=== PATIENT | male | born 1940 | race Caucasian/White ===

== ENCOUNTER 2017-02-16 12:34 | Inpatient (IN) | payer MEDICARE ==
[2017-02-16] MEDS ORDERED: PROVENTIL IH ONE (12:46)
[2017-02-16] MEDS ORDERED: LASIX IV ONE ×2 (12:48→18:33)
--- NOTE | 2017-02-16 12:56 | Emergency Department Report ---
ED Shortness of Breath HPI - General Chief Complaint: Dyspnea/Respdistress Stated Complaint: rachana - History of Present Illness Initial Comments: 76-year-old male here with recent visit from urgent care sent emergently ever after chest x-ray in the urgent care. Patient appears tachypneic and in respiratory distress. MD Complaint: shortness of breath -: Sudden Consistency: constant Improves With: nothing, oxygen, rest Worsens With: exertion - Related Data Home Medications Medication Instructions Recorded Confirmed Last Taken Unobtainable 02/17/17 02/17/17 Unknown Allergies Allergy/AdvReac Type Severity Reaction Status Date / Time Unable to Assess Allergy Unverified 02/17/17 02:33 ED Review of Systems ROS: Stated complaint: rachana Other details as noted in HPI Comment: Unobtainable due to pts medical conditions ED Past Medical Hx - Medications Home Medications: Home Medications Medication Instructions Recorded Confirmed Last Taken Type Unobtainable 02/17/17 02/17/17 Unknown History ED Physical Exam - General Limitations: Physical Limitation General appearance: alert, other (respiratory distress) - Head Head exam: Present: atraumatic, normocephalic - Eye Eye exam: Present: normal appearance - ENT ENT exam: Present: normal exam - Neck Neck exam: Present: normal inspection, tenderness - Respiratory Respiratory exam: Present: respiratory distress, rales, accessory muscle use, decreased breath sounds - Cardiovascular Cardiovascular Exam: Present: regular rate, normal heart sounds - GI/Abdominal GI/Abdominal exam: Present: soft. Absent: distended, tenderness - Extremities Exam Extremities exam: Present: pedal edema (3+) - Neurological Exam Neurological exam: Present: alert, oriented X3 ED Course Vital Signs 02/16/17 02/16/17 02/16/17 12:49 12:50 13:01 Temperature Pulse Rate 100 H 88 Pulse Rate [ Bilateral Upper Lobe] Respiratory 41 H 32 H 20 Rate Respiratory Rate [Bilateral Upper Lobe] Blood Pressure 121/73 Blood Pressure [Left] O2 Sat by Pulse 90 Oximetry 02/16/17 02/16/17 02/16/17 13:15 13:17 13:23 Temperature Pulse Rate 90 Pulse Rate [ 88 90 Bilateral Upper Lobe] Respiratory 27 H Rate Respiratory 30 H 29 H Rate [Bilateral Upper Lobe] Blood Pressure 121/73 Blood Pressure [Left] O2 Sat by Pulse Oximetry 02/16/17 02/16/17 02/16/17 13:26 13:31 13:45 Temperature 98.4 F Pulse Rate 89 100 H 97 H Pulse Rate [ Bilateral Upper Lobe] Respiratory 28 H 35 H 39 H Rate Respiratory Rate [Bilateral Upper Lobe] Blood Pressure 121/73 121/73 121/73 Blood Pressure [Left] O2 Sat by Pulse 78 L 96 Oximetry 02/16/17 02/16/17 02/16/17 14:00 14:15 14:31 Temperature Pulse Rate 89 96 H 99 H Pulse Rate [ Bilateral Upper Lobe] Respiratory 28 H 32 H 31 H Rate Respiratory Rate [Bilateral Upper Lobe] Blood Pressure 125/81 125/81 125/81 Blood Pressure [Left] O2 Sat by Pulse 100 100 82 L Oximetry 02/16/17 02/16/17 02/16/17 14:45 15:00 15:15 Temperature Pulse Rate 91 H 77 81 Pulse Rate [ Bilateral Upper Lobe] Respiratory 26 H 11 L 21 Rate Respiratory Rate [Bilateral Upper Lobe] Blood Pressure 120/83 125/77 125/77 Blood Pressure [Left] O2 Sat by Pulse 90 81 L Oximetry 02/16/17 02/16/17 02/16/17 15:30 15:45 16:00 Temperature Pulse Rate 72 90 84 Pulse Rate [ Bilateral Upper Lobe] Respiratory 20 35 H 22 Rate Respiratory Rate [Bilateral Upper Lobe] Blood Pressure 114/71 114/71 116/78 Blood Pressure [Left] O2 Sat by Pulse 53 L 81 L 54 L Oximetry 02/16/17 02/16/17 02/16/17 16:15 16:30 16:45 Temperature Pulse Rate 82 85 83 Pulse Rate [ Bilateral Upper Lobe] Respiratory 27 H 30 H 12 Rate Respiratory Rate [Bilateral Upper Lobe] Blood Pressure 116/78 119/82 119/82 Blood Pressure [Left] O2 Sat by Pulse 95 100 Oximetry 02/16/17 02/16/17 02/16/17 17:01 17:15 17:30 Temperature Pulse Rate 94 H 86 88 Pulse Rate [ Bilateral Upper Lobe] Respiratory 48 H 39 H 47 H Rate Respiratory Rate [Bilateral Upper Lobe] Blood Pressure 118/67 118/67 105/76 Blood Pressure [Left] O2 Sat by Pulse 89 100 100 Oximetry 02/16/17 02/16/17 02/16/17 17:45 18:00 18:15 Temperature Pulse Rate 82 85 86 Pulse Rate [ Bilateral Upper Lobe] Respiratory 22 36 H 38 H Rate Respiratory Rate [Bilateral Upper Lobe] Blood Pressure 105/76 108/70 105/76 Blood Pressure [Left] O2 Sat by Pulse 100 98 100 Oximetry 02/16/17 02/16/17 02/16/17 18:30 18:45 19:00 Temperature Pulse Rate 84 74 84 Pulse Rate [ Bilateral Upper Lobe] Respiratory 39 H 24 37 H Rate Respiratory Rate [Bilateral Upper Lobe] Blood Pressure 115/76 115/76 122/78 Blood Pressure [Left] O2 Sat by Pulse 97 100 Oximetry 02/16/17 02/16/17 02/16/17 19:15 19:30 19:45 Temperature Pulse Rate 80 78 81 Pulse Rate [ Bilateral Upper Lobe] Respiratory 25 H 31 H 27 H Rate Respiratory Rate [Bilateral Upper Lobe] Blood Pressure 122/78 115/73 115/73 Blood Pressure [Left] O2 Sat by Pulse Oximetry 02/16/17 02/16/17 02/16/17 20:00 20:15 20:30 Temperature Pulse Rate 85 88 91 H Pulse Rate [ Bilateral Upper Lobe] Respiratory 26 H 33 H 39 H Rate Respiratory Rate [Bilateral Upper Lobe] Blood Pressure 121/83 121/83 127/91 Blood Pressure [Left] O2 Sat by Pulse 100 Oximetry 02/16/17 02/16/17 02/16/17 20:45 20:50 21:00 Temperature 98.4 F Pulse Rate 89 88 83 Pulse Rate [ Bilateral Upper Lobe] Respiratory 38 H 26 H 27 H Rate Respiratory Rate [Bilateral Upper Lobe] Blood Pressure 127/91 123/80 Blood Pressure 115/73 [Left] O2 Sat by Pulse 100 100 100 Oximetry 02/16/17 02/16/17 02/16/17 21:15 21:30 21:45 Temperature Pulse Rate 87 78 80 Pulse Rate [ Bilateral Upper Lobe] Respiratory 41 H 19 22 Rate Respiratory Rate [Bilateral Upper Lobe] Blood Pressure 123/80 118/79 118/79 Blood Pressure [Left] O2 Sat by Pulse 100 100 100 Oximetry 02/16/17 02/16/17 02/16/17 22:03 22:15 22:30 Temperature Pulse Rate 81 80 86 Pulse Rate [ Bilateral Upper Lobe] Respiratory 27 H 26 H 28 H Rate Respiratory Rate [Bilateral Upper Lobe] Blood Pressure 118/79 118/79 125/83 Blood Pressure [Left] O2 Sat by Pulse 100 100 100 Oximetry 02/16/17 02/16/1702/16/17 22:45 23:00 23:15 Temperature Pulse Rate 86 84 78 Pulse Rate [ Bilateral Upper Lobe] Respiratory 38 H 26 H 20 Rate Respiratory Rate [Bilateral Upper Lobe] Blood Pressure 125/83 123/83 123/83 Blood Pressure [Left] O2 Sat by Pulse 100 100 100 Oximetry 02/16/17 02/16/17 02/16/17 23:31 23:33 23:41 Temperature Pulse Rate 81 85 83 Pulse Rate [ Bilateral Upper Lobe] Respiratory 32 H 28 H 28 H Rate Respiratory Rate [Bilateral Upper Lobe] Blood Pressure 123/83 120/84 120/84 Blood Pressure [Left] O2 Sat by Pulse 100 100 100 Oximetry 02/16/17 02/17/17 02/17/17 23:51 00:00 00:11 Temperature Pulse Rate 82 72 75 Pulse Rate [ Bilateral Upper Lobe] Respiratory 28 H 19 25 H Rate Respiratory Rate [Bilateral Upper Lobe] Blood Pressure 120/84 115/52 115/52 Blood Pressure [Left] O2 Sat by Pulse 100 100 100 Oximetry 02/17/17 02/17/17 02/17/17 00:21 00:30 00:41 Temperature Pulse Rate 75 73 77 Pulse Rate [ Bilateral Upper Lobe] Respiratory 22 21 26 H Rate Respiratory Rate [Bilateral Upper Lobe] Blood Pressure 115/52 107/66 107/66 Blood Pressure [Left] O2 Sat by Pulse 100 100 100 Oximetry 02/17/17 02/17/17 00:51 01:00 Temperature Pulse Rate 82 84 Pulse Rate [ Bilateral Upper Lobe] Respiratory 25 H 29 H Rate Respiratory Rate [Bilateral Upper Lobe] Blood Pressure 107/66 110/74 Blood Pressure [Left] O2 Sat by Pulse 100 Oximetry ED Medical Decision Making - Lab Data Result diagrams: 02/21/17 07:55 02/21/17 07:55 Lab Results 02/16/17 02/16/17 02/16/17 Range/Units 13:28 13:44 13:44 WBC 10.2 (4.5-11.0) K/mm3 RBC 3.92 (3.65-5.03) M/mm3 Hgb 10.9 L (11.8-15.2) gm/dl Hct 34.1 L (35.5-45.6) % MCV 87 (84-94) fl MCH 28 (28-32) pg MCHC 32 (32-34) % RDW 17.6 H (13.2-15.2) % Plt Count 241 (140-440) K/mm3 Lymph % (Auto) 7.1 L (13.4-35.0) % [place] % (Auto) 8.1 H (0.0-7.3) % Eos % (Auto) 0.0 (0.0-4.3) % Baso % (Auto) 0.2 (0.0-1.8) % Lymph # 0.7 L (1.2-5.4) K/mm3 [place] # 0.8 (0.0-0.8) K/mm3 Eos # 0.0 (0.0-0.4) K/mm3 Baso # 0.0 (0.0-0.1) K/mm3 Add Manual Diff Total Counted Seg Neutrophils % 84.6 H (40.0-70.0) % Seg Neuts % (Manual) (40.0-70.0) % Band Neutrophils % % Lymphocytes % (Manual) (13.4-35.0) % Reactive Lymphs % (Man) % Monocytes % (Manual) (0.0-7.3) % Eosinophils % (Manual) (0.0-4.3) % Basophils % (Manual) (0.0-1.8) % Metamyelocytes % % Myelocytes % % Promyelocytes % % Blast Cells % % Nucleated RBC % Seg Neutrophils # 8.6 H (1.8-7.7) K/mm3 Seg Neutrophils # Man (1.8-7.7) K/mm3 Band Neutrophils # K/mm3 Lymphocytes # (Manual) (1.2-5.4) K/mm3 Abs React Lymphs (Man) K/mm3 Monocytes # (Manual) (0.0-0.8) K/mm3 Eosinophils # (Manual) (0.0-0.4) K/mm3 Basophils # (Manual) (0.0-0.1) K/mm3 Metamyelocytes # K/mm3 Myelocytes # K/mm3 Promyelocytes # K/mm3 Blast Cells # K/mm3 WBC Morphology Hypersegmented Neuts Hyposegmented Neuts Hypogranular Neuts Smudge Cells Toxic Granulation Toxic Vacuolation Dohle Bodies Pelger-Huet Anomaly Mary Rods Platelet Estimate Clumped Platelets Plt Clumps, EDTA Large Platelets Giant Platelets Platelet Satelliting Plt Morphology Comment RBC Morphology Dimorphic RBCs Polychromasia Hypochromasia Poikilocytosis Anisocytosis Microcytosis Macrocytosis Spherocytes Pappenheimer Bodies Sickle Cells Target Cells Tear Drop Cells Ovalocytes Helmet Cells [place] Bodies [place] Rings [place] Cells Bite Cells Crenated Cell Elliptocytes Acanthocytes (Spur) Rouleaux Hemoglobin C Crystals Schistocytes Malaria parasites Cecil Bodies Hem Pathologist Commnt PT 16.4 H (12.2-14.9) Sec. INR 1.33 H (0.87-1.13) APTT (24.2-36.6) Sec. Heparin Anti-Xa Level (0.3-0.7) U.I./ml POC ABG pH 7.407 (7.35-7.45) POC ABG pCO2 29.8 L (35-45) POC ABG pO2 544 H (80-105) POC ABG HCO3 18.8 POC ABG Total CO2 20 POC ABG O2 Sat 100 POC ABG Base Excess -6 FiO2 100 % Sodium (137-145) mmol/L Potassium (3.6-5.0) mmol/L Chloride (98-107) mmol/L Carbon Dioxide (22-30) mmol/L Anion Gap mmol/L BUN (9-20) mg/dL Creatinine (0.8-1.5) mg/dL Estimated GFR ml/min BUN/Creatinine Ratio % Glucose (75-100) mg/dL Lactic Acid (0.7-2.0) mmol/L Calcium (8.4-10.2) mg/dL Total Bilirubin (0.1-1.2) mg/dL AST (5-40) units/L ALT (7-56) units/L Alkaline Phosphatase (35-129) units/L Total Creatine Kinase (55-170) units/L CK-MB (CK-2) (0.0-4.0) ng/mL CK-MB (CK-2) Rel Index (0-4) Troponin T (0.00-0.029) ng/mL NT-Pro-B Natriuret Pep (0-900) pg/mL Total Protein (6.3-8.2) g/dL Albumin (3.9-5) g/dL Albumin/Globulin Ratio % Triglycerides (2-149) mg/dL Cholesterol (50-199) mg/dL LDL Cholesterol Direct (50-130) mg/dL HDL Cholesterol (40-59) mg/dL Cholesterol/HDL Ratio % Urine Color (Yellow) Urine Turbidity (Clear) Urine pH (5.0-7.0) Ur Specific [place] (1.003-1.030) Urine Protein (Negative) mg/dL Urine Glucose (UA) (Negative) mg/dL Urine Ketones (Negative) mg/dL Urine Blood (Negative) Urine Nitrite (Negative) Urine Bilirubin (Negative) Urine Urobilinogen (<2.0) mg/dL Ur Leukocyte Esterase (Negative) Urine WBC (Auto) (0.0-6.0) /HPF Urine RBC (Auto) (0.0-6.0) /HPF Hyaline Casts /LPF Urine Mucus /HPF 02/16/17 02/16/17 02/16/17 Range/Units 13:44 13:44 13:44 WBC (4.5-11.0) K/mm3 RBC (3.65-5.03) M/mm3 Hgb (11.8-15.2) gm/dl Hct (35.5-45.6) % MCV (84-94) fl MCH (28-32) pg MCHC (32-34) % RDW (13.2-15.2) % Plt Count (140-440) K/mm3 Lymph % (Auto) (13.4-35.0) % [place] % (Auto) (0.0-7.3) % Eos % (Auto) (0.0-4.3) % Baso % (Auto) (0.0-1.8) % Lymph # (1.2-5.4) K/mm3 [place] # (0.0-0.8) K/mm3 Eos # (0.0-0.4) K/mm3 Baso # (0.0-0.1) K/mm3 Add Manual Diff Total Counted Seg Neutrophils % (40.0-70.0) % Seg Neuts % (Manual) (40.0-70.0) % Band Neutrophils % % Lymphocytes % (Manual) (13.4-35.0) % Reactive Lymphs % (Man) % Monocytes % (Manual) (0.0-7.3) % Eosinophils % (Manual) (0.0-4.3) % Basophils % (Manual) (0.0-1.8) % Metamyelocytes % % Myelocytes % % Promyelocytes % % Blast Cells % % Nucleated RBC % Seg Neutrophils # (1.8-7.7) K/mm3 Seg Neutrophils # Man (1.8-7.7) K/mm3 Band Neutrophils # K/mm3 Lymphocytes # (Manual) (1.2-5.4) K/mm3 Abs React Lymphs (Man) K/mm3 Monocytes # (Manual) (0.0-0.8) K/mm3 Eosinophils # (Manual) (0.0-0.4) K/mm3 Basophils # (Manual) (0.0-0.1) K/mm3 Metamyelocytes # K/mm3 Myelocytes # K/mm3 Promyelocytes # K/mm3 Blast Cells # K/mm3 WBC Morphology Hypersegmented Neuts Hyposegmented Neuts Hypogranular Neuts Smudge Cells Toxic Granulation Toxic Vacuolation Dohle Bodies Pelger-Huet Anomaly Mary Rods Platelet Estimate Clumped Platelets Plt Clumps, EDTA Large Platelets Giant Platelets Platelet Satelliting Plt Morphology Comment RBC Morphology Dimorphic RBCs Polychromasia Hypochromasia Poikilocytosis Anisocytosis Microcytosis Macrocytosis Spherocytes Pappenheimer Bodies Sickle Cells Target Cells Tear Drop Cells Ovalocytes Helmet Cells [place] Bodies [place] Rings [place] Cells Bite Cells Crenated Cell Elliptocytes Acanthocytes (Spur) Rouleaux Hemoglobin C Crystals Schistocytes Malaria parasites Cecil Bodies Hem Pathologist Commnt PT (12.2-14.9) Sec. INR (0.87-1.13) APTT (24.2-36.6) Sec. Heparin Anti-Xa Level (0.3-0.7) U.I./ml POC ABG pH (7.35-7.45) POC ABG pCO2 (35-45) POC ABG pO2 (80-105) POC ABG HCO3 POC ABG Total CO2 POC ABG O2 Sat POC ABG Base Excess FiO2 % Sodium 138 (137-145) mmol/L Potassium 4.9 (3.6-5.0) mmol/L Chloride 102.1 (98-107) mmol/L Carbon Dioxide 15 L (22-30) mmol/L Anion Gap 26 mmol/L BUN 61 H (9-20) mg/dL Creatinine 1.8 H (0.8-1.5) mg/dL Estimated GFR 37 ml/min BUN/Creatinine Ratio 33.88 % Glucose 121 H (75-100) mg/dL Lactic Acid 4.10 H* (0.7-2.0) mmol/L Calcium 8.5 (8.4-10.2) mg/dL Total Bilirubin 1.30 H (0.1-1.2) mg/dL AST 40 (5-40) units/L ALT 45 (7-56) units/L Alkaline Phosphatase 117 (35-129) units/L Total Creatine Kinase (55-170) units/L CK-MB (CK-2) (0.0-4.0) ng/mL CK-MB (CK-2) Rel Index (0-4) Troponin T 0.860 H* (0.00-0.029) ng/mL NT-Pro-B Natriuret Pep 32686 H (0-900) pg/mL Total Protein 7.5 (6.3-8.2) g/dL Albumin 3.5 L (3.9-5) g/dL Albumin/Globulin Ratio 0.9 % Triglycerides 86 (2-149) mg/dL Cholesterol 192 (50-199) mg/dL LDL Cholesterol Direct 131 H (50-130) mg/dL HDL Cholesterol 44 (40-59) mg/dL Cholesterol/HDL Ratio 4.36 % Urine Color (Yellow) Urine Turbidity (Clear) Urine pH (5.0-7.0) Ur Specific [place] (1.003-1.030) Urine Protein (Negative) mg/dL Urine Glucose (UA) (Negative) mg/dL Urine Ketones (Negative) mg/dL Urine Blood (Negative) Urine Nitrite (Negative) Urine Bilirubin (Negative) Urine Urobilinogen (<2.0) mg/dL Ur Leukocyte Esterase (Negative) Urine WBC (Auto) (0.0-6.0) /HPF Urine RBC (Auto) (0.0-6.0) /HPF Hyaline Casts /LPF Urine Mucus /HPF 02/16/17 02/17/17 02/17/17 Range/Units Unknown 10:24 10:24 WBC 9.4 (4.5-11.0) K/mm3 RBC 4.01 (3.65-5.03) M/mm3 Hgb 10.7 L (11.8-15.2) gm/dl Hct 33.2 L (35.5-45.6) % MCV 83 L (84-94) fl MCH 27 L (28-32) pg MCHC 32 (32-34) % RDW 17.4 H (13.2-15.2) % Plt Count 242 (140-440) K/mm3 Lymph % (Auto) (13.4-35.0) % [place] % (Auto) (0.0-7.3) % Eos % (Auto) (0.0-4.3) % Baso % (Auto) (0.0-1.8) % Lymph # (1.2-5.4) K/mm3 [place] # (0.0-0.8) K/mm3 Eos # (0.0-0.4) K/mm3 Baso # (0.0-0.1) K/mm3 Add Manual Diff Complete Total Counted 100 Seg Neutrophils % (40.0-70.0) % Seg Neuts % (Manual) 91.0 H (40.0-70.0) % Band Neutrophils % 0 % Lymphocytes % (Manual) 5.0 L (13.4-35.0) % Reactive Lymphs % (Man) 0 % Monocytes % (Manual) 4.0 (0.0-7.3) % Eosinophils % (Manual) 0 (0.0-4.3) % Basophils % (Manual) 0 (0.0-1.8) % Metamyelocytes % 0 % Myelocytes % 0 % Promyelocytes % 0 % Blast Cells % 0 % Nucleated RBC % Not Reportable Seg Neutrophils # (1.8-7.7) K/mm3 Seg Neutrophils # Man 8.6 H (1.8-7.7) K/mm3 Band Neutrophils # 0.0 K/mm3 Lymphocytes # (Manual) 0.5 L (1.2-5.4) K/mm3 Abs React Lymphs (Man) 0.0 K/mm3 Monocytes # (Manual) 0.4 (0.0-0.8) K/mm3 Eosinophils # (Manual) 0.0 (0.0-0.4) K/mm3 Basophils # (Manual) 0.0 (0.0-0.1) K/mm3 Metamyelocytes # 0.0 K/mm3 Myelocytes # 0.0 K/mm3 Promyelocytes # 0.0 K/mm3 Blast Cells # 0.0 K/mm3 WBC Morphology Not Reportable Hypersegmented Neuts Not Reportable Hyposegmented Neuts Not Reportable Hypogranular Neuts Not Reportable Smudge Cells Not Reportable Toxic Granulation Not Reportable Toxic Vacuolation Not Reportable Dohle Bodies Not Reportable Pelger-Huet Anomaly Not Reportable Mary Rods Not Reportable Platelet Estimate Not Reportable Clumped Platelets Not Reportable Plt Clumps, EDTA Not Reportable Large Platelets Not Reportable Giant Platelets Not Reportable Platelet Satelliting Not Reportable Plt Morphology Comment Not Reportable RBC Morphology Not Reportable Dimorphic RBCs Not Reportable Polychromasia Not Reportable Hypochromasia Not Reportable Poikilocytosis 2+ Anisocytosis Not Reportable Microcytosis Not Reportable Macrocytosis Not Reportable Spherocytes 1+ Pappenheimer Bodies Not Reportable Sickle Cells Not Reportable Target Cells Not Reportable Tear Drop Cells Not Reportable Ovalocytes 1+ Helmet Cells Not Reportable [place] Bodies Not Reportable [place] Rings Not Reportable [place] Cells Not Reportable Bite Cells Not Reportable Crenated Cell Not Reportable Elliptocytes 1+ Acanthocytes (Spur) Not Reportable Rouleaux Not Reportable Hemoglobin C Crystals Not Reportable Schistocytes 1+ Malaria parasites Not Reportable Cecil Bodies Not Reportable Hem Pathologist Commnt No PT (12.2-14.9) Sec. INR (0.87-1.13) APTT (24.2-36.6) Sec. Heparin Anti-Xa Level (0.3-0.7) U.I./ml POC ABG pH (7.35-7.45) POC ABG pCO2 (35-45) POC ABG pO2 (80-105) POC ABG HCO3 POC ABG Total CO2 POC ABG O2 Sat POC ABG Base Excess FiO2 % Sodium 145 D (137-145) mmol/L Potassium 3.7 D (3.6-5.0) mmol/L Chloride 105.7 (98-107) mmol/L Carbon Dioxide 22 D (22-30) mmol/L Anion Gap 21 mmol/L BUN 58 H (9-20) mg/dL Creatinine 1.3 (0.8-1.5) mg/dL Estimated GFR 54 ml/min BUN/Creatinine Ratio 44.61 % Glucose 97 (75-100) mg/dL Lactic Acid (0.7-2.0) mmol/L Calcium 8.3 L (8.4-10.2) mg/dL Total Bilirubin 1.00 (0.1-1.2) mg/dL AST 30 (5-40) units/L ALT 32 (7-56) units/L Alkaline Phosphatase 94 (35-129) units/L Total Creatine Kinase (55-170) units/L CK-MB (CK-2) (0.0-4.0) ng/mL CK-MB (CK-2) Rel Index (0-4) Troponin T (0.00-0.029) ng/mL NT-Pro-B Natriuret Pep (0-900) pg/mL Total Protein 6.5 (6.3-8.2) g/dL Albumin 3.0 L (3.9-5) g/dL Albumin/Globulin Ratio 0.9 % Triglycerides (2-149) mg/dL Cholesterol (50-199) mg/dL LDL Cholesterol Direct (50-130) mg/dL HDL Cholesterol (40-59) mg/dL Cholesterol/HDL Ratio % Urine Color Yellow (Yellow) Urine Turbidity Clear (Clear) Urine pH 5.0 (5.0-7.0) Ur Specific [place] 1.013 (1.003-1.030) Urine Protein 30 mg/dl (Negative) mg/dL Urine Glucose (UA) Neg (Negative) mg/dL Urine Ketones Neg (Negative) mg/dL Urine Blood Sm (Negative) Urine Nitrite Neg (Negative) Urine Bilirubin Neg (Negative) Urine Urobilinogen < 2.0 (<2.0) mg/dL Ur Leukocyte Esterase Neg (Negative) Urine WBC (Auto) 1.0 (0.0-6.0) /HPF Urine RBC (Auto) 2.0 (0.0-6.0) /HPF Hyaline Casts 1 /LPF Urine Mucus Few /HPF 02/17/17 02/17/17 02/17/17 Range/Units 10:24 10:24 10:24 WBC (4.5-11.0) K/mm3 RBC (3.65-5.03) M/mm3 Hgb (11.8-15.2) gm/dl Hct (35.5-45.6) % MCV (84-94) fl MCH (28-32) pg MCHC (32-34) % RDW (13.2-15.2) % Plt Count (140-440) K/mm3 Lymph % (Auto) (13.4-35.0) % [place] % (Auto) (0.0-7.3) % Eos % (Auto) (0.0-4.3) % Baso % (Auto) (0.0-1.8) % Lymph # (1.2-5.4) K/mm3 [place] # (0.0-0.8) K/mm3 Eos # (0.0-0.4) K/mm3 Baso # (0.0-0.1) K/mm3 Add Manual Diff Total Counted Seg Neutrophils % (40.0-70.0) % Seg Neuts % (Manual) (40.0-70.0) % Band Neutrophils % % Lymphocytes % (Manual) (13.4-35.0) % Reactive Lymphs % (Man) % Monocytes % (Manual) (0.0-7.3) % Eosinophils % (Manual) (0.0-4.3) % Basophils % (Manual) (0.0-1.8) % Metamyelocytes % % Myelocytes % % Promyelocytes % % Blast Cells % % Nucleated RBC % Seg Neutrophils # (1.8-7.7) K/mm3 Seg Neutrophils # Man (1.8-7.7) K/mm3 Band Neutrophils # K/mm3 Lymphocytes # (Manual) (1.2-5.4) K/mm3 Abs React Lymphs (Man) K/mm3 Monocytes # (Manual) (0.0-0.8) K/mm3 Eosinophils # (Manual) (0.0-0.4) K/mm3 Basophils # (Manual) (0.0-0.1) K/mm3 Metamyelocytes # K/mm3 Myelocytes # K/mm3 Promyelocytes # K/mm3 Blast Cells # K/mm3 WBC Morphology Hypersegmented Neuts Hyposegmented Neuts Hypogranular Neuts Smudge Cells Toxic Granulation Toxic Vacuolation Dohle Bodies Pelger-Huet Anomaly Mary Rods Platelet Estimate Clumped Platelets Plt Clumps, EDTA Large Platelets Giant Platelets Platelet Satelliting Plt Morphology Comment RBC Morphology Dimorphic RBCs Polychromasia Hypochromasia Poikilocytosis Anisocytosis Microcytosis Macrocytosis Spherocytes Pappenheimer Bodies Sickle Cells Target Cells Tear Drop Cells Ovalocytes Helmet Cells [place] Bodies [place] Rings [place] Cells Bite Cells Crenated Cell Elliptocytes Acanthocytes (Spur) Rouleaux Hemoglobin C Crystals Schistocytes Malaria parasites Cecil Bodies Hem Pathologist Commnt PT (12.2-14.9) Sec. INR (0.87-1.13) APTT (24.2-36.6) Sec. Heparin Anti-Xa Level (0.3-0.7) U.I./ml POC ABG pH (7.35-7.45) POC ABG pCO2 (35-45) POC ABG pO2 (80-105) POC ABG HCO3 POC ABG Total CO2 POC ABG O2 Sat POC ABG Base Excess FiO2 % Sodium (137-145) mmol/L Potassium (3.6-5.0) mmol/L Chloride (98-107) mmol/L Carbon Dioxide (22-30) mmol/L Anion Gap mmol/L BUN (9-20) mg/dL Creatinine (0.8-1.5) mg/dL Estimated GFR ml/min BUN/Creatinine Ratio % Glucose (75-100) mg/dL Lactic Acid 1.60 (0.7-2.0) mmol/L Calcium (8.4-10.2) mg/dL Total Bilirubin (0.1-1.2) mg/dL AST (5-40) units/L ALT (7-56) units/L Alkaline Phosphatase (35-129) units/L Total Creatine Kinase 205 H (55-170) units/L CK-MB (CK-2) 7.5 H (0.0-4.0) ng/mL CK-MB (CK-2) Rel Index 3.6 (0-4) Troponin T 0.877 H* (0.00-0.029) ng/mL NT-Pro-B Natriuret Pep (0-900) pg/mL Total Protein (6.3-8.2) g/dL Albumin (3.9-5) g/dL Albumin/Globulin Ratio % Triglycerides (2-149) mg/dL Cholesterol (50-199) mg/dL LDL Cholesterol Direct (50-130) mg/dL HDL Cholesterol (40-59) mg/dL Cholesterol/HDL Ratio % Urine Color (Yellow) Urine Turbidity (Clear) Urine pH (5.0-7.0) Ur Specific [place] (1.003-1.030) Urine Protein (Negative) mg/dL Urine Glucose (UA) (Negative) mg/dL Urine Ketones (Negative) mg/dL Urine Blood (Negative) Urine Nitrite (Negative) Urine Bilirubin (Negative) Urine Urobilinogen (<2.0) mg/dL Ur Leukocyte Esterase (Negative) Urine WBC (Auto) (0.0-6.0) /HPF Urine RBC (Auto) (0.0-6.0) /HPF Hyaline Casts /LPF Urine Mucus /HPF 02/17/17 02/17/17 02/17/17 Range/Units 17:04 17:11 17:12 WBC (4.5-11.0) K/mm3 RBC (3.65-5.03) M/mm3 Hgb 10.8 L (11.8-15.2) gm/dl Hct 33.5 L (35.5-45.6) % MCV (84-94) fl MCH (28-32) pg MCHC (32-34) % RDW (13.2-15.2) % Plt Count 251 (140-440) K/mm3 Lymph % (Auto) (13.4-35.0) % [place] % (Auto) (0.0-7.3) % Eos % (Auto) (0.0-4.3) % Baso % (Auto) (0.0-1.8) % Lymph # (1.2-5.4) K/mm3 [place] # (0.0-0.8) K/mm3 Eos # (0.0-0.4) K/mm3 Baso # (0.0-0.1) K/mm3 Add Manual Diff Total Counted Seg Neutrophils % (40.0-70.0) % Seg Neuts % (Manual) (40.0-70.0) % Band Neutrophils % % Lymphocytes % (Manual) (13.4-35.0) % Reactive Lymphs % (Man) % Monocytes % (Manual) (0.0-7.3) % Eosinophils % (Manual) (0.0-4.3) % Basophils % (Manual) (0.0-1.8) % Metamyelocytes % % Myelocytes % % Promyelocytes % % Blast Cells % % Nucleated RBC % Seg Neutrophils # (1.8-7.7) K/mm3 Seg Neutrophils # Man (1.8-7.7) K/mm3 Band Neutrophils # K/mm3 Lymphocytes # (Manual) (1.2-5.4) K/mm3 Abs React Lymphs (Man) K/mm3 Monocytes # (Manual) (0.0-0.8) K/mm3 Eosinophils # (Manual) (0.0-0.4) K/mm3 Basophils # (Manual) (0.0-0.1) K/mm3 Metamyelocytes # K/mm3 Myelocytes # K/mm3 Promyelocytes # K/mm3 Blast Cells # K/mm3 WBC Morphology Hypersegmented Neuts Hyposegmented Neuts Hypogranular Neuts Smudge Cells Toxic Granulation Toxic Vacuolation Dohle Bodies Pelger-Huet Anomaly Mary Rods Platelet Estimate Clumped Platelets Plt Clumps, EDTA Large Platelets Giant Platelets Platelet Satelliting Plt Morphology Comment RBC Morphology Dimorphic RBCs Polychromasia Hypochromasia Poikilocytosis Anisocytosis Microcytosis Macrocytosis Spherocytes Pappenheimer Bodies Sickle Cells Target Cells Tear Drop Cells Ovalocytes Helmet Cells [place] Bodies [place] Rings [place] Cells Bite Cells Crenated Cell Elliptocytes Acanthocytes (Spur) Rouleaux Hemoglobin C Crystals Schistocytes Malaria parasites Cecil Bodies Hem Pathologist Commnt PT 16.7 H (12.2-14.9) Sec. INR 1.36 H (0.87-1.13) APTT 36.0 (24.2-36.6) Sec. Heparin Anti-Xa Level (0.3-0.7) U.I./ml POC ABG pH (7.35-7.45) POC ABG pCO2 (35-45) POC ABG pO2 (80-105) POC ABG HCO3 POC ABG Total CO2 POC ABG O2 Sat POC ABG Base Excess FiO2 % Sodium (137-145) mmol/L Potassium (3.6-5.0) mmol/L Chloride (98-107) mmol/L Carbon Dioxide (22-30) mmol/L Anion Gap mmol/L BUN (9-20) mg/dL Creatinine (0.8-1.5) mg/dL Estimated GFR ml/min BUN/Creatinine Ratio % Glucose (75-100) mg/dL Lactic Acid (0.7-2.0) mmol/L Calcium (8.4-10.2) mg/dL Total Bilirubin (0.1-1.2) mg/dL AST (5-40) units/L ALT (7-56) units/L Alkaline Phosphatase (35-129) units/L Total Creatine Kinase 258 H (55-170) units/L CK-MB (CK-2) 6.9 H (0.0-4.0) ng/mL CK-MB (CK-2) Rel Index 2.6 (0-4) Troponin T 0.775 H* (0.00-0.029) ng/mL NT-Pro-B Natriuret Pep (0-900) pg/mL Total Protein (6.3-8.2) g/dL Albumin (3.9-5) g/dL Albumin/Globulin Ratio % Triglycerides (2-149) mg/dL Cholesterol (50-199) mg/dL LDL Cholesterol Direct (50-130) mg/dL HDL Cholesterol (40-59) mg/dL Cholesterol/HDL Ratio % Urine Color (Yellow) Urine Turbidity (Clear) Urine pH (5.0-7.0) Ur Specific [place] (1.003-1.030) Urine Protein (Negative) mg/dL Urine Glucose (UA) (Negative) mg/dL Urine Ketones (Negative) mg/dL Urine Blood (Negative) Urine Nitrite (Negative) Urine Bilirubin (Negative) Urine Urobilinogen (<2.0) mg/dL Ur Leukocyte Esterase (Negative) Urine WBC (Auto) (0.0-6.0) /HPF Urine RBC (Auto) (0.0-6.0) /HPF Hyaline Casts /LPF Urine Mucus /HPF 02/17/17 02/18/17 02/18/17 Range/Units 22:45 02:20 21:50 WBC (4.5-11.0) K/mm3 RBC (3.65-5.03) M/mm3 Hgb (11.8-15.2) gm/dl Hct (35.5-45.6) % MCV (84-94) fl MCH (28-32) pg MCHC (32-34) % RDW (13.2-15.2) % Plt Count (140-440) K/mm3 Lymph % (Auto) (13.4-35.0) % [place] % (Auto) (0.0-7.3) % Eos % (Auto) (0.0-4.3) % Baso % (Auto) (0.0-1.8) % Lymph # (1.2-5.4) K/mm3 [place] # (0.0-0.8) K/mm3 Eos # (0.0-0.4) K/mm3 Baso # (0.0-0.1) K/mm3 Add Manual Diff Total Counted Seg Neutrophils % (40.0-70.0) % Seg Neuts % (Manual) (40.0-70.0) % Band Neutrophils % % Lymphocytes % (Manual) (13.4-35.0) % Reactive Lymphs % (Man) % Monocytes % (Manual) (0.0-7.3) % Eosinophils % (Manual) (0.0-4.3) % Basophils % (Manual) (0.0-1.8) % Metamyelocytes % % Myelocytes % % Promyelocytes % % Blast Cells % % Nucleated RBC % Seg Neutrophils # (1.8-7.7) K/mm3 Seg Neutrophils # Man (1.8-7.7) K/mm3 Band Neutrophils # K/mm3 Lymphocytes # (Manual) (1.2-5.4) K/mm3 Abs React Lymphs (Man) K/mm3 Monocytes # (Manual) (0.0-0.8) K/mm3 Eosinophils # (Manual) (0.0-0.4) K/mm3 Basophils # (Manual) (0.0-0.1) K/mm3 Metamyelocytes # K/mm3 Myelocytes # K/mm3 Promyelocytes # K/mm3 Blast Cells # K/mm3 WBC Morphology Hypersegmented Neuts Hyposegmented Neuts Hypogranular Neuts Smudge Cells Toxic Granulation Toxic Vacuolation Dohle Bodies Pelger-Huet Anomaly Mary Rods Platelet Estimate Clumped Platelets Plt Clumps, EDTA Large Platelets Giant Platelets Platelet Satelliting Plt Morphology Comment RBC Morphology Dimorphic RBCs Polychromasia Hypochromasia Poikilocytosis Anisocytosis Microcytosis Macrocytosis Spherocytes Pappenheimer Bodies Sickle Cells Target Cells Tear Drop Cells Ovalocytes Helmet Cells [place] Bodies [place] Rings [place] Cells Bite Cells Crenated Cell Elliptocytes Acanthocytes (Spur) Rouleaux Hemoglobin C Crystals Schistocytes Malaria parasites Cecil Bodies Hem Pathologist Commnt PT (12.2-14.9) Sec. INR (0.87-1.13) APTT (24.2-36.6) Sec. Heparin Anti-Xa Level 0.70 0.62 (0.3-0.7) U.I./ml POC ABG pH (7.35-7.45) POC ABG pCO2 (35-45) POC ABG pO2 (80-105) POC ABG HCO3 POC ABG Total CO2 POC ABG O2 Sat POC ABG Base Excess FiO2 % Sodium 148 H (137-145) mmol/L Potassium 3.3 L (3.6-5.0) mmol/L Chloride 107.1 H (98-107) mmol/L Carbon Dioxide 24 (22-30) mmol/L Anion Gap 20 mmol/L BUN 47 H (9-20) mg/dL Creatinine 1.1 (0.8-1.5) mg/dL Estimated GFR > 60 ml/min BUN/Creatinine Ratio 42.72 % Glucose 96 (75-100) mg/dL Lactic Acid (0.7-2.0) mmol/L Calcium 8.4 (8.4-10.2) mg/dL Total Bilirubin (0.1-1.2) mg/dL AST (5-40) units/L ALT (7-56) units/L Alkaline Phosphatase (35-129) units/L Total Creatine Kinase 241 H (55-170) units/L CK-MB (CK-2) 4.9 H (0.0-4.0) ng/mL CK-MB (CK-2) Rel Index (0-4) Troponin T 0.949 H* D (0.00-0.029) ng/mL NT-Pro-B Natriuret Pep (0-900) pg/mL Total Protein (6.3-8.2) g/dL Albumin (3.9-5) g/dL Albumin/Globulin Ratio % Triglycerides (2-149) mg/dL Cholesterol (50-199) mg/dL LDL Cholesterol Direct (50-130) mg/dL HDL Cholesterol (40-59) mg/dL Cholesterol/HDL Ratio % Urine Color (Yellow) Urine Turbidity (Clear) Urine pH (5.0-7.0) Ur Specific [place] (1.003-1.030) Urine Protein (Negative) mg/dL Urine Glucose (UA) (Negative) mg/dL Urine Ketones (Negative) mg/dL Urine Blood (Negative) Urine Nitrite (Negative) Urine Bilirubin (Negative) Urine Urobilinogen (<2.0) mg/dL Ur Leukocyte Esterase (Negative) Urine WBC (Auto) (0.0-6.0) /HPF Urine RBC (Auto) (0.0-6.0) /HPF Hyaline Casts /LPF Urine Mucus /HPF 02/19/17 02/19/17 02/19/17 Range/Units 03:52 03:52 20:49 WBC (4.5-11.0) K/mm3 RBC (3.65-5.03) M/mm3 Hgb 11.7 L (11.8-15.2) gm/dl Hct 36.4 (35.5-45.6) % MCV (84-94) fl MCH (28-32) pg MCHC (32-34) % RDW (13.2-15.2) % Plt Count 264 (140-440) K/mm3 Lymph % (Auto) (13.4-35.0) % [place] % (Auto) (0.0-7.3) % Eos % (Auto) (0.0-4.3) % Baso % (Auto) (0.0-1.8) % Lymph # (1.2-5.4) K/mm3 [place] # (0.0-0.8) K/mm3 Eos # (0.0-0.4) K/mm3 Baso # (0.0-0.1) K/mm3 Add Manual Diff Total Counted Seg Neutrophils % (40.0-70.0) % Seg Neuts % (Manual) (40.0-70.0) % Band Neutrophils % % Lymphocytes % (Manual) (13.4-35.0) % Reactive Lymphs % (Man) % Monocytes % (Manual) (0.0-7.3) % Eosinophils % (Manual) (0.0-4.3) % Basophils % (Manual) (0.0-1.8) % Metamyelocytes % % Myelocytes % % Promyelocytes % % Blast Cells % % Nucleated RBC % Seg Neutrophils # (1.8-7.7) K/mm3 Seg Neutrophils # Man (1.8-7.7) K/mm3 Band Neutrophils # K/mm3 Lymphocytes # (Manual) (1.2-5.4) K/mm3 Abs React Lymphs (Man) K/mm3 Monocytes # (Manual) (0.0-0.8) K/mm3 Eosinophils # (Manual) (0.0-0.4) K/mm3 Basophils # (Manual) (0.0-0.1) K/mm3 Metamyelocytes # K/mm3 Myelocytes # K/mm3 Promyelocytes # K/mm3 Blast Cells # K/mm3 WBC Morphology Hypersegmented Neuts Hyposegmented Neuts Hypogranular Neuts Smudge Cells Toxic Granulation Toxic Vacuolation Dohle Bodies Pelger-Huet Anomaly Mary Rods Platelet Estimate Clumped Platelets Plt Clumps, EDTA Large Platelets Giant Platelets Platelet Satelliting Plt Morphology Comment RBC Morphology Dimorphic RBCs Polychromasia Hypochromasia Poikilocytosis Anisocytosis Microcytosis Macrocytosis Spherocytes Pappenheimer Bodies Sickle Cells Target Cells Tear Drop Cells Ovalocytes Helmet Cells [place] Bodies [place] Rings [place] Cells Bite Cells Crenated Cell Elliptocytes Acanthocytes (Spur) Rouleaux Hemoglobin C Crystals Schistocytes Malaria parasites Cecil Bodies Hem Pathologist Commnt PT (12.2-14.9) Sec. INR (0.87-1.13) APTT (24.2-36.6) Sec. Heparin Anti-Xa Level 0.78 H (0.3-0.7) U.I./ml POC ABG pH (7.35-7.45) POC ABG pCO2 (35-45) POC ABG pO2 (80-105) POC ABG HCO3 POC ABG Total CO2 POC ABG O2 Sat POC ABG Base Excess FiO2 % Sodium 150 H (137-145) mmol/L Potassium 3.8 (3.6-5.0) mmol/L Chloride 109.4 H (98-107) mmol/L Carbon Dioxide 27 (22-30) mmol/L Anion Gap 17 mmol/L BUN 34 H (9-20) mg/dL Creatinine 1.1 (0.8-1.5) mg/dL Estimated GFR > 60 ml/min BUN/Creatinine Ratio 30.90 % Glucose 113 H (75-100) mg/dL Lactic Acid (0.7-2.0) mmol/L Calcium 8.5 (8.4-10.2) mg/dL Total Bilirubin (0.1-1.2) mg/dL AST (5-40) units/L ALT (7-56) units/L Alkaline Phosphatase (35-129) units/L Total Creatine Kinase (55-170) units/L CK-MB (CK-2) (0.0-4.0) ng/mL CK-MB (CK-2) Rel Index (0-4) Troponin T (0.00-0.029) ng/mL NT-Pro-B Natriuret Pep (0-900) pg/mL Total Protein (6.3-8.2) g/dL Albumin (3.9-5) g/dL Albumin/Globulin Ratio % Triglycerides (2-149) mg/dL Cholesterol (50-199) mg/dL LDL Cholesterol Direct (50-130) mg/dL HDL Cholesterol (40-59) mg/dL Cholesterol/HDL Ratio % Urine Color (Yellow) Urine Turbidity (Clear) Urine pH (5.0-7.0) Ur Specific [place] (1.003-1.030) Urine Protein (Negative) mg/dL Urine Glucose (UA) (Negative) mg/dL Urine Ketones (Negative) mg/dL Urine Blood (Negative) Urine Nitrite (Negative) Urine Bilirubin (Negative) Urine Urobilinogen (<2.0) mg/dL Ur Leukocyte Esterase (Negative) Urine WBC (Auto) (0.0-6.0) /HPF Urine RBC (Auto) (0.0-6.0) /HPF Hyaline Casts /LPF Urine Mucus /HPF 02/20/17 02/20/17 02/20/17 Range/Units 06:27 14:10 20:28 WBC (4.5-11.0) K/mm3 RBC (3.65-5.03) M/mm3 Hgb (11.8-15.2) gm/dl Hct (35.5-45.6) % MCV (84-94) fl MCH (28-32) pg MCHC (32-34) % RDW (13.2-15.2) % Plt Count (140-440) K/mm3 Lymph % (Auto) (13.4-35.0) % [place] % (Auto) (0.0-7.3) % Eos % (Auto) (0.0-4.3) % Baso % (Auto) (0.0-1.8) % Lymph # (1.2-5.4) K/mm3 [place] # (0.0-0.8) K/mm3 Eos # (0.0-0.4) K/mm3 Baso # (0.0-0.1) K/mm3 Add Manual Diff Total Counted Seg Neutrophils % (40.0-70.0) % Seg Neuts % (Manual) (40.0-70.0) % Band Neutrophils % % Lymphocytes % (Manual) (13.4-35.0) % Reactive Lymphs % (Man) % Monocytes % (Manual) (0.0-7.3) % Eosinophils % (Manual) (0.0-4.3) % Basophils % (Manual) (0.0-1.8) % Metamyelocytes % % Myelocytes % % Promyelocytes % % Blast Cells % % Nucleated RBC % Seg Neutrophils # (1.8-7.7) K/mm3 Seg Neutrophils # Man (1.8-7.7) K/mm3 Band Neutrophils # K/mm3 Lymphocytes # (Manual) (1.2-5.4) K/mm3 Abs React Lymphs (Man) K/mm3 Monocytes # (Manual) (0.0-0.8) K/mm3 Eosinophils # (Manual) (0.0-0.4) K/mm3 Basophils # (Manual) (0.0-0.1) K/mm3 Metamyelocytes # K/mm3 Myelocytes # K/mm3 Promyelocytes # K/mm3 Blast Cells # K/mm3 WBC Morphology Hypersegmented Neuts Hyposegmented Neuts Hypogranular Neuts Smudge Cells Toxic Granulation Toxic Vacuolation Dohle Bodies Pelger-Huet Anomaly Mary Rods Platelet Estimate Clumped Platelets Plt Clumps, EDTA Large Platelets Giant Platelets Platelet Satelliting Plt Morphology Comment RBC Morphology Dimorphic RBCs Polychromasia Hypochromasia Poikilocytosis Anisocytosis Microcytosis Macrocytosis Spherocytes Pappenheimer Bodies Sickle Cells Target Cells Tear Drop Cells Ovalocytes Helmet Cells [place] Bodies [place] Rings [place] Cells Bite Cells Crenated Cell Elliptocytes Acanthocytes (Spur) Rouleaux Hemoglobin C Crystals Schistocytes Malaria parasites Cecil Bodies Hem Pathologist Commnt PT 16.3 H (12.2-14.9) Sec. INR 1.24 H (0.87-1.13) APTT (24.2-36.6) Sec. Heparin Anti-Xa Level 0.41 0.25 L (0.3-0.7) U.I./ml POC ABG pH (7.35-7.45) POC ABG pCO2 (35-45) POC ABG pO2 (80-105) POC ABG HCO3 POC ABG Total CO2 POC ABG O2 Sat POC ABG Base Excess FiO2 % Sodium 141 D (137-145) mmol/L Potassium 4.0 (3.6-5.0) mmol/L Chloride 100.0 (98-107) mmol/L Carbon Dioxide 30 (22-30) mmol/L Anion Gap 15 mmol/L BUN 28 H (9-20) mg/dL Creatinine 1.1 (0.8-1.5) mg/dL Estimated GFR > 60 ml/min BUN/Creatinine Ratio 25.45 % Glucose 96 (75-100) mg/dL Lactic Acid (0.7-2.0) mmol/L Calcium 8.7 (8.4-10.2) mg/dL Total Bilirubin (0.1-1.2) mg/dL AST (5-40) units/L ALT (7-56) units/L Alkaline Phosphatase (35-129) units/L Total Creatine Kinase (55-170) units/L CK-MB (CK-2) (0.0-4.0) ng/mL CK-MB (CK-2) Rel Index (0-4) Troponin T (0.00-0.029) ng/mL NT-Pro-B Natriuret Pep (0-900) pg/mL Total Protein (6.3-8.2) g/dL Albumin (3.9-5) g/dL Albumin/Globulin Ratio % Triglycerides (2-149) mg/dL Cholesterol (50-199) mg/dL LDL Cholesterol Direct (50-130) mg/dL HDL Cholesterol (40-59) mg/dL Cholesterol/HDL Ratio % Urine Color (Yellow) Urine Turbidity (Clear) Urine pH (5.0-7.0) Ur Specific [place] (1.003-1.030) Urine Protein (Negative) mg/dL Urine Glucose (UA) (Negative) mg/dL Urine Ketones (Negative) mg/dL Urine Blood (Negative) Urine Nitrite (Negative) Urine Bilirubin (Negative) Urine Urobilinogen (<2.0) mg/dL Ur Leukocyte Esterase (Negative) Urine WBC (Auto) (0.0-6.0) /HPF Urine RBC (Auto) (0.0-6.0) /HPF Hyaline Casts /LPF Urine Mucus /HPF 02/21/17 02/21/17 02/21/17 Range/Units 07:55 07:55 07:55 WBC (4.5-11.0) K/mm3 RBC (3.65-5.03) M/mm3 Hgb 11.5 L (11.8-15.2) gm/dl Hct 36.5 (35.5-45.6) % MCV (84-94) fl MCH (28-32) pg MCHC (32-34) % RDW (13.2-15.2) % Plt Count 265 (140-440) K/mm3 Lymph % (Auto) (13.4-35.0) % [place] % (Auto) (0.0-7.3) % Eos % (Auto) (0.0-4.3) % Baso % (Auto) (0.0-1.8) % Lymph # (1.2-5.4) K/mm3 [place] # (0.0-0.8) K/mm3 Eos # (0.0-0.4) K/mm3 Baso # (0.0-0.1) K/mm3 Add Manual Diff Total Counted Seg Neutrophils % (40.0-70.0) % Seg Neuts % (Manual) (40.0-70.0) % Band Neutrophils % % Lymphocytes % (Manual) (13.4-35.0) % Reactive Lymphs % (Man) % Monocytes % (Manual) (0.0-7.3) % Eosinophils % (Manual) (0.0-4.3) % Basophils % (Manual) (0.0-1.8) % Metamyelocytes % % Myelocytes % % Promyelocytes % % Blast Cells % % Nucleated RBC % Seg Neutrophils # (1.8-7.7) K/mm3 Seg Neutrophils # Man (1.8-7.7) K/mm3 Band Neutrophils # K/mm3 Lymphocytes # (Manual) (1.2-5.4) K/mm3 Abs React Lymphs (Man) K/mm3 Monocytes # (Manual) (0.0-0.8) K/mm3 Eosinophils # (Manual) (0.0-0.4) K/mm3 Basophils # (Manual) (0.0-0.1) K/mm3 Metamyelocytes # K/mm3 Myelocytes # K/mm3 Promyelocytes # K/mm3 Blast Cells # K/mm3 WBC Morphology Hypersegmented Neuts Hyposegmented Neuts Hypogranular Neuts Smudge Cells Toxic Granulation Toxic Vacuolation Dohle Bodies Pelger-Huet Anomaly Mary Rods Platelet Estimate Clumped Platelets Plt Clumps, EDTA Large Platelets Giant Platelets Platelet Satelliting Plt Morphology Comment RBC Morphology Dimorphic RBCs Polychromasia Hypochromasia Poikilocytosis Anisocytosis Microcytosis Macrocytosis Spherocytes Pappenheimer Bodies Sickle Cells Target Cells Tear Drop Cells Ovalocytes Helmet Cells [place] Bodies [place] Rings [place] Cells Bite Cells Crenated Cell Elliptocytes Acanthocytes (Spur) Rouleaux Hemoglobin C Crystals Schistocytes Malaria parasites Cecil Bodies Hem Pathologist Commnt PT 18.7 H (12.2-14.9) Sec. INR 1.48 H (0.87-1.13) APTT (24.2-36.6) Sec. Heparin Anti-Xa Level 0.67 (0.3-0.7) U.I./ml POC ABG pH (7.35-7.45) POC ABG pCO2 (35-45) POC ABG pO2 (80-105) POC ABG HCO3 POC ABG Total CO2 POC ABG O2 Sat POC ABG Base Excess FiO2 % Sodium 140 (137-145) mmol/L Potassium 4.2 (3.6-5.0) mmol/L Chloride 102.7 (98-107) mmol/L Carbon Dioxide 24 (22-30) mmol/L Anion Gap 18 mmol/L BUN 25 H (9-20) mg/dL Creatinine 0.9 (0.8-1.5) mg/dL Estimated GFR > 60 ml/min BUN/Creatinine Ratio 27.77 % Glucose 96 (75-100) mg/dL Lactic Acid (0.7-2.0) mmol/L Calcium 8.3 L (8.4-10.2) mg/dL Total Bilirubin (0.1-1.2) mg/dL AST (5-40) units/L ALT (7-56) units/L Alkaline Phosphatase (35-129) units/L Total Creatine Kinase (55-170) units/L CK-MB (CK-2) (0.0-4.0) ng/mL CK-MB (CK-2) Rel Index (0-4) Troponin T (0.00-0.029) ng/mL NT-Pro-B Natriuret Pep (0-900) pg/mL Total Protein (6.3-8.2) g/dL Albumin (3.9-5) g/dL Albumin/Globulin Ratio % Triglycerides (2-149) mg/dL Cholesterol (50-199) mg/dL LDL Cholesterol Direct (50-130) mg/dL HDL Cholesterol (40-59) mg/dL Cholesterol/HDL Ratio % Urine Color (Yellow) Urine Turbidity (Clear) Urine pH (5.0-7.0) Ur Specific [place] (1.003-1.030) Urine Protein (Negative) mg/dL Urine Glucose (UA) (Negative) mg/dL Urine Ketones (Negative) mg/dL Urine Blood (Negative) Urine Nitrite (Negative) Urine Bilirubin (Negative) Urine Urobilinogen (<2.0) mg/dL Ur Leukocyte Esterase (Negative) Urine WBC (Auto) (0.0-6.0) /HPF Urine RBC (Auto) (0.0-6.0) /HPF Hyaline Casts /LPF Urine Mucus /HPF 02/21/17 02/22/17 02/22/17 Range/Units 22:49 08:02 08:02 WBC (4.5-11.0) K/mm3 RBC (3.65-5.03) M/mm3 Hgb (11.8-15.2) gm/dl Hct (35.5-45.6) % MCV (84-94) fl MCH (28-32) pg MCHC (32-34) % RDW (13.2-15.2) % Plt Count (140-440) K/mm3 Lymph % (Auto) (13.4-35.0) % [place] % (Auto) (0.0-7.3) % Eos % (Auto) (0.0-4.3) % Baso % (Auto) (0.0-1.8) % Lymph # (1.2-5.4) K/mm3 [place] # (0.0-0.8) K/mm3 Eos # (0.0-0.4) K/mm3 Baso # (0.0-0.1) K/mm3 Add Manual Diff Total Counted Seg Neutrophils % (40.0-70.0) % Seg Neuts % (Manual) (40.0-70.0) % Band Neutrophils % % Lymphocytes % (Manual) (13.4-35.0) % Reactive Lymphs % (Man) % Monocytes % (Manual) (0.0-7.3) % Eosinophils % (Manual) (0.0-4.3) % Basophils % (Manual) (0.0-1.8) % Metamyelocytes % % Myelocytes % % Promyelocytes % % Blast Cells % % Nucleated RBC % Seg Neutrophils # (1.8-7.7) K/mm3 Seg Neutrophils # Man (1.8-7.7) K/mm3 Band Neutrophils # K/mm3 Lymphocytes # (Manual) (1.2-5.4) K/mm3 Abs React Lymphs (Man) K/mm3 Monocytes # (Manual) (0.0-0.8) K/mm3 Eosinophils # (Manual) (0.0-0.4) K/mm3 Basophils # (Manual) (0.0-0.1) K/mm3 Metamyelocytes # K/mm3 Myelocytes # K/mm3 Promyelocytes # K/mm3 Blast Cells # K/mm3 WBC Morphology Hypersegmented Neuts Hyposegmented Neuts Hypogranular Neuts Smudge Cells Toxic Granulation Toxic Vacuolation Dohle Bodies Pelger-Huet Anomaly Mary Rods Platelet Estimate Clumped Platelets Plt Clumps, EDTA Large Platelets Giant Platelets Platelet Satelliting Plt Morphology Comment RBC Morphology Dimorphic RBCs Polychromasia Hypochromasia Poikilocytosis Anisocytosis Microcytosis Macrocytosis Spherocytes Pappenheimer Bodies Sickle Cells Target Cells Tear Drop Cells Ovalocytes Helmet Cells [place] Bodies [place] Rings [place] Cells Bite Cells Crenated Cell Elliptocytes Acanthocytes (Spur) Rouleaux Hemoglobin C Crystals Schistocytes Malaria parasites Cecil Bodies Hem Pathologist Commnt PT 24.2 H (12.2-14.9) Sec. INR 2.05 H (0.87-1.13) APTT (24.2-36.6) Sec. Heparin Anti-Xa Level 0.82 H 0.78 H (0.3-0.7) U.I./ml POC ABG pH (7.35-7.45) POC ABG pCO2 (35-45) POC ABG pO2 (80-105) POC ABG HCO3 POC ABG Total CO2 POC ABG O2 Sat POC ABG Base Excess FiO2 % Sodium (137-145) mmol/L Potassium (3.6-5.0) mmol/L Chloride (98-107) mmol/L Carbon Dioxide (22-30) mmol/L Anion Gap mmol/L BUN (9-20) mg/dL Creatinine (0.8-1.5) mg/dL Estimated GFR ml/min BUN/Creatinine Ratio % Glucose (75-100) mg/dL Lactic Acid (0.7-2.0) mmol/L Calcium (8.4-10.2) mg/dL Total Bilirubin (0.1-1.2) mg/dL AST (5-40) units/L ALT (7-56) units/L Alkaline Phosphatase (35-129) units/L Total Creatine Kinase (55-170) units/L CK-MB (CK-2) (0.0-4.0) ng/mL CK-MB (CK-2) Rel Index (0-4) Troponin T (0.00-0.029) ng/mL NT-Pro-B Natriuret Pep (0-900) pg/mL Total Protein (6.3-8.2) g/dL Albumin (3.9-5) g/dL Albumin/Globulin Ratio % Triglycerides (2-149) mg/dL Cholesterol (50-199) mg/dL LDL Cholesterol Direct (50-130) mg/dL HDL Cholesterol (40-59) mg/dL Cholesterol/HDL Ratio % Urine Color (Yellow) Urine Turbidity (Clear) Urine pH (5.0-7.0) Ur Specific [place] (1.003-1.030) Urine Protein (Negative) mg/dL Urine Glucose (UA) (Negative) mg/dL Urine Ketones (Negative) mg/dL Urine Blood (Negative) Urine Nitrite (Negative) Urine Bilirubin (Negative) Urine Urobilinogen (<2.0) mg/dL Ur Leukocyte Esterase (Negative) Urine WBC (Auto) (0.0-6.0) /HPF Urine RBC (Auto) (0.0-6.0) /HPF Hyaline Casts /LPF Urine Mucus /HPF - Medical Decision Making 76-year-old male here with respiratory distress. Patient likely volume overloaded he has crackles at both bases bilaterally he has some significant peripheral edema. Plan to treat him with BiPAP and IV Lasix and plan to reassess. Portions of this chart were dictated with dictation software. There may be dictation errors contained within this note. Critical Care Time: Yes Critical care attestation.: If time is entered above; I have spent that time in minutes in the direct care of this critically ill patient, excluding procedure time. Critical Care Time: 45 ED Disposition Clinical Impression: Non-ST elevation HI (NSTEMI), Cardiomyopathy Disposition: [id number] OP ADMIT IP TO THIS HOSP Is pt being admited?: Yes Condition: Critical
[2017-02-16 13:31] LABS: ISTAT Base Excess -6; ISTAT HCO3 18.8; ISTAT PCO2 29.8 (35-45); ISTAT PH 7.407 (7.35-7.45); ISTAT PO2 544 (80-105); ISTAT SO2 100; ISTAT TCO2 20
--- NOTE | 2017-02-16 13:33 | XRay Report ---
PORTABLE CHEST INDICATION: Dyspnea. COMPARISON: None similar at this institution. FINDINGS: Portable, frontal chest radiograph suggests borderline/mild cardiomegaly. Slight aortic knob calcifications. Bilateral midlung zone pulmonary infiltrates, larger on the left measuring approximately 10 cm while approximately 6 cm on the right and marginated by the minor fissure. Lucency beneath the right hemidiaphragm presumed related to subjacent hepatic flexure positioning. EKG leads. Demineralized bones with few degenerative changes. CONCLUSION: Bilateral pulmonary infiltrates, possibly infectious or congestive with mild cardiomegaly and few other findings, as above. Please also correlate clinically and with prior chest imaging, if available. Thank you for the opportunity to participate in this patient's care.
[2017-02-16] MEDS ORDERED: ZITHROMAX 500 MG in NACL 0.9% 250ML 250 ML IV ONE (14:12)
[2017-02-16] MEDS ORDERED: ROCEPHIN/NS 2 GM/100 ML 2 GM/100 ML BAG IV ONE (14:12)
[2017-02-16 14:15] LABS: Basophils % (Auto) 0.2 % (0.0-1.8); Hematocrit 34.1 % (35.5-45.6); Hemoglobin 10.9 gm/dl (11.8-15.2); Mean Corpuscular HGB Conc 32 % (32-34); Mean Corpuscular Hemoglobin 28 pg (28-32); Mean Corpuscular Volume 87 fl (84-94); Red Blood Count 3.92 M/mm3 (3.65-5.03); Red Cell Distribution Width 17.6 % (13.2-15.2); White Blood Count 10.2 K/mm3 (4.5-11.0)
[2017-02-16 14:18] LABS: Platelet Count 241 K/mm3 (140-440)
[2017-02-16 14:22] LABS: Albumin 3.5 g/dL (3.9-5); Albumin/Globulin Ratio 0.9 %; BUN/Creatinine Ratio 33.88; Bilirubin,Total 1.3 mg/dL (0.1-1.2); Calcium 8.5 mg/dL (8.4-10.2); Chloride 102.1 mmol/L (98-107); Potassium 4.9 mmol/L (3.6-5.0); Total Protein 7.5 g/dL (6.3-8.2)
[2017-02-16 14:23] LABS: INR 1.33 (0.87-1.13)
[2017-02-16 15:37] LABS: Bilirubin,Urine NEG (Negative); Blood,Urine SM (Negative); Ketones,Urine NEG (Negative); Leukocyte Esterase,Urine NEG (Negative); Mucus,Urine FEW /HPF; Nitrite,Urine NEG (Negative); Urobilinogen,Urine < 2.0 mg/dL (<2.0)
--- NOTE | 2017-02-16 20:30 | History and Physical Report ---
History of Present Illness Date of examination: 02/16/17 Date of admission: 02/16/2017 Chief complaint: Shortness of breath History of present illness: 76-year-old male here with recent visit from urgent care sent emergently ever after chest x-ray in the urgent care. Patient appears tachypneic and in respiratory distress. He was started on BiPAP in the ER. Patient is a very poor historian and difficult to understand most of the history is obtained from review of his records. No reports of any fevers chills headache nausea vomiting tingling numbness or weakness no reports of chest pain all palpitations no other GI or symptoms. Past History Past Medical History: COPD Past Surgical History: Other (unknown) Social history: lives with family, full code. denies: smoking, alcohol abuse, IV drug use Family history: other (reviewed but not pertinent to current condition) Medications and Allergies Active Meds: Active Medications Azithromycin 500 mg/ Sodium (Chloride) 250 mls @ 250 mls/hr IV ONCE ONE Stop: 02/16/17 15:11 Ceftriaxone Sodium (Rocephin/Ns 2 Gm/100 Ml) 2 gm in 100 mls @ 200 mls/hr IV ONCE ONE Stop: 02/16/17 14:41 Review of Systems ROS unobtainable: due to endotracheal tube (patient is on BiPAP) Exam - Constitutional Vitals: Temp Pulse Resp BP Pulse Ox 98.4 F 97 H 39 H 121/73 96 02/16/17 13:26 02/16/17 13:45 02/16/17 13:45 02/16/17 13:45 02/16/17 13:45 General appearance: Present: severe distress, well-nourished - EENT Eyes: Present: PERRL, EOM intact ENT: other (patient is on BiPAP ordered mucosa could not be assessed) - Neck Neck: Present: supple, other (trachea is midline). Absent: enlarged thyroid, masses or JVD, cervical LAD, carotid bruits - Respiratory Respiratory effort: normal, labored (severely), accessory muscle use Respiratory: bilateral: diminished, rales (diffuse), rhonchi (diffuse), wheezing (end expiratory , scattered) - Cardiovascular Rhythm: regular Heart Sounds: Present: S1 & S2. Absent: gallop, systolic murmur - Extremities Extremities: pulses symmetrical, normal temperature, abnormal Extremity abnormal: edema (2-3+ bilateral lower extremities up to mid calf), cyanosis, clubbing, pulses diminished - Abdominal General gastrointestinal: Present: soft, non-tender, non-distended, normal bowel sounds. Absent: hepatomegaly, splenomegaly, mass - Integumentary Integumentary: Present: warm, dry. Absent: erythema, rash - Musculoskeletal Musculoskeletal: strength equal bilaterally - Psychiatric Psychiatric: appropriate mood/affect, cooperative - Neurologic Neurologic: CNII-XII intact, no focal deficits, moves all extremities Results - Labs CBC & Chem 7: 02/16/17 13:44 02/16/17 13:44 Labs: Laboratory Last Values WBC 10.2 K/mm3 (4.5-11.0) 02/16/17 13:44 RBC 3.92 M/mm3 (3.65-5.03) 02/16/17 13:44 Hgb 10.9 gm/dl (11.8-15.2) L 02/16/17 13:44 Hct 34.1 % (35.5-45.6) L 02/16/17 13:44 MCV 87 fl (84-94) 02/16/17 13:44 MCH 28 pg (28-32) 02/16/17 13:44 MCHC 32 % (32-34) 02/16/17 13:44 RDW 17.6 % (13.2-15.2) H 02/16/17 13:44 Plt Count 241 K/mm3 (140-440) 02/16/17 13:44 Lymph % (Auto) 7.1 % (13.4-35.0) L 02/16/17 13:44 [place] % (Auto) 8.1 % (0.0-7.3) H 02/16/17 13:44 Eos % (Auto) 0.0 % (0.0-4.3) 02/16/17 13:44 Baso % (Auto) 0.2 % (0.0-1.8) 02/16/17 13:44 Lymph # 0.7 K/mm3 (1.2-5.4) L 02/16/17 13:44 [place] # 0.8 K/mm3 (0.0-0.8) 02/16/17 13:44 Eos # 0.0 K/mm3 (0.0-0.4) 02/16/17 13:44 Baso # 0.0 K/mm3 (0.0-0.1) 02/16/17 13:44 Seg Neutrophils % 84.6 % (40.0-70.0) H 02/16/17 13:44 Seg Neutrophils # 8.6 K/mm3 (1.8-7.7) H 02/16/17 13:44 PT 16.4 Sec. (12.2-14.9) H 02/16/17 13:44 INR 1.33 (0.87-1.13) H 02/16/17 13:44 POC ABG pH 7.407 (7.35-7.45) 02/16/17 13:28 POC ABG pCO2 29.8 (35-45) L 02/16/17 13:28 POC ABG pO2 544 (80-105) H 02/16/17 13:28 POC ABG HCO3 18.8 02/16/17 13:28 POC ABG Total CO2 20 02/16/17 13:28 POC ABG O2 Sat 100 02/16/17 13:28 POC ABG Base Excess -6 02/16/17 13:28 FiO2 100 % 02/16/17 13:28 Sodium 138 mmol/L (137-145) 02/16/17 13:44 Potassium 4.9 mmol/L (3.6-5.0) 02/16/17 13:44 Chloride 102.1 mmol/L (98-107) 02/16/17 13:44 Carbon Dioxide 15 mmol/L (22-30) L 02/16/17 13:44 Anion Gap 26 mmol/L 02/16/17 13:44 BUN 61 mg/dL (9-20) H 02/16/17 13:44 Creatinine 1.8 mg/dL (0.8-1.5) H 02/16/17 13:44 Estimated GFR 37 ml/min 02/16/17 13:44 BUN/Creatinine Ratio 33.88 % 02/16/17 13:44 Glucose 121 mg/dL (75-100) H 02/16/17 13:44 Lactic Acid 4.10 mmol/L (0.7-2.0) H* 02/16/17 13:44 Calcium 8.5 mg/dL (8.4-10.2) 02/16/17 13:44 Total Bilirubin 1.30 mg/dL (0.1-1.2) H 02/16/17 13:44 AST 40 units/L (5-40) 02/16/17 13:44 ALT 45 units/L (7-56) 02/16/17 13:44 Alkaline Phosphatase 117 units/L (35-129) 02/16/17 13:44 Troponin T 0.860 ng/mL (0.00-0.029) H* 02/16/17 13:44 NT-Pro-B Natriuret Pep 39718 pg/mL (0-900) H 02/16/17 13:44 Total Protein 7.5 g/dL (6.3-8.2) 02/16/17 13:44 Albumin 3.5 g/dL (3.9-5) L 02/16/17 13:44 Albumin/Globulin Ratio 0.9 % 02/16/17 13:44 Triglycerides 86 mg/dL (2-149) 02/16/17 13:44 Cholesterol 192 mg/dL (50-199) 02/16/17 13:44 LDL Cholesterol Direct 131 mg/dL (50-130) H 02/16/17 13:44 HDL Cholesterol 44 mg/dL (40-59) 02/16/17 13:44 Cholesterol/HDL Ratio 4.36 % 02/16/17 13:44 Urine Color Yellow (Yellow) 02/16/17 Unknown Urine Turbidity Clear (Clear) 02/16/17 Unknown Urine pH 5.0 (5.0-7.0) 02/16/17 Unknown Ur Specific [place] 1.013 (1.003-1.030) 02/16/17 Unknown Urine Protein 30 mg/dl mg/dL (Negative) 02/16/17 Unknown Urine Glucose (UA) Neg mg/dL (Negative) 02/16/17 Unknown Urine Ketones Neg mg/dL (Negative) 02/16/17 Unknown Urine Blood Sm (Negative) 02/16/17 Unknown Urine Nitrite Neg (Negative) 02/16/17 Unknown Urine Bilirubin Neg (Negative) 02/16/17 Unknown Urine Urobilinogen < 2.0 mg/dL (<2.0) 02/16/17 Unknown Ur Leukocyte Esterase Neg (Negative) 02/16/17 Unknown Urine WBC (Auto) 1.0 /HPF (0.0-6.0) 02/16/17 Unknown Urine RBC (Auto) 2.0 /HPF (0.0-6.0) 02/16/17 Unknown Hyaline Casts 1 /LPF 02/16/17 Unknown Urine Mucus Few /HPF 02/16/17 Unknown - Imaging and Cardiology Imaging and Cardiology: Chest x-ray is reviewed by me showed interstitial infiltrates versus fluid overload Assessment and Plan Assessment and plan: 76-year-old male here with respiratory distress. Patient likely volume overloaded he has crackles at both bases bilaterally he has some significant peripheral edema. Plan to treat him with BiPAP and IV Lasix and plan to reassess.
--- NOTE | 2017-02-17 00:25 | Cat Scan Report ---
FINAL REPORT PROCEDURE: CT ABDOMEN PELVIS WO CON TECHNIQUE: Computerized axial tomography of the abdomen and pelvis was performed without intravenous contrast. This study is performed without intravascular contrast material and its sensitivity for abdominal and pelvic pathology, including neoplasms, inflammation, abscess, free fluid, thrombosis, arterial dissection and infarction, is reduced compared with a contrast enhanced study. HISTORY: Abdominal pain. COMPARISON: No prior studies are available for comparison. FINDINGS: Visualized lower thorax: Small to moderate right and small left pleural effusions. Coronary artery disease. Cardiomegaly. Trace pericardial effusion. Ascending aorta 3.7 centimeters. Extensive areas of airspace disease throughout the visualized lungs with underlying cystic/emphysematous and bullous change. Liver: Normal size and attenuation. Spleen: Normal size and attenuation. Gallbladder and biliary system: Normal. Pancreas: Normal. Adrenals: Normal. Kidneys: Mild left hydronephrosis and hydroureter with prominence of the left collecting system. GI tract: Portion of descending/sigmoid colon in a left inguinal hernia. Significantly distended air-filled sigmoid colon distal to this, with focal area of narrowing. Rectosigmoid filled with stool. Normal appendix is not confidently identified. What may be portion of a normal caliber air-filled appendix seen in the right lower quadrant, but not definite (images [id number]). This could represent nondistended loop of ileum. Loop of small bowel/ileum enters right inguinal hernia. Small bowel proximal to this may be mildly more distended than bowel distal to this, but artifact and limitations of examination limit evaluation. Lymph nodes and mesentery: Small amount of mesenteric stranding. Vasculature: Normal. Bladder: Douglas catheter. Balloon difficult to see due to artifact from hip replacement. Air in the bladder. Reproductive organs: Prostatic enlargement. Peritoneum: Small amount of ascites. Musculoskeletal structures: Right hip replacement. Osteopenia. Multilevel osteophytes. Age indeterminate thoracic spine compression with Schmorl's nodes. Grade 1 L4-L5 anterolisthesis. Minimal L3-4 anterolisthesis. L3-4, L4-5, and L5-S1 vacuum disc change and facet arthropathy. Moderate dextroscoliosis. Other: None. IMPRESSION: Limited evaluation. Patient motion and suboptimal patient positioning. Arms overlie the patient, further limiting evaluation. Recommend repeat examination with intravenous and oral contrast if there is continued clinical concern. Small to moderate right and smaller left pleural effusions. Coronary artery disease. Cardiomegaly. Trace pericardial effusion. Mild aneurysmal dilation of the ascending aorta. Extensive airspace disease throughout the visualized lungs with underlying cystic/emphysematous and bullous change. Consider pneumonia. Consider radiographic followup. Gallbladder full of gallstones, consider right upper quadrant ultrasound. Mild left hydronephrosis and hydroureter with prominence of the left collecting system, this can be re-evaluated on followup examination with contrast if there is concern for subtle underlying mass lesion. Bilateral inguinal hernias. Colon in the left inguinal hernia. Significantly distended loop of sigmoid colon with area of narrowing, may be normal peristalsis. Small bowel in the right inguinal hernia. Small bowel proximal appears mildly distended. Difficult to completely exclude obstruction on this limited examination. This can be re-evaluated on repeat examination if there is continued clinical concern. Normal appendix not confidently identified. There is ascites including small amount of ascites in the right lower quadrant. This could be related to a diffuse process however, recommend further evaluation including clinical correlation and attention on followup examination with intravenous and oral contrast if appendiceal pathology is of continued clinical concern. Underlying mild mesenteric stranding. Douglas catheter, balloon difficult to see due to artifact. Air in the bladder likely related to Douglas catheter. Prostatic enlargement.
[2017-02-17] MEDS ORDERED: DUONEB *Not for PRN Use IH (04:29)
[2017-02-17] MEDS ORDERED: PROVENTIL IH PRN (05:07)
[2017-02-17] MEDS ORDERED: ROCEPHIN/NS 2 GM/100 ML 2 GM/100 ML BAG IV ONE (06:00)
[2017-02-17] MEDS: LASIX IV SCH ×2 (06:12→17:08)
[2017-02-17] MEDS: DUONEB *Not for PRN Use IH SCH ×2 (09:55→16:06)
--- NOTE | 2017-02-17 09:59 | Consultation ---
History of Present Illness Consult date: 02/17/17 Requesting physician: AMALIA FULLER Reason for consult: dyspnea, hypoxemia History of present illness: 76 y/o male, aphasic secondary to CVA admitted with acute respiratory failure. No family at bedside so unable to obtain any further history from patient. Currently on Venti-mask with good sats. Was treated with lasix and IV abx. Appears to have responded to lasix therapy overnight. BP stable. Past History Past Medical History: COPD Past Surgical History: Other (unknown) Social history: lives with family, full code. denies: smoking, alcohol abuse, IV drug use Family history: other (reviewed but not pertinent to current condition) Medications and Allergies Allergies Allergy/AdvReac Type Severity Reaction Status Date / Time Unable to Assess Allergy Unverified 02/17/17 02:33 Home Medications Medication Instructions Recorded Confirmed Last Taken Type Unobtainable 02/17/17 02/17/17 Unknown History Active Meds: Active Medications Albuterol (Proventil) 2.5 mg IH Q4HRT PRN PRN Reason: Shortness Of Breath Albuterol/Ipratropium (Duoneb *Not For Prn Use*) 1 ampul IH Q6HRT [facility] Famotidine (Pepcid) 20 mg PO QAM [facility] Furosemide (Lasix) 40 mg IV 0600,1800 [facility] Last Admin: 02/17/17 06:12 Dose: 40 mg Azithromycin 1,000 mg/ Sodium (Chloride) 250 mls @ 250 mls/hr IV Q24HR [facility] Ceftriaxone Sodium (Rocephin/Ns 1 Gm/50 Ml) 1 gm in 50 mls @ 100 mls/hr IV Q24HR [facility] PRN Reason: Protocol Review of Systems All systems: negative (unable to express secondary to aphasia) Physical Examination Vital signs: Vital Signs Resp 41 H 02/16/17 12:49 General appearance: no acute distress, alert Eyes: non-icteric ENT: oropharynx moist Neck: supple Effort: mildly labored Ascultation: Bilateral: rales Percussion: Bilateral: not dull Cardiovascular: regular rate and rhythm Gastrointestinal: normoactive bowel sounds, soft, non-tender Extremities: no cyanosis, no edema Results - Laboratory Findings CBC and BMP: 02/16/17 13:44 02/16/17 13:44 ABG POC ABG pH 7.407 (7.35-7.45) 02/16/17 13:28 POC ABG pCO2 29.8 (35-45) L 02/16/17 13:28 POC ABG pO2 544 (80-105) H 02/16/17 13:28 POC ABG HCO3 18.8 02/16/17 13:28 POC ABG Total CO2 20 02/16/17 13:28 POC ABG O2 Sat 100 02/16/17 13:28 PT/INR, D-dimer PT 16.4 Sec. (12.2-14.9) H 02/16/17 13:44 INR 1.33 (0.87-1.13) H 02/16/17 13:44 - Diagnostic Findings Chest x-ray: image reviewed (Patchy bilateral filling process, possible fluid in the fissures, cardiomegaly and possibly some chronic scarring at the right base vs plate-like atelectasis) Assessment and Plan 76 y/o male with acute respiratory failure, secondary to possible community acquired pneumonia vs volume overload with NSTEMI and renal failure 1. Agree with CT of chest for better evaluation of lung parenchyma. 2. Ordered to 2 D echo given elevated trop and elevated BNP 3. Continue to trend out trops x3 4. Send urine lytes and pending repeat labs will need renal ultrasound. Patient has not been at this institution before 5. Wean FiO2 for sats >88% 6. Ok with IV abx therapy for now until further history can be obtained 7. DVT prophylaxis, needs bedside swallow eval and if passes consider nutrition to be started 8. Repeat lactic acid. Thank you for this consult, will continue to follow along with you. Pending lab results, can likely transfer to floor
[2017-02-17] MEDS ORDERED: ZITHROMAX 1,000 MG in NACL 0.9% 250ML 250 ML IV SCH (10:00)
[2017-02-17] MEDS ORDERED: PEPCID PO SCH (10:00)
[2017-02-17] MEDS ORDERED: HEPARIN SUB-Q SCH (10:45)
[2017-02-17 10:50] LABS: Hematocrit 33.2 % (35.5-45.6); Hemoglobin 10.7 gm/dl (11.8-15.2); Mean Corpuscular HGB Conc 32 % (32-34); Mean Corpuscular Hemoglobin 27 pg (28-32); Mean Corpuscular Volume 83 fl (84-94); Red Blood Count 4.01 M/mm3 (3.65-5.03); Red Cell Distribution Width 17.4 % (13.2-15.2); White Blood Count 9.4 K/mm3 (4.5-11.0)
[2017-02-17 11:01] LABS: Platelet Count 242 K/mm3 (140-440)
[2017-02-17 11:10] LABS: Creatine Kinase MB 7.5 ng/mL (0.0-4.0)
[2017-02-17 11:12] LABS: Albumin/Globulin Ratio 0.9 %; BUN/Creatinine Ratio 44.61; Calcium 8.3 mg/dL (8.4-10.2); Chloride 105.7 mmol/L (98-107); Potassium 3.7 mmol/L (3.6-5.0); Total Protein 6.5 g/dL (6.3-8.2)
[2017-02-17 12:03] LABS: Basophils % (Manual) 0 % (0.0-1.8); Blastocytes % (Manual) 0 %; Eosinophils % (Manual) 0 % (0.0-4.3)
[2017-02-17 12:04] LABS: Spherocytes 1+
[2017-02-17 12:05] LABS: Elliptocytes 1+; Ovalocytes 1+
[2017-02-17 12:06] LABS: Diff Status Complete; Poikilocytosis 2+; Schistocytes 1+
--- NOTE | 2017-02-17 14:01 | Consultation ---
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 Per pt report, he presented with c/o abdominal pain. Pt is a poor historian. Per the chart, pt presented in respiratory distress and required BiPAP. On evaluation, pt denies any current complaints. There is no family at bedside. Echo was obtained this AM, which revealed cardiomyopathy (EF 15%) and large apical LV thrombus and thus cardiology has been consulted. Past History Past Medical History: stroke Social history: lives with family, full code. denies: smoking, alcohol abuse, IV drug use Medications and Allergies Allergies Allergy/AdvReac Type Severity Reaction Status Date / Time Unable to Assess Allergy Unverified 02/17/17 02:33 Home Medications Medication Instructions Recorded Confirmed Last Taken Type Unobtainable 02/17/17 02/17/17 Unknown History Active Meds: Active Medications Albuterol (Proventil) 2.5 mg IH Q4HRT PRN PRN Reason: Shortness Of Breath Albuterol/Ipratropium (Duoneb *Not For Prn Use*) 1 ampul IH Q6HRT [facility] Last Admin: 02/17/17 09:55 Dose: 1 ampul Famotidine (Pepcid) 20 mg IV QAM [facility] Furosemide (Lasix) 40 mg IV 0600,1800 [facility] Last Admin: 02/17/17 06:12 Dose: 40 mg Heparin Sodium (Porcine) (Heparin) 5,000 unit SUB-Q BID [facility] Last Admin: 02/17/17 11:50 Dose: 5,000 unit Azithromycin 1,000 mg/ Sodium (Chloride) 250 mls @ 250 mls/hr IV Q24HR [facility] Last Admin: 02/17/17 11:50 Dose: 250 mls/hr Ceftriaxone Sodium (Rocephin/Ns 1 Gm/50 Ml) 1 gm in 50 mls @ 100 mls/hr IV Q24HR [facility] PRN Reason: Protocol Review of Systems All systems: negative Cardiovascular: no chest pain, no shortness of breath, no dyspnea on exertion Gastrointestinal: abdominal pain, no nausea, no vomiting, no diarrhea, no constipation, no change in bowel habits Physical Examination Last Vital Signs Temp 97.3 F L 02/17/17 12:00 Pulse 84 02/17/17 13:00 Resp 32 H 02/17/17 13:00 BP 100/72 02/17/17 13:00 Pulse Ox 92 02/17/17 13:00 General appearance: no acute distress, other (expressive aphasia) HEENT: Positive: PERRL, Normocephaly, Mucus Membranes Moist Neck: Positive: neck supple Cardiac: Positive: Reg Rate and Rhythm, S1/S2 Lungs: Positive: clear to auscultation Neuro: Positive: Grossly Intact, Weakness (right-sided) Abdomen: Positive: Unremarkable, Soft, Active Bowel Sounds. Negative: Tender Musculoskeletal: No Fluid Collection, No Pain, Normal Range of Motion Extremities: Absent: edema Results 02/17/17 10:24 02/17/17 10:24 Cardiac Enzymes 02/17/17 02/17/17 Range/Units 10:24 10:24 AST 30 (5-40) units/L CK-MB (CK-2) 7.5 H (0.0-4.0) ng/mL CBC 02/17/17 Range/Units 10:24 WBC 9.4 (4.5-11.0) K/mm3 RBC 4.01 (3.65-5.03) M/mm3 Hgb 10.7 L (11.8-15.2) gm/dl Hct 33.2 L (35.5-45.6) % Plt Count 242 (140-440) K/mm3 Comprehensive Metabolic Panel 02/17/17 Range/Units 10:24 Sodium 145 D (137-145) mmol/L Potassium 3.7 D (3.6-5.0) mmol/L Chloride 105.7 (98-107) mmol/L Carbon Dioxide 22 D (22-30) mmol/L BUN 58 H (9-20) mg/dL Creatinine 1.3 (0.8-1.5) mg/dL Glucose 97 (75-100) mg/dL Calcium 8.3 L (8.4-10.2) mg/dL AST 30 (5-40) units/L ALT 32 (7-56) units/L Alkaline Phosphatase 94 (35-129) units/L Total Protein 6.5 (6.3-8.2) g/dL Albumin 3.0 L (3.9-5) g/dL - Imaging and Cardiology Echo: report reviewed EKG: image reviewed EKG interpretations - Telemetry EKG Rhythm: Sinus Rhythm - EKG Sinus rhythms and dysrhythmias: sinus rhythm Chamber hypertrophy or enlargement: left ventricular hypertro Myocardial infarction: septal [place] (old age or ind, anterior [place] (old age or i Assessment and Plan Initiate heparin gtt with initial bolus. Will plan for conversion to Coumadin prior to discharge. Continue to trend cardiac enzymes. Initiate ASA 81 and lipitor. No ACEI/ARB at this time in setting of ADONIS. No BB at this time in setting of borderline hypotension. The patient has been seen in conjunction with Dr. Zimmer who agrees with the assessment and plan of care. - Patient Problems (1) Acute respiratory failure Current Visit: Yes Status: Acute Qualifiers: Respiratory failure complication: R (2) Pneumonia Current Visit: Yes Status: Suspected Qualifiers: Pneumonia type: P Aspiration pneumonia type: A Laterality: L Lung location: L (3) Left ventricular apical thrombus Current Visit: Yes Status: Acute (4) Non-ST elevation [place] (NSTEMI) Current Visit: Yes Status: Acute (5) ADONIS (acute kidney injury) Current Visit: Yes Status: Acute (6) Cardiomyopathy Current Visit: Yes Status: Chronic Qualifiers: Cardiomyopathy type: C (7) Abdominal pain Current Visit: Yes Status: Resolved Qualifiers: Abdominal location: A (8) Lactic acidosis Current Visit: Yes Status: Acute (9) History of CVA (cerebrovascular accident) Current Visit: Yes Status: Resolved
--- NOTE | 2017-02-17 14:57 | Cat Scan Report ---
CT CHEST WITHOUT CONTRAST: HISTORY: Pneumonia. TECHNIQUE: Helical CT with sagittal and coronal reformatted images. FINDINGS: Compared to the chest x-ray performed yesterday. There are moderate bilateral perihilar infiltrates throughout both lungs consistent with pneumonia or pulmonary edema. Small to medium bilateral layering pleural effusions are identified. Heart size is borderline. No pericardial effusion. The mediastinal vessels are grossly normal. Normal thyroid gland. Numerous tiny gallstones are noted within a nondistended gallbladder. IVC filter is partially imaged below the renal veins. IMPRESSION: Bilateral infiltrates and pleural effusions. Bilateral pneumonia versus pulmonary edema. Borderline heart size. Cholelithiasis.
[2017-02-17] MEDS: PEPCID IV SCH (14:58)
--- NOTE | 2017-02-17 15:40 | Admit Criteria Form ---
Admission Criteria Documentation: RESPIRATORY FAILURE GRG Clinical Indications for Admission to Inpatient Care (Place 'X' for any and all applicable criteria): Hospital admission is needed for appropriate care of the patient because of acute respiratory failure or insufficiency as indicated by 1 or more of the following (1)(2)(3)(4)(5)(6)(7)(8 ): [X ]I. Mechanical ventilation needed (acute invasive or noninvasive) [ ]II. Severe ventilation deficit as indicated by 1 or more of the following ( 9) [ ]a) Uncompensated Respiratory acidosis (pH < 7.35 and PaCO2 > 40 mmHg (5.3 kPa)) [ ]b) Airflow measurements < 25% of predicted (eg, PEFR < 100 L/min) [ ]c) FVC < 15 mL/kg of ideal body weight, or 50% decrease in vital capacity from baseline [ ]III. Noncardiac pulmonary edema not resolving with rapid emergency treatment (8) [X ]IV. Severe respiratory distress as indicated by 1 or more of the following: [X ]a) Severe tachypnea (respiratory rate greater than 30, greater than 45 for 6-month-old, greater than 60 for ) [ ]b) Severe hypoxemia (partial pressure of oxygen less than 50 mm Hg ( 6.7 kPa) on greater than 50% oxygen or partial pressure of oxygen to FIO2 ratio less than 200) [ ]c) Mental status deterioration from respiratory disease [ ]V. Airway obstruction or inadequate protection [A](10)(11) The original [employer] content created by [employer] has been revised. The portions of the content which have been revised are identified through the use of italic text or in bold, and [employer] has neither reviewed nor approved the modified material. All other unmodified content is copyright [employer]. Please see references footnoted in the original [employer] edition 2017 Admission Criteria Met: Yes
[2017-02-17] MEDS ORDERED: HEPARIN 10,000 UNITS/10 ML IV ONE (16:00)
[2017-02-17] MEDS: HEPARIN/ 0.45% NACL-25,000 UNIT/500 ML 25,000 UNIT/500 ML BAG IV SCH (16:56)
[2017-02-17 17:41] LABS: Hematocrit 33.5 % (35.5-45.6); Hemoglobin 10.8 gm/dl (11.8-15.2)
[2017-02-17 17:50] LABS: INR 1.36 (0.87-1.13)
[2017-02-17 17:53] LABS: Creatine Kinase MB 6.9 ng/mL (0.0-4.0)
--- NOTE | 2017-02-17 19:23 | Progress Note ---
Assessment and Plan Assessment and plan: 76 years old male admitted with acute respiratory failure and found to have severe cardiomyopathy and LV thrombus 1. Acute hypoxic respiratory failure Likely secondary to combination of possible pneumonia and heart failure Started on antibiotics, diuresis with IV Lasix Required BiPAP on admission, now on Venti-mask; supplemental oxygen, NIPPV as needed 2. Pneumonia CXR and CT chest with bilateral infiltrates WBC within normal limits, but lactic acid elevated on admission Stated on IV antibiotics 3. Acute systolic heart failure/Cardiomyopathy Symptoms consistent weight heart failure, BNP elevated, CXRs/CT chest with pulmonary edema and pleural effusions ECHO revealed severe cardiomyopathy with EF 15% Started on aspirin and statin; not on ACEI due to renal failure; not on BB due to relative hypotension Cardiology consulted and following 4. NSTEMI See above discussion Continue to trend cardiac enzymes 5. LV apical thrombus As above mentioned ECHO showed severe cardiomyopathy and large left ventricular apical thrombus Cardiology consulted and initiated heparin drip; plans to bridge to Coumadin 6. Acute renal failure Previous renal function unknown, currently creatinine 1.8, bicarbonate 15 Obtain urine lytes and consider renal ultrasound, possible nephrology consult Monitor especially while on Lasix 7. Metabolic acidosis Likely secondary to renal failure Monitor for now 8. Anemia Hemoglobin in upper 10s range Possible anemia of chronic disease Monitor H&H 9. 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 Hyperlipidemia LDL 131 Start statin DVT prophylaxis Currently on heparin drip History Interval history: feeling better, no specific complaints Hospitalist Physical - Constitutional Vitals: Temp Pulse Resp BP Pulse Ox 98.1 F 90 20 100/72 96 02/17/17 16:00 02/17/17 16:20 02/17/17 16:20 02/17/17 13:00 02/17/17 16:45 General appearance: Present: no acute distress - EENT Eyes: Present: PERRL, EOM intact - Neck Neck: Present: supple. Absent: enlarged thyroid, masses or JVD - Respiratory Respiratory effort: normal Respiratory: bilateral: diminished, rales, negative: rhonchi, wheezing - Cardiovascular Rhythm: regular Heart Sounds: Present: S1 & S2. Absent: systolic murmur - Extremities Extremities: no ischemia - Abdominal General gastrointestinal: soft, non-tender, non-distended, normal bowel sounds - Neurologic Neurologic: other (right-sided weakness, expressive aphasia) Results - Labs CBC & Chem 7: 02/17/17 17:04 02/17/17 10:24 Labs: Laboratory Last Values WBC 9.4 K/mm3 (4.5-11.0) 02/17/17 10:24 RBC 4.01 M/mm3 (3.65-5.03) 02/17/17 10:24 Hgb 10.8 gm/dl (11.8-15.2) L 02/17/17 17:04 Hct 33.5 % (35.5-45.6) L 02/17/17 17:04 MCV 83 fl (84-94) L 02/17/17 10:24 MCH 27 pg (28-32) L 02/17/17 10:24 MCHC 32 % (32-34) 02/17/17 10:24 RDW 17.4 % (13.2-15.2) H 02/17/17 10:24 Plt Count 251 K/mm3 (140-440) 02/17/17 17:04 Lymph % (Auto) 7.1 % (13.4-35.0) L 02/16/17 13:44 [place] % (Auto) 8.1 % (0.0-7.3) H 02/16/17 13:44 Eos % (Auto) 0.0 % (0.0-4.3) 02/16/17 13:44 Baso % (Auto) 0.2 % (0.0-1.8) 02/16/17 13:44 Lymph # 0.7 K/mm3 (1.2-5.4) L 02/16/17 13:44 [place] # 0.8 K/mm3 (0.0-0.8) 02/16/17 13:44 Eos # 0.0 K/mm3 (0.0-0.4) 02/16/17 13:44 Baso # 0.0 K/mm3 (0.0-0.1) 02/16/17 13:44 Add Manual Diff Complete 02/17/17 10:24 Total Counted 100 02/17/17 10:24 Seg Neutrophils % 84.6 % (40.0-70.0) H 02/16/17 13:44 Seg Neuts % (Manual) 91.0 % (40.0-70.0) H 02/17/17 10:24 Band Neutrophils % 0 % 02/17/17 10:24 Lymphocytes % (Manual) 5.0 % (13.4-35.0) L 02/17/17 10:24 Reactive Lymphs % (Man) 0 % 02/17/17 10:24 Monocytes % (Manual) 4.0 % (0.0-7.3) 02/17/17 10:24 Eosinophils % (Manual) 0 % (0.0-4.3) 02/17/17 10:24 Basophils % (Manual) 0 % (0.0-1.8) 02/17/17 10:24 Metamyelocytes % 0 % 02/17/17 10:24 Myelocytes % 0 % 02/17/17 10:24 Promyelocytes % 0 % 02/17/17 10:24 Blast Cells % 0 % 02/17/17 10:24 Nucleated RBC % Not Reportable 02/17/17 10:24 Seg Neutrophils # 8.6 K/mm3 (1.8-7.7) H 02/16/17 13:44 Seg Neutrophils # Man 8.6 K/mm3 (1.8-7.7) H 02/17/17 10:24 Band Neutrophils # 0.0 K/mm3 02/17/17 10:24 Lymphocytes # (Manual) 0.5 K/mm3 (1.2-5.4) L 02/17/17 10:24 Abs React Lymphs (Man) 0.0 K/mm3 02/17/17 10:24 Monocytes # (Manual) 0.4 K/mm3 (0.0-0.8) 02/17/17 10:24 Eosinophils # (Manual) 0.0 K/mm3 (0.0-0.4) 02/17/17 10:24 Basophils # (Manual) 0.0 K/mm3 (0.0-0.1) 02/17/17 10:24 Metamyelocytes # 0.0 K/mm3 02/17/17 10:24 Myelocytes # 0.0 K/mm3 02/17/17 10:24 Promyelocytes # 0.0 K/mm3 02/17/17 10:24 Blast Cells # 0.0 K/mm3 02/17/17 10:24 WBC Morphology Not Reportable 02/17/17 10:24 Hypersegmented Neuts Not Reportable 02/17/17 10:24 Hyposegmented Neuts Not Reportable 02/17/17 10:24 Hypogranular Neuts Not Reportable 02/17/17 10:24 Smudge Cells Not Reportable 02/17/17 10:24 Toxic Granulation Not Reportable 02/17/17 10:24 Toxic Vacuolation Not Reportable 02/17/17 10:24 Dohle Bodies Not Reportable 02/17/17 10:24 Pelger-Huet Anomaly Not Reportable 02/17/17 10:24 Mary Rods Not Reportable 02/17/17 10:24 Platelet Estimate Not Reportable 02/17/17 10:24 Clumped Platelets Not Reportable 02/17/17 10:24 Plt Clumps, EDTA Not Reportable 02/17/17 10:24 Large Platelets Not Reportable 02/17/17 10:24 Giant Platelets Not Reportable 02/17/17 10:24 Platelet Satelliting Not Reportable 02/17/17 10:24 Plt Morphology Comment Not Reportable 02/17/17 10:24 RBC Morphology Not Reportable 02/17/17 10:24 Dimorphic RBCs Not Reportable 02/17/17 10:24 Polychromasia Not Reportable 02/17/17 10:24 Hypochromasia Not Reportable 02/17/17 10:24 Poikilocytosis 2+ 02/17/17 10:24 Anisocytosis Not Reportable 02/17/17 10:24 Microcytosis Not Reportable 02/17/17 10:24 Macrocytosis Not Reportable 02/17/17 10:24 Spherocytes 1+ 02/17/17 10:24 Pappenheimer Bodies Not Reportable 02/17/17 10:24 Sickle Cells Not Reportable 02/17/17 10:24 Target Cells Not Reportable 02/17/17 10:24 Tear Drop Cells Not Reportable 02/17/17 10:24 Ovalocytes 1+ 02/17/17 10:24 Helmet Cells Not Reportable 02/17/17 10:24 Berumen-Biola Bodies Not Reportable 02/17/17 10:24 [place] Rings Not Reportable 02/17/17 10:24 [place] Cells Not Reportable 02/17/17 10:24 Bite Cells Not Reportable 02/17/17 10:24 Crenated Cell Not Reportable 02/17/17 10:24 Elliptocytes 1+ 02/17/17 10:24 Acanthocytes (Spur) Not Reportable 02/17/17 10:24 Rouleaux Not Reportable 02/17/17 10:24 Hemoglobin C Crystals Not Reportable 02/17/17 10:24 Schistocytes 1+ 02/17/17 10:24 Malaria parasites Not Reportable 02/17/17 10:24 [place] Bodies Not Reportable 02/17/17 10:24 Hem Pathologist Commnt No 02/17/17 10:24 PT 16.7 Sec. (12.2-14.9) H 02/17/17 17:11 INR 1.36 (0.87-1.13) H 02/17/17 17:11 APTT 36.0 Sec. (24.2-36.6) 02/17/17 17:11 POC ABG pH 7.407 (7.35-7.45) 02/16/17 13:28 POC ABG pCO2 29.8 (35-45) L 02/16/17 13:28 POC ABG pO2 544 (80-105) H 02/16/17 13:28 POC ABG HCO3 18.8 02/16/17 13:28 POC ABG Total CO2 20 02/16/17 13:28 POC ABG O2 Sat 100 02/16/17 13:28 POC ABG Base Excess -6 02/16/17 13:28 FiO2 100 % 02/16/17 13:28 Sodium 145 mmol/L (137-145) D 02/17/17 10:24 Potassium 3.7 mmol/L (3.6-5.0) D 02/17/17 10:24 Chloride 105.7 mmol/L (98-107) 02/17/17 10:24 Carbon Dioxide 22 mmol/L (22-30) D 02/17/17 10:24 Anion Gap 21 mmol/L 02/17/17 10:24 BUN 58 mg/dL (9-20) H 02/17/17 10:24 Creatinine 1.3 mg/dL (0.8-1.5) 02/17/17 10:24 Estimated GFR 54 ml/min 02/17/17 10:24 BUN/Creatinine Ratio 44.61 % 02/17/17 10:24 Glucose 97 mg/dL (75-100) 02/17/17 10:24 Lactic Acid 1.60 mmol/L (0.7-2.0) 02/17/17 10:24 Calcium 8.3 mg/dL (8.4-10.2) L 02/17/17 10:24 Total Bilirubin 1.00 mg/dL (0.1-1.2) 02/17/17 10:24 AST 30 units/L (5-40) 02/17/17 10:24 ALT 32 units/L (7-56) 02/17/17 10:24 Alkaline Phosphatase 94 units/L (35-129) 02/17/17 10:24 Total Creatine Kinase 258 units/L (55-170) H 02/17/17 17:12 CK-MB (CK-2) 6.9 ng/mL (0.0-4.0) H 02/17/17 17:12 CK-MB (CK-2) Rel Index 2.6 (0-4) 02/17/17 17:12 Troponin T 0.775 ng/mL (0.00-0.029) H* 02/17/17 17:12 NT-Pro-B Natriuret Pep 28135 pg/mL (0-900) H 02/16/17 13:44 Total Protein 6.5 g/dL (6.3-8.2) 02/17/17 10:24 Albumin 3.0 g/dL (3.9-5) L 02/17/17 10:24 Albumin/Globulin Ratio 0.9 % 02/17/17 10:24 Triglycerides 86 mg/dL (2-149) 02/16/17 13:44 Cholesterol 192 mg/dL (50-199) 02/16/17 13:44 LDL Cholesterol Direct 131 mg/dL (50-130) H 02/16/17 13:44 HDL Cholesterol 44 mg/dL (40-59) 02/16/17 13:44 Cholesterol/HDL Ratio 4.36 % 02/16/17 13:44 Urine Color Yellow (Yellow) 02/16/17 Unknown Urine Turbidity Clear (Clear) 02/16/17 Unknown Urine pH 5.0 (5.0-7.0) 02/16/17 Unknown Ur Specific [place] 1.013 (1.003-1.030) 02/16/17 Unknown Urine Protein 30 mg/dl mg/dL (Negative) 02/16/17 Unknown Urine Glucose (UA) Neg mg/dL (Negative) 02/16/17 Unknown Urine Ketones Neg mg/dL (Negative) 02/16/17 Unknown Urine Blood Sm (Negative) 02/16/17 Unknown Urine Nitrite Neg (Negative) 02/16/17 Unknown Urine Bilirubin Neg (Negative) 02/16/17 Unknown Urine Urobilinogen < 2.0 mg/dL (<2.0) 02/16/17 Unknown Ur Leukocyte Esterase Neg (Negative) 02/16/17 Unknown Urine WBC (Auto) 1.0 /HPF (0.0-6.0) 02/16/17 Unknown Urine RBC (Auto) 2.0 /HPF (0.0-6.0) 02/16/17 Unknown Hyaline Casts 1 /LPF 02/16/17 Unknown Urine Mucus Few /HPF 02/16/17 Unknown - Imaging and Cardiology EKG: image reviewed Chest x-ray: image reviewed CT scan - abdomen: report reviewed CT scan - chest: report reviewed
[2017-02-17] MEDS ORDERED: TYLENOL #3 PO PRN (19:43)
[2017-02-18 03:04] LABS: Creatine Kinase MB 4.9 ng/mL (0.0-4.0)
[2017-02-18 03:07] LABS: Anion Gap 20 mmol/L; BUN/Creatinine Ratio 42.72; Blood Urea Nitrogen 47 mg/dL (9-20); Calcium 8.4 mg/dL (8.4-10.2); Carbon Dioxide 24 mmol/L (22-30); Chloride 107.1 mmol/L (98-107); Creatine Kinase 241 units/L (55-170); Glucose 96 mg/dL (75-100); Potassium 3.3 mmol/L (3.6-5.0); Sodium 148 mmol/L (137-145)
[2017-02-18] MEDS: DUONEB *Not for PRN Use IH SCH ×5 (04:35→20:33)
[2017-02-18] MEDS: LASIX IV SCH ×2 (05:25→18:15)
[2017-02-18] MEDS ORDERED: K-DUR PO ONE (08:00)
--- NOTE | 2017-02-18 08:20 | Progress Note ---
Assessment and Plan 76 y/o male with acute respiratory failure, secondary to possible community acquired pneumonia vs volume overload with NSTEMI and renal failure, now resolved renal failure and found to have a depressed EF with LV thrombus 1. Continue Heparin Drip 2. Continue net negative state 3. Supplemental O2 4. Follow up Cards recs 5. Will ask if heart cath is in the future. Overall prognosis is guarded. Subjective Date of service: 02/18/17 Interval history: Found to have LV thrombus and EF of 15% on yesterday. consulted cards who started on heparin. Renal function is improved this am and responding well to lasix. Remains on oxygen, was on venti mask last night but back to nasal cannula. Objective Vital Signs - 12hr 02/17/17 02/17/17 02/17/17 20:21 20:30 20:41 Temperature Pulse Rate 84 76 81 Pulse Rate [ Bilateral Throughout] Pulse Rate [ From Monitor] Respiratory 26 H 27 H 21 Rate Respiratory Rate [Bilateral Throughout] Blood Pressure 126/77 122/67 122/67 O2 Sat by Pulse 97 94 95 Oximetry 02/17/17 02/17/17 02/17/17 20:51 21:00 21:11 Temperature Pulse Rate 82 74 82 Pulse Rate [ Bilateral Throughout] Pulse Rate [ From Monitor] Respiratory 27 H 25 H 22 Rate Respiratory Rate [Bilateral Throughout] Blood Pressure 122/67 116/68 116/68 O2 Sat by Pulse 97 96 98 Oximetry 02/17/17 02/17/17 02/17/17 21:21 21:30 21:41 Temperature Pulse Rate 87 81 79 Pulse Rate [ Bilateral Throughout] Pulse Rate [ From Monitor] Respiratory 28 H 26 H 24 Rate Respiratory Rate [Bilateral Throughout] Blood Pressure 116/68 118/77 118/77 O2 Sat by Pulse 99 99 98 Oximetry 02/17/17 02/17/17 02/17/17 21:51 22:00 22:11 Temperature Pulse Rate 77 70 75 Pulse Rate [ Bilateral Throughout] Pulse Rate [ From Monitor] Respiratory 26 H 22 23 Rate Respiratory Rate [Bilateral Throughout] Blood Pressure 118/77 117/60 117/60 O2 Sat by Pulse 95 97 97 Oximetry 02/17/17 02/17/17 02/17/17 22:21 22:30 22:41 Temperature Pulse Rate 80 67 75 Pulse Rate [ Bilateral Throughout] Pulse Rate [ From Monitor] Respiratory 25 H 21 21 Rate Respiratory Rate [Bilateral Throughout] Blood Pressure 117/60 113/59 113/59 O2 Sat by Pulse 100 97 100 Oximetry 02/17/17 02/17/17 02/17/17 22:51 23:00 23:11 Temperature Pulse Rate 85 71 68 Pulse Rate [ Bilateral Throughout] Pulse Rate [ From Monitor] Respiratory 30 H 17 24 Rate Respiratory Rate [Bilateral Throughout] Blood Pressure 113/59 112/64 112/64 O2 Sat by Pulse 100 99 97 Oximetry 02/17/17 02/17/17 02/17/17 23:21 23:25 23:28 Temperature 98.4 F Pulse Rate 72 71 Pulse Rate [ Bilateral Throughout] Pulse Rate [ From Monitor] Respiratory 21 22 Rate Respiratory Rate [Bilateral Throughout] Blood Pressure 112/64 112/64 O2 Sat by Pulse 99 98 Oximetry 02/17/17 02/17/17 02/17/17 23:30 23:41 23:51 Temperature Pulse Rate 68 71 73 Pulse Rate [ Bilateral Throughout] Pulse Rate [ From Monitor] Respiratory 22 21 24 Rate Respiratory Rate [Bilateral Throughout] Blood Pressure 116/60 116/60 116/60 O2 Sat by Pulse 96 96 97 Oximetry 02/18/17 02/18/17 02/18/17 00:00 00:11 00:21 Temperature Pulse Rate 82 72 81 Pulse Rate [ Bilateral Throughout] Pulse Rate [ 73 From Monitor] Respiratory 30 H 25 H 24 Rate Respiratory Rate [Bilateral Throughout] Blood Pressure 123/80 116/60 116/60 O2 Sat by Pulse 99 100 95 Oximetry 02/18/17 02/18/17 02/18/17 00:30 00:41 00:51 Temperature Pulse Rate 78 69 70 Pulse Rate [ Bilateral Throughout] Pulse Rate [ From Monitor] Respiratory 27 H 25 H 19 Rate Respiratory Rate [Bilateral Throughout] Blood Pressure 126/75 126/75 126/75 O2 Sat by Pulse 97 97 98 Oximetry 02/18/17 02/18/17 02/18/17 01:00 01:11 01:21 Temperature Pulse Rate 69 78 77 Pulse Rate [ Bilateral Throughout] Pulse Rate [ From Monitor] Respiratory 16 28 H 26 H Rate Respiratory Rate [Bilateral Throughout] Blood Pressure 110/64 126/75 126/75 O2 Sat by Pulse 97 97 97 Oximetry 02/18/17 02/18/17 02/18/17 01:30 01:41 01:51 Temperature Pulse Rate 68 75 77 Pulse Rate [ Bilateral Throughout] Pulse Rate [ From Monitor] Respiratory 23 26 H 23 Rate Respiratory Rate [Bilateral Throughout] Blood Pressure 119/68 110/64 110/64 O2 Sat by Pulse 97 97 97 Oximetry 02/18/17 02/18/17 02/18/17 02:00 02:11 02:21 Temperature Pulse Rate 79 78 78 Pulse Rate [ Bilateral Throughout] Pulse Rate [ From Monitor] Respiratory 23 26 H 28 H Rate Respiratory Rate [Bilateral Throughout] Blood Pressure 119/68 119/68 119/68 O2 Sat by Pulse 96 96 99 Oximetry 02/18/17 02/18/17 02/18/17 02:30 02:41 02:51 Temperature Pulse Rate 82 83 74 Pulse Rate [ Bilateral Throughout] Pulse Rate [ From Monitor] Respiratory 14 19 24 Rate Respiratory Rate [Bilateral Throughout] Blood Pressure 117/82 117/82 117/82 O2 Sat by Pulse 96 93 98 Oximetry 02/18/17 02/18/17 02/18/17 03:00 03:11 03:21 Temperature Pulse Rate 78 80 78 Pulse Rate [ Bilateral Throughout] Pulse Rate [ From Monitor] Respiratory 26 H 25 H 24 Rate Respiratory Rate [Bilateral Throughout] Blood Pressure 120/70 120/70 120/70 O2 Sat by Pulse 95 99 96 Oximetry 02/18/17 02/18/17 02/18/17 03:30 03:41 03:44 Temperature 98.3 F Pulse Rate 77 74 Pulse Rate [ Bilateral Throughout] Pulse Rate [ From Monitor] Respiratory 27 H 28 H Rate Respiratory Rate [Bilateral Throughout] Blood Pressure 125/75 125/75 O2 Sat by Pulse 94 99 Oximetry 02/18/17 02/18/17 02/18/17 03:51 04:00 04:11 Temperature Pulse Rate 70 67 71 Pulse Rate [ 76 Bilateral Throughout] Pulse Rate [ From Monitor] Respiratory 21 24 22 Rate Respiratory 18 Rate [Bilateral Throughout] Blood Pressure 125/75 124/70 124/70 O2 Sat by Pulse 99 96 98 Oximetry 02/18/17 02/18/17 02/18/17 04:21 04:30 04:41 Temperature Pulse Rate 81 74 79 Pulse Rate [ Bilateral Throughout] Pulse Rate [ From Monitor] Respiratory 21 26 H 21 Rate Respiratory Rate [Bilateral Throughout] Blood Pressure 124/70 126/67 126/67 O2 Sat by Pulse 95 92 99 Oximetry 02/18/17 02/18/17 02/18/17 04:50 05:00 05:11 Temperature Pulse Rate 75 75 83 Pulse Rate [ Bilateral Throughout] Pulse Rate [ From Monitor] Respiratory 15 15 29 H Rate Respiratory Rate [Bilateral Throughout] Blood Pressure 126/67 117/68 126/67 O2 Sat by Pulse 98 95 90 Oximetry 02/18/17 02/18/17 02/18/17 05:21 05:30 05:40 Temperature Pulse Rate 80 77 71 Pulse Rate [ Bilateral Throughout] Pulse Rate [ From Monitor] Respiratory 26 H 22 22 Rate Respiratory Rate [Bilateral Throughout] Blood Pressure 126/67 122/71 122/71 O2 Sat by Pulse 89 94 100 Oximetry 02/18/17 02/18/17 02/18/17 05:51 06:00 06:11 Temperature Pulse Rate 69 87 66 Pulse Rate [ Bilateral Throughout] Pulse Rate [ From Monitor] Respiratory 26 H 33 H 28 H Rate Respiratory Rate [Bilateral Throughout] Blood Pressure 122/71 122/63 122/71 O2 Sat by Pulse 99 97 100 Oximetry 02/18/17 02/18/17 02/18/17 06:21 06:30 06:41 Temperature Pulse Rate 71 75 74 Pulse Rate [ Bilateral Throughout] Pulse Rate [ From Monitor] Respiratory 26 H 23 27 H Rate Respiratory Rate [Bilateral Throughout] Blood Pressure 122/71 119/59 119/59 O2 Sat by Pulse 100 95 99 Oximetry 02/18/17 02/18/17 02/18/17 06:51 07:00 08:00 Temperature Pulse Rate 77 67 83 Pulse Rate [ Bilateral Throughout] Pulse Rate [ From Monitor] Respiratory 28 H 23 26 H Rate Respiratory Rate [Bilateral Throughout] Blood Pressure 119/59 115/60 114/70 O2 Sat by Pulse 97 96 97 Oximetry Constitutional: no acute distress, alert Eyes: non-icteric ENT: oropharynx moist Neck: supple Effort: mildly labored Ascultation: Bilateral: rales Percussion: Bilateral: not dull Cardiovascular: regular rate and rhythm Gastrointestinal: normoactive bowel sounds, soft, non-tender Extremities: no cyanosis, no edema CBC and BMP: 02/17/17 17:04 02/18/17 02:20 ABG, PT/INR, D-dimer: ABG POC ABG pH 7.407 (7.35-7.45) 02/16/17 13:28 POC ABG pCO2 29.8 (35-45) L 02/16/17 13:28 POC ABG pO2 544 (80-105) H 02/16/17 13:28 POC ABG HCO3 18.8 02/16/17 13:28 POC ABG Total CO2 20 02/16/17 13:28 POC ABG O2 Sat 100 02/16/17 13:28 PT/INR, D-dimer PT 16.7 Sec. (12.2-14.9) H 02/17/17 17:11 INR 1.36 (0.87-1.13) H 02/17/17 17:11 Abnormal lab findings: Abnormal Labs 02/17/17 02/17/17 02/17/17 10:24 10:24 10:24 Hgb 10.7 L Hct 33.2 L MCV 83 L MCH 27 L RDW 17.4 H Seg Neuts % (Manual) 91.0 H Lymphocytes % (Manual) 5.0 L Seg Neutrophils # Man 8.6 H Lymphocytes # (Manual) 0.5 L PT INR Sodium Potassium Chloride BUN 58 H Calcium 8.3 L Total Creatine Kinase 205 H CK-MB (CK-2) 7.5 H Troponin T Albumin 3.0 L 02/17/17 02/17/17 02/17/17 10:24 17:04 17:11 Hgb 10.8 L Hct 33.5 L MCV MCH RDW Seg Neuts % (Manual) Lymphocytes % (Manual) Seg Neutrophils # Man Lymphocytes # (Manual) PT 16.7 H INR 1.36 H Sodium Potassium Chloride BUN Calcium Total Creatine Kinase CK-MB (CK-2) Troponin T 0.877 H* Albumin 02/17/17 02/18/17 17:12 02:20 Hgb Hct MCV MCH RDW Seg Neuts % (Manual) Lymphocytes % (Manual) Seg Neutrophils # Man Lymphocytes # (Manual) PT INR Sodium 148 H Potassium 3.3 L Chloride 107.1 H BUN 47 H Calcium Total Creatine Kinase 258 H 241 H CK-MB (CK-2) 6.9 H 4.9 H Troponin T 0.775 H* 0.949 H* D Albumin
[2017-02-18] MEDS: PEPCID IV SCH (09:00)
[2017-02-18] MEDS: BABY ASPIRIN PO SCH (09:00)
[2017-02-18] MEDS ORDERED: ROCEPHIN/NS 1 GM/50 ML 1 GM/50 ML BAG IV SCH (10:00)
--- NOTE | 2017-02-18 10:30 | Progress Note ---
Assessment and Plan Plan for lexiscan MPI stress test in AM. NPO after MN. Heparin gtt infusing. 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 Will plan to convert heparin gtt to coumadin following completion of ischemic evaluation. Cont ASA 81 and lipitor. No ACEI/ARB at this time in setting of ADONIS. No BB at this time in setting of borderline hypotension. The patient has been seen in conjunction with Dr. Alexander who agrees with the assessment and plan of care. - Patient Problems (1) Acute respiratory failure Current Visit: Yes Status: Acute Qualifiers: Respiratory failure complication: R (2) Pneumonia Current Visit: Yes Status: Suspected Qualifiers: Pneumonia type: P Aspiration pneumonia type: A Laterality: L Lung location: L (3) Left ventricular apical thrombus Current Visit: Yes Status: Acute (4) Non-ST elevation AR (NSTEMI) Current Visit: Yes Status: Acute (5) ADONIS (acute kidney injury) Current Visit: Yes Status: Acute (6) Cardiomyopathy Current Visit: Yes Status: Chronic Qualifiers: Cardiomyopathy type: C (7) Abdominal pain Current Visit: Yes Status: Resolved Qualifiers: Abdominal location: A (8) Lactic acidosis Current Visit: Yes Status: Acute (9) History of CVA (cerebrovascular accident) Current Visit: Yes Status: Resolved Subjective Date of service: 02/18/17 Principal diagnosis: CMP; NSTEMI; LV thrombus Interval history: Pt resting comfortably in bed, appears more alert today. Denies any complaints. VSS. heparin gtt infusing. Objective Last Vital Signs Temp 98 F 02/18/17 08:00 Pulse 85 02/18/17 09:00 Resp 21 02/18/17 09:00 BP 110/68 02/18/17 09:00 Pulse Ox 97 02/18/17 08:00 - Physical Examination HEENT: Positive: PERRL, Normocephaly, Mucus Membranes Moist Neck: Positive: neck supple Cardiac: Positive: Reg Rate and Rhythm, S1/S2 Lungs: Positive: clear to auscultation Neuro: Positive: Grossly Intact, Weakness (right-sided) Abdomen: Positive: Unremarkable, Soft, Active Bowel Sounds. Negative: Tender Musculoskeletal: No Fluid Collection, No Pain, Normal Range of Motion Extremities: Absent: edema - Labs and Meds Cardiac Enzymes 0902/17/17 02/17/17 Range/Units 10:24 10:24 17:12 AST 30 (5-40) units/L CK-MB (CK-2) 7.5 H 6.9 H (0.0-4.0) ng/mL 02/18/17 Range/Units 02:20 AST (5-40) units/L CK-MB (CK-2) 4.9 H (0.0-4.0) ng/mL Coagulation 02/17/17 Range/Units 17:11 PT 16.7 H (12.2-14.9) Sec. INR 1.36 H (0.87-1.13) APTT 36.0 (24.2-36.6) Sec. CBC 02/17/17 02/17/17 Range/Units 10:24 17:04 WBC 9.4 (4.5-11.0) K/mm3 RBC 4.01 (3.65-5.03) M/mm3 Hgb 10.7 L 10.8 L (11.8-15.2) gm/dl Hct 33.2 L 33.5 L (35.5-45.6) % Plt Count 242 251 (140-440) K/mm3 Comprehensive Metabolic Panel 02/17/17 02/18/17 Range/Units 10:24 02:20 Sodium 145 D 148 H (137-145) mmol/L Potassium 3.7 D 3.3 L (3.6-5.0) mmol/L Chloride 105.7 107.1 H (98-107) mmol/L Carbon Dioxide 22 D 24 (22-30) mmol/L BUN 58 H 47 H (9-20) mg/dL Creatinine 1.3 1.1 (0.8-1.5) mg/dL Glucose 97 96 (75-100) mg/dL Calcium 8.3 L 8.4 (8.4-10.2) mg/dL AST 30 (5-40) units/L ALT 32 (7-56) units/L Alkaline Phosphatase 94 (35-129) units/L Total Protein 6.5 (6.3-8.2) g/dL Albumin 3.0 L (3.9-5) g/dL - Imaging and Cardiology EKG: image reviewed Echo: report reviewed - EKG Sinus rhythms and dysrhythmias: sinus rhythm Chamber hypertrophy or enlargement: left ventricular hypertro Myocardial infarction: septal AR (old age or ind, anterior AR (old age or i
--- NOTE | 2017-02-18 19:02 | Progress Note ---
Assessment and Plan Assessment and plan: 76 years old male admitted with acute respiratory failure and found to have severe cardiomyopathy and LV thrombus 1. Acute hypoxic respiratory failure Likely secondary to combination of possible pneumonia and heart failure Continue antibiotics, diuresis with IV Lasix Required BiPAP on admission, then on Venti-mask; this morning on NC 2. Pneumonia CXR and CT chest with bilateral infiltrates WBC within normal limits, but lactic acid elevated on admission Continue IV antibiotics 3. Acute systolic heart failure/Cardiomyopathy Symptoms consistent with heart failure, BNP elevated, CXRs/CT chest with pulmonary edema and pleural effusions ECHO revealed severe cardiomyopathy with EF 15% Started on aspirin and statin; low dose BB added today; not on ACEI due to renal failure on admission ( reassess as renal function improving) Cardiology consulted and following; plans ischemic evaluation - scheduled for stress test in am 4. NSTEMI See above discussion Most likely secondary to heart and renal failure Stress test in am 5. LV apical thrombus As above mentioned ECHO showed severe cardiomyopathy and large left ventricular apical thrombus Cardiology consulted and initiated heparin drip; plans to bridge to Coumadin 6. Acute renal failure Previous renal function unknown, on admission creatinine 1.8, bicarbonate 15 Improved Continue to monitor especially while on Lasix 7. Metabolic acidosis Likely secondary to renal failure Monitor for now 8. Hypernatremia Secondary to diuresis Monitor 9. Anemia Hemoglobin in upper 10s range Possible anemia of chronic disease Monitor H&H (stable) 10. 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 Hyperlipidemia LDL 131 Started on statin DVT prophylaxis Currently on heparin drip History Interval history: no events overnight, no complaints today; on )2 per NC; still on heparin drip; scheduled for stress test in am Hospitalist Physical - Constitutional Vitals: Temp Pulse Resp BP Pulse Ox 97.5 F L 78 20 108/60 98 02/18/17 16:00 02/18/17 15:00 02/18/17 15:00 02/18/17 15:00 02/18/17 15:00 General appearance: Present: no acute distress - EENT Eyes: Present: PERRL, EOM intact - Neck Neck: Present: supple. Absent: enlarged thyroid, masses or JVD - Respiratory Respiratory effort: normal Respiratory: bilateral: CTA, negative: rhonchi, wheezing - Cardiovascular Rhythm: regular Heart Sounds: Present: S1 & S2. Absent: systolic murmur - Extremities Extremities: no ischemia - Abdominal General gastrointestinal: soft, non-tender, non-distended, normal bowel sounds - Neurologic Neurologic: other (R-sided weakness) Results - Labs CBC & Chem 7: 02/17/17 17:04 02/18/17 02:20 Labs: Laboratory Last Values WBC 9.4 K/mm3 (4.5-11.0) 02/17/17 10:24 RBC 4.01 M/mm3 (3.65-5.03) 02/17/17 10:24 Hgb 10.8 gm/dl (11.8-15.2) L 02/17/17 17:04 Hct 33.5 % (35.5-45.6) L 02/17/17 17:04 MCV 83 fl (84-94) L 02/17/17 10:24 MCH 27 pg (28-32) L 02/17/17 10:24 MCHC 32 % (32-34) 02/17/17 10:24 RDW 17.4 % (13.2-15.2) H 02/17/17 10:24 Plt Count 251 K/mm3 (140-440) 02/17/17 17:04 Lymph % (Auto) 7.1 % (13.4-35.0) L 02/16/17 13:44 Hayes % (Auto) 8.1 % (0.0-7.3) H 02/16/17 13:44 Eos % (Auto) 0.0 % (0.0-4.3) 02/16/17 13:44 Baso % (Auto) 0.2 % (0.0-1.8) 02/16/17 13:44 Lymph # 0.7 K/mm3 (1.2-5.4) L 02/16/17 13:44 Hayes # 0.8 K/mm3 (0.0-0.8) 02/16/17 13:44 Eos # 0.0 K/mm3 (0.0-0.4) 02/16/17 13:44 Baso # 0.0 K/mm3 (0.0-0.1) 02/16/17 13:44 Add Manual Diff Complete 02/17/17 10:24 Total Counted 100 02/17/17 10:24 Seg Neutrophils % 84.6 % (40.0-70.0) H 02/16/17 13:44 Seg Neuts % (Manual) 91.0 % (40.0-70.0) H 02/17/17 10:24 Band Neutrophils % 0 % 02/17/17 10:24 Lymphocytes % (Manual) 5.0 % (13.4-35.0) L 02/17/17 10:24 Reactive Lymphs % (Man) 0 % 02/17/17 10:24 Monocytes % (Manual) 4.0 % (0.0-7.3) 02/17/17 10:24 Eosinophils % (Manual) 0 % (0.0-4.3) 02/17/17 10:24 Basophils % (Manual) 0 % (0.0-1.8) 02/17/17 10:24 Metamyelocytes % 0 % 02/17/17 10:24 Myelocytes % 0 % 02/17/17 10:24 Promyelocytes % 0 % 02/17/17 10:24 Blast Cells % 0 % 02/17/17 10:24 Nucleated RBC % Not Reportable 02/17/17 10:24 Seg Neutrophils # 8.6 K/mm3 (1.8-7.7) H 02/16/17 13:44 Seg Neutrophils # Man 8.6 K/mm3 (1.8-7.7) H 02/17/17 10:24 Band Neutrophils # 0.0 K/mm3 02/17/17 10:24 Lymphocytes # (Manual) 0.5 K/mm3 (1.2-5.4) L 02/17/17 10:24 Abs React Lymphs (Man) 0.0 K/mm3 02/17/17 10:24 Monocytes # (Manual) 0.4 K/mm3 (0.0-0.8) 02/17/17 10:24 Eosinophils # (Manual) 0.0 K/mm3 (0.0-0.4) 02/17/17 10:24 Basophils # (Manual) 0.0 K/mm3 (0.0-0.1) 02/17/17 10:24 Metamyelocytes # 0.0 K/mm3 02/17/17 10:24 Myelocytes # 0.0 K/mm3 02/17/17 10:24 Promyelocytes # 0.0 K/mm3 02/17/17 10:24 Blast Cells # 0.0 K/mm3 02/17/17 10:24 WBC Morphology Not Reportable 02/17/17 10:24 Hypersegmented Neuts Not Reportable 02/17/17 10:24 Hyposegmented Neuts Not Reportable 02/17/17 10:24 Hypogranular Neuts Not Reportable 02/17/17 10:24 Smudge Cells Not Reportable 02/17/17 10:24 Toxic Granulation Not Reportable 02/17/17 10:24 Toxic Vacuolation Not Reportable 02/17/17 10:24 Dohle Bodies Not Reportable 02/17/17 10:24 Pelger-Huet Anomaly Not Reportable 02/17/17 10:24 Mary Rods Not Reportable 02/17/17 10:24 Platelet Estimate Not Reportable 02/17/17 10:24 Clumped Platelets Not Reportable 02/17/17 10:24 Plt Clumps, EDTA Not Reportable 02/17/17 10:24 Large Platelets Not Reportable 02/17/17 10:24 Giant Platelets Not Reportable 02/17/17 10:24 Platelet Satelliting Not Reportable 02/17/17 10:24 Plt Morphology Comment Not Reportable 02/17/17 10:24 RBC Morphology Not Reportable 02/17/17 10:24 Dimorphic RBCs Not Reportable 02/17/17 10:24 Polychromasia Not Reportable 02/17/17 10:24 Hypochromasia Not Reportable 02/17/17 10:24 Poikilocytosis 2+ 02/17/17 10:24 Anisocytosis Not Reportable 02/17/17 10:24 Microcytosis Not Reportable 02/17/17 10:24 Macrocytosis Not Reportable 02/17/17 10:24 Spherocytes 1+ 02/17/17 10:24 Pappenheimer Bodies Not Reportable 02/17/17 10:24 Sickle Cells Not Reportable 02/17/17 10:24 Target Cells Not Reportable 02/17/17 10:24 Tear Drop Cells Not Reportable 02/17/17 10:24 Ovalocytes 1+ 02/17/17 10:24 Helmet Cells Not Reportable 02/17/17 10:24 Berumen-[place] Bodies Not Reportable 02/17/17 10:24 [place] Rings Not Reportable 02/17/17 10:24 [place] Cells Not Reportable 02/17/17 10:24 Bite Cells Not Reportable 02/17/17 10:24 Crenated Cell Not Reportable 02/17/17 10:24 Elliptocytes 1+ 02/17/17 10:24 Acanthocytes (Spur) Not Reportable 02/17/17 10:24 Rouleaux Not Reportable 02/17/17 10:24 Hemoglobin C Crystals Not Reportable 02/17/17 10:24 Schistocytes 1+ 02/17/17 10:24 Malaria parasites Not Reportable 02/17/17 10:24 Cecil Bodies Not Reportable 02/17/17 10:24 Hem Pathologist Commnt No 02/17/17 10:24 PT 16.7 Sec. (12.2-14.9) H 02/17/17 17:11 INR 1.36 (0.87-1.13) H 02/17/17 17:11 APTT 36.0 Sec. (24.2-36.6) 02/17/17 17:11 Heparin Anti-Xa Level 0.70 U.I./ml (0.3-0.7) 02/17/17 22:45 POC ABG pH 7.407 (7.35-7.45) 02/16/17 13:28 POC ABG pCO2 29.8 (35-45) L 02/16/17 13:28 POC ABG pO2 544 (80-105) H 02/16/17 13:28 POC ABG HCO3 18.8 02/16/17 13:28 POC ABG Total CO2 20 02/16/17 13:28 POC ABG O2 Sat 100 02/16/17 13:28 POC ABG Base Excess -6 02/16/17 13:28 FiO2 100 % 02/16/17 13:28 Sodium 148 mmol/L (137-145) H 02/18/17 02:20 Potassium 3.3 mmol/L (3.6-5.0) L 02/18/17 02:20 Chloride 107.1 mmol/L (98-107) H 02/18/17 02:20 Carbon Dioxide 24 mmol/L (22-30) 02/18/17 02:20 Anion Gap 20 mmol/L 02/18/17 02:20 BUN 47 mg/dL (9-20) H 02/18/17 02:20 Creatinine 1.1 mg/dL (0.8-1.5) 02/18/17 02:20 Estimated GFR > 60 ml/min 02/18/17 02:20 BUN/Creatinine Ratio 42.72 % 02/18/17 02:20 Glucose 96 mg/dL (75-100) 02/18/17 02:20 Lactic Acid 1.60 mmol/L (0.7-2.0) 02/17/17 10:24 Calcium 8.4 mg/dL (8.4-10.2) 02/18/17 02:20 Total Bilirubin 1.00 mg/dL (0.1-1.2) 02/17/17 10:24 AST 30 units/L (5-40) 02/17/17 10:24 ALT 32 units/L (7-56) 02/17/17 10:24 Alkaline Phosphatase 94 units/L (35-129) 02/17/17 10:24 Total Creatine Kinase 241 units/L (55-170) H 02/18/17 02:20 CK-MB (CK-2) 4.9 ng/mL (0.0-4.0) H 02/18/17 02:20 CK-MB (CK-2) Rel Index 2.6 (0-4) 02/17/17 17:12 Troponin T 0.949 ng/mL (0.00-0.029) H* D 02/18/17 02:20 NT-Pro-B Natriuret Pep 12749 pg/mL (0-900) H 02/16/17 13:44 Total Protein 6.5 g/dL (6.3-8.2) 02/17/17 10:24 Albumin 3.0 g/dL (3.9-5) L 02/17/17 10:24 Albumin/Globulin Ratio 0.9 % 02/17/17 10:24 Triglycerides 86 mg/dL (2-149) 02/16/17 13:44 Cholesterol 192 mg/dL (50-199) 02/16/17 13:44 LDL Cholesterol Direct 131 mg/dL (50-130) H 02/16/17 13:44 HDL Cholesterol 44 mg/dL (40-59) 02/16/17 13:44 Cholesterol/HDL Ratio 4.36 % 02/16/17 13:44 Urine Color Yellow (Yellow) 02/16/17 Unknown Urine Turbidity Clear (Clear) 02/16/17 Unknown Urine pH 5.0 (5.0-7.0) 02/16/17 Unknown Ur Specific [place] 1.013 (1.003-1.030) 02/16/17 Unknown Urine Protein 30 mg/dl mg/dL (Negative) 02/16/17 Unknown Urine Glucose (UA) Neg mg/dL (Negative) 02/16/17 Unknown Urine Ketones Neg mg/dL (Negative) 02/16/17 Unknown Urine Blood Sm (Negative) 02/16/17 Unknown Urine Nitrite Neg (Negative) 02/16/17 Unknown Urine Bilirubin Neg (Negative) 02/16/17 Unknown Urine Urobilinogen < 2.0 mg/dL (<2.0) 02/16/17 Unknown Ur Leukocyte Esterase Neg (Negative) 02/16/17 Unknown Urine WBC (Auto) 1.0 /HPF (0.0-6.0) 02/16/17 Unknown Urine RBC (Auto) 2.0 /HPF (0.0-6.0) 02/16/17 Unknown Hyaline Casts 1 /LPF 02/16/17 Unknown Urine Mucus Few /HPF 02/16/17 Unknown
[2017-02-18] MEDS: LOPRESSOR PO SCH (21:37)
[2017-02-19] MEDS: DUONEB *Not for PRN Use IH SCH ×4 (02:06→19:56)
[2017-02-19 05:04] LABS: Hematocrit 36.4 % (35.5-45.6); Hemoglobin 11.7 gm/dl (11.8-15.2)
[2017-02-19 05:17] LABS: Anion Gap 17 mmol/L; Blood Urea Nitrogen 34 mg/dL (9-20); Calcium 8.5 mg/dL (8.4-10.2); Carbon Dioxide 27 mmol/L (22-30); Chloride 109.4 mmol/L (98-107); Glucose 113 mg/dL (75-100); Potassium 3.8 mmol/L (3.6-5.0); Sodium 150 mmol/L (137-145)
[2017-02-19] MEDS: LASIX IV SCH (06:50)
[2017-02-19] MEDS ORDERED: LEXISCAN IV ONE (09:45)
[2017-02-19] MEDS: LOPRESSOR PO SCH ×3 (11:29→22:25)
[2017-02-19] MEDS: PEPCID IV SCH (11:29)
[2017-02-19] MEDS: BABY ASPIRIN PO SCH (11:29)
--- NOTE | 2017-02-19 13:49 | Progress Note ---
Assessment and Plan 76 y/o male with acute respiratory failure, secondary to possible community acquired pneumonia vs volume overload with NSTEMI and renal failure, now resolved renal failure and found to have a depressed EF with LV thrombus 1. Continue Heparin Drip 2. Continue net negative state 3. Supplemental O2 4. Follow up Cards recs 5. Follow up stress test results. 6. Stable for transfer out of unit. Overall prognosis is guarded. Subjective Date of service: 02/19/17 Principal diagnosis: CMP; NSTEMI; LV thrombus Interval history: Had Stress test this am. Results not posted yet. Pulm status appears stable Objective Vital Signs - 12hr 02/19/17 02/19/17 02/19/17 02:00 03:00 04:00 Temperature 98.5 F Pulse Rate 67 67 68 Pulse Rate [ Bilateral Throughout] Pulse Rate [ From Monitor] Respiratory 22 18 14 Rate Respiratory Rate [Bilateral Throughout] Blood Pressure 97/62 107/59 103/64 O2 Sat by Pulse 100 100 100 Oximetry 02/19/17 02/19/17 02/19/17 05:00 06:00 07:00 Temperature Pulse Rate 94 H 95 H 82 Pulse Rate [ Bilateral Throughout] Pulse Rate [ From Monitor] Respiratory 19 33 H 29 H Rate Respiratory Rate [Bilateral Throughout] Blood Pressure 107/71 133/91 248/209 O2 Sat by Pulse 96 100 100 Oximetry 02/19/17 02/19/17 02/19/17 08:00 08:05 08:10 Temperature 97.6 F Pulse Rate 66 Pulse Rate [ 66 70 Bilateral Throughout] Pulse Rate [ 75 From Monitor] Respiratory 20 28 H Rate Respiratory 27 H 22 Rate [Bilateral Throughout] Blood Pressure 248/209 O2 Sat by Pulse 97 98 Oximetry 02/19/17 02/19/17 02/19/17 10:04 10:20 10:21 Temperature Pulse Rate 70 80 83 Pulse Rate [ Bilateral Throughout] Pulse Rate [ From Monitor] Respiratory Rate Respiratory Rate [Bilateral Throughout] Blood Pressure 138/85 132/78 129/84 O2 Sat by Pulse Oximetry 02/19/17 02/19/17 02/19/17 10:22 10:23 10:24 Temperature Pulse Rate 80 76 75 Pulse Rate [ Bilateral Throughout] Pulse Rate [ From Monitor] Respiratory Rate Respiratory Rate [Bilateral Throughout] Blood Pressure 138/79 92/60 109/72 O2 Sat by Pulse Oximetry 0902/19/17 02/19/17 11:14 11:20 11:37 Temperature Pulse Rate 74 77 Pulse Rate [ Bilateral Throughout] Pulse Rate [ 78 From Monitor] Respiratory 26 H Rate Respiratory Rate [Bilateral Throughout] Blood Pressure 112/61 127/77 O2 Sat by Pulse 100 Oximetry 02/19/17 02/19/17 02/19/17 12:00 12:03 13:00 Temperature 97.3 F L Pulse Rate 89 73 Pulse Rate [ Bilateral Throughout] Pulse Rate [ From Monitor] Respiratory 25 H Rate Respiratory Rate [Bilateral Throughout] Blood Pressure 128/61 117/77 O2 Sat by Pulse 99 Oximetry Constitutional: no acute distress, alert Eyes: non-icteric ENT: oropharynx moist Neck: supple Effort: mildly labored Ascultation: Bilateral: rales Percussion: Bilateral: not dull Cardiovascular: regular rate and rhythm Gastrointestinal: normoactive bowel sounds, soft, non-tender Extremities: no cyanosis, no edema CBC and BMP: 02/19/17 03:52 02/19/17 03:52 ABG, PT/INR, D-dimer: ABG POC ABG pH 7.407 (7.35-7.45) 02/16/17 13:28 POC ABG pCO2 29.8 (35-45) L 02/16/17 13:28 POC ABG pO2 544 (80-105) H 02/16/17 13:28 POC ABG HCO3 18.8 02/16/17 13:28 POC ABG Total CO2 20 02/16/17 13:28 POC ABG O2 Sat 100 02/16/17 13:28 PT/INR, D-dimer PT 16.7 Sec. (12.2-14.9) H 02/17/17 17:11 INR 1.36 (0.87-1.13) H 02/17/17 17:11 Abnormal lab findings: Abnormal Labs 02/17/17 02/17/17 02/17/17 10:24 10:24 10:24 Hgb 10.7 L Hct 33.2 L MCV 83 L MCH 27 L RDW 17.4 H Seg Neuts % (Manual) 91.0 H Lymphocytes % (Manual) 5.0 L Seg Neutrophils # Man 8.6 H Lymphocytes # (Manual) 0.5 L PT INR Sodium Potassium Chloride BUN 58 H Glucose Calcium 8.3 L Total Creatine Kinase 205 H CK-MB (CK-2) 7.5 H Troponin T Albumin 3.0 L 02/17/17 02/17/17 02/17/17 10:24 17:04 17:11 Hgb 10.8 L Hct 33.5 L MCV MCH RDW Seg Neuts % (Manual) Lymphocytes % (Manual) Seg Neutrophils # Man Lymphocytes # (Manual) PT 16.7 H INR 1.36 H Sodium Potassium Chloride BUN Glucose Calcium Total Creatine Kinase CK-MB (CK-2) Troponin T 0.877 H* Albumin 02/17/17 02/18/17 02/19/17 17:12 02:20 03:52 Hgb 11.7 L Hct MCV MCH RDW Seg Neuts % (Manual) Lymphocytes % (Manual) Seg Neutrophils # Man Lymphocytes # (Manual) PT INR Sodium 148 H Potassium 3.3 L Chloride 107.1 H BUN 47 H Glucose Calcium Total Creatine Kinase 258 H 241 H CK-MB (CK-2) 6.9 H 4.9 H Troponin T 0.775 H* 0.949 H* D Albumin 02/19/17 03:52 Hgb Hct MCV MCH RDW Seg Neuts % (Manual) Lymphocytes % (Manual) Seg Neutrophils # Man Lymphocytes # (Manual) PT INR Sodium 150 H Potassium Chloride 109.4 H BUN 34 H Glucose 113 H Calcium Total Creatine Kinase CK-MB (CK-2) Troponin T Albumin
--- NOTE | 2017-02-19 14:10 | Progress Note ---
Assessment and Plan Assessment and plan: 76 years old male admitted with acute respiratory failure and found to have severe cardiomyopathy and LV thrombus 1. Acute hypoxic respiratory failure Likely secondary to combination of possible pneumonia and heart failure Continue antibiotics, diuresis with IV Lasix Required BiPAP on admission, then Venti-mask; now stable on NC 2. Pneumonia CXR and CT chest with bilateral infiltrates WBC within normal limits, but lactic acid elevated on admission Continue IV antibiotics 3. Acute systolic heart failure/Cardiomyopathy Symptoms consistent with heart failure, BNP elevated, CXRs/CT chest with pulmonary edema and pleural effusions ECHO revealed severe cardiomyopathy with EF 15% Started on lasix, aspirin and statin; low dose BB added; not on ACEI due to renal failure on admission (reassess as renal function improving) Cardiology consulted and following; stress test today as part of ischemic evaluation revealed a fixed defect, but no reversible ischemia; considered NICM ; no cath planned 4. NSTEMI See above discussion Most likely secondary to heart and renal failure 5. LV apical thrombus As above mentioned ECHO showed severe cardiomyopathy and large left ventricular apical thrombus Cardiology consulted and initiated heparin drip; plans to bridge to Coumadin 6. Acute renal failure Previous renal function unknown, on admission creatinine 1.8, bicarbonate 15 Resolved Continue to monitor especially while on Lasix 7. Metabolic acidosis Likely secondary to renal failure Monitor for now 8. Hypernatremia Secondary to diuresis Change lasix to po and decrease dose Monitor 9. Anemia Hemoglobin in upper 10s range Possible anemia of chronic disease Monitor H&H (stable) 10. 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 Hyperlipidemia LDL 131 Started on statin DVT prophylaxis Currently on heparin drip History Interval history: doing well, no complaints; s/p stress test this morning Hospitalist Physical - Constitutional Vitals: Temp Pulse Resp BP Pulse Ox 97.3 F L 66 20 117/77 99 02/19/17 12:00 02/19/17 13:57 02/19/17 13:57 02/19/17 13:00 02/19/17 13:00 General appearance: Present: no acute distress - EENT Eyes: Present: PERRL, EOM intact - Neck Neck: Present: supple. Absent: enlarged thyroid, masses or JVD - Respiratory Respiratory effort: normal Respiratory: bilateral: CTA, negative: rhonchi, wheezing - Cardiovascular Rhythm: regular Heart Sounds: Present: S1 & S2. Absent: systolic murmur - Extremities Extremities: no ischemia - Abdominal General gastrointestinal: soft, non-tender, non-distended, normal bowel sounds - Neurologic Neurologic: other (right-sided weakness) Results - Labs CBC & Chem 7: 02/19/17 03:52 02/19/17 03:52 Labs: Laboratory Last Values WBC 9.4 K/mm3 (4.5-11.0) 02/17/17 10:24 RBC 4.01 M/mm3 (3.65-5.03) 02/17/17 10:24 Hgb 11.7 gm/dl (11.8-15.2) L 02/19/17 03:52 Hct 36.4 % (35.5-45.6) 02/19/17 03:52 MCV 83 fl (84-94) L 02/17/17 10:24 MCH 27 pg (28-32) L 02/17/17 10:24 MCHC 32 % (32-34) 02/17/17 10:24 RDW 17.4 % (13.2-15.2) H 02/17/17 10:24 Plt Count 264 K/mm3 (140-440) 02/19/17 03:52 Lymph % (Auto) 7.1 % (13.4-35.0) L 02/16/17 13:44 Lewis % (Auto) 8.1 % (0.0-7.3) H 02/16/17 13:44 Eos % (Auto) 0.0 % (0.0-4.3) 02/16/17 13:44 Baso % (Auto) 0.2 % (0.0-1.8) 02/16/17 13:44 Lymph # 0.7 K/mm3 (1.2-5.4) L 02/16/17 13:44 Lewis # 0.8 K/mm3 (0.0-0.8) 02/16/17 13:44 Eos # 0.0 K/mm3 (0.0-0.4) 02/16/17 13:44 Baso # 0.0 K/mm3 (0.0-0.1) 02/16/17 13:44 Add Manual Diff Complete 02/17/17 10:24 Total Counted 100 02/17/17 10:24 Seg Neutrophils % 84.6 % (40.0-70.0) H 02/16/17 13:44 Seg Neuts % (Manual) 91.0 % (40.0-70.0) H 02/17/17 10:24 Band Neutrophils % 0 % 02/17/17 10:24 Lymphocytes % (Manual) 5.0 % (13.4-35.0) L 02/17/17 10:24 Reactive Lymphs % (Man) 0 % 02/17/17 10:24 Monocytes % (Manual) 4.0 % (0.0-7.3) 02/17/17 10:24 Eosinophils % (Manual) 0 % (0.0-4.3) 02/17/17 10:24 Basophils % (Manual) 0 % (0.0-1.8) 02/17/17 10:24 Metamyelocytes % 0 % 02/17/17 10:24 Myelocytes % 0 % 02/17/17 10:24 Promyelocytes % 0 % 02/17/17 10:24 Blast Cells % 0 % 02/17/17 10:24 Nucleated RBC % Not Reportable 02/17/17 10:24 Seg Neutrophils # 8.6 K/mm3 (1.8-7.7) H 02/16/17 13:44 Seg Neutrophils # Man 8.6 K/mm3 (1.8-7.7) H 02/17/17 10:24 Band Neutrophils # 0.0 K/mm3 02/17/17 10:24 Lymphocytes # (Manual) 0.5 K/mm3 (1.2-5.4) L 02/17/17 10:24 Abs React Lymphs (Man) 0.0 K/mm3 02/17/17 10:24 Monocytes # (Manual) 0.4 K/mm3 (0.0-0.8) 02/17/17 10:24 Eosinophils # (Manual) 0.0 K/mm3 (0.0-0.4) 02/17/17 10:24 Basophils # (Manual) 0.0 K/mm3 (0.0-0.1) 02/17/17 10:24 Metamyelocytes # 0.0 K/mm3 02/17/17 10:24 Myelocytes # 0.0 K/mm3 02/17/17 10:24 Promyelocytes # 0.0 K/mm3 02/17/17 10:24 Blast Cells # 0.0 K/mm3 02/17/17 10:24 WBC Morphology Not Reportable 02/17/17 10:24 Hypersegmented Neuts Not Reportable 02/17/17 10:24 Hyposegmented Neuts Not Reportable 02/17/17 10:24 Hypogranular Neuts Not Reportable 02/17/17 10:24 Smudge Cells Not Reportable 02/17/17 10:24 Toxic Granulation Not Reportable 02/17/17 10:24 Toxic Vacuolation Not Reportable 02/17/17 10:24 Dohle Bodies Not Reportable 02/17/17 10:24 Pelger-Huet Anomaly Not Reportable 02/17/17 10:24 Mary Rods Not Reportable 02/17/17 10:24 Platelet Estimate Not Reportable 02/17/17 10:24 Clumped Platelets Not Reportable 02/17/17 10:24 Plt Clumps, EDTA Not Reportable 02/17/17 10:24 Large Platelets Not Reportable 02/17/17 10:24 Giant Platelets Not Reportable 02/17/17 10:24 Platelet Satelliting Not Reportable 02/17/17 10:24 Plt Morphology Comment Not Reportable 02/17/17 10:24 RBC Morphology Not Reportable 02/17/17 10:24 Dimorphic RBCs Not Reportable 02/17/17 10:24 Polychromasia Not Reportable 02/17/17 10:24 Hypochromasia Not Reportable 02/17/17 10:24 Poikilocytosis 2+ 02/17/17 10:24 Anisocytosis Not Reportable 02/17/17 10:24 Microcytosis Not Reportable 02/17/17 10:24 Macrocytosis Not Reportable 02/17/17 10:24 Spherocytes 1+ 02/17/17 10:24 Pappenheimer Bodies Not Reportable 02/17/17 10:24 Sickle Cells Not Reportable 02/17/17 10:24 Target Cells Not Reportable 02/17/17 10:24 Tear Drop Cells Not Reportable 02/17/17 10:24 Ovalocytes 1+ 02/17/17 10:24 Helmet Cells Not Reportable 02/17/17 10:24 [place] Bodies Not Reportable 02/17/17 10:24 [place] Rings Not Reportable 02/17/17 10:24 [place] Cells Not Reportable 02/17/17 10:24 Bite Cells Not Reportable 02/17/17 10:24 Crenated Cell Not Reportable 02/17/17 10:24 Elliptocytes 1+ 02/17/17 10:24 Acanthocytes (Spur) Not Reportable 02/17/17 10:24 Rouleaux Not Reportable 02/17/17 10:24 Hemoglobin C Crystals Not Reportable 02/17/17 10:24 Schistocytes 1+ 02/17/17 10:24 Malaria parasites Not Reportable 02/17/17 10:24 Cecil Bodies Not Reportable 02/17/17 10:24 Hem Pathologist Commnt No 02/17/17 10:24 PT 16.7 Sec. (12.2-14.9) H 02/17/17 17:11 INR 1.36 (0.87-1.13) H 02/17/17 17:11 APTT 36.0 Sec. (24.2-36.6) 02/17/17 17:11 Heparin Anti-Xa Level 0.62 U.I./ml (0.3-0.7) 02/18/17 21:50 POC ABG pH 7.407 (7.35-7.45) 02/16/17 13:28 POC ABG pCO2 29.8 (35-45) L 02/16/17 13:28 POC ABG pO2 544 (80-105) H 02/16/17 13:28 POC ABG HCO3 18.8 02/16/17 13:28 POC ABG Total CO2 20 02/16/17 13:28 POC ABG O2 Sat 100 02/16/17 13:28 POC ABG Base Excess -6 02/16/17 13:28 FiO2 100 % 02/16/17 13:28 Sodium 150 mmol/L (137-145) H 02/19/17 03:52 Potassium 3.8 mmol/L (3.6-5.0) 02/19/17 03:52 Chloride 109.4 mmol/L (98-107) H 02/19/17 03:52 Carbon Dioxide 27 mmol/L (22-30) 02/19/17 03:52 Anion Gap 17 mmol/L 02/19/17 03:52 BUN 34 mg/dL (9-20) H 02/19/17 03:52 Creatinine 1.1 mg/dL (0.8-1.5) 02/19/17 03:52 Estimated GFR > 60 ml/min 02/19/17 03:52 BUN/Creatinine Ratio 30.90 % 02/19/17 03:52 Glucose 113 mg/dL (75-100) H 02/19/17 03:52 Lactic Acid 1.60 mmol/L (0.7-2.0) 02/17/17 10:24 Calcium 8.5 mg/dL (8.4-10.2) 02/19/17 03:52 Total Bilirubin 1.00 mg/dL (0.1-1.2) 02/17/17 10:24 AST 30 units/L (5-40) 02/17/17 10:24 ALT 32 units/L (7-56) 02/17/17 10:24 Alkaline Phosphatase 94 units/L (35-129) 02/17/17 10:24 Total Creatine Kinase 241 units/L (55-170) H 02/18/17 02:20 CK-MB (CK-2) 4.9 ng/mL (0.0-4.0) H 02/18/17 02:20 CK-MB (CK-2) Rel Index 2.6 (0-4) 02/17/17 17:12 Troponin T 0.949 ng/mL (0.00-0.029) H* D 02/18/17 02:20 NT-Pro-B Natriuret Pep 60878 pg/mL (0-900) H 02/16/17 13:44 Total Protein 6.5 g/dL (6.3-8.2) 02/17/17 10:24 Albumin 3.0 g/dL (3.9-5) L 02/17/17 10:24 Albumin/Globulin Ratio 0.9 % 02/17/17 10:24 Triglycerides 86 mg/dL (2-149) 02/16/17 13:44 Cholesterol 192 mg/dL (50-199) 02/16/17 13:44 LDL Cholesterol Direct 131 mg/dL (50-130) H 02/16/17 13:44 HDL Cholesterol 44 mg/dL (40-59) 02/16/17 13:44 Cholesterol/HDL Ratio 4.36 % 02/16/17 13:44 Urine Color Yellow (Yellow) 02/16/17 Unknown Urine Turbidity Clear (Clear) 02/16/17 Unknown Urine pH 5.0 (5.0-7.0) 02/16/17 Unknown Ur Specific [place] 1.013 (1.003-1.030) 02/16/17 Unknown Urine Protein 30 mg/dl mg/dL (Negative) 02/16/17 Unknown Urine Glucose (UA) Neg mg/dL (Negative) 02/16/17 Unknown Urine Ketones Neg mg/dL (Negative) 02/16/17 Unknown Urine Blood Sm (Negative) 02/16/17 Unknown Urine Nitrite Neg (Negative) 02/16/17 Unknown Urine Bilirubin Neg (Negative) 02/16/17 Unknown Urine Urobilinogen < 2.0 mg/dL (<2.0) 02/16/17 Unknown Ur Leukocyte Esterase Neg (Negative) 02/16/17 Unknown Urine WBC (Auto) 1.0 /HPF (0.0-6.0) 02/16/17 Unknown Urine RBC (Auto) 2.0 /HPF (0.0-6.0) 02/16/17 Unknown Hyaline Casts 1 /LPF 02/16/17 Unknown Urine Mucus Few /HPF 02/16/17 Unknown
--- NOTE | 2017-02-19 14:17 | Progress Note ---
Assessment and Plan Lexiscan MPI stress test this AM showed mostly fixed defects. CMP is presumably nonischemic. No indication for coronary angiography at this time. Heparin gtt infusing. Initiate coumadin with tx INR and continue heparin gtt. D/ c heparin gtt once INR is therapeutic. Cont ASA 81, lipitor, BB. No ACEI/ARB at this time in setting of ADONIS. Currently stable cardiac status. Pt may tx out of ICU to tele. The patient has been seen in conjunction with Dr. Alexander who agrees with the assessment and plan of care. - Patient Problems (1) Acute respiratory failure Current Visit: Yes Status: Acute Qualifiers: Respiratory failure complication: R (2) Pneumonia Current Visit: Yes Status: Suspected Qualifiers: Pneumonia type: P Aspiration pneumonia type: A Laterality: L Lung location: L (3) Left ventricular apical thrombus Current Visit: Yes Status: Acute (4) Non-ST elevation [place] (NSTEMI) Current Visit: Yes Status: Acute (5) ADONIS (acute kidney injury) Current Visit: Yes Status: Acute (6) Cardiomyopathy Current Visit: Yes Status: Chronic (7) Abdominal pain Current Visit: Yes Status: Resolved Qualifiers: Abdominal location: A (8) Lactic acidosis Current Visit: Yes Status: Acute (9) History of CVA (cerebrovascular accident) Current Visit: Yes Status: Resolved Subjective Date of service: 02/19/17 Principal diagnosis: CMP; NSTEMI; LV thrombus Interval history: Pt resting comfortably in bed, NAD. s/p stress test this AM. Denies any complaints. VSS. heparin gtt infusing. Objective Last Vital Signs Temp 97.3 F L 02/19/17 12:00 Pulse 66 02/19/17 13:57 Resp 20 02/19/17 13:57 BP 117/77 02/19/17 13:00 Pulse Ox 99 02/19/17 13:00 - Physical Examination General: Appears Well HEENT: Positive: PERRL, Normocephaly, Mucus Membranes Moist Neck: Positive: neck supple Cardiac: Positive: Reg Rate and Rhythm, S1/S2 Lungs: Positive: clear to auscultation Neuro: Positive: Grossly Intact, Weakness (right-sided) Abdomen: Positive: Unremarkable, Soft, Active Bowel Sounds. Negative: Tender Musculoskeletal: No Fluid Collection, No Pain, Normal Range of Motion Extremities: Absent: edema - Labs and Meds CBC 02/19/17 Range/Units 03:52 Hgb 11.7 L (11.8-15.2) gm/dl Hct 36.4 (35.5-45.6) % Plt Count 264 (140-440) K/mm3 Comprehensive Metabolic Panel 02/19/17 Range/Units 03:52 Sodium 150 H (137-145) mmol/L Potassium 3.8 (3.6-5.0) mmol/L Chloride 109.4 H (98-107) mmol/L Carbon Dioxide 27 (22-30) mmol/L BUN 34 H (9-20) mg/dL Creatinine 1.1 (0.8-1.5) mg/dL Glucose 113 H (75-100) mg/dL Calcium 8.5 (8.4-10.2) mg/dL - Imaging and Cardiology EKG: image reviewed Echo: report reviewed - EKG Sinus rhythms and dysrhythmias: sinus rhythm Chamber hypertrophy or enlargement: left ventricular hypertro Myocardial infarction: septal FL (old age or ind, anterior FL (old age or i
[2017-02-19] MEDS: COUMADIN PO SCH (17:50)
[2017-02-19] MEDS: HEPARIN/ 0.45% NACL-25,000 UNIT/500 ML 25,000 UNIT/500 ML BAG IV SCH (18:34)
[2017-02-20] MEDS: DUONEB *Not for PRN Use IH SCH ×4 (01:38→20:05)
--- NOTE | 2017-02-20 02:11 | Treadmill Report ---
PROCEDURE: Single-isotope dual study myocardial perfusion. AGE: 76. SEX: Male. REFERRING PHYSICIAN: Dr. Radha Woodward. DESCRIPTION OF PROCEDURE: The patient received 10 mCi of technetium 99m Myoview intravenously under resting condition. Resting myocardial scan was done. Subsequently, the patient received 0.4 mg of Lexiscan intravenously. He received 28 mCi of technetium 99m Myoview intravenously. After 30-60 minutes, post stress images were done. Computerized reconstruction images were performed for analysis. The post-stress images revealed markedly dilated left ventricle. A large severe septal perfusion defect was seen. A large area of absent perfusion was seen in the apex. A large area of absent perfusion was also seen in the inferior wall in the left ventricle. Moderate size anterior wall perfusion defect of moderate severity was also seen. Gated study revealed markedly dilated left ventricle. Severe global left ventricular systolic dysfunction is seen with LVEF around 10%. The resting images revealed partial reversibility in the septal region. Minimal reversibility was seen in the anterior wall. No reperfusion was seen in the inferior wall. No perfusion was seen in the apex. CONCLUSIONS: 1. Markedly dilated left ventricle. 2. Large severe septal perfusion defect which reveals partial reperfusion of the resting images. 3. Moderate-sized severe anterior wall perfusion defect which reveals minimal reversibility in the resting images. 4. Large area of absent perfusion in the inferior wall of the left ventricle, which does not reveal any reperfusion in the resting images. 5. Large area of absent perfusion in the apical segment of the left ventricle, which does not reveal reperfusion in the resting images. 6. The above picture is suggestive of severe dilated nonischemic cardiomyopathy. [facility]# [id number] [facility]
[2017-02-20 06:48] LABS: INR 1.24 (0.87-1.13)
--- NOTE | 2017-02-20 11:05 | Progress Note ---
Assessment and Plan Free water supplementation on account of hypernatremia. Continue heparin and Coumadin until INR is 2-3. We will see when necessary. - Patient Problems (1) Left ventricular apical thrombus Current Visit: Yes Status: Acute (2) Acute respiratory failure Current Visit: Yes Status: Resolved Qualifiers: Respiratory failure complication: hypoxia Qualified Code(s): J96.01 - Acute respiratory failure with hypoxia (3) Cardiomyopathy Current Visit: Yes Status: Chronic Qualifiers: Cardiomyopathy type: C (4) ADONIS (acute kidney injury) Current Visit: Yes Status: Resolved (5) Non-ST elevation [place] (NSTEMI) Current Visit: Yes Status: Acute (6) Pneumonia Current Visit: Yes Status: Suspected Qualifiers: Pneumonia type: P Aspiration pneumonia type: A Laterality: L Lung location: L (7) Abdominal pain Current Visit: Yes Status: Resolved Qualifiers: Abdominal location: A Subjective Date of service: 02/20/17 Principal diagnosis: CMP; NSTEMI; LV thrombus Interval history: No new complaint. Objective Vital Signs Last Vital Signs Temp 98.4 F 02/20/17 10:00 Pulse 68 02/20/17 10:00 Resp 20 02/20/17 10:00 BP 113/72 02/20/17 10:00 Pulse Ox 100 02/20/17 10:00 - Physical Examination General: No Apparent Distress HEENT: Positive: EOMI, Normocephaly, Mucus Membranes Moist Neck: Positive: neck supple, trachea midline Cardiac: Positive: Reg Rate and Rhythm, S1/S2 Lungs: Positive: clear to auscultation Neuro: Positive: Weakness (right-sided) Abdomen: Positive: Unremarkable, Soft, Active Bowel Sounds. Negative: Tender Skin: Positive: Clear Musculoskeletal: Normal Range of Motion Extremities: Absent: edema - Labs and Meds Coagulation 02/20/17 Range/Units 06:27 PT 16.3 H (12.2-14.9) Sec. INR 1.24 H (0.87-1.13) - Imaging and Cardiology EKG: image reviewed - EKG Sinus rhythms and dysrhythmias: sinus rhythm Chamber hypertrophy or enlargement: left ventricular hypertro Myocardial infarction: septal NV (old age or ind, anterior NV (old age or i
[2017-02-20] MEDS: LASIX PO SCH (11:30)
[2017-02-20] MEDS: LOPRESSOR PO SCH ×2 (11:30→21:51)
[2017-02-20] MEDS: BABY ASPIRIN PO SCH (11:30)
--- NOTE | 2017-02-20 12:41 | Progress Note ---
Assessment and Plan 76 y/o male with acute respiratory failure, secondary to possible community acquired pneumonia vs volume overload with NSTEMI and renal failure, now resolved renal failure and found to have a depressed EF with LV thrombus 1. Pulm status has improved significantly with diuresis and cardiology help. 2. Will sign off for now, call if questions or concerns. Subjective Date of service: 02/20/17 Principal diagnosis: CMP; NSTEMI; LV thrombus Interval history: Weaned down to room air. Good sats. No distress. Objective Vital Signs - 12hr 02/20/17 02/20/17 02/20/17 05:41 09:18 09:28 Temperature 97.8 F Pulse Rate 71 Pulse Rate [ 80 67 Bilateral Throughout] Respiratory 20 Rate Respiratory 18 18 Rate [Bilateral Throughout] Blood Pressure 116/69 [Left] O2 Sat by Pulse 98 Oximetry 02/20/17 10:00 Temperature 98.4 F Pulse Rate 68 Pulse Rate [ Bilateral Throughout] Respiratory 20 Rate Respiratory Rate [Bilateral Throughout] Blood Pressure 113/72 [Left] O2 Sat by Pulse 100 Oximetry Constitutional: no acute distress, alert Eyes: non-icteric ENT: oropharynx moist Neck: supple Effort: mildly labored Ascultation: Bilateral: rales Percussion: Bilateral: not dull Cardiovascular: regular rate and rhythm Gastrointestinal: normoactive bowel sounds, soft, non-tender Extremities: no cyanosis, no edema CBC and BMP: 02/19/17 03:52 02/19/17 03:52 ABG, PT/INR, D-dimer: ABG POC ABG pH 7.407 (7.35-7.45) 02/16/17 13:28 POC ABG pCO2 29.8 (35-45) L 02/16/17 13:28 POC ABG pO2 544 (80-105) H 02/16/17 13:28 POC ABG HCO3 18.8 02/16/17 13:28 POC ABG Total CO2 20 02/16/17 13:28 POC ABG O2 Sat 100 02/16/17 13:28 PT/INR, D-dimer PT 16.3 Sec. (12.2-14.9) H 02/20/17 06:27 INR 1.24 (0.87-1.13) H 02/20/17 06:27 Abnormal lab findings: Abnormal Labs 0902/17/17 02/17/17 10:24 10:24 10:24 Hgb 10.7 L Hct 33.2 L MCV 83 L MCH 27 L RDW 17.4 H Seg Neuts % (Manual) 91.0 H Lymphocytes % (Manual) 5.0 L Seg Neutrophils # Man 8.6 H Lymphocytes # (Manual) 0.5 L PT INR Heparin Anti-Xa Level Sodium Potassium Chloride BUN 58 H Glucose Calcium 8.3 L Total Creatine Kinase 205 H CK-MB (CK-2) 7.5 H Troponin T Albumin 3.0 L 02/17/17 02/17/17 02/17/17 10:24 17:04 17:11 Hgb 10.8 L Hct 33.5 L MCV MCH RDW Seg Neuts % (Manual) Lymphocytes % (Manual) Seg Neutrophils # Man Lymphocytes # (Manual) PT 16.7 H INR 1.36 H Heparin Anti-Xa Level Sodium Potassium Chloride BUN Glucose Calcium Total Creatine Kinase CK-MB (CK-2) Troponin T 0.877 H* Albumin 02/17/17 02/18/17 02/19/17 17:12 02:20 03:52 Hgb 11.7 L Hct MCV MCH RDW Seg Neuts % (Manual) Lymphocytes % (Manual) Seg Neutrophils # Man Lymphocytes # (Manual) PT INR Heparin Anti-Xa Level Sodium 148 H Potassium 3.3 L Chloride 107.1 H BUN 47 H Glucose Calcium Total Creatine Kinase 258 H 241 H CK-MB (CK-2) 6.9 H 4.9 H Troponin T 0.775 H* 0.949 H* D Albumin 02/19/17 02/19/17 02/20/17 03:52 20:49 06:27 Hgb Hct MCV MCH RDW Seg Neuts % (Manual) Lymphocytes % (Manual) Seg Neutrophils # Man Lymphocytes # (Manual) PT 16.3 H INR 1.24 H Heparin Anti-Xa Level 0.78 H Sodium 150 H Potassium Chloride 109.4 H BUN 34 H Glucose 113 H Calcium Total Creatine Kinase CK-MB (CK-2) Troponin T Albumin
[2017-02-20] MEDS: PEPCID PO SCH (12:45)
[2017-02-20 15:03] LABS: Anion Gap 15 mmol/L; BUN/Creatinine Ratio 25.45; Blood Urea Nitrogen 28 mg/dL (9-20); Calcium 8.7 mg/dL (8.4-10.2); Carbon Dioxide 30 mmol/L (22-30); Glucose 96 mg/dL (75-100); Sodium 141 mmol/L (137-145)
--- NOTE | 2017-02-20 16:47 | Progress Note ---
Assessment and Plan Assessment and plan: 76 years old male admitted with acute respiratory failure and found to have severe cardiomyopathy and LV thrombus 1. Acute hypoxic respiratory failure Likely secondary to combination of possible pneumonia and heart failure Continue antibiotics, diuresis with Lasix switched to po Required BiPAP on admission, then Venti-mask; now stable on NC 2. Pneumonia CXR and CT chest with bilateral infiltrates WBC within normal limits, but lactic acid elevated on admission Continue IV antibiotics 3. Acute systolic heart failure/Cardiomyopathy Symptoms consistent with heart failure, BNP elevated, CXRs/CT chest with pulmonary edema and pleural effusions ECHO revealed severe cardiomyopathy with EF 15% Started on lasix, aspirin and statin; low dose BB added; not on ACEI due to renal failure on admission (reassess as renal function improving) Cardiology consulted and following; stress test as part of ischemic evaluation revealed a fixed defect, but no reversible ischemia; considered NICM; no cath planned 4. NSTEMI See above discussion Most likely secondary to heart and renal failure 5. LV apical thrombus As above mentioned ECHO showed severe cardiomyopathy and large left ventricular apical thrombus Cardiology consulted and initiated heparin drip; bridging to Coumadin now 6. Acute renal failure Previous renal function unknown, on admission creatinine 1.8, bicarbonate 15 Resolved Continue to monitor especially while on Lasix 7. Metabolic acidosis Likely secondary to renal failure Monitor for now 8. Hypernatremia Secondary to diuresis Change lasix to po and decrease dose Monitor 9. Anemia Hemoglobin in upper 10s range Possible anemia of chronic disease Monitor H&H (stable) 10. 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 Hyperlipidemia LDL 131 Started on statin DVT prophylaxis Currently on heparin drip History Interval history: doing well, no complaints Hospitalist Physical - Constitutional Vitals: Temp Pulse Resp BP Pulse Ox 98.4 F 62 18 118/78 97 02/20/17 12:00 02/20/17 13:51 02/20/17 13:45 02/20/17 12:00 02/20/17 12:00 General appearance: Present: no acute distress - EENT Eyes: Present: PERRL, EOM intact ENT: clear oral mucosa, poor dentition - Neck Neck: Present: supple. Absent: enlarged thyroid, masses or JVD - Respiratory Respiratory effort: normal Respiratory: bilateral: CTA, negative: rhonchi, wheezing - Cardiovascular Rhythm: regular Heart Sounds: Present: S1 & S2. Absent: systolic murmur - Extremities Extremities: no ischemia - Abdominal General gastrointestinal: soft, non-tender, non-distended, normal bowel sounds - Neurologic Neurologic: other (right sided weakness) Results - Labs CBC & Chem 7: 02/21/17 07:55 02/21/17 07:55 Labs: Laboratory Last Values WBC 9.4 K/mm3 (4.5-11.0) 02/17/17 10:24 RBC 4.01 M/mm3 (3.65-5.03) 02/17/17 10:24 Hgb 11.7 gm/dl (11.8-15.2) L 02/19/17 03:52 Hct 36.4 % (35.5-45.6) 02/19/17 03:52 MCV 83 fl (84-94) L 02/17/17 10:24 MCH 27 pg (28-32) L 02/17/17 10:24 MCHC 32 % (32-34) 02/17/17 10:24 RDW 17.4 % (13.2-15.2) H 02/17/17 10:24 Plt Count 264 K/mm3 (140-440) 02/19/17 03:52 Lymph % (Auto) 7.1 % (13.4-35.0) L 02/16/17 13:44 [place] % (Auto) 8.1 % (0.0-7.3) H 02/16/17 13:44 Eos % (Auto) 0.0 % (0.0-4.3) 02/16/17 13:44 Baso % (Auto) 0.2 % (0.0-1.8) 02/16/17 13:44 Lymph # 0.7 K/mm3 (1.2-5.4) L 02/16/17 13:44 [place] # 0.8 K/mm3 (0.0-0.8) 02/16/17 13:44 Eos # 0.0 K/mm3 (0.0-0.4) 02/16/17 13:44 Baso # 0.0 K/mm3 (0.0-0.1) 02/16/17 13:44 Add Manual Diff Complete 02/17/17 10:24 Total Counted 100 02/17/17 10:24 Seg Neutrophils % 84.6 % (40.0-70.0) H 02/16/17 13:44 Seg Neuts % (Manual) 91.0 % (40.0-70.0) H 02/17/17 10:24 Band Neutrophils % 0 % 02/17/17 10:24 Lymphocytes % (Manual) 5.0 % (13.4-35.0) L 02/17/17 10:24 Reactive Lymphs % (Man) 0 % 02/17/17 10:24 Monocytes % (Manual) 4.0 % (0.0-7.3) 02/17/17 10:24 Eosinophils % (Manual) 0 % (0.0-4.3) 02/17/17 10:24 Basophils % (Manual) 0 % (0.0-1.8) 02/17/17 10:24 Metamyelocytes % 0 % 02/17/17 10:24 Myelocytes % 0 % 02/17/17 10:24 Promyelocytes % 0 % 02/17/17 10:24 Blast Cells % 0 % 02/17/17 10:24 Nucleated RBC % Not Reportable 02/17/17 10:24 Seg Neutrophils # 8.6 K/mm3 (1.8-7.7) H 02/16/17 13:44 Seg Neutrophils # Man 8.6 K/mm3 (1.8-7.7) H 02/17/17 10:24 Band Neutrophils # 0.0 K/mm3 02/17/17 10:24 Lymphocytes # (Manual) 0.5 K/mm3 (1.2-5.4) L 02/17/17 10:24 Abs React Lymphs (Man) 0.0 K/mm3 02/17/17 10:24 Monocytes # (Manual) 0.4 K/mm3 (0.0-0.8) 02/17/17 10:24 Eosinophils # (Manual) 0.0 K/mm3 (0.0-0.4) 02/17/17 10:24 Basophils # (Manual) 0.0 K/mm3 (0.0-0.1) 02/17/17 10:24 Metamyelocytes # 0.0 K/mm3 02/17/17 10:24 Myelocytes # 0.0 K/mm3 02/17/17 10:24 Promyelocytes # 0.0 K/mm3 02/17/17 10:24 Blast Cells # 0.0 K/mm3 02/17/17 10:24 WBC Morphology Not Reportable 02/17/17 10:24 Hypersegmented Neuts Not Reportable 02/17/17 10:24 Hyposegmented Neuts Not Reportable 02/17/17 10:24 Hypogranular Neuts Not Reportable 02/17/17 10:24 Smudge Cells Not Reportable 02/17/17 10:24 Toxic Granulation Not Reportable 02/17/17 10:24 Toxic Vacuolation Not Reportable 02/17/17 10:24 Dohle Bodies Not Reportable 02/17/17 10:24 Pelger-Huet Anomaly Not Reportable 02/17/17 10:24 Mary Rods Not Reportable 02/17/17 10:24 Platelet Estimate Not Reportable 02/17/17 10:24 Clumped Platelets Not Reportable 02/17/17 10:24 Plt Clumps, EDTA Not Reportable 02/17/17 10:24 Large Platelets Not Reportable 02/17/17 10:24 Giant Platelets Not Reportable 02/17/17 10:24 Platelet Satelliting Not Reportable 02/17/17 10:24 Plt Morphology Comment Not Reportable 02/17/17 10:24 RBC Morphology Not Reportable 02/17/17 10:24 Dimorphic RBCs Not Reportable 02/17/17 10:24 Polychromasia Not Reportable 02/17/17 10:24 Hypochromasia Not Reportable 02/17/17 10:24 Poikilocytosis 2+ 02/17/17 10:24 Anisocytosis Not Reportable 02/17/17 10:24 Microcytosis Not Reportable 02/17/17 10:24 Macrocytosis Not Reportable 02/17/17 10:24 Spherocytes 1+ 02/17/17 10:24 Pappenheimer Bodies Not Reportable 02/17/17 10:24 Sickle Cells Not Reportable 02/17/17 10:24 Target Cells Not Reportable 02/17/17 10:24 Tear Drop Cells Not Reportable 02/17/17 10:24 Ovalocytes 1+ 02/17/17 10:24 Helmet Cells Not Reportable 02/17/17 10:24 [place] Bodies Not Reportable 02/17/17 10:24 [place] Rings Not Reportable 02/17/17 10:24 [place] Cells Not Reportable 02/17/17 10:24 Bite Cells Not Reportable 02/17/17 10:24 Crenated Cell Not Reportable 02/17/17 10:24 Elliptocytes 1+ 02/17/17 10:24 Acanthocytes (Spur) Not Reportable 02/17/17 10:24 Rouleaux Not Reportable 02/17/17 10:24 Hemoglobin C Crystals Not Reportable 02/17/17 10:24 Schistocytes 1+ 02/17/17 10:24 Malaria parasites Not Reportable 02/17/17 10:24 [place] Bodies Not Reportable 02/17/17 10:24 Hem Pathologist Commnt No 02/17/17 10:24 PT 16.3 Sec. (12.2-14.9) H 02/20/17 06:27 INR 1.24 (0.87-1.13) H 02/20/17 06:27 APTT 36.0 Sec. (24.2-36.6) 02/17/17 17:11 Heparin Anti-Xa Level 0.41 U.I./ml (0.3-0.7) 02/20/17 06:27 POC ABG pH 7.407 (7.35-7.45) 02/16/17 13:28 POC ABG pCO2 29.8 (35-45) L 02/16/17 13:28 POC ABG pO2 544 (80-105) H 02/16/17 13:28 POC ABG HCO3 18.8 02/16/17 13:28 POC ABG Total CO2 20 02/16/17 13:28 POC ABG O2 Sat 100 02/16/17 13:28 POC ABG Base Excess -6 02/16/17 13:28 FiO2 100 % 02/16/17 13:28 Sodium 141 mmol/L (137-145) D 02/20/17 14:10 Potassium 4.0 mmol/L (3.6-5.0) 02/20/17 14:10 Chloride 100.0 mmol/L (98-107) 02/20/17 14:10 Carbon Dioxide 30 mmol/L (22-30) 02/20/17 14:10 Anion Gap 15 mmol/L 02/20/17 14:10 BUN 28 mg/dL (9-20) H 02/20/17 14:10 Creatinine 1.1 mg/dL (0.8-1.5) 02/20/17 14:10 Estimated GFR > 60 ml/min 02/20/17 14:10 BUN/Creatinine Ratio 25.45 % 02/20/17 14:10 Glucose 96 mg/dL (75-100) 02/20/17 14:10 Lactic Acid 1.60 mmol/L (0.7-2.0) 02/17/17 10:24 Calcium 8.7 mg/dL (8.4-10.2) 02/20/17 14:10 Total Bilirubin 1.00 mg/dL (0.1-1.2) 02/17/17 10:24 AST 30 units/L (5-40) 02/17/17 10:24 ALT 32 units/L (7-56) 02/17/17 10:24 Alkaline Phosphatase 94 units/L (35-129) 02/17/17 10:24 Total Creatine Kinase 241 units/L (55-170) H 02/18/17 02:20 CK-MB (CK-2) 4.9 ng/mL (0.0-4.0) H 02/18/17 02:20 CK-MB (CK-2) Rel Index 2.6 (0-4) 02/17/17 17:12 Troponin T 0.949 ng/mL (0.00-0.029) H* D 02/18/17 02:20 NT-Pro-B Natriuret Pep 14044 pg/mL (0-900) H 02/16/17 13:44 Total Protein 6.5 g/dL (6.3-8.2) 02/17/17 10:24 Albumin 3.0 g/dL (3.9-5) L 02/17/17 10:24 Albumin/Globulin Ratio 0.9 % 02/17/17 10:24 Triglycerides 86 mg/dL (2-149) 02/16/17 13:44 Cholesterol 192 mg/dL (50-199) 02/16/17 13:44 LDL Cholesterol Direct 131 mg/dL (50-130) H 02/16/17 13:44 HDL Cholesterol 44 mg/dL (40-59) 02/16/17 13:44 Cholesterol/HDL Ratio 4.36 % 02/16/17 13:44 Urine Color Yellow (Yellow) 02/16/17 Unknown Urine Turbidity Clear (Clear) 02/16/17 Unknown Urine pH 5.0 (5.0-7.0) 02/16/17 Unknown Ur Specific [place] 1.013 (1.003-1.030) 02/16/17 Unknown Urine Protein 30 mg/dl mg/dL (Negative) 02/16/17 Unknown Urine Glucose (UA) Neg mg/dL (Negative) 02/16/17 Unknown Urine Ketones Neg mg/dL (Negative) 02/16/17 Unknown Urine Blood Sm (Negative) 02/16/17 Unknown Urine Nitrite Neg (Negative) 02/16/17 Unknown Urine Bilirubin Neg (Negative) 02/16/17 Unknown Urine Urobilinogen < 2.0 mg/dL (<2.0) 02/16/17 Unknown Ur Leukocyte Esterase Neg (Negative) 02/16/17 Unknown Urine WBC (Auto) 1.0 /HPF (0.0-6.0) 02/16/17 Unknown Urine RBC (Auto) 2.0 /HPF (0.0-6.0) 02/16/17 Unknown Hyaline Casts 1 /LPF 02/16/17 Unknown Urine Mucus Few /HPF 02/16/17 Unknown
[2017-02-20] MEDS: COUMADIN PO SCH (18:51)
[2017-02-20] MEDS: HEPARIN/ 0.45% NACL-25,000 UNIT/500 ML 25,000 UNIT/500 ML BAG IV SCH ×2 (19:54→21:51)
[2017-02-20] MEDS: D5W 1,000 ML IV SCH (20:54)
[2017-02-21] MEDS: DUONEB *Not for PRN Use IH SCH ×4 (01:31→20:37)
[2017-02-21 08:44] LABS: Hematocrit 36.5 % (35.5-45.6); Hemoglobin 11.5 gm/dl (11.8-15.2)
[2017-02-21 08:56] LABS: INR 1.48 (0.87-1.13)
[2017-02-21 09:11] LABS: Anion Gap 18 mmol/L; BUN/Creatinine Ratio 27.77; Blood Urea Nitrogen 25 mg/dL (9-20); Calcium 8.3 mg/dL (8.4-10.2); Carbon Dioxide 24 mmol/L (22-30); Chloride 102.7 mmol/L (98-107); Glucose 96 mg/dL (75-100); Potassium 4.2 mmol/L (3.6-5.0); Sodium 140 mmol/L (137-145)
[2017-02-21] MEDS: LOPRESSOR PO SCH ×2 (10:25→22:35)
[2017-02-21] MEDS: BABY ASPIRIN PO SCH (10:25)
[2017-02-21] MEDS: LASIX PO SCH (10:26)
[2017-02-21] MEDS: PEPCID PO SCH (10:26)
[2017-02-21] MEDS: D5W 1,000 ML IV SCH (13:28)
--- NOTE | 2017-02-21 16:07 | Progress Note ---
Assessment and Plan Assessment and plan: 76 years old male admitted with acute respiratory failure and found to have severe cardiomyopathy and LV thrombus 1. Acute hypoxic respiratory failure Likely secondary to combination of possible pneumonia and heart failure Continue antibiotics, diuresis Required BiPAP on admission, then Venti-mask; now stable on NC 2. Pneumonia CXR and CT chest with bilateral infiltrates WBC within normal limits, but lactic acid elevated on admission Continue antibiotics 3. Acute systolic heart failure/Cardiomyopathy Symptoms consistent with heart failure, BNP elevated, CXRs/CT chest with pulmonary edema and pleural effusions ECHO revealed severe cardiomyopathy with EF 15% Started on lasix, aspirin and statin; low dose BB added; not on ACEI due to renal failure on admission (reassess as renal function improving) Cardiology consulted and following; stress test as part of ischemic evaluation revealed a fixed defect, but no reversible ischemia; considered NICM; no cath planned 4. NSTEMI See above discussion Most likely secondary to heart and renal failure 5. LV apical thrombus As above mentioned ECHO showed severe cardiomyopathy and large left ventricular apical thrombus Cardiology consulted and initiated heparin drip; bridging to Coumadin now, INR 1.48 today 6. Acute renal failure Previous renal function unknown, on admission creatinine 1.8, bicarbonate 15 Resolved Continue to monitor especially while on Lasix 7. Metabolic acidosis Likely secondary to renal failure Resolved 8. Hypernatremia Secondary to diuresis Lasix chanhged to po and dose decreased Resolved 9. Anemia Hemoglobin in upper 10s range Possible anemia of chronic disease Monitor H&H (stable) 10. 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 Hyperlipidemia LDL 131 Started on statin DVT prophylaxis Currently on heparin drip, monitoring INR History Interval history: no acute events, doing well, no complaints Hospitalist Physical - Constitutional Vitals: Temp Pulse Resp BP Pulse Ox 98.1 F 80 18 116/65 98 02/21/17 03:39 02/21/17 13:48 02/21/17 13:48 02/21/17 10:25 02/21/17 10:00 General appearance: Present: no acute distress - EENT Eyes: Present: PERRL, EOM intact ENT: clear oral mucosa, poor dentition - Neck Neck: Present: supple. Absent: enlarged thyroid, masses or JVD - Respiratory Respiratory effort: normal Respiratory: bilateral: CTA, negative: rhonchi, wheezing - Cardiovascular Rhythm: regular Heart Sounds: Present: S1 & S2. Absent: systolic murmur - Extremities Extremities: no ischemia - Abdominal General gastrointestinal: soft, non-tender, non-distended, normal bowel sounds - Neurologic Neurologic: other (right-sided weakness) Results - Labs CBC & Chem 7: 02/21/17 07:55 02/21/17 07:55 Labs: Laboratory Last Values WBC 9.4 K/mm3 (4.5-11.0) 02/17/17 10:24 RBC 4.01 M/mm3 (3.65-5.03) 02/17/17 10:24 Hgb 11.5 gm/dl (11.8-15.2) L 02/21/17 07:55 Hct 36.5 % (35.5-45.6) 02/21/17 07:55 MCV 83 fl (84-94) L 02/17/17 10:24 MCH 27 pg (28-32) L 02/17/17 10:24 MCHC 32 % (32-34) 02/17/17 10:24 RDW 17.4 % (13.2-15.2) H 02/17/17 10:24 Plt Count 265 K/mm3 (140-440) 02/21/17 07:55 Lymph % (Auto) 7.1 % (13.4-35.0) L 02/16/17 13:44 [place] % (Auto) 8.1 % (0.0-7.3) H 02/16/17 13:44 Eos % (Auto) 0.0 % (0.0-4.3) 02/16/17 13:44 Baso % (Auto) 0.2 % (0.0-1.8) 02/16/17 13:44 Lymph # 0.7 K/mm3 (1.2-5.4) L 02/16/17 13:44 [place] # 0.8 K/mm3 (0.0-0.8) 02/16/17 13:44 Eos # 0.0 K/mm3 (0.0-0.4) 02/16/17 13:44 Baso # 0.0 K/mm3 (0.0-0.1) 02/16/17 13:44 Add Manual Diff Complete 02/17/17 10:24 Total Counted 100 02/17/17 10:24 Seg Neutrophils % 84.6 % (40.0-70.0) H 02/16/17 13:44 Seg Neuts % (Manual) 91.0 % (40.0-70.0) H 02/17/17 10:24 Band Neutrophils % 0 % 02/17/17 10:24 Lymphocytes % (Manual) 5.0 % (13.4-35.0) L 02/17/17 10:24 Reactive Lymphs % (Man) 0 % 02/17/17 10:24 Monocytes % (Manual) 4.0 % (0.0-7.3) 02/17/17 10:24 Eosinophils % (Manual) 0 % (0.0-4.3) 02/17/17 10:24 Basophils % (Manual) 0 % (0.0-1.8) 02/17/17 10:24 Metamyelocytes % 0 % 02/17/17 10:24 Myelocytes % 0 % 02/17/17 10:24 Promyelocytes % 0 % 02/17/17 10:24 Blast Cells % 0 % 02/17/17 10:24 Nucleated RBC % Not Reportable 02/17/17 10:24 Seg Neutrophils # 8.6 K/mm3 (1.8-7.7) H 02/16/17 13:44 Seg Neutrophils # Man 8.6 K/mm3 (1.8-7.7) H 02/17/17 10:24 Band Neutrophils # 0.0 K/mm3 02/17/17 10:24 Lymphocytes # (Manual) 0.5 K/mm3 (1.2-5.4) L 02/17/17 10:24 Abs React Lymphs (Man) 0.0 K/mm3 02/17/17 10:24 Monocytes # (Manual) 0.4 K/mm3 (0.0-0.8) 02/17/17 10:24 Eosinophils # (Manual) 0.0 K/mm3 (0.0-0.4) 02/17/17 10:24 Basophils # (Manual) 0.0 K/mm3 (0.0-0.1) 02/17/17 10:24 Metamyelocytes # 0.0 K/mm3 02/17/17 10:24 Myelocytes # 0.0 K/mm3 02/17/17 10:24 Promyelocytes # 0.0 K/mm3 02/17/17 10:24 Blast Cells # 0.0 K/mm3 02/17/17 10:24 WBC Morphology Not Reportable 02/17/17 10:24 Hypersegmented Neuts Not Reportable 02/17/17 10:24 Hyposegmented Neuts Not Reportable 02/17/17 10:24 Hypogranular Neuts Not Reportable 02/17/17 10:24 Smudge Cells Not Reportable 02/17/17 10:24 Toxic Granulation Not Reportable 02/17/17 10:24 Toxic Vacuolation Not Reportable 02/17/17 10:24 Dohle Bodies Not Reportable 02/17/17 10:24 Pelger-Huet Anomaly Not Reportable 02/17/17 10:24 Mary Rods Not Reportable 02/17/17 10:24 Platelet Estimate Not Reportable 02/17/17 10:24 Clumped Platelets Not Reportable 02/17/17 10:24 Plt Clumps, EDTA Not Reportable 02/17/17 10:24 Large Platelets Not Reportable 02/17/17 10:24 Giant Platelets Not Reportable 02/17/17 10:24 Platelet Satelliting Not Reportable 02/17/17 10:24 Plt Morphology Comment Not Reportable 02/17/17 10:24 RBC Morphology Not Reportable 02/17/17 10:24 Dimorphic RBCs Not Reportable 02/17/17 10:24 Polychromasia Not Reportable 02/17/17 10:24 Hypochromasia Not Reportable 02/17/17 10:24 Poikilocytosis 2+ 02/17/17 10:24 Anisocytosis Not Reportable 02/17/17 10:24 Microcytosis Not Reportable 02/17/17 10:24 Macrocytosis Not Reportable 02/17/17 10:24 Spherocytes 1+ 02/17/17 10:24 Pappenheimer Bodies Not Reportable 02/17/17 10:24 Sickle Cells Not Reportable 02/17/17 10:24 Target Cells Not Reportable 02/17/17 10:24 Tear Drop Cells Not Reportable 02/17/17 10:24 Ovalocytes 1+ 02/17/17 10:24 Helmet Cells Not Reportable 02/17/17 10:24 Berumen-[place] Bodies Not Reportable 02/17/17 10:24 [place] Rings Not Reportable 02/17/17 10:24 [place] Cells Not Reportable 02/17/17 10:24 Bite Cells Not Reportable 02/17/17 10:24 Crenated Cell Not Reportable 02/17/17 10:24 Elliptocytes 1+ 02/17/17 10:24 Acanthocytes (Spur) Not Reportable 02/17/17 10:24 Rouleaux Not Reportable 02/17/17 10:24 Hemoglobin C Crystals Not Reportable 02/17/17 10:24 Schistocytes 1+ 02/17/17 10:24 Malaria parasites Not Reportable 02/17/17 10:24 Cecil Bodies Not Reportable 02/17/17 10:24 Hem Pathologist Commnt No 02/17/17 10:24 PT 18.7 Sec. (12.2-14.9) H 02/21/17 07:55 INR 1.48 (0.87-1.13) H 02/21/17 07:55 APTT 36.0 Sec. (24.2-36.6) 02/17/17 17:11 Heparin Anti-Xa Level 0.67 U.I./ml (0.3-0.7) 02/21/17 07:55 POC ABG pH 7.407 (7.35-7.45) 02/16/17 13:28 POC ABG pCO2 29.8 (35-45) L 02/16/17 13:28 POC ABG pO2 544 (80-105) H 02/16/17 13:28 POC ABG HCO3 18.8 02/16/17 13:28 POC ABG Total CO2 20 02/16/17 13:28 POC ABG O2 Sat 100 02/16/17 13:28 POC ABG Base Excess -6 02/16/17 13:28 FiO2 100 % 02/16/17 13:28 Sodium 140 mmol/L (137-145) 02/21/17 07:55 Potassium 4.2 mmol/L (3.6-5.0) 02/21/17 07:55 Chloride 102.7 mmol/L (98-107) 02/21/17 07:55 Carbon Dioxide 24 mmol/L (22-30) 02/21/17 07:55 Anion Gap 18 mmol/L 02/21/17 07:55 BUN 25 mg/dL (9-20) H 02/21/17 07:55 Creatinine 0.9 mg/dL (0.8-1.5) 02/21/17 07:55 Estimated GFR > 60 ml/min 02/21/17 07:55 BUN/Creatinine Ratio 27.77 % 02/21/17 07:55 Glucose 96 mg/dL (75-100) 02/21/17 07:55 Lactic Acid 1.60 mmol/L (0.7-2.0) 02/17/17 10:24 Calcium 8.3 mg/dL (8.4-10.2) L 02/21/17 07:55 Total Bilirubin 1.00 mg/dL (0.1-1.2) 02/17/17 10:24 AST 30 units/L (5-40) 02/17/17 10:24 ALT 32 units/L (7-56) 02/17/17 10:24 Alkaline Phosphatase 94 units/L (35-129) 02/17/17 10:24 Total Creatine Kinase 241 units/L (55-170) H 02/18/17 02:20 CK-MB (CK-2) 4.9 ng/mL (0.0-4.0) H 02/18/17 02:20 CK-MB (CK-2) Rel Index 2.6 (0-4) 02/17/17 17:12 Troponin T 0.949 ng/mL (0.00-0.029) H* D 02/18/17 02:20 NT-Pro-B Natriuret Pep 30062 pg/mL (0-900) H 02/16/17 13:44 Total Protein 6.5 g/dL (6.3-8.2) 02/17/17 10:24 Albumin 3.0 g/dL (3.9-5) L 02/17/17 10:24 Albumin/Globulin Ratio 0.9 % 02/17/17 10:24 Triglycerides 86 mg/dL (2-149) 02/16/17 13:44 Cholesterol 192 mg/dL (50-199) 02/16/17 13:44 LDL Cholesterol Direct 131 mg/dL (50-130) H 02/16/17 13:44 HDL Cholesterol 44 mg/dL (40-59) 02/16/17 13:44 Cholesterol/HDL Ratio 4.36 % 02/16/17 13:44 Urine Color Yellow (Yellow) 02/16/17 Unknown Urine Turbidity Clear (Clear) 02/16/17 Unknown Urine pH 5.0 (5.0-7.0) 02/16/17 Unknown Ur Specific [place] 1.013 (1.003-1.030) 02/16/17 Unknown Urine Protein 30 mg/dl mg/dL (Negative) 02/16/17 Unknown Urine Glucose (UA) Neg mg/dL (Negative) 02/16/17 Unknown Urine Ketones Neg mg/dL (Negative) 02/16/17 Unknown Urine Blood Sm (Negative) 02/16/17 Unknown Urine Nitrite Neg (Negative) 02/16/17 Unknown Urine Bilirubin Neg (Negative) 02/16/17 Unknown Urine Urobilinogen < 2.0 mg/dL (<2.0) 02/16/17 Unknown Ur Leukocyte Esterase Neg (Negative) 02/16/17 Unknown Urine WBC (Auto) 1.0 /HPF (0.0-6.0) 02/16/17 Unknown Urine RBC (Auto) 2.0 /HPF (0.0-6.0) 02/16/17 Unknown Hyaline Casts 1 /LPF 02/16/17 Unknown Urine Mucus Few /HPF 02/16/17 Unknown
[2017-02-21] MEDS: COUMADIN PO SCH (17:11)
[2017-02-21] MEDS: HEPARIN/ 0.45% NACL-25,000 UNIT/500 ML 25,000 UNIT/500 ML BAG IV SCH ×2 (21:53→22:40)
[2017-02-22] MEDS: DUONEB *Not for PRN Use IH SCH ×4 (02:19→20:07)
[2017-02-22 08:46] LABS: INR 2.05 (0.87-1.13)
[2017-02-22] MEDS: PEPCID PO SCH (11:28)
[2017-02-22] MEDS: BABY ASPIRIN PO SCH (11:28)
[2017-02-22] MEDS: LOPRESSOR PO SCH ×2 (11:28→21:48)
[2017-02-22] MEDS: LASIX PO SCH (11:28)
[2017-02-22] MEDS: D5W 1,000 ML IV SCH (11:29)
--- NOTE | 2017-02-22 17:49 | Progress Note ---
Assessment and Plan Assessment and plan: 76 years old male admitted with acute respiratory failure and found to have severe cardiomyopathy and LV thrombus 1. Acute hypoxic respiratory failure Likely secondary to combination of possible pneumonia and heart failure Continue antibiotics, diuresis Required BiPAP on admission, then Venti-mask; now stable on NC, weaning off 2. Pneumonia CXR and CT chest with bilateral infiltrates WBC within normal limits, but lactic acid elevated on admission Continue antibiotics 3. Acute systolic heart failure/Cardiomyopathy Symptoms consistent with heart failure, BNP elevated, CXRs/CT chest with pulmonary edema and pleural effusions ECHO revealed severe cardiomyopathy with EF 15% Started on lasix, aspirin and statin; low dose BB added; not on ACEI due to renal failure on admission (reassess as renal function improving) Cardiology consulted and following; stress test as part of ischemic evaluation revealed a fixed defect, but no reversible ischemia; considered NICM; no cath planned 4. NSTEMI See above discussion Most likely secondary to heart and renal failure 5. LV apical thrombus As above mentioned ECHO showed severe cardiomyopathy and large left ventricular apical thrombus Cardiology consulted and initiated heparin drip; bridged to Coumadin; now INR therapeutic 6. Acute renal failure Previous renal function unknown, on admission creatinine 1.8, bicarbonate 15 Resolved Continue to monitor especially while on Lasix 7. Metabolic acidosis Likely secondary to renal failure Resolved 8. Hypernatremia Secondary to diuresis Lasix changed to po and dose decreased Resolved 9. Anemia Hemoglobin in upper 10s range Possible anemia of chronic disease Monitor H&H (stable) 10. 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 Hyperlipidemia LDL 131 Started on statin 11. DVT prophylaxis Anticoagulated with Coumadin, INR therapeutic 12. Dispo D/c in a.m.; CM for placement History Interval history: no acute events, doing well, no complaints Hospitalist Physical - Constitutional Vitals: Temp Pulse Resp BP Pulse Ox 97.7 F 75 16 117/77 99 02/22/17 04:57 02/22/17 16:00 02/22/17 13:49 02/22/17 16:00 02/22/17 09:28 General appearance: Present: no acute distress - EENT Eyes: Present: PERRL, EOM intact ENT: poor dentition - Neck Neck: Present: supple, normal ROM. Absent: masses or JVD - Respiratory Respiratory effort: normal Respiratory: bilateral: CTA, negative: rhonchi, wheezing - Cardiovascular Rhythm: regular Heart Sounds: Present: S1 & S2. Absent: systolic murmur - Extremities Extremities: no ischemia - Abdominal General gastrointestinal: soft, non-tender, non-distended, normal bowel sounds - Neurologic Neurologic: other (right-sided weakness) Results - Labs CBC & Chem 7: 02/21/17 07:55 02/21/17 07:55 Labs: Laboratory Last Values WBC 9.4 K/mm3 (4.5-11.0) 02/17/17 10:24 RBC 4.01 M/mm3 (3.65-5.03) 02/17/17 10:24 Hgb 11.5 gm/dl (11.8-15.2) L 02/21/17 07:55 Hct 36.5 % (35.5-45.6) 02/21/17 07:55 MCV 83 fl (84-94) L 02/17/17 10:24 MCH 27 pg (28-32) L 02/17/17 10:24 MCHC 32 % (32-34) 02/17/17 10:24 RDW 17.4 % (13.2-15.2) H 02/17/17 10:24 Plt Count 265 K/mm3 (140-440) 02/21/17 07:55 Lymph % (Auto) 7.1 % (13.4-35.0) L 02/16/17 13:44 [place] % (Auto) 8.1 % (0.0-7.3) H 02/16/17 13:44 Eos % (Auto) 0.0 % (0.0-4.3) 02/16/17 13:44 Baso % (Auto) 0.2 % (0.0-1.8) 02/16/17 13:44 Lymph # 0.7 K/mm3 (1.2-5.4) L 02/16/17 13:44 [place] # 0.8 K/mm3 (0.0-0.8) 02/16/17 13:44 Eos # 0.0 K/mm3 (0.0-0.4) 02/16/17 13:44 Baso # 0.0 K/mm3 (0.0-0.1) 02/16/17 13:44 Add Manual Diff Complete 02/17/17 10:24 Total Counted 100 02/17/17 10:24 Seg Neutrophils % 84.6 % (40.0-70.0) H 02/16/17 13:44 Seg Neuts % (Manual) 91.0 % (40.0-70.0) H 02/17/17 10:24 Band Neutrophils % 0 % 02/17/17 10:24 Lymphocytes % (Manual) 5.0 % (13.4-35.0) L 02/17/17 10:24 Reactive Lymphs % (Man) 0 % 02/17/17 10:24 Monocytes % (Manual) 4.0 % (0.0-7.3) 02/17/17 10:24 Eosinophils % (Manual) 0 % (0.0-4.3) 02/17/17 10:24 Basophils % (Manual) 0 % (0.0-1.8) 02/17/17 10:24 Metamyelocytes % 0 % 02/17/17 10:24 Myelocytes % 0 % 02/17/17 10:24 Promyelocytes % 0 % 02/17/17 10:24 Blast Cells % 0 % 02/17/17 10:24 Nucleated RBC % Not Reportable 02/17/17 10:24 Seg Neutrophils # 8.6 K/mm3 (1.8-7.7) H 02/16/17 13:44 Seg Neutrophils # Man 8.6 K/mm3 (1.8-7.7) H 02/17/17 10:24 Band Neutrophils # 0.0 K/mm3 02/17/17 10:24 Lymphocytes # (Manual) 0.5 K/mm3 (1.2-5.4) L 02/17/17 10:24 Abs React Lymphs (Man) 0.0 K/mm3 02/17/17 10:24 Monocytes # (Manual) 0.4 K/mm3 (0.0-0.8) 02/17/17 10:24 Eosinophils # (Manual) 0.0 K/mm3 (0.0-0.4) 02/17/17 10:24 Basophils # (Manual) 0.0 K/mm3 (0.0-0.1) 02/17/17 10:24 Metamyelocytes # 0.0 K/mm3 02/17/17 10:24 Myelocytes # 0.0 K/mm3 02/17/17 10:24 Promyelocytes # 0.0 K/mm3 02/17/17 10:24 Blast Cells # 0.0 K/mm3 02/17/17 10:24 WBC Morphology Not Reportable 02/17/17 10:24 Hypersegmented Neuts Not Reportable 02/17/17 10:24 Hyposegmented Neuts Not Reportable 02/17/17 10:24 Hypogranular Neuts Not Reportable 02/17/17 10:24 Smudge Cells Not Reportable 02/17/17 10:24 Toxic Granulation Not Reportable 02/17/17 10:24 Toxic Vacuolation Not Reportable 02/17/17 10:24 Dohle Bodies Not Reportable 02/17/17 10:24 Pelger-Huet Anomaly Not Reportable 02/17/17 10:24 Mary Rods Not Reportable 02/17/17 10:24 Platelet Estimate Not Reportable 02/17/17 10:24 Clumped Platelets Not Reportable 02/17/17 10:24 Plt Clumps, EDTA Not Reportable 02/17/17 10:24 Large Platelets Not Reportable 02/17/17 10:24 Giant Platelets Not Reportable 02/17/17 10:24 Platelet Satelliting Not Reportable 02/17/17 10:24 Plt Morphology Comment Not Reportable 02/17/17 10:24 RBC Morphology Not Reportable 02/17/17 10:24 Dimorphic RBCs Not Reportable 02/17/17 10:24 Polychromasia Not Reportable 02/17/17 10:24 Hypochromasia Not Reportable 02/17/17 10:24 Poikilocytosis 2+ 02/17/17 10:24 Anisocytosis Not Reportable 02/17/17 10:24 Microcytosis Not Reportable 02/17/17 10:24 Macrocytosis Not Reportable 02/17/17 10:24 Spherocytes 1+ 02/17/17 10:24 Pappenheimer Bodies Not Reportable 02/17/17 10:24 Sickle Cells Not Reportable 02/17/17 10:24 Target Cells Not Reportable 02/17/17 10:24 Tear Drop Cells Not Reportable 02/17/17 10:24 Ovalocytes 1+ 02/17/17 10:24 Helmet Cells Not Reportable 02/17/17 10:24 Berumen-[place] Bodies Not Reportable 02/17/17 10:24 [place] Rings Not Reportable 02/17/17 10:24 [place] Cells Not Reportable 02/17/17 10:24 Bite Cells Not Reportable 02/17/17 10:24 Crenated Cell Not Reportable 02/17/17 10:24 Elliptocytes 1+ 02/17/17 10:24 Acanthocytes (Spur) Not Reportable 02/17/17 10:24 Rouleaux Not Reportable 02/17/17 10:24 Hemoglobin C Crystals Not Reportable 02/17/17 10:24 Schistocytes 1+ 02/17/17 10:24 Malaria parasites Not Reportable 02/17/17 10:24 Cecil Bodies Not Reportable 02/17/17 10:24 Hem Pathologist Commnt No 02/17/17 10:24 PT 24.2 Sec. (12.2-14.9) H 02/22/17 08:02 INR 2.05 (0.87-1.13) H 02/22/17 08:02 APTT 36.0 Sec. (24.2-36.6) 02/17/17 17:11 Heparin Anti-Xa Level 0.78 U.I./ml (0.3-0.7) H 02/22/17 08:02 POC ABG pH 7.407 (7.35-7.45) 02/16/17 13:28 POC ABG pCO2 29.8 (35-45) L 02/16/17 13:28 POC ABG pO2 544 (80-105) H 02/16/17 13:28 POC ABG HCO3 18.8 02/16/17 13:28 POC ABG Total CO2 20 02/16/17 13:28 POC ABG O2 Sat 100 02/16/17 13:28 POC ABG Base Excess -6 02/16/17 13:28 FiO2 100 % 02/16/17 13:28 Sodium 140 mmol/L (137-145) 02/21/17 07:55 Potassium 4.2 mmol/L (3.6-5.0) 02/21/17 07:55 Chloride 102.7 mmol/L (98-107) 02/21/17 07:55 Carbon Dioxide 24 mmol/L (22-30) 02/21/17 07:55 Anion Gap 18 mmol/L 02/21/17 07:55 BUN 25 mg/dL (9-20) H 02/21/17 07:55 Creatinine 0.9 mg/dL (0.8-1.5) 02/21/17 07:55 Estimated GFR > 60 ml/min 02/21/17 07:55 BUN/Creatinine Ratio 27.77 % 02/21/17 07:55 Glucose 96 mg/dL (75-100) 02/21/17 07:55 Lactic Acid 1.60 mmol/L (0.7-2.0) 02/17/17 10:24 Calcium 8.3 mg/dL (8.4-10.2) L 02/21/17 07:55 Total Bilirubin 1.00 mg/dL (0.1-1.2) 02/17/17 10:24 AST 30 units/L (5-40) 02/17/17 10:24 ALT 32 units/L (7-56) 02/17/17 10:24 Alkaline Phosphatase 94 units/L (35-129) 02/17/17 10:24 Total Creatine Kinase 241 units/L (55-170) H 02/18/17 02:20 CK-MB (CK-2) 4.9 ng/mL (0.0-4.0) H 02/18/17 02:20 CK-MB (CK-2) Rel Index 2.6 (0-4) 02/17/17 17:12 Troponin T 0.949 ng/mL (0.00-0.029) H* D 02/18/17 02:20 NT-Pro-B Natriuret Pep 23736 pg/mL (0-900) H 02/16/17 13:44 Total Protein 6.5 g/dL (6.3-8.2) 02/17/17 10:24 Albumin 3.0 g/dL (3.9-5) L 02/17/17 10:24 Albumin/Globulin Ratio 0.9 % 02/17/17 10:24 Triglycerides 86 mg/dL (2-149) 02/16/17 13:44 Cholesterol 192 mg/dL (50-199) 02/16/17 13:44 LDL Cholesterol Direct 131 mg/dL (50-130) H 02/16/17 13:44 HDL Cholesterol 44 mg/dL (40-59) 02/16/17 13:44 Cholesterol/HDL Ratio 4.36 % 02/16/17 13:44 Urine Color Yellow (Yellow) 02/16/17 Unknown Urine Turbidity Clear (Clear) 02/16/17 Unknown Urine pH 5.0 (5.0-7.0) 02/16/17 Unknown Ur Specific [place] 1.013 (1.003-1.030) 02/16/17 Unknown Urine Protein 30 mg/dl mg/dL (Negative) 02/16/17 Unknown Urine Glucose (UA) Neg mg/dL (Negative) 02/16/17 Unknown Urine Ketones Neg mg/dL (Negative) 02/16/17 Unknown Urine Blood Sm (Negative) 02/16/17 Unknown Urine Nitrite Neg (Negative) 02/16/17 Unknown Urine Bilirubin Neg (Negative) 02/16/17 Unknown Urine Urobilinogen < 2.0 mg/dL (<2.0) 02/16/17 Unknown Ur Leukocyte Esterase Neg (Negative) 02/16/17 Unknown Urine WBC (Auto) 1.0 /HPF (0.0-6.0) 02/16/17 Unknown Urine RBC (Auto) 2.0 /HPF (0.0-6.0) 02/16/17 Unknown Hyaline Casts 1 /LPF 02/16/17 Unknown Urine Mucus Few /HPF 02/16/17 Unknown
[2017-02-22] MEDS: COUMADIN PO SCH (18:31)
[2017-02-22] MEDS: HEPARIN/ 0.45% NACL-25,000 UNIT/500 ML 25,000 UNIT/500 ML BAG IV SCH (23:28)
[2017-02-23] MEDS: DUONEB *Not for PRN Use IH SCH ×4 (02:48→20:24)
[2017-02-23] MEDS: D5W 1,000 ML IV SCH (05:09)
[2017-02-23 06:18] LABS: Hematocrit 30.1 % (35.5-45.6); Hemoglobin 10.1 gm/dl (11.8-15.2)
[2017-02-23 06:32] LABS: INR 2.8 (0.87-1.13)
--- NOTE | 2017-02-23 10:52 | Discharge Summary ---
Providers - Providers Date of Admission: 02/16/17 17:50 Date of discharge: 02/23/17 Attending physician: EVARISTO CALLAHAN 02/17/17 03:15 Physical Therapy Evaluation and Treat [CONS] Routine Comment: Reason For Exam: PREVIOUS CVA R SIDED WEAKNESS Weight bearing status?: Partial wt bearing Assistive devices?: Yes If so list: Walker 02/17/17 13:15 Consult to Physician [CONS] Stat Consulting Provider: KVNG LEAHY Reason For Exam: Acute Systolic Heart Failure, LV thrombus Place consult to:: Kvng Leahy Notified:: yarely Phillips Was contact made?: No If yes, spoke with:: Yarely Phillips 02/18/17 11:47 Occupational Therapy Evaluate and Treat [CONS] Routine Comment: Reason For Exam: Hx of CVA Primary care physician: JOCY Hospitalization Condition: Stable Disposition: DC/[place]-03 [facility] Time spent for discharge: 35 min Exam - Constitutional Vitals: Temp Pulse Resp BP Pulse Ox 97.7 F 69 20 105/63 99 02/23/17 03:53 02/23/17 08:17 02/23/17 08:17 02/23/17 03:53 02/23/17 08:07 Plan Activity: advance as tolerated, fall precautions Diet: low cholesterol, low salt Follow up with: KVNG LEAHY MD [Staff Physician] - 7 Days KELLY SANDRA MD [Primary Care Provider] - 7 Days Forms: Warfarin Discharge Instruction Prescriptions: AtorvaSTATin [Lipitor] 40 mg PO QHS #30 tablet Aspirin [Aspirin BABY CHEW TAB] 81 mg PO QDAY #30 tab.chew Famotidine [Pepcid] 20 mg PO DAILY #30 tablet Furosemide [Lasix TAB] 40 mg PO QDAY #30 tablet Metoprolol [Lopressor TAB] 12.5 mg PO BID #15 tablet Warfarin [Coumadin] 7.5 mg PO DAILY@1700 #30 tablet
[2017-02-23] MEDS: PEPCID PO SCH (11:00)
[2017-02-23] MEDS: BABY ASPIRIN PO SCH (11:00)
[2017-02-23] MEDS: LASIX PO SCH (11:00)
[2017-02-23] MEDS: LOPRESSOR PO SCH ×3 (11:00→22:16)
[2017-02-23] MEDS ORDERED: PROVENTIL IH PRN (15:03)
[2017-02-23] MEDS ORDERED: COUMADIN PO SCH (17:00)
[2017-02-24 05:51] LABS: INR 3.31 (0.87-1.13)
[2017-02-24] MEDS: DUONEB *Not for PRN Use IH SCH ×2 (07:46→16:18)
[2017-02-24] MEDS: LASIX PO SCH (10:05)
[2017-02-24] MEDS: PEPCID PO SCH (10:05)
[2017-02-24] MEDS: LOPRESSOR PO SCH ×2 (10:05→22:40)
[2017-02-24] MEDS: BABY ASPIRIN PO SCH (10:05)
--- NOTE | 2017-02-24 15:01 | Progress Note ---
Assessment and Plan Assessment and plan: 76 years old male admitted with acute respiratory failure and found to have severe cardiomyopathy and LV thrombus Acute hypoxic respiratory failure Likely secondary to combination of possible pneumonia and heart failure Continue antibiotics, diuresis Required BiPAP on admission, then Venti-mask; now stable on NC, weaning off Pneumonia CXR and CT chest with bilateral infiltrates WBC within normal limits, but lactic acid elevated on admission Continue antibiotics Acute systolic heart failure/Cardiomyopathy Symptoms consistent with heart failure, BNP elevated, CXRs/CT chest with pulmonary edema and pleural effusions ECHO revealed severe cardiomyopathy with EF 15% Started on lasix, aspirin and statin; low dose BB added; not on ACEI due to renal failure on admission (reassess as renal function improving) Cardiology consulted and following; stress test as part of ischemic evaluation revealed a fixed defect, but no reversible ischemia; considered NICM; no cath planned NSTEMI See above discussion Most likely secondary to heart and renal failure LV apical thrombus ECHO showed severe cardiomyopathy and large left ventricular apical thrombus Cardiology following. 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 On Coumadin Disposition. He is medically stable for discharge, awaiting placement. History Interval history: No chest pain, No new complaints Hospitalist Physical - Physical exam Narrative exam: Gen Appearance: Not in acute distress, HEENT: normocephalic, atraumatic Neck: supple, no JVD Lungs: Clear to auscultation, bilaterally, no rales, no wheeze Heart: S1 and S2 regular, no murmurs, rubs or gallop Abdomen: Soft , non tender, non distended, normal bowel sounds Extremity: No edema, no clubbing or cyanosis Neuro : Awake,alert, - Constitutional Vitals: Temp Pulse Resp BP Pulse Ox 97.9 F 76 18 119/72 97 02/24/17 13:47 02/24/17 13:47 02/24/17 13:47 02/24/17 13:47 02/24/17 13:47 General appearance: Present: no acute distress Results - Labs CBC & Chem 7: 02/23/17 05:54 02/21/17 07:55 Labs: Laboratory Last Values WBC 9.4 K/mm3 (4.5-11.0) 02/17/17 10:24 RBC 4.01 M/mm3 (3.65-5.03) 02/17/17 10:24 Hgb 10.1 gm/dl (11.8-15.2) L 02/23/17 05:54 Hct 30.1 % (35.5-45.6) L D 02/23/17 05:54 MCV 83 fl (84-94) L 02/17/17 10:24 MCH 27 pg (28-32) L 02/17/17 10:24 MCHC 32 % (32-34) 02/17/17 10:24 RDW 17.4 % (13.2-15.2) H 02/17/17 10:24 Plt Count 236 K/mm3 (140-440) 02/23/17 05:54 Lymph % (Auto) 7.1 % (13.4-35.0) L 02/16/17 13:44 [place] % (Auto) 8.1 % (0.0-7.3) H 02/16/17 13:44 Eos % (Auto) 0.0 % (0.0-4.3) 02/16/17 13:44 Baso % (Auto) 0.2 % (0.0-1.8) 02/16/17 13:44 Lymph # 0.7 K/mm3 (1.2-5.4) L 02/16/17 13:44 [place] # 0.8 K/mm3 (0.0-0.8) 02/16/17 13:44 Eos # 0.0 K/mm3 (0.0-0.4) 02/16/17 13:44 Baso # 0.0 K/mm3 (0.0-0.1) 02/16/17 13:44 Add Manual Diff Complete 02/17/17 10:24 Total Counted 100 02/17/17 10:24 Seg Neutrophils % 84.6 % (40.0-70.0) H 02/16/17 13:44 Seg Neuts % (Manual) 91.0 % (40.0-70.0) H 02/17/17 10:24 Band Neutrophils % 0 % 02/17/17 10:24 Lymphocytes % (Manual) 5.0 % (13.4-35.0) L 02/17/17 10:24 Reactive Lymphs % (Man) 0 % 02/17/17 10:24 Monocytes % (Manual) 4.0 % (0.0-7.3) 02/17/17 10:24 Eosinophils % (Manual) 0 % (0.0-4.3) 02/17/17 10:24 Basophils % (Manual) 0 % (0.0-1.8) 02/17/17 10:24 Metamyelocytes % 0 % 02/17/17 10:24 Myelocytes % 0 % 02/17/17 10:24 Promyelocytes % 0 % 02/17/17 10:24 Blast Cells % 0 % 02/17/17 10:24 Nucleated RBC % Not Reportable 02/17/17 10:24 Seg Neutrophils # 8.6 K/mm3 (1.8-7.7) H 02/16/17 13:44 Seg Neutrophils # Man 8.6 K/mm3 (1.8-7.7) H 02/17/17 10:24 Band Neutrophils # 0.0 K/mm3 02/17/17 10:24 Lymphocytes # (Manual) 0.5 K/mm3 (1.2-5.4) L 02/17/17 10:24 Abs React Lymphs (Man) 0.0 K/mm3 02/17/17 10:24 Monocytes # (Manual) 0.4 K/mm3 (0.0-0.8) 02/17/17 10:24 Eosinophils # (Manual) 0.0 K/mm3 (0.0-0.4) 02/17/17 10:24 Basophils # (Manual) 0.0 K/mm3 (0.0-0.1) 02/17/17 10:24 Metamyelocytes # 0.0 K/mm3 02/17/17 10:24 Myelocytes # 0.0 K/mm3 02/17/17 10:24 Promyelocytes # 0.0 K/mm3 02/17/17 10:24 Blast Cells # 0.0 K/mm3 02/17/17 10:24 WBC Morphology Not Reportable 02/17/17 10:24 Hypersegmented Neuts Not Reportable 02/17/17 10:24 Hyposegmented Neuts Not Reportable 02/17/17 10:24 Hypogranular Neuts Not Reportable 02/17/17 10:24 Smudge Cells Not Reportable 02/17/17 10:24 Toxic Granulation Not Reportable 02/17/17 10:24 Toxic Vacuolation Not Reportable 02/17/17 10:24 Dohle Bodies Not Reportable 02/17/17 10:24 Pelger-Huet Anomaly Not Reportable 02/17/17 10:24 Mary Rods Not Reportable 02/17/17 10:24 Platelet Estimate Not Reportable 02/17/17 10:24 Clumped Platelets Not Reportable 02/17/17 10:24 Plt Clumps, EDTA Not Reportable 02/17/17 10:24 Large Platelets Not Reportable 02/17/17 10:24 Giant Platelets Not Reportable 02/17/17 10:24 Platelet Satelliting Not Reportable 02/17/17 10:24 Plt Morphology Comment Not Reportable 02/17/17 10:24 RBC Morphology Not Reportable 02/17/17 10:24 Dimorphic RBCs Not Reportable 02/17/17 10:24 Polychromasia Not Reportable 02/17/17 10:24 Hypochromasia Not Reportable 02/17/17 10:24 Poikilocytosis 2+ 02/17/17 10:24 Anisocytosis Not Reportable 02/17/17 10:24 Microcytosis Not Reportable 02/17/17 10:24 Macrocytosis Not Reportable 02/17/17 10:24 Spherocytes 1+ 02/17/17 10:24 Pappenheimer Bodies Not Reportable 02/17/17 10:24 Sickle Cells Not Reportable 02/17/17 10:24 Target Cells Not Reportable 02/17/17 10:24 Tear Drop Cells Not Reportable 02/17/17 10:24 Ovalocytes 1+ 02/17/17 10:24 Helmet Cells Not Reportable 02/17/17 10:24 [place] Bodies Not Reportable 02/17/17 10:24 [place] Rings Not Reportable 02/17/17 10:24 [place] Cells Not Reportable 02/17/17 10:24 Bite Cells Not Reportable 02/17/17 10:24 Crenated Cell Not Reportable 02/17/17 10:24 Elliptocytes 1+ 02/17/17 10:24 Acanthocytes (Spur) Not Reportable 02/17/17 10:24 Rouleaux Not Reportable 02/17/17 10:24 Hemoglobin C Crystals Not Reportable 02/17/17 10:24 Schistocytes 1+ 02/17/17 10:24 Malaria parasites Not Reportable 02/17/17 10:24 [place] Bodies Not Reportable 02/17/17 10:24 Hem Pathologist Commnt No 02/17/17 10:24 PT 35.4 Sec. (12.2-14.9) H 02/24/17 04:31 INR 3.31 (0.87-1.13) H 02/24/17 04:31 APTT 36.0 Sec. (24.2-36.6) 02/17/17 17:11 Heparin Anti-Xa Level < 0.10 U.I./ml (0.3-0.7) L 02/24/17 04:31 POC ABG pH 7.407 (7.35-7.45) 02/16/17 13:28 POC ABG pCO2 29.8 (35-45) L 02/16/17 13:28 POC ABG pO2 544 (80-105) H 02/16/17 13:28 POC ABG HCO3 18.8 02/16/17 13:28 POC ABG Total CO2 20 02/16/17 13:28 POC ABG O2 Sat 100 02/16/17 13:28 POC ABG Base Excess -6 02/16/17 13:28 FiO2 100 % 02/16/17 13:28 Sodium 140 mmol/L (137-145) 02/21/17 07:55 Potassium 4.2 mmol/L (3.6-5.0) 02/21/17 07:55 Chloride 102.7 mmol/L (98-107) 02/21/17 07:55 Carbon Dioxide 24 mmol/L (22-30) 02/21/17 07:55 Anion Gap 18 mmol/L 02/21/17 07:55 BUN 25 mg/dL (9-20) H 02/21/17 07:55 Creatinine 0.9 mg/dL (0.8-1.5) 02/21/17 07:55 Estimated GFR > 60 ml/min 02/21/17 07:55 BUN/Creatinine Ratio 27.77 % 02/21/17 07:55 Glucose 96 mg/dL (75-100) 02/21/17 07:55 Lactic Acid 1.60 mmol/L (0.7-2.0) 02/17/17 10:24 Calcium 8.3 mg/dL (8.4-10.2) L 02/21/17 07:55 Total Bilirubin 1.00 mg/dL (0.1-1.2) 02/17/17 10:24 AST 30 units/L (5-40) 02/17/17 10:24 ALT 32 units/L (7-56) 02/17/17 10:24 Alkaline Phosphatase 94 units/L (35-129) 02/17/17 10:24 Total Creatine Kinase 241 units/L (55-170) H 02/18/17 02:20 CK-MB (CK-2) 4.9 ng/mL (0.0-4.0) H 02/18/17 02:20 CK-MB (CK-2) Rel Index 2.6 (0-4) 02/17/17 17:12 Troponin T 0.949 ng/mL (0.00-0.029) H* D 02/18/17 02:20 NT-Pro-B Natriuret Pep 54267 pg/mL (0-900) H 02/16/17 13:44 Total Protein 6.5 g/dL (6.3-8.2) 02/17/17 10:24 Albumin 3.0 g/dL (3.9-5) L 02/17/17 10:24 Albumin/Globulin Ratio 0.9 % 02/17/17 10:24 Triglycerides 86 mg/dL (2-149) 02/16/17 13:44 Cholesterol 192 mg/dL (50-199) 02/16/17 13:44 LDL Cholesterol Direct 131 mg/dL (50-130) H 02/16/17 13:44 HDL Cholesterol 44 mg/dL (40-59) 02/16/17 13:44 Cholesterol/HDL Ratio 4.36 % 02/16/17 13:44 Urine Color Yellow (Yellow) 02/16/17 Unknown Urine Turbidity Clear (Clear) 02/16/17 Unknown Urine pH 5.0 (5.0-7.0) 02/16/17 Unknown Ur Specific [place] 1.013 (1.003-1.030) 02/16/17 Unknown Urine Protein 30 mg/dl mg/dL (Negative) 02/16/17 Unknown Urine Glucose (UA) Neg mg/dL (Negative) 02/16/17 Unknown Urine Ketones Neg mg/dL (Negative) 02/16/17 Unknown Urine Blood Sm (Negative) 02/16/17 Unknown Urine Nitrite Neg (Negative) 02/16/17 Unknown Urine Bilirubin Neg (Negative) 02/16/17 Unknown Urine Urobilinogen < 2.0 mg/dL (<2.0) 02/16/17 Unknown Ur Leukocyte Esterase Neg (Negative) 02/16/17 Unknown Urine WBC (Auto) 1.0 /HPF (0.0-6.0) 02/16/17 Unknown Urine RBC (Auto) 2.0 /HPF (0.0-6.0) 02/16/17 Unknown Hyaline Casts 1 /LPF 02/16/17 Unknown Urine Mucus Few /HPF 02/16/17 Unknown
[2017-02-25 04:43] LABS: Hematocrit 33.9 % (35.5-45.6); Hemoglobin 11.2 gm/dl (11.8-15.2)
[2017-02-25 04:57] LABS: INR 3.43 (0.87-1.13)
[2017-02-25] MEDS: DUONEB *Not for PRN Use IH SCH ×5 (07:55→20:42)
[2017-02-25] MEDS: BABY ASPIRIN PO SCH (09:08)
[2017-02-25] MEDS: LASIX PO SCH (09:09)
[2017-02-25] MEDS: PEPCID PO SCH (09:09)
[2017-02-25] MEDS: LOPRESSOR PO SCH ×3 (09:11→22:50)
[2017-02-25 09:37] LABS: Anion Gap 15 mmol/L; Blood Urea Nitrogen 11 mg/dL (9-20); Calcium 8.9 mg/dL (8.4-10.2); Carbon Dioxide 25 mmol/L (22-30); Chloride 97.9 mmol/L (98-107); Glucose 135 mg/dL (75-100); Potassium 3.9 mmol/L (3.6-5.0); Sodium 134 mmol/L (137-145)
--- NOTE | 2017-02-25 10:35 | XRay Report ---
Single view abdomen: History: Abdominal pain. Findings: Moderately distended colon with air. Stool in ascending colon. No radiopaque calculus or abnormal calcification. No distention of small bowel. Impression: Moderately distended entire colon. The rectal area not optimally visualized.
--- NOTE | 2017-02-25 17:04 | Progress Note ---
Assessment and Plan Assessment and plan: 76 years old male admitted with acute respiratory failure and found to have severe cardiomyopathy and LV thrombus Acute hypoxic respiratory failure Likely secondary to combination of possible pneumonia and heart failure Continue antibiotics, diuresis Required BiPAP on admission, then Venti-mask; now stable on NC, weaning off Pneumonia CXR and CT chest with bilateral infiltrates WBC within normal limits, but lactic acid elevated on admission Continue antibiotics Acute systolic heart failure/Cardiomyopathy Symptoms consistent with heart failure, BNP elevated, CXRs/CT chest with pulmonary edema and pleural effusions ECHO revealed severe cardiomyopathy with EF 15% Started on lasix, aspirin and statin; low dose BB added; not on ACEI due to renal failure on admission (reassess as renal function improving) Cardiology consulted and following; stress test as part of ischemic evaluation revealed a fixed defect, but no reversible ischemia; considered NICM; no cath planned NSTEMI See above discussion Most likely secondary to heart and renal failure LV apical thrombus ECHO showed severe cardiomyopathy and large left ventricular apical thrombus Cardiology following. Now on Coumadin; INR 3.43 today Acute renal failure Resolved Continue to monitor especially while on Lasix Abdominal pain with mild distension. 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 On Coumadin History Interval history: Abdominal pain abdominal distension, had bowel movement yesterday Hospitalist Physical - Physical exam Narrative exam: Gen Appearance: Not in acute distress, HEENT: normocephalic, atraumatic Neck: supple, no JVD Lungs: Clear to auscultation, bilaterally, no rales, no wheeze Heart: S1 and S2 regular, no murmurs, rubs or gallop Abdomen: Soft , mild tender lower abdomen, mild distended, bowel sounds present Extremity: No edema, no clubbing or cyanosis Neuro : Awake,alert, - Constitutional Vitals: Temp Pulse Resp BP Pulse Ox 97.9 F 81 18 120/61 100 02/25/17 13:00 02/25/17 14:28 02/25/17 14:28 02/25/17 13:00 02/25/17 13:00 General appearance: Present: no acute distress Results - Labs CBC & Chem 7: 02/25/17 03:33 02/25/17 09:04 Labs: Laboratory Last Values WBC 9.4 K/mm3 (4.5-11.0) 02/17/17 10:24 RBC 4.01 M/mm3 (3.65-5.03) 02/17/17 10:24 Hgb 11.2 gm/dl (11.8-15.2) L 02/25/17 03:33 Hct 33.9 % (35.5-45.6) L 02/25/17 03:33 MCV 83 fl (84-94) L 02/17/17 10:24 MCH 27 pg (28-32) L 02/17/17 10:24 MCHC 32 % (32-34) 02/17/17 10:24 RDW 17.4 % (13.2-15.2) H 02/17/17 10:24 Plt Count 250 K/mm3 (140-440) 02/25/17 03:33 Lymph % (Auto) 7.1 % (13.4-35.0) L 02/16/17 13:44 [place] % (Auto) 8.1 % (0.0-7.3) H 02/16/17 13:44 Eos % (Auto) 0.0 % (0.0-4.3) 02/16/17 13:44 Baso % (Auto) 0.2 % (0.0-1.8) 02/16/17 13:44 Lymph # 0.7 K/mm3 (1.2-5.4) L 02/16/17 13:44 [place] # 0.8 K/mm3 (0.0-0.8) 02/16/17 13:44 Eos # 0.0 K/mm3 (0.0-0.4) 02/16/17 13:44 Baso # 0.0 K/mm3 (0.0-0.1) 02/16/17 13:44 Add Manual Diff Complete 02/17/17 10:24 Total Counted 100 02/17/17 10:24 Seg Neutrophils % 84.6 % (40.0-70.0) H 02/16/17 13:44 Seg Neuts % (Manual) 91.0 % (40.0-70.0) H 02/17/17 10:24 Band Neutrophils % 0 % 02/17/17 10:24 Lymphocytes % (Manual) 5.0 % (13.4-35.0) L 02/17/17 10:24 Reactive Lymphs % (Man) 0 % 02/17/17 10:24 Monocytes % (Manual) 4.0 % (0.0-7.3) 02/17/17 10:24 Eosinophils % (Manual) 0 % (0.0-4.3) 02/17/17 10:24 Basophils % (Manual) 0 % (0.0-1.8) 02/17/17 10:24 Metamyelocytes % 0 % 02/17/17 10:24 Myelocytes % 0 % 02/17/17 10:24 Promyelocytes % 0 % 02/17/17 10:24 Blast Cells % 0 % 02/17/17 10:24 Nucleated RBC % Not Reportable 02/17/17 10:24 Seg Neutrophils # 8.6 K/mm3 (1.8-7.7) H 02/16/17 13:44 Seg Neutrophils # Man 8.6 K/mm3 (1.8-7.7) H 02/17/17 10:24 Band Neutrophils # 0.0 K/mm3 02/17/17 10:24 Lymphocytes # (Manual) 0.5 K/mm3 (1.2-5.4) L 02/17/17 10:24 Abs React Lymphs (Man) 0.0 K/mm3 02/17/17 10:24 Monocytes # (Manual) 0.4 K/mm3 (0.0-0.8) 02/17/17 10:24 Eosinophils # (Manual) 0.0 K/mm3 (0.0-0.4) 02/17/17 10:24 Basophils # (Manual) 0.0 K/mm3 (0.0-0.1) 02/17/17 10:24 Metamyelocytes # 0.0 K/mm3 02/17/17 10:24 Myelocytes # 0.0 K/mm3 02/17/17 10:24 Promyelocytes # 0.0 K/mm3 02/17/17 10:24 Blast Cells # 0.0 K/mm3 02/17/17 10:24 WBC Morphology Not Reportable 02/17/17 10:24 Hypersegmented Neuts Not Reportable 02/17/17 10:24 Hyposegmented Neuts Not Reportable 02/17/17 10:24 Hypogranular Neuts Not Reportable 02/17/17 10:24 Smudge Cells Not Reportable 02/17/17 10:24 Toxic Granulation Not Reportable 02/17/17 10:24 Toxic Vacuolation Not Reportable 02/17/17 10:24 Dohle Bodies Not Reportable 02/17/17 10:24 Pelger-Huet Anomaly Not Reportable 02/17/17 10:24 Mary Rods Not Reportable 02/17/17 10:24 Platelet Estimate Not Reportable 02/17/17 10:24 Clumped Platelets Not Reportable 02/17/17 10:24 Plt Clumps, EDTA Not Reportable 02/17/17 10:24 Large Platelets Not Reportable 02/17/17 10:24 Giant Platelets Not Reportable 02/17/17 10:24 Platelet Satelliting Not Reportable 02/17/17 10:24 Plt Morphology Comment Not Reportable 02/17/17 10:24 RBC Morphology Not Reportable 02/17/17 10:24 Dimorphic RBCs Not Reportable 02/17/17 10:24 Polychromasia Not Reportable 02/17/17 10:24 Hypochromasia Not Reportable 02/17/17 10:24 Poikilocytosis 2+ 02/17/17 10:24 Anisocytosis Not Reportable 02/17/17 10:24 Microcytosis Not Reportable 02/17/17 10:24 Macrocytosis Not Reportable 02/17/17 10:24 Spherocytes 1+ 02/17/17 10:24 Pappenheimer Bodies Not Reportable 02/17/17 10:24 Sickle Cells Not Reportable 02/17/17 10:24 Target Cells Not Reportable 02/17/17 10:24 Tear Drop Cells Not Reportable 02/17/17 10:24 Ovalocytes 1+ 02/17/17 10:24 Helmet Cells Not Reportable 02/17/17 10:24 [place] Bodies Not Reportable 02/17/17 10:24 [place] Rings Not Reportable 02/17/17 10:24 [place] Cells Not Reportable 02/17/17 10:24 Bite Cells Not Reportable 02/17/17 10:24 Crenated Cell Not Reportable 02/17/17 10:24 Elliptocytes 1+ 02/17/17 10:24 Acanthocytes (Spur) Not Reportable 02/17/17 10:24 Rouleaux Not Reportable 02/17/17 10:24 Hemoglobin C Crystals Not Reportable 02/17/17 10:24 Schistocytes 1+ 02/17/17 10:24 Malaria parasites Not Reportable 02/17/17 10:24 [place] Bodies Not Reportable 02/17/17 10:24 Hem Pathologist Commnt No 02/17/17 10:24 PT 36.4 Sec. (12.2-14.9) H 02/25/17 03:33 INR 3.43 (0.87-1.13) H 02/25/17 03:33 APTT 36.0 Sec. (24.2-36.6) 02/17/17 17:11 Heparin Anti-Xa Level < 0.10 U.I./ml (0.3-0.7) L 02/24/17 04:31 POC ABG pH 7.407 (7.35-7.45) 02/16/17 13:28 POC ABG pCO2 29.8 (35-45) L 02/16/17 13:28 POC ABG pO2 544 (80-105) H 02/16/17 13:28 POC ABG HCO3 18.8 02/16/17 13:28 POC ABG Total CO2 20 02/16/17 13:28 POC ABG O2 Sat 100 02/16/17 13:28 POC ABG Base Excess -6 02/16/17 13:28 FiO2 100 % 02/16/17 13:28 Sodium 134 mmol/L (137-145) L 02/25/17 09:04 Potassium 3.9 mmol/L (3.6-5.0) 02/25/17 09:04 Chloride 97.9 mmol/L (98-107) L 02/25/17 09:04 Carbon Dioxide 25 mmol/L (22-30) 02/25/17 09:04 Anion Gap 15 mmol/L 02/25/17 09:04 BUN 11 mg/dL (9-20) 02/25/17 09:04 Creatinine 1.0 mg/dL (0.8-1.5) 02/25/17 09:04 Estimated GFR > 60 ml/min 02/25/17 09:04 BUN/Creatinine Ratio 11.00 % 02/25/17 09:04 Glucose 135 mg/dL (75-100) H 02/25/17 09:04 Lactic Acid 1.60 mmol/L (0.7-2.0) 02/17/17 10:24 Calcium 8.9 mg/dL (8.4-10.2) 02/25/17 09:04 Total Bilirubin 1.00 mg/dL (0.1-1.2) 02/17/17 10:24 AST 30 units/L (5-40) 02/17/17 10:24 ALT 32 units/L (7-56) 02/17/17 10:24 Alkaline Phosphatase 94 units/L (35-129) 02/17/17 10:24 Total Creatine Kinase 241 units/L (55-170) H 02/18/17 02:20 CK-MB (CK-2) 4.9 ng/mL (0.0-4.0) H 02/18/17 02:20 CK-MB (CK-2) Rel Index 2.6 (0-4) 02/17/17 17:12 Troponin T 0.949 ng/mL (0.00-0.029) H* D 02/18/17 02:20 NT-Pro-B Natriuret Pep 27779 pg/mL (0-900) H 02/16/17 13:44 Total Protein 6.5 g/dL (6.3-8.2) 02/17/17 10:24 Albumin 3.0 g/dL (3.9-5) L 02/17/17 10:24 Albumin/Globulin Ratio 0.9 % 02/17/17 10:24 Triglycerides 86 mg/dL (2-149) 02/16/17 13:44 Cholesterol 192 mg/dL (50-199) 02/16/17 13:44 LDL Cholesterol Direct 131 mg/dL (50-130) H 02/16/17 13:44 HDL Cholesterol 44 mg/dL (40-59) 02/16/17 13:44 Cholesterol/HDL Ratio 4.36 % 02/16/17 13:44 Urine Color Yellow (Yellow) 02/16/17 Unknown Urine Turbidity Clear (Clear) 02/16/17 Unknown Urine pH 5.0 (5.0-7.0) 02/16/17 Unknown Ur Specific [place] 1.013 (1.003-1.030) 02/16/17 Unknown Urine Protein 30 mg/dl mg/dL (Negative) 02/16/17 Unknown Urine Glucose (UA) Neg mg/dL (Negative) 02/16/17 Unknown Urine Ketones Neg mg/dL (Negative) 02/16/17 Unknown Urine Blood Sm (Negative) 02/16/17 Unknown Urine Nitrite Neg (Negative) 02/16/17 Unknown Urine Bilirubin Neg (Negative) 02/16/17 Unknown Urine Urobilinogen < 2.0 mg/dL (<2.0) 02/16/17 Unknown Ur Leukocyte Esterase Neg (Negative) 02/16/17 Unknown Urine WBC (Auto) 1.0 /HPF (0.0-6.0) 02/16/17 Unknown Urine RBC (Auto) 2.0 /HPF (0.0-6.0) 02/16/17 Unknown Hyaline Casts 1 /LPF 02/16/17 Unknown Urine Mucus Few /HPF 02/16/17 Unknown
[2017-02-25] MEDS: D5NS 1,000 ML IV SCH (21:48)
[2017-02-26 05:56] LABS: INR 2.57 (0.87-1.13)
--- NOTE | 2017-02-26 08:39 | Progress Note ---
Assessment and Plan Assessment and plan: 76 years old male admitted with acute respiratory failure and found to have severe cardiomyopathy and LV thrombus Acute hypoxic respiratory failure Likely secondary to combination of possible pneumonia and heart failure Continue antibiotics, diuresis Required BiPAP on admission, then Venti-mask; now stable on NC, weaning off Pneumonia CXR and CT chest with bilateral infiltrates WBC within normal limits, but lactic acid elevated on admission Completed antibiotics Acute systolic heart failure/Cardiomyopathy Symptoms consistent with heart failure, BNP elevated, CXRs/CT chest with pulmonary edema and pleural effusions ECHO revealed severe cardiomyopathy with EF 15% Started on lasix, aspirin and statin; low dose BB added; not on ACEI due to renal failure on admission (reassess as renal function improving) Cardiology consulted and following; stress test as part of ischemic evaluation revealed a fixed defect, but no reversible ischemia; considered NICM; no cath planned NSTEMI. No chest pain currently Abdominal pain. CT Abdomen shows mesenteric artery stenosis/thrombosis. I discussed with Dr. Maria and Dr. Merino. Obtain CBC, CMP,lactic acid LV apical thrombus ECHO showed severe cardiomyopathy and large left ventricular apical thrombus Cardiology following. Now on Coumadin; INR 2.57 today Acute renal failure Resolved Continue to monitor especially while on Lasix Abdominal pain with mild distension. 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 On Coumadin History Interval history: Abdominal pain abdominal distension, Hospitalist Physical - Physical exam Narrative exam: Gen Appearance: Not in acute distress, HEENT: normocephalic, atraumatic Neck: supple, no JVD Lungs: Clear to auscultation, bilaterally, no rales, no wheeze Heart: S1 and S2 regular, no murmurs, rubs or gallop Abdomen: Soft , mild tender lower abdomen, mild distended, bowel sounds present Extremity: No edema, no clubbing or cyanosis Neuro : Awake,alert, - Constitutional Vitals: Temp Pulse Resp BP Pulse Ox 98.4 F 59 L 20 110/59 97 02/26/17 05:00 02/26/17 05:00 02/26/17 05:00 02/26/17 05:00 02/26/17 08:19 General appearance: Present: no acute distress Results - Labs CBC & Chem 7: 02/26/17 17:11 02/26/17 17:11 Labs: Laboratory Last Values WBC 9.4 K/mm3 (4.5-11.0) 02/17/17 10:24 RBC 4.01 M/mm3 (3.65-5.03) 02/17/17 10:24 Hgb 11.2 gm/dl (11.8-15.2) L 02/25/17 03:33 Hct 33.9 % (35.5-45.6) L 02/25/17 03:33 MCV 83 fl (84-94) L 02/17/17 10:24 MCH 27 pg (28-32) L 02/17/17 10:24 MCHC 32 % (32-34) 02/17/17 10:24 RDW 17.4 % (13.2-15.2) H 02/17/17 10:24 Plt Count 250 K/mm3 (140-440) 02/25/17 03:33 Lymph % (Auto) 7.1 % (13.4-35.0) L 02/16/17 13:44 Lipscomb % (Auto) 8.1 % (0.0-7.3) H 02/16/17 13:44 Eos % (Auto) 0.0 % (0.0-4.3) 02/16/17 13:44 Baso % (Auto) 0.2 % (0.0-1.8) 02/16/17 13:44 Lymph # 0.7 K/mm3 (1.2-5.4) L 02/16/17 13:44 Lipscomb # 0.8 K/mm3 (0.0-0.8) 02/16/17 13:44 Eos # 0.0 K/mm3 (0.0-0.4) 02/16/17 13:44 Baso # 0.0 K/mm3 (0.0-0.1) 02/16/17 13:44 Add Manual Diff Complete 02/17/17 10:24 Total Counted 100 02/17/17 10:24 Seg Neutrophils % 84.6 % (40.0-70.0) H 02/16/17 13:44 Seg Neuts % (Manual) 91.0 % (40.0-70.0) H 02/17/17 10:24 Band Neutrophils % 0 % 02/17/17 10:24 Lymphocytes % (Manual) 5.0 % (13.4-35.0) L 02/17/17 10:24 Reactive Lymphs % (Man) 0 % 02/17/17 10:24 Monocytes % (Manual) 4.0 % (0.0-7.3) 02/17/17 10:24 Eosinophils % (Manual) 0 % (0.0-4.3) 02/17/17 10:24 Basophils % (Manual) 0 % (0.0-1.8) 02/17/17 10:24 Metamyelocytes % 0 % 02/17/17 10:24 Myelocytes % 0 % 02/17/17 10:24 Promyelocytes % 0 % 02/17/17 10:24 Blast Cells % 0 % 02/17/17 10:24 Nucleated RBC % Not Reportable 02/17/17 10:24 Seg Neutrophils # 8.6 K/mm3 (1.8-7.7) H 02/16/17 13:44 Seg Neutrophils # Man 8.6 K/mm3 (1.8-7.7) H 02/17/17 10:24 Band Neutrophils # 0.0 K/mm3 02/17/17 10:24 Lymphocytes # (Manual) 0.5 K/mm3 (1.2-5.4) L 02/17/17 10:24 Abs React Lymphs (Man) 0.0 K/mm3 02/17/17 10:24 Monocytes # (Manual) 0.4 K/mm3 (0.0-0.8) 02/17/17 10:24 Eosinophils # (Manual) 0.0 K/mm3 (0.0-0.4) 02/17/17 10:24 Basophils # (Manual) 0.0 K/mm3 (0.0-0.1) 02/17/17 10:24 Metamyelocytes # 0.0 K/mm3 02/17/17 10:24 Myelocytes # 0.0 K/mm3 02/17/17 10:24 Promyelocytes # 0.0 K/mm3 02/17/17 10:24 Blast Cells # 0.0 K/mm3 02/17/17 10:24 WBC Morphology Not Reportable 02/17/17 10:24 Hypersegmented Neuts Not Reportable 02/17/17 10:24 Hyposegmented Neuts Not Reportable 02/17/17 10:24 Hypogranular Neuts Not Reportable 02/17/17 10:24 Smudge Cells Not Reportable 02/17/17 10:24 Toxic Granulation Not Reportable 02/17/17 10:24 Toxic Vacuolation Not Reportable 02/17/17 10:24 Dohle Bodies Not Reportable 02/17/17 10:24 Pelger-Huet Anomaly Not Reportable 02/17/17 10:24 Mary Rods Not Reportable 02/17/17 10:24 Platelet Estimate Not Reportable 02/17/17 10:24 Clumped Platelets Not Reportable 02/17/17 10:24 Plt Clumps, EDTA Not Reportable 02/17/17 10:24 Large Platelets Not Reportable 02/17/17 10:24 Giant Platelets Not Reportable 02/17/17 10:24 Platelet Satelliting Not Reportable 02/17/17 10:24 Plt Morphology Comment Not Reportable 02/17/17 10:24 RBC Morphology Not Reportable 02/17/17 10:24 Dimorphic RBCs Not Reportable 02/17/17 10:24 Polychromasia Not Reportable 02/17/17 10:24 Hypochromasia Not Reportable 02/17/17 10:24 Poikilocytosis 2+ 02/17/17 10:24 Anisocytosis Not Reportable 02/17/17 10:24 Microcytosis Not Reportable 02/17/17 10:24 Macrocytosis Not Reportable 02/17/17 10:24 Spherocytes 1+ 02/17/17 10:24 Pappenheimer Bodies Not Reportable 02/17/17 10:24 Sickle Cells Not Reportable 02/17/17 10:24 Target Cells Not Reportable 02/17/17 10:24 Tear Drop Cells Not Reportable 02/17/17 10:24 Ovalocytes 1+ 02/17/17 10:24 Helmet Cells Not Reportable 02/17/17 10:24 Berumen-Clio Bodies Not Reportable 02/17/17 10:24 [place] Rings Not Reportable 02/17/17 10:24 [place]rose Cells Not Reportable 02/17/17 10:24 Bite Cells Not Reportable 02/17/17 10:24 Crenated Cell Not Reportable 02/17/17 10:24 Elliptocytes 1+ 02/17/17 10:24 Acanthocytes (Spur) Not Reportable 02/17/17 10:24 Rouleaux Not Reportable 02/17/17 10:24 Hemoglobin C Crystals Not Reportable 02/17/17 10:24 Schistocytes 1+ 02/17/17 10:24 Malaria parasites Not Reportable 02/17/17 10:24 Cecil Bodies Not Reportable 02/17/17 10:24 Hem Pathologist Commnt No 02/17/17 10:24 PT 29.0 Sec. (12.2-14.9) H 02/26/17 04:55 INR 2.57 (0.87-1.13) H 02/26/17 04:55 APTT 36.0 Sec. (24.2-36.6) 02/17/17 17:11 Heparin Anti-Xa Level < 0.10 U.I./ml (0.3-0.7) L 02/24/17 04:31 POC ABG pH 7.407 (7.35-7.45) 02/16/17 13:28 POC ABG pCO2 29.8 (35-45) L 02/16/17 13:28 POC ABG pO2 544 (80-105) H 02/16/17 13:28 POC ABG HCO3 18.8 02/16/17 13:28 POC ABG Total CO2 20 02/16/17 13:28 POC ABG O2 Sat 100 02/16/17 13:28 POC ABG Base Excess -6 02/16/17 13:28 FiO2 100 % 02/16/17 13:28 Sodium 134 mmol/L (137-145) L 02/25/17 09:04 Potassium 3.9 mmol/L (3.6-5.0) 02/25/17 09:04 Chloride 97.9 mmol/L (98-107) L 02/25/17 09:04 Carbon Dioxide 25 mmol/L (22-30) 02/25/17 09:04 Anion Gap 15 mmol/L 02/25/17 09:04 BUN 11 mg/dL (9-20) 02/25/17 09:04 Creatinine 1.0 mg/dL (0.8-1.5) 02/25/17 09:04 Estimated GFR > 60 ml/min 02/25/17 09:04 BUN/Creatinine Ratio 11.00 % 02/25/17 09:04 Glucose 135 mg/dL (75-100) H 02/25/17 09:04 POC Glucose 102 (70-105) 02/26/17 06:11 Lactic Acid 1.60 mmol/L (0.7-2.0) 02/17/17 10:24 Calcium 8.9 mg/dL (8.4-10.2) 02/25/17 09:04 Total Bilirubin 1.00 mg/dL (0.1-1.2) 02/17/17 10:24 AST 30 units/L (5-40) 02/17/17 10:24 ALT 32 units/L (7-56) 02/17/17 10:24 Alkaline Phosphatase 94 units/L (35-129) 02/17/17 10:24 Total Creatine Kinase 241 units/L (55-170) H 02/18/17 02:20 CK-MB (CK-2) 4.9 ng/mL (0.0-4.0) H 02/18/17 02:20 CK-MB (CK-2) Rel Index 2.6 (0-4) 02/17/17 17:12 Troponin T 0.949 ng/mL (0.00-0.029) H* D 02/18/17 02:20 NT-Pro-B Natriuret Pep 98152 pg/mL (0-900) H 02/16/17 13:44 Total Protein 6.5 g/dL (6.3-8.2) 02/17/17 10:24 Albumin 3.0 g/dL (3.9-5) L 02/17/17 10:24 Albumin/Globulin Ratio 0.9 % 02/17/17 10:24 Triglycerides 86 mg/dL (2-149) 02/16/17 13:44 Cholesterol 192 mg/dL (50-199) 02/16/17 13:44 LDL Cholesterol Direct 131 mg/dL (50-130) H 02/16/17 13:44 HDL Cholesterol 44 mg/dL (40-59) 02/16/17 13:44 Cholesterol/HDL Ratio 4.36 % 02/16/17 13:44 Urine Color Yellow (Yellow) 02/16/17 Unknown Urine Turbidity Clear (Clear) 02/16/17 Unknown Urine pH 5.0 (5.0-7.0) 02/16/17 Unknown Ur Specific [place] 1.013 (1.003-1.030) 02/16/17 Unknown Urine Protein 30 mg/dl mg/dL (Negative) 02/16/17 Unknown Urine Glucose (UA) Neg mg/dL (Negative) 02/16/17 Unknown Urine Ketones Neg mg/dL (Negative) 02/16/17 Unknown Urine Blood Sm (Negative) 02/16/17 Unknown Urine Nitrite Neg (Negative) 02/16/17 Unknown Urine Bilirubin Neg (Negative) 02/16/17 Unknown Urine Urobilinogen < 2.0 mg/dL (<2.0) 02/16/17 Unknown Ur Leukocyte Esterase Neg (Negative) 02/16/17 Unknown Urine WBC (Auto) 1.0 /HPF (0.0-6.0) 02/16/17 Unknown Urine RBC (Auto) 2.0 /HPF (0.0-6.0) 02/16/17 Unknown Hyaline Casts 1 /LPF 02/16/17 Unknown Urine Mucus Few /HPF 02/16/17 Unknown
[2017-02-26] MEDS: DUONEB *Not for PRN Use IH SCH ×3 (10:04→21:34)
[2017-02-26] MEDS: PEPCID PO SCH (10:28)
[2017-02-26] MEDS: BABY ASPIRIN PO SCH (10:28)
[2017-02-26] MEDS: LOPRESSOR PO SCH ×2 (10:29→21:39)
--- NOTE | 2017-02-26 11:33 | Gastroenterology Consultation ---
<MUMTAZ MCGHEE - Last Filed: 02/26/17 12:00> History of Present Illness - Reason for Consult Consult date: 02/26/17 abd pain, distention Requesting physician: HOLGER DANIEL - History of Present Illness Patient is a 76 y/o male with a PMH significant for a CVA with residual right sided weakness and expressive aphasia who was admitted with acute respiratory failure and found to have severe cardiomyopathy and LV thrombus. GI has been consulted for abd pain and distention. This morning pt sitting in bedside chair. No acute distress. Admits to abd pain that has been present for a long period of time but exact time of onset is unknown. He states pain is non- radiating but is unable to describe the nature of the pain. Denies fever, wt loss, N/V, diarrhea, constipation or signs of bleeding. Pt is noted to be a very poor historian and difficult to understand. BM yesterday and today per nursing with clear watery stool. Abd is soft, mildly distended with generalized TTP, and +BS. On daily ASA. No previous EGD or colonoscopy per pt. Past History Past Medical History: stroke Past Surgical History: Other (unknown) Social history: lives with family, full code. denies: smoking, alcohol abuse, IV drug use Family history: other (reviewed but not pertinent to current condition) Medications and Allergies Allergies Allergy/AdvReac Type Severity Reaction Status Date / Time Unable to Assess Allergy Unverified 02/17/17 02:33 Home Medications Medication Instructions Recorded Confirmed Last Taken Type Aspirin [Aspirin BABY CHEW TAB] 81 mg PO QDAY #30 tab.chew 02/23/17 Unknown Rx AtorvaSTATin [Lipitor] 40 mg PO QHS #30 tablet 02/23/17 Unknown Rx Famotidine [Pepcid] 20 mg PO DAILY #30 tablet 02/23/17 Unknown Rx Furosemide [Lasix TAB] 40 mg PO QDAY #30 tablet 02/23/17 Unknown Rx Metoprolol [Lopressor TAB] 12.5 mg PO BID #15 tablet 02/23/17 Unknown Rx Warfarin [Coumadin] 7.5 mg PO DAILY@1700 #30 tablet 02/23/17 Unknown Rx Active Meds: Active Medications Acetaminophen/Codeine Phosphate (Tylenol #3) 1 tab PO Q6H PRN PRN Reason: Pain, Moderate (4-6) Last Admin: 02/21/17 21:50 Dose: 1 tab Albuterol (Proventil) 2.5 mg IH Q4HRT PRN PRN Reason: Shortness Of Breath Albuterol/Ipratropium (Duoneb *Not For Prn Use*) 1 ampul IH TIDRT [facility] Last Admin: 02/26/17 10:04 Dose: 1 ampul Aspirin (Baby Aspirin) 81 mg PO QDAY [facility] Last Admin: 02/26/17 10:28 Dose: 81 mg Atorvastatin Calcium (Lipitor) 40 mg PO QHS [facility] Last Admin: 02/26/17 01:52 Dose: 40 mg Famotidine (Pepcid) 20 mg PO DAILY [facility] Last Admin: 02/26/17 10:28 Dose: 20 mg Dextrose/Sodium Chloride (D5ns) 1,000 mls @ 42 mls/hr IV DIRECT [facility] Last Admin: 02/25/17 21:48 Dose: 42 mls/hr Metoprolol Tartrate (Lopressor) 12.5 mg PO BID [facility] Last Admin: 02/26/17 10:29 Dose: Not Given Warfarin Sodium (Coumadin Pharmacy To Dose) 1 each PO PKCONSULT [facility] PRN Reason: Protocol Warfarin Sodium (Coumadin) 5 mg PO DAILY@1700 [facility] Review of Systems - Review of Systems All systems: negative Gastrointestinal: abdominal pain Exam - Constitutional Vital Signs: Temp Pulse Resp BP Pulse Ox 98.1 F 69 20 120/79 97 02/26/17 09:00 02/26/17 10:29 02/26/17 09:00 02/26/17 10:29 02/26/17 09:00 General appearance: no acute distress, well-nourished, other (expressive aphasia ) - EENT Eyes: PERRL, EOM intact ENT: hearing intact - Neck Neck: supple, normal ROM - Respiratory Respiratory: bilateral: CTA (anterior) - Cardiovascular Rhythm: regular Heart Sounds: Present: S1 & S2 Extremities: No edema - Gastrointestinal General gastrointestinal: Present: soft, tender (generalized), distended (mildly ), normal bowel sounds - Integumentary Integumentary: Present: warm, dry - Neurologic Neurological: right side weakness - Labs CBC & Chem 7: 02/25/17 03:33 02/25/17 09:04 Lab Results: Laboratory Results - last 24 hr 0902/26/17 02/26/17 01:54 04:55 06:11 PT 29.0 H INR 2.57 H POC Glucose 88 102 02/26/17 10:40 PT INR POC Glucose 108 H Assessment and Plan 1.abd pain 2.abd distention -afebrile -last BM today with liquid clear stool per nursing -abd x-ray yesterday- showed moderately distended entire colon -abd CT on 02/16 revealed gallstones, colon in left inguinal hernia, small bowel in right inguinal hernia, mildly distended small bowel, and small area of ascites in RLQ -etiology of abd pain unclear -will order repeat abd CT and am labs -will start on daily PPI -will follow <MIAH SZYMANSKI - Last Filed: 02/26/17 14:10> Medications and Allergies Active Meds: Active Medications Acetaminophen/Codeine Phosphate (Tylenol #3) 1 tab PO Q6H PRN PRN Reason: Pain, Moderate (4-6) Last Admin: 02/21/17 21:50 Dose: 1 tab Albuterol (Proventil) 2.5 mg IH Q4HRT PRN PRN Reason: Shortness Of Breath Albuterol/Ipratropium (Duoneb *Not For Prn Use*) 1 ampul IH TIDRT [facility] Last Admin: 02/26/17 10:04 Dose: 1 ampul Aspirin (Baby Aspirin) 81 mg PO QDAY [facility] Last Admin: 02/26/17 10:28 Dose: 81 mg Atorvastatin Calcium (Lipitor) 40 mg PO QHS [facility] Last Admin: 02/26/17 01:52 Dose: 40 mg Famotidine (Pepcid) 20 mg IV QDAY [facility] Last Admin: 02/26/17 13:54 Dose: 20 mg Dextrose/Sodium Chloride (D5ns) 1,000 mls @ 42 mls/hr IV DIRECT [facility] Last Admin: 02/25/17 21:48 Dose: 42 mls/hr Metoprolol Tartrate (Lopressor) 12.5 mg PO BID [facility] Last Admin: 02/26/17 10:29 Dose: Not Given Warfarin Sodium (Coumadin Pharmacy To Dose) 1 each PO PKCONSULT [facility] PRN Reason: Protocol Warfarin Sodium (Coumadin) 5 mg PO DAILY@1700 [facility] Exam - Constitutional Vital Signs: Temp Pulse Resp BP Pulse Ox 98.1 F 69 20 120/79 97 02/26/17 09:00 02/26/17 10:29 02/26/17 09:00 02/26/17 10:29 02/26/17 09:00 - Labs CBC & Chem 7: 02/25/17 03:33 02/25/17 09:04 Lab Results: Laboratory Results - last 24 hr 02/26/17 02/26/17 02/26/17 01:54 04:55 06:11 PT 29.0 H INR 2.57 H POC Glucose 88 102 02/26/17 10:40 PT INR POC Glucose 108 H Assessment and Plan Pt states he has chronic mild pain, periumbilical, x years, no change. Abd- reducible small umbilical hernia. If repeat CT negative, no further GI evaluation.
[2017-02-26] MEDS ORDERED: PROTONIX IV SCH (13:00)
[2017-02-26] MEDS: PEPCID IV SCH (13:54)
[2017-02-26] MEDS ORDERED: NACL ONE (15:29)
[2017-02-26] MEDS ORDERED: COUMADIN PO SCH (17:00)
--- NOTE | 2017-02-26 17:01 | Cat Scan Report ---
CT ABDOMEN AND PELVIS WITH CONTRAST INDICATION: Abdominal pain. COMPARISON: 02/16/2017. FINDINGS: Abdomen and pelvis CT performed following oral contrast and intravenous administration of 100 cc of Omnipaque 300. LUNG BASES: Stable mild cardiomegaly. Approximately 3 cm round filling defect towards the left ventricular apex as on axial images 27-57, series 2. Significantly improved bilateral pleural effusion, atelectasis and pneumonias, minimal now remaining. Mild bibasilar scarring may also be present with slight bronchiectasis. Mild air-filled distal esophageal wall prominence/thickening, not excluded for gastroesophageal reflux and/or hiatal hernia, amongst others. ABDOMEN: Artifact from patient's overlying arm/hand limits exam. However, gallbladder again filled with innumerable small calcified gallstones, individually measuring to the order of 4 mm or smaller. CBD caliber at the lana hepatis approximately 8 mm. Small focus of air near the ampulla may also be present, axial image 126. Liver, spleen, adrenals and kidneys within normal limits. Pancreatic duct caliber approximately 2 mm. Otherwise unremarkable pancreas. Nonaneurysmal abdominal aorta with few aortoiliac atherosclerotic changes. High-grade, approximately 80-90% stenosis at the origin of the celiac axis suspected on sagittal image 86, series 202. Proximal SMA also approximately 50% narrowed/partially thrombosed for approximately 1.8 cm length, approximately 1 cm from its aortic origin as on axial series 2, images 108-123. Stable IVC filter tip below the level of renal vessels. No effusions or size significant adenopathy. Opacified GI tract nonobstructive. Mild to moderate colonic stool. Umbilical hernia containing nonobstructive small bowel through approximately 1 cm neck noted as on axial image 204. PELVIS: Interval Douglas catheter removal with distended urinary bladder now asymmetrically extending right inferolateral towards the groin, replacing prior nonobstructive small bowel extending into the right inguinal canal hernia proximally. Nonobstructive bowel has also retracted from the left inguinal hernia since with bilateral hernias now containing fat and some fluid/soft tissue density. A high riding right testicle however difficult to exclude at this time. Lobulated, approximately 5.2 x 3.4 cm enlarged prostate again noted at the bladder base on the left as on axial image 297, series 2. Fluid noted in the rectum. No pelvic free fluid or significant adenopathy. Moderate thoracolumbar dextroscoliosis apex about L1-L2. Multilevel degenerative spurring. Advanced lower lumbar facet arthropathy and disc degeneration with vacuum phenomena also seen. Stable right hip replacement, creating streak artifact. Demineralized bones. CONCLUSION: 1. 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 Proximal SMA stenosis/partial thrombosis also identified without CT evidence of mesenteric ischemia at this time. Please correlate. 2. Approximately 3 cm left ventricular filling defect, possibly a thrombus or myxoma, amongst others. 3. Much improved bibasilar pleural effusions and atelectasis, though mild scarring/chronic changes remain. Mild cardiomegaly. 4. Extensive cholelithiasis, IVC filter, replaced right hip and advanced multilevel spinal degenerative changes again noted. 5. Interval variation in umbilical and bilateral inguinal hernias, as described. I phoned the above results to patient's nurse, Glory at 4:50 PM, 02/26/2017. Thank you for the opportunity to participate in this patient's care.
--- NOTE | 2017-02-26 17:16 | Event Note ---
Date: 02/26/17 CT Abdomen abnormal revealing celiac axis focal stenosis and SMA stenosis/ thrombosis. Discussed with GI and Vascular surgery.
[2017-02-26 17:44] LABS: Hematocrit 32.4 % (35.5-45.6); Hemoglobin 10.7 gm/dl (11.8-15.2); Mean Corpuscular HGB Conc 33 % (32-34); Mean Corpuscular Hemoglobin 27 pg (28-32); Mean Corpuscular Volume 81 fl (84-94); Red Blood Count 3.97 M/mm3 (3.65-5.03); Red Cell Distribution Width 18.1 % (13.2-15.2); White Blood Count 4.7 K/mm3 (4.5-11.0)
[2017-02-26 17:52] LABS: Platelet Count 263 K/mm3 (140-440)
[2017-02-26 17:56] LABS: Alanine Aminotransferase 86 units/L (7-56); Albumin/Globulin Ratio 0.8 %; Alkaline Phosphatase 83 units/L (35-129); BUN/Creatinine Ratio 21.42; Blood Urea Nitrogen 15 mg/dL (9-20); Calcium 8.3 mg/dL (8.4-10.2); Carbon Dioxide 18 mmol/L (22-30); Chloride 99.1 mmol/L (98-107); Glucose 107 mg/dL (75-100); Potassium 3.2 mmol/L (3.6-5.0); Sodium 133 mmol/L (137-145); Total Protein 6.7 g/dL (6.3-8.2)
[2017-02-26 18:00] LABS: Anion Gap 19 mmol/L
[2017-02-26] MEDS: KCL 10MEQ/100ML 10 MEQ/100 ML BAG IV SCH ×2 (20:37→21:35)
[2017-02-27 06:43] LABS: Basophils % (Auto) 1.1 % (0.0-1.8); Eosinophils % (Auto) 2.5 % (0.0-4.3); Hematocrit 31.5 % (35.5-45.6); Hemoglobin 10.2 gm/dl (11.8-15.2); Mean Corpuscular HGB Conc 32 % (32-34); Mean Corpuscular Hemoglobin 27 pg (28-32); Mean Corpuscular Volume 83 fl (84-94); Platelet Count 275 K/mm3 (140-440); Red Blood Count 3.79 M/mm3 (3.65-5.03); Red Cell Distribution Width 18.5 % (13.2-15.2); White Blood Count 4.2 K/mm3 (4.5-11.0)
[2017-02-27 07:02] LABS: INR 3.15 (0.87-1.13)
[2017-02-27 07:05] LABS: Alanine Aminotransferase 73 units/L (7-56); Albumin 2.7 g/dL (3.9-5); Albumin/Globulin Ratio 0.7 %; Alkaline Phosphatase 79 units/L (35-129); Anion Gap 16 mmol/L; BUN/Creatinine Ratio 18.75; Blood Urea Nitrogen 15 mg/dL (9-20); Calcium 8.4 mg/dL (8.4-10.2); Carbon Dioxide 22 mmol/L (22-30); Chloride 100.5 mmol/L (98-107); Glucose 100 mg/dL (75-100); Potassium 3.9 mmol/L (3.6-5.0); Sodium 135 mmol/L (137-145); Total Protein 6.4 g/dL (6.3-8.2)
--- NOTE | 2017-02-27 08:25 | Progress Note ---
Assessment and Plan Assessment and plan: 76 years old male admitted with acute respiratory failure and found to have severe cardiomyopathy and LV thrombus Acute hypoxic respiratory failure Likely secondary to combination of possible pneumonia and heart failure Continue antibiotics, diuresis Required BiPAP on admission, then Venti-mask; now stable on NC, weaning off Pneumonia CXR and CT chest with bilateral infiltrates WBC within normal limits, but lactic acid elevated on admission Completed antibiotics Acute systolic heart failure/Cardiomyopathy Symptoms consistent with heart failure, BNP elevated, CXRs/CT chest with pulmonary edema and pleural effusions ECHO revealed severe cardiomyopathy with EF 15% Started on lasix, aspirin and statin; low dose BB added; not on ACEI due to renal failure on admission (reassess as renal function improving) Cardiology consulted and following; stress test as part of ischemic evaluation revealed a fixed defect, but no reversible ischemia; considered NICM; no cath planned NSTEMI. No chest pain currently Abdominal pain. CT Abdomen showed mesenteric artery stenosis/thrombosis. Already on Coumadin for left ventricular thrombus .I discussed with Dr. Maria and Dr. Merino. [facility] surgery consulted. LV apical thrombus ECHO showed severe cardiomyopathy and large left ventricular apical thrombus Cardiology following. Now on Coumadin; INR 3.15 today Acute renal failure Resolved Continue to monitor especially while on Lasix Abdominal pain with mild distension. 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 On Coumadin Disposition. I discussed with Case management. Patient has been approved to go to SNF. Awaiting workup of abdominal pain and vascular surgeon evaluation. History Interval history: Less abdominal pain abdominal distension, Hospitalist Physical - Physical exam Narrative exam: Gen Appearance: Not in acute distress, HEENT: normocephalic, atraumatic Neck: supple, no JVD Lungs: Clear to auscultation, bilaterally, no rales, no wheeze Heart: S1 and S2 regular, no murmurs, rubs or gallop Abdomen: Soft , mild tender lower abdomen, mild distended, bowel sounds present Extremity: No edema, no clubbing or cyanosis Neuro : Awake,alert, - Constitutional Vitals: Temp Pulse Resp BP Pulse Ox 98.2 F 82 15 116/76 94 02/26/17 20:00 02/26/17 22:00 02/26/17 20:00 02/26/17 21:39 02/26/17 20:00 General appearance: Present: no acute distress Results - Labs CBC & Chem 7: 02/27/17 05:16 02/27/17 05:16 Labs: Laboratory Last Values WBC 4.2 K/mm3 (4.5-11.0) L 02/27/17 05:16 RBC 3.79 M/mm3 (3.65-5.03) 02/27/17 05:16 Hgb 10.2 gm/dl (11.8-15.2) L 02/27/17 05:16 Hct 31.5 % (35.5-45.6) L 02/27/17 05:16 MCV 83 fl (84-94) L 02/27/17 05:16 MCH 27 pg (28-32) L 02/27/17 05:16 MCHC 32 % (32-34) 02/27/17 05:16 RDW 18.5 % (13.2-15.2) H 02/27/17 05:16 Plt Count 275 K/mm3 (140-440) 02/27/17 05:16 Lymph % (Auto) 20.6 % (13.4-35.0) 02/27/17 05:16 [place] % (Auto) 10.3 % (0.0-7.3) H 02/27/17 05:16 Eos % (Auto) 2.5 % (0.0-4.3) 02/27/17 05:16 Baso % (Auto) 1.1 % (0.0-1.8) 02/27/17 05:16 Lymph # 0.9 K/mm3 (1.2-5.4) L 02/27/17 05:16 [place] # 0.4 K/mm3 (0.0-0.8) 02/27/17 05:16 Eos # 0.1 K/mm3 (0.0-0.4) 02/27/17 05:16 Baso # 0.0 K/mm3 (0.0-0.1) 02/27/17 05:16 Add Manual Diff Complete 02/17/17 10:24 Total Counted 100 09/12/17 10:24 Seg Neutrophils % 65.5 % (40.0-70.0) 02/27/17 05:16 Seg Neuts % (Manual) 91.0 % (40.0-70.0) H 02/17/17 10:24 Band Neutrophils % 0 % 02/17/17 10:24 Lymphocytes % (Manual) 5.0 % (13.4-35.0) L 02/17/17 10:24 Reactive Lymphs % (Man) 0 % 02/17/17 10:24 Monocytes % (Manual) 4.0 % (0.0-7.3) 02/17/17 10:24 Eosinophils % (Manual) 0 % (0.0-4.3) 02/17/17 10:24 Basophils % (Manual) 0 % (0.0-1.8) 02/17/17 10:24 Metamyelocytes % 0 % 02/17/17 10:24 Myelocytes % 0 % 02/17/17 10:24 Promyelocytes % 0 % 02/17/17 10:24 Blast Cells % 0 % 02/17/17 10:24 Nucleated RBC % Not Reportable 02/17/17 10:24 Seg Neutrophils # 2.8 K/mm3 (1.8-7.7) 02/27/17 05:16 Seg Neutrophils # Man 8.6 K/mm3 (1.8-7.7) H 02/17/17 10:24 Band Neutrophils # 0.0 K/mm3 02/17/17 10:24 Lymphocytes # (Manual) 0.5 K/mm3 (1.2-5.4) L 02/17/17 10:24 Abs React Lymphs (Man) 0.0 K/mm3 02/17/17 10:24 Monocytes # (Manual) 0.4 K/mm3 (0.0-0.8) 02/17/17 10:24 Eosinophils # (Manual) 0.0 K/mm3 (0.0-0.4) 02/17/17 10:24 Basophils # (Manual) 0.0 K/mm3 (0.0-0.1) 02/17/17 10:24 Metamyelocytes # 0.0 K/mm3 02/17/17 10:24 Myelocytes # 0.0 K/mm3 02/17/17 10:24 Promyelocytes # 0.0 K/mm3 02/17/17 10:24 Blast Cells # 0.0 K/mm3 02/17/17 10:24 WBC Morphology Not Reportable 02/17/17 10:24 Hypersegmented Neuts Not Reportable 02/17/17 10:24 Hyposegmented Neuts Not Reportable 02/17/17 10:24 Hypogranular Neuts Not Reportable 02/17/17 10:24 Smudge Cells Not Reportable 02/17/17 10:24 Toxic Granulation Not Reportable 02/17/17 10:24 Toxic Vacuolation Not Reportable 02/17/17 10:24 Dohle Bodies Not Reportable 02/17/17 10:24 Pelger-Huet Anomaly Not Reportable 02/17/17 10:24 Mary Rods Not Reportable 02/17/17 10:24 Platelet Estimate Not Reportable 02/17/17 10:24 Clumped Platelets Not Reportable 02/17/17 10:24 Plt Clumps, EDTA Not Reportable 02/17/17 10:24 Large Platelets Not Reportable 02/17/17 10:24 Giant Platelets Not Reportable 02/17/17 10:24 Platelet Satelliting Not Reportable 02/17/17 10:24 Plt Morphology Comment Not Reportable 02/17/17 10:24 RBC Morphology Not Reportable 02/17/17 10:24 Dimorphic RBCs Not Reportable 02/17/17 10:24 Polychromasia Not Reportable 02/17/17 10:24 Hypochromasia Not Reportable 02/17/17 10:24 Poikilocytosis 2+ 02/17/17 10:24 Anisocytosis Not Reportable 02/17/17 10:24 Microcytosis Not Reportable 02/17/17 10:24 Macrocytosis Not Reportable 02/17/17 10:24 Spherocytes 1+ 02/17/17 10:24 Pappenheimer Bodies Not Reportable 02/17/17 10:24 Sickle Cells Not Reportable 02/17/17 10:24 Target Cells Not Reportable 02/17/17 10:24 Tear Drop Cells Not Reportable 02/17/17 10:24 Ovalocytes 1+ 02/17/17 10:24 Helmet Cells Not Reportable 02/17/17 10:24 [place]-Antares Bodies Not Reportable 02/17/17 10:24 [place] Rings Not Reportable 02/17/17 10:24 [place] Cells Not Reportable 02/17/17 10:24 Bite Cells Not Reportable 02/17/17 10:24 Crenated Cell Not Reportable 02/17/17 10:24 Elliptocytes 1+ 02/17/17 10:24 Acanthocytes (Spur) Not Reportable 02/17/17 10:24 Rouleaux Not Reportable 02/17/17 10:24 Hemoglobin C Crystals Not Reportable 02/17/17 10:24 Schistocytes 1+ 02/17/17 10:24 Malaria parasites Not Reportable 02/17/17 10:24 Cecil Bodies Not Reportable 02/17/17 10:24 Hem Pathologist Commnt No 02/17/17 10:24 PT 32.6 Sec. (12.2-14.9) H 02/27/17 05:16 INR 3.15 (0.87-1.13) H 02/27/17 05:16 APTT 36.0 Sec. (24.2-36.6) 02/17/17 17:11 Heparin Anti-Xa Level < 0.10 U.I./ml (0.3-0.7) L 02/24/17 04:31 POC ABG pH 7.407 (7.35-7.45) 02/16/17 13:28 POC ABG pCO2 29.8 (35-45) L 02/16/17 13:28 POC ABG pO2 544 (80-105) H 02/16/17 13:28 POC ABG HCO3 18.8 02/16/17 13:28 POC ABG Total CO2 20 02/16/17 13:28 POC ABG O2 Sat 100 02/16/17 13:28 POC ABG Base Excess -6 02/16/17 13:28 FiO2 100 % 02/16/17 13:28 Sodium 135 mmol/L (137-145) L 02/27/17 05:16 Potassium 3.9 mmol/L (3.6-5.0) D 02/27/17 05:16 Chloride 100.5 mmol/L (98-107) 02/27/17 05:16 Carbon Dioxide 22 mmol/L (22-30) 02/27/17 05:16 Anion Gap 16 mmol/L 02/27/17 05:16 BUN 15 mg/dL (9-20) 02/27/17 05:16 Creatinine 0.8 mg/dL (0.8-1.5) 02/27/17 05:16 Estimated GFR > 60 ml/min 02/27/17 05:16 BUN/Creatinine Ratio 18.75 % 02/27/17 05:16 Glucose 100 mg/dL (75-100) 02/27/17 05:16 POC Glucose 91 (70-105) 02/27/17 07:57 Lactic Acid 0.90 mmol/L (0.7-2.0) 02/26/17 17:23 Calcium 8.4 mg/dL (8.4-10.2) 02/27/17 05:16 Phosphorus 2.80 mg/dL (2.5-4.5) 02/26/17 17:11 Magnesium 1.80 mg/dL (1.7-2.3) 02/26/17 17:11 Total Bilirubin 0.80 mg/dL (0.1-1.2) 02/27/17 05:16 AST 42 units/L (5-40) H 02/27/17 05:16 ALT 73 units/L (7-56) H 02/27/17 05:16 Alkaline Phosphatase 79 units/L (35-129) 02/27/17 05:16 Total Creatine Kinase 241 units/L (55-170) H 02/18/17 02:20 CK-MB (CK-2) 4.9 ng/mL (0.0-4.0) H 02/18/17 02:20 CK-MB (CK-2) Rel Index 2.6 (0-4) 02/17/17 17:12 Troponin T 0.949 ng/mL (0.00-0.029) H* D 02/18/17 02:20 NT-Pro-B Natriuret Pep 69222 pg/mL (0-900) H 02/16/17 13:44 Total Protein 6.4 g/dL (6.3-8.2) 02/27/17 05:16 Albumin 2.7 g/dL (3.9-5) L 02/27/17 05:16 Albumin/Globulin Ratio 0.7 % 02/27/17 05:16 Triglycerides 86 mg/dL (2-149) 02/16/17 13:44 Cholesterol 192 mg/dL (50-199) 02/16/17 13:44 LDL Cholesterol Direct 131 mg/dL (50-130) H 02/16/17 13:44 HDL Cholesterol 44 mg/dL (40-59) 02/16/17 13:44 Cholesterol/HDL Ratio 4.36 % 02/16/17 13:44 Urine Color Yellow (Yellow) 02/16/17 Unknown Urine Turbidity Clear (Clear) 02/16/17 Unknown Urine pH 5.0 (5.0-7.0) 02/16/17 Unknown Ur Specific [place] 1.013 (1.003-1.030) 02/16/17 Unknown Urine Protein 30 mg/dl mg/dL (Negative) 02/16/17 Unknown Urine Glucose (UA) Neg mg/dL (Negative) 02/16/17 Unknown Urine Ketones Neg mg/dL (Negative) 02/16/17 Unknown Urine Blood Sm (Negative) 02/16/17 Unknown Urine Nitrite Neg (Negative) 02/16/17 Unknown Urine Bilirubin Neg (Negative) 02/16/17 Unknown Urine Urobilinogen < 2.0 mg/dL (<2.0) 02/16/17 Unknown Ur Leukocyte Esterase Neg (Negative) 02/16/17 Unknown Urine WBC (Auto) 1.0 /HPF (0.0-6.0) 02/16/17 Unknown Urine RBC (Auto) 2.0 /HPF (0.0-6.0) 02/16/17 Unknown Hyaline Casts 1 /LPF 02/16/17 Unknown Urine Mucus Few /HPF 02/16/17 Unknown
[2017-02-27] MEDS: PEPCID IV SCH ×2 (09:11→23:43)
[2017-02-27] MEDS: BABY ASPIRIN PO SCH (09:12)
[2017-02-27] MEDS: LOPRESSOR PO SCH ×2 (09:12→23:43)
[2017-02-27] MEDS: DUONEB *Not for PRN Use IH SCH ×3 (09:48→20:14)
--- NOTE | 2017-02-27 11:39 | Gastroenterology Progress Note ---
<MUMTAZ MCGHEE - Last Filed: 02/27/17 11:41> Assessment and Plan 1.abd pain 2.abd distention -etiology of abd pain unclear -Repeat Abd CT yesterday revealed mesenteric artery stenosis/thrombosis -Recommend vascular evaluation-consult pending -no further GI recommendations at this time -will sign off Subjective Date of service: 02/27/17 Principal diagnosis: abd pain Interval history: Patient sitting up in bedside chair. No acute distress. Denies abd pain but admits to abd tenderness with palpation in periumbilical area. No N/V. Objective - Constitutional Vitals: Temp Pulse Resp BP Pulse Ox 97.8 F 83 16 124/73 99 02/27/17 08:16 02/27/17 09:12 02/27/17 10:00 02/27/17 09:12 02/27/17 10:00 General appearance: no acute distress, well-nourished - EENT Eyes: PERRL, EOM intact ENT: hearing intact - Respiratory Respiratory: bilateral: CTA (anterior) - Cardiovascular Rhythm: regular Heart Sounds: Present: S1 & S2 - Extremities Extremities: No edema - Gastrointestinal General gastrointestinal: Present: soft, tender (periumbilical), non-distended, normal bowel sounds - Integumentary Integumentary: Present: warm, dry - Neurologic Neurological: right side weakness - Labs CBC & Chem 7: 02/27/17 05:16 02/27/17 05:16 Labs: Laboratory Results - last 24 hr 02/26/17 02/26/17 02/26/17 16:07 17:11 17:11 WBC 4.7 RBC 3.97 Hgb 10.7 L Hct 32.4 L MCV 81 L MCH 27 L MCHC 33 RDW 18.1 H Plt Count 263 Lymph % (Auto) [place] % (Auto) Eos % (Auto) Baso % (Auto) Lymph # [place] # Eos # Baso # Seg Neutrophils % Seg Neutrophils # PT INR Sodium 133 L Potassium 3.2 L Chloride 99.1 Carbon Dioxide 18 L D Anion Gap 19 BUN 15 Creatinine 0.7 L Estimated GFR > 60 BUN/Creatinine Ratio 21.42 Glucose 107 H POC Glucose 115 H Lactic Acid Calcium 8.3 L Phosphorus 2.80 Magnesium 1.80 Total Bilirubin 0.80 AST 57 H ALT 86 H Alkaline Phosphatase 83 Total Protein 6.7 Albumin 3.0 L Albumin/Globulin Ratio 0.8 02/26/17 02/26/17 02/26/17 17:23 19:11 20:06 WBC RBC Hgb Hct MCV MCH MCHC RDW Plt Count Lymph % (Auto) [place] % (Auto) Eos % (Auto) Baso % (Auto) Lymph # [place] # Eos # Baso # Seg Neutrophils % Seg Neutrophils # PT INR Sodium Potassium Chloride Carbon Dioxide Anion Gap BUN Creatinine Estimated GFR BUN/Creatinine Ratio Glucose POC Glucose 104 70 Lactic Acid 0.90 Calcium Phosphorus Magnesium Total Bilirubin AST ALT Alkaline Phosphatase Total Protein Albumin Albumin/Globulin Ratio 02/27/17 02/27/17 02/27/17 01:16 05:16 05:16 WBC 4.2 L RBC 3.79 Hgb 10.2 L Hct 31.5 L MCV 83 L MCH 27 L MCHC 32 RDW 18.5 H Plt Count 275 Lymph % (Auto) 20.6 [place] % (Auto) 10.3 H Eos % (Auto) 2.5 Baso % (Auto) 1.1 Lymph # 0.9 L [place] # 0.4 Eos # 0.1 Baso # 0.0 Seg Neutrophils % 65.5 Seg Neutrophils # 2.8 PT 32.6 H INR 3.15 H Sodium Potassium Chloride Carbon Dioxide Anion Gap BUN Creatinine Estimated GFR BUN/Creatinine Ratio Glucose POC Glucose 111 H Lactic Acid Calcium Phosphorus Magnesium Total Bilirubin AST ALT Alkaline Phosphatase Total Protein Albumin Albumin/Globulin Ratio 02/27/17 02/27/17 02/27/17 05:16 05:26 07:57 WBC RBC Hgb Hct MCV MCH MCHC RDW Plt Count Lymph % (Auto) [place] % (Auto) Eos % (Auto) Baso % (Auto) Lymph # [place] # Eos # Baso # Seg Neutrophils % Seg Neutrophils # PT INR Sodium 135 L Potassium 3.9 D Chloride 100.5 Carbon Dioxide 22 Anion Gap 16 BUN 15 Creatinine 0.8 Estimated GFR > 60 BUN/Creatinine Ratio 18.75 Glucose 100 POC Glucose 112 H 91 Lactic Acid Calcium 8.4 Phosphorus Magnesium Total Bilirubin 0.80 AST 42 H ALT 73 H Alkaline Phosphatase 79 Total Protein 6.4 Albumin 2.7 L Albumin/Globulin Ratio 0.7 <MIAH SZYMANSKI R - Last Filed: 02/27/17 13:36> Assessment and Plan Pain characteristics not c/w ischemic process. Discussed with Dr. Allen. Given chronicity and stability of symptoms, if vascular eval negative, would not recommend surgical eval for hernia repair at present. Will sign off. Please call as needed. Objective - Constitutional Vitals: Temp Pulse Resp BP Pulse Ox 97.8 F 83 16 124/73 99 02/27/17 08:16 02/27/17 09:12 02/27/17 10:00 02/27/17 09:12 02/27/17 10:00 - Labs CBC & Chem 7: 02/27/17 05:16 02/27/17 05:16 Labs: Laboratory Results - last 24 hr 02/26/17 02/26/17 02/26/17 16:07 17:11 17:11 WBC 4.7 RBC 3.97 Hgb 10.7 L Hct 32.4 L MCV 81 L MCH 27 L MCHC 33 RDW 18.1 H Plt Count 263 Lymph % (Auto) [place] % (Auto) Eos % (Auto) Baso % (Auto) Lymph # [place] # Eos # Baso # Seg Neutrophils % Seg Neutrophils # PT INR Sodium 133 L Potassium 3.2 L Chloride 99.1 Carbon Dioxide 18 L D Anion Gap 19 BUN 15 Creatinine 0.7 L Estimated GFR > 60 BUN/Creatinine Ratio 21.42 Glucose 107 H POC Glucose 115 H Lactic Acid Calcium 8.3 L Phosphorus 2.80 Magnesium 1.80 Total Bilirubin 0.80 AST 57 H ALT 86 H Alkaline Phosphatase 83 Total Protein 6.7 Albumin 3.0 L Albumin/Globulin Ratio 0.8 02/26/17 02/26/17 02/26/17 17:23 19:11 20:06 WBC RBC Hgb Hct MCV MCH MCHC RDW Plt Count Lymph % (Auto) [place] % (Auto) Eos % (Auto) Baso % (Auto) Lymph # [place] # Eos # Baso # Seg Neutrophils % Seg Neutrophils # PT INR Sodium Potassium Chloride Carbon Dioxide Anion Gap BUN Creatinine Estimated GFR BUN/Creatinine Ratio Glucose POC Glucose 104 70 Lactic Acid 0.90 Calcium Phosphorus Magnesium Total Bilirubin AST ALT Alkaline Phosphatase Total Protein Albumin Albumin/Globulin Ratio 02/27/17 02/27/17 02/27/17 01:16 05:16 05:16 WBC 4.2 L RBC 3.79 Hgb 10.2 L Hct 31.5 L MCV 83 L MCH 27 L MCHC 32 RDW 18.5 H Plt Count 275 Lymph % (Auto) 20.6 [place] % (Auto) 10.3 H Eos % (Auto) 2.5 Baso % (Auto) 1.1 Lymph # 0.9 L [place] # 0.4 Eos # 0.1 Baso # 0.0 Seg Neutrophils % 65.5 Seg Neutrophils # 2.8 PT 32.6 H INR 3.15 H Sodium Potassium Chloride Carbon Dioxide Anion Gap BUN Creatinine Estimated GFR BUN/Creatinine Ratio Glucose POC Glucose 111 H Lactic Acid Calcium Phosphorus Magnesium Total Bilirubin AST ALT Alkaline Phosphatase Total Protein Albumin Albumin/Globulin Ratio 02/27/17 02/27/17 02/27/17 05:16 05:26 07:57 WBC RBC Hgb Hct MCV MCH MCHC RDW Plt Count Lymph % (Auto) [place] % (Auto) Eos % (Auto) Baso % (Auto) Lymph # [place] # Eos # Baso # Seg Neutrophils % Seg Neutrophils # PT INR Sodium 135 L Potassium 3.9 D Chloride 100.5 Carbon Dioxide 22 Anion Gap 16 BUN 15 Creatinine 0.8 Estimated GFR > 60 BUN/Creatinine Ratio 18.75 Glucose 100 POC Glucose 112 H 91 Lactic Acid Calcium 8.4 Phosphorus Magnesium Total Bilirubin 0.80 AST 42 H ALT 73 H Alkaline Phosphatase 79 Total Protein 6.4 Albumin 2.7 L Albumin/Globulin Ratio 0.7 02/27/17 11:48 WBC RBC Hgb Hct MCV MCH MCHC RDW Plt Count Lymph % (Auto) [place] % (Auto) Eos % (Auto) Baso % (Auto) Lymph # [place] # Eos # Baso # Seg Neutrophils % Seg Neutrophils # PT INR Sodium Potassium Chloride Carbon Dioxide Anion Gap BUN Creatinine Estimated GFR BUN/Creatinine Ratio Glucose POC Glucose 69 L Lactic Acid Calcium Phosphorus Magnesium Total Bilirubin AST ALT Alkaline Phosphatase Total Protein Albumin Albumin/Globulin Ratio
[2017-02-27] MEDS: D5NS 1,000 ML IV SCH (12:54)
[2017-02-27] MEDS ORDERED: D50W (25GM) Syringe IV PRN (16:11)
--- NOTE | 2017-02-27 16:48 | Consultation ---
History of Present Illness - Reason for Consult Consult date: 02/27/17 Mesenteric stenosis - History of Present Illness 76 year old male with a PMH significant for a CVA with residual right sided weakness and expressive aphasia who was admitted with acute respiratory failure and found to have severe cardiomyopathy and LV thrombus. 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 The patient is in no distress and when asked where his abdominal pain is, he indicates his umbilical's where he has a small umbilical hernia. Unfortunately , the patient occassionally contradicts himself during the examination, but consistently denies postprandial abdominal pain. He does admit to some weight loss. He denies loss of appetite. 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 Past History Past Medical History: stroke Past Surgical History: Other (unknown) Social history: lives with family, full code. denies: smoking, alcohol abuse, IV drug use Family history: other (reviewed but not pertinent to current condition) Medications and Allergies Allergies Allergy/AdvReac Type Severity Reaction Status Date / Time Unable to Assess Allergy Unverified 02/17/17 02:33 Home Medications Medication Instructions Recorded Confirmed Last Taken Type Aspirin [Aspirin BABY CHEW TAB] 81 mg PO QDAY #30 tab.chew 02/23/17 Unknown Rx AtorvaSTATin [Lipitor] 40 mg PO QHS #30 tablet 02/23/17 Unknown Rx Famotidine [Pepcid] 20 mg PO DAILY #30 tablet 02/23/17 Unknown Rx Furosemide [Lasix TAB] 40 mg PO QDAY #30 tablet 02/23/17 Unknown Rx Metoprolol [Lopressor TAB] 12.5 mg PO BID #15 tablet 02/23/17 Unknown Rx Warfarin [Coumadin] 7.5 mg PO DAILY@1700 #30 tablet 02/23/17 Unknown Rx Active Meds: Active Medications Acetaminophen/Codeine Phosphate (Tylenol #3) 1 tab PO Q6H PRN PRN Reason: Pain, Moderate (4-6) Last Admin: 02/21/17 21:50 Dose: 1 tab Albuterol (Proventil) 2.5 mg IH Q4HRT PRN PRN Reason: Shortness Of Breath Albuterol/Ipratropium (Duoneb *Not For Prn Use*) 1 ampul IH TIDRT FREYA Last Admin: 02/27/17 14:45 Dose: 1 ampul Aspirin (Baby Aspirin) 81 mg PO QDAY [facility] Last Admin: 02/27/17 09:12 Dose: 81 mg Atorvastatin Calcium (Lipitor) 40 mg PO QHS [facility] Last Admin: 02/26/17 23:25 Dose: 40 mg Dextrose (D50w (25gm) Syringe) 25 ml IV PRN PRN PRN Reason: Hypoglycemia Last Admin: 02/27/17 16:14 Dose: 25 ml Famotidine (Pepcid) 20 mg IV BID [facility] Dextrose/Sodium Chloride (D5ns) 1,000 mls @ 42 mls/hr IV DIRECT [facility] Last Admin: 02/27/17 12:54 Dose: 42 mls/hr Metoprolol Tartrate (Lopressor) 12.5 mg PO BID [facility] Last Admin: 02/27/17 09:12 Dose: 12.5 mg Warfarin Sodium (Coumadin Pharmacy To Dose) 1 each PO PKCONSULT [facility] PRN Reason: Protocol Review of Systems ROS unobtainable: due to mental status Exam - Constitutional Vitals: Temp Pulse Resp BP Pulse Ox 97.7 F 76 18 118/70 99 02/27/17 14:00 02/27/17 15:05 02/27/17 15:05 02/27/17 14:00 02/27/17 14:00 General appearance: Present: no acute distress - Respiratory Respiratory effort: normal - Abdominal General gastrointestinal: Present: soft, non-tender (overall predominantly nontender), other (umbilical hernia where some discomfort is noted) - Psychiatric Psychiatric: no intact judgment & insight, no memory intact, cooperative Results - Labs CBC & Chem 7: 02/27/17 05:16 02/27/17 05:16 Labs: Abnormal lab results 02/26/17 02/26/17 02/27/17 Range/Units 17:11 17:11 01:16 WBC (4.5-11.0) K/mm3 Hgb 10.7 L (11.8-15.2) gm/dl Hct 32.4 L (35.5-45.6) % MCV 81 L (84-94) fl MCH 27 L (28-32) pg RDW 18.1 H (13.2-15.2) % [place] % (Auto) (0.0-7.3) % Lymph # (1.2-5.4) K/mm3 PT (12.2-14.9) Sec. INR (0.87-1.13) Sodium 133 L (137-145) mmol/L Potassium 3.2 L (3.6-5.0) mmol/L Carbon Dioxide 18 L D (22-30) mmol/L Creatinine 0.7 L (0.8-1.5) mg/dL Glucose 107 H (75-100) mg/dL POC Glucose 111 H (70-105) Calcium 8.3 L (8.4-10.2) mg/dL AST 57 H (5-40) units/L ALT 86 H (7-56) units/L Albumin 3.0 L (3.9-5) g/dL 02/27/17 02/27/17 02/27/17 Range/Units 05:16 05:16 05:16 WBC 4.2 L (4.5-11.0) K/mm3 Hgb 10.2 L (11.8-15.2) gm/dl Hct 31.5 L (35.5-45.6) % MCV 83 L (84-94) fl MCH 27 L (28-32) pg RDW 18.5 H (13.2-15.2) % [place] % (Auto) 10.3 H (0.0-7.3) % Lymph # 0.9 L (1.2-5.4) K/mm3 PT 32.6 H (12.2-14.9) Sec. INR 3.15 H (0.87-1.13) Sodium 135 L (137-145) mmol/L Potassium (3.6-5.0) mmol/L Carbon Dioxide (22-30) mmol/L Creatinine (0.8-1.5) mg/dL Glucose (75-100) mg/dL POC Glucose (70-105) Calcium (8.4-10.2) mg/dL AST 42 H (5-40) units/L ALT 73 H (7-56) units/L Albumin 2.7 L (3.9-5) g/dL 02/27/17 02/27/17 02/27/17 Range/Units 05:26 11:48 16:07 WBC (4.5-11.0) K/mm3 Hgb (11.8-15.2) gm/dl Hct (35.5-45.6) % MCV (84-94) fl MCH (28-32) pg RDW (13.2-15.2) % [place] % (Auto) (0.0-7.3) % Lymph # (1.2-5.4) K/mm3 PT (12.2-14.9) Sec. INR (0.87-1.13) Sodium (137-145) mmol/L Potassium (3.6-5.0) mmol/L Carbon Dioxide (22-30) mmol/L Creatinine (0.8-1.5) mg/dL Glucose (75-100) mg/dL POC Glucose 112 H 69 L 47 L (70-105) Calcium (8.4-10.2) mg/dL AST (5-40) units/L ALT (7-56) units/L Albumin (3.9-5) g/dL 02/27/17 Range/Units 16:28 WBC (4.5-11.0) K/mm3 Hgb (11.8-15.2) gm/dl Hct (35.5-45.6) % MCV (84-94) fl MCH (28-32) pg RDW (13.2-15.2) % [place] % (Auto) (0.0-7.3) % Lymph # (1.2-5.4) K/mm3 PT (12.2-14.9) Sec. INR (0.87-1.13) Sodium (137-145) mmol/L Potassium (3.6-5.0) mmol/L Carbon Dioxide (22-30) mmol/L Creatinine (0.8-1.5) mg/dL Glucose (75-100) mg/dL POC Glucose 142 H (70-105) Calcium (8.4-10.2) mg/dL AST (5-40) units/L ALT (7-56) units/L Albumin (3.9-5) g/dL - Imaging and Cardiology CT scan - abdomen: report reviewed, image reviewed US - abdomen: report reviewed, image reviewed Assessment and Plan 76 year old male with a PMH significant for a CVA with residual right sided weakness and expressive aphasia who was admitted with acute respiratory failure and found to have severe cardiomyopathy and LV thrombus. He has small discomfort associated with an easily reducible small umbilical hernia. Patient denies postprandial pain, but does admit to some weight loss of unclear etiology. He may benefit from routine oncological screening procedures (i.e. colonoscopy, PSA, etc.). I reviewed his abdominal CT scan. 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 I disagree with the CT impression regarding his SMA. His SMA appears tortuous, but there is no thrombus or significant stenosis associated with it. 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 Isolated celiac artery stenosis is not a common cause of abdominal pain, especially in the absence of classic signs and symptoms of postprandial pain. Especially given that he indicates he has discomfort associated with his easily reducible small umbilical hernia. Recommend anticoagulation for LV thrombus. Do not recommend any interventions of his mesenteric vessels.
[2017-02-28 05:40] LABS: INR 4.02 (0.87-1.13)
--- NOTE | 2017-02-28 08:37 | Discharge Summary ---
Providers - Providers Date of Admission: 02/16/17 17:50 Date of discharge: 02/28/17 Attending physician: HOLGER DANIEL 02/17/17 03:15 Physical Therapy Evaluation and Treat [CONS] Routine Comment: Reason For Exam: PREVIOUS CVA R SIDED WEAKNESS Weight bearing status?: Partial wt bearing Assistive devices?: Yes If so list: Walker 02/17/17 13:15 Consult to Physician [CONS] Stat Consulting Provider: KVNG LEAHY Reason For Exam: Acute Systolic Heart Failure, LV thrombus Place consult to:: Kvgn Leahy Notified:: yarely Phillips Was contact made?: No If yes, spoke with:: Yarely Phillips 02/18/17 11:47 Occupational Therapy Evaluate and Treat [CONS] Routine Comment: Reason For Exam: Hx of CVA 02/25/17 15:02 Consult to Physician [CONS] Routine Consulting Provider: MIAH MARIA Reason For Exam: abdominal pain, distension Place consult to:: [facility] Notified:: Dr. Maria Phone number called:: [phone] Was contact made?: Yes If yes, spoke with:: Slick Jefferson called:: 15:50 02/26/17 17:12 Consult to Physician [CONS] Urgent Consulting Provider: CHIP AGUILAR Reason For Exam: Mesenteric artery stenosis/thrombosis Place consult to:: [facility] Notified:: yes Phone number called:: [phone] Was contact made?: Yes If yes, spoke with:: Marques Hayes Time called:: 17:20 Primary care physician: JOCY Hospitalization Condition: Fair Disposition: DC/TX-03 SNF [facility] CERT - Discharge Diagnoses (1) Left ventricular apical thrombus Status: Acute (2) Non-ST elevation [place] (NSTEMI) Status: Acute (3) ADONIS (acute kidney injury) Status: Resolved (4) Abdominal pain Status: Resolved Qualifiers: Abdominal location: A (5) Acute respiratory failure Status: Resolved Qualifiers: Respiratory failure complication: hypoxia Qualified Code(s): J96.01 - Acute respiratory failure with hypoxia (6) History of CVA (cerebrovascular accident) Status: Resolved Core Measure Documentation - Palliative Care Palliative Care/ Comfort Measures: Not Applicable - Core Measures Any of the following diagnoses?: none Exam - Constitutional Vitals: Temp Pulse Resp BP Pulse Ox 98.1 F 74 18 119/57 94 02/28/17 04:00 02/28/17 04:00 02/28/17 04:00 02/28/17 04:00 02/28/17 04:00 Plan Activity: advance as tolerated Diet: other (Pureed diet) Additional Instructions: 1.Follow up with Physician at [facility] in 2-3 days. 2.Check INR on Thursday and titrate Coumadin to keep INR 2-3. 3.To resume coumadin when INR less than 3.0 Follow up with: KVNG LEAHY MD [Staff Physician] - 7 Days KELLY SANDRA MD [Primary Care Provider] - 7 Days Forms: Warfarin Discharge Instruction Prescriptions: Aspirin [Aspirin BABY CHEW TAB] 81 mg PO QDAY #30 tab.chew AtorvaSTATin [Lipitor] 40 mg PO QHS #30 tablet Famotidine [Pepcid] 20 mg PO DAILY #30 tablet Furosemide [Lasix TAB] 40 mg PO QDAY #30 tablet Metoprolol [Lopressor TAB] 12.5 mg PO BID #15 tablet
[2017-02-28] MEDS: PEPCID IV SCH (09:41)
[2017-02-28] MEDS: BABY ASPIRIN PO SCH (09:41)
[2017-02-28] MEDS: LOPRESSOR PO SCH (09:42)
[2017-02-28 09:43] VITALS: BP 107/65
[2017-02-28] MEDS: DUONEB *Not for PRN Use IH SCH ×2 (10:08→14:32)
[2017-02-28] MEDS ORDERED: NACL P/F VIAL (10 ML) 10 ML ONE (11:21)
--- NOTE | 2017-03-02 07:21 | Vascular Lab Report ---
MESENTERIC ARTERIAL DUPLEX Reason for exam: Mesenteric artery insufficiency Comments: The aorta is patent. Flow velocities are within normal limits. Minimal atherosclerotic change is identified. No aneurysmal dilatation is noted. The celiac artery is patent. Flow velocities are elevated . Turbulent flow is identified at the proximal portion of the celiac artery. The superior mesenteric artery is patent. Flow velocities are normal. No evidence of obstruction is identified. A caloric challenge was not given. . Impression: Celiac artery stenosis.
== END 2017-02-28 15:32 | DRG 280 ==
LOC: ED 12:34 → CC1 17:50 → 4A 02-19 18:41 → CC2 02-24 14:02
PROVIDERS: ADMIT Internal Medicine Geriatric Medicine; ATTEND Internal Medicine
PROC: 5A09357 Assistance with Respiratory Ventilation, Less than 24 Consecutive Hours, Continuous Positive Airway Pressure (ICD-10-PCS; principal; 2017-02-16)
PROC: 4A033R1 Measurement of Arterial Saturation, Peripheral, Percutaneous Approach (ICD-10-PCS; 2017-02-16)
DX: I21.4 Non-ST elevation (NSTEMI) myocardial infarction (principal); I50.21 Acute systolic (congestive) heart failure; J18.9 Pneumonia, unspecified organism; J96.01 Acute respiratory failure with hypoxia; N17.9 Acute kidney failure, unspecified; E87.2 Acidosis; E87.0 Hyperosmolality and hypernatremia; I42.9 Cardiomyopathy, unspecified; I69.351 Hemiplegia and hemiparesis following cerebral infarction affecting right dominant side; I77.4 Celiac artery compression syndrome; D64.9 Anemia, unspecified; E78.5 Hyperlipidemia, unspecified; J44.9 Chronic obstructive pulmonary disease, unspecified; I51.3 Intracardiac thrombosis, not elsewhere classified
CPT/HCPCS: 36415; 71010; 71250; 74000; 74176; 74177; 78452; 80048; 80053; 80061; 81001; 82140; 82550; 82553; 82803; 82962; 83735; 83880; 84100; 84484; 85007; 85014; 85018; 85025; 85027; 85049; 85520; 85610; 85730; 87040; 93005; 93010; 93017; 93306; 93979; 94640; 94760; A9270-GY; A9502; G8978-GP; G8979-GP; J0456; J0696; J1644; J1940; J2785; J3480; J7042; J7050; J7070; Q9967

== ENCOUNTER 2017-03-14 01:14 | Inpatient (IN) | payer MEDICARE ==
--- NOTE | 2017-03-14 01:40 | Emergency Department Report ---
ED General Adult HPI - General Stated complaint: CHEST PAIN Time Seen by Provider: 03/14/17 01:39 - History of Present Illness Initial comments: A she is a 76-year-old male past medical history of hypertension who presents with chest pain. Patient states chest pain has been going on for the last couple days. He states that severe is an achy type of pain in his chest. He states that he gets slightly short of breath when this occurs but right now he is not short of breath. He states that the pain is made out of 10 and radiates to his right shoulder. Nothing makes it better or worse the pain is intermittent. Patient denies having any nausea or vomiting with this chest pain. - Related Data Previous Rx's Medication Instructions Recorded Last Taken Type Aspirin [Aspirin BABY CHEW TAB] 81 mg PO QDAY #30 tab.chew 02/23/17 Unknown Rx AtorvaSTATin [Lipitor] 40 mg PO QHS #30 tablet 02/23/17 Unknown Rx Famotidine [Pepcid] 20 mg PO DAILY #30 tablet 02/23/17 Unknown Rx Furosemide [Lasix TAB] 40 mg PO QDAY #30 tablet 02/23/17 Unknown Rx Metoprolol [Lopressor TAB] 12.5 mg PO BID #15 tablet 02/23/17 Unknown Rx Allergies Allergy/AdvReac Type Severity Reaction Status Date / Time No Known Allergies Allergy Unverified 03/14/17 01:39 ED Review of Systems ROS: Stated complaint: CHEST PAIN Other details as noted in HPI Constitutional: denies: chills, fever Eyes: denies: eye pain, eye discharge, vision change ENT: denies: ear pain, throat pain Respiratory: denies: cough, shortness of breath, wheezing Cardiovascular: chest pain. denies: palpitations Endocrine: no symptoms reported Gastrointestinal: denies: abdominal pain, nausea, diarrhea Genitourinary: denies: urgency, dysuria Musculoskeletal: denies: back pain, joint swelling, arthralgia Skin: denies: rash, lesions Neurological: denies: headache, weakness, paresthesias Psychiatric: denies: anxiety, depression Hematological/Lymphatic: denies: easy bleeding, easy bruising ED Past Medical Hx - Social History Smoking Status: Unknown if ever smoked - Medications Home Medications: Home Medications Medication Instructions Recorded Confirmed Last Taken Type Aspirin [Aspirin BABY CHEW TAB] 81 mg PO QDAY #30 tab.chew 02/23/17 03/14/17 Unknown Rx AtorvaSTATin [Lipitor] 40 mg PO QHS #30 tablet 02/23/17 03/14/17 Unknown Rx Famotidine [Pepcid] 20 mg PO DAILY #30 tablet 02/23/17 03/14/17 Unknown Rx Furosemide [Lasix TAB] 40 mg PO QDAY #30 tablet 02/23/17 03/14/17 Unknown Rx Metoprolol [Lopressor TAB] 12.5 mg PO BID #15 tablet 02/23/17 03/14/17 Unknown Rx ED Physical Exam - General General appearance: alert, in no apparent distress - Head Head exam: Present: atraumatic, normocephalic - Eye Eye exam: Present: normal appearance - ENT ENT exam: Present: mucous membranes moist - Neck Neck exam: Present: normal inspection - Respiratory Respiratory exam: Present: normal lung sounds bilaterally. Absent: respiratory distress - Cardiovascular Cardiovascular Exam: Present: regular rate, normal rhythm. Absent: systolic murmur, diastolic murmur, rubs, gallop - GI/Abdominal GI/Abdominal exam: Present: soft, normal bowel sounds - Rectal Rectal exam: Present: deferred - Extremities Exam Extremities exam: Present: normal inspection - Back Exam Back exam: Present: normal inspection - Neurological Exam Neurological exam: Present: alert, oriented X3 - Psychiatric Psychiatric exam: Present: normal affect, normal mood - Skin Skin exam: Present: warm, dry, intact, normal color. Absent: rash ED Course Vital Signs 03/14/17 03/14/17 03/14/17 01:25 02:00 02:30 Temperature 97.4 F L Pulse Rate 73 69 85 Respiratory 18 20 Rate Blood Pressure 107/77 Blood Pressure 137/79 121/86 [Left] O2 Sat by Pulse 100 Oximetry 03/14/17 03/14/17 03:01 03:31 Temperature 97.8 F Pulse Rate 61 86 Respiratory 18 Rate Blood Pressure Blood Pressure 115/68 147/93 [Left] O2 Sat by Pulse 100 Oximetry ED Medical Decision Making - Lab Data Result diagrams: 03/14/17 02:39 03/14/17 02:39 Lab Results 03/14/17 03/14/17 03/14/17 Range/Units 02:39 02:39 02:39 WBC 3.9 L (4.5-11.0) K/mm3 RBC 3.59 L (3.65-5.03) M/mm3 Hgb 9.9 L (11.8-15.2) gm/dl Hct 29.9 L (35.5-45.6) % MCV 84 (84-94) fl MCH 28 (28-32) pg MCHC 33 (32-34) % RDW 19.2 H (13.2-15.2) % Plt Count 177 (140-440) K/mm3 Lymph % (Auto) 13.3 L (13.4-35.0) % [place] % (Auto) 6.8 (0.0-7.3) % Eos % (Auto) 1.0 (0.0-4.3) % Baso % (Auto) 0.7 (0.0-1.8) % Lymph # 0.5 L (1.2-5.4) K/mm3 [place] # 0.3 (0.0-0.8) K/mm3 Eos # 0.0 (0.0-0.4) K/mm3 Baso # 0.0 (0.0-0.1) K/mm3 Seg Neutrophils % 78.2 H (40.0-70.0) % Seg Neutrophils # 3.1 (1.8-7.7) K/mm3 PT 14.3 (12.2-14.9) Sec. INR 1.06 (0.87-1.13) Sodium 138 (137-145) mmol/L Potassium 4.2 (3.6-5.0) mmol/L Chloride 101.7 (98-107) mmol/L Carbon Dioxide 23 (22-30) mmol/L Anion Gap 18 mmol/L BUN 15 (9-20) mg/dL Creatinine 0.7 L (0.8-1.5) mg/dL Estimated GFR > 60 ml/min BUN/Creatinine Ratio 21 % Glucose 146 H (75-100) mg/dL Calcium 9.0 (8.4-10.2) mg/dL Total Bilirubin 0.90 (0.1-1.2) mg/dL AST 40 (5-40) units/L ALT 74 H (7-56) units/L Alkaline Phosphatase 106 (35-129) units/L Troponin T < 0.010 (0.00-0.029) ng/mL Total Protein 6.9 (6.3-8.2) g/dL Albumin 3.3 L (3.9-5) g/dL Albumin/Globulin Ratio 0.9 % Lipase (13-60) units/L 03/14/17 Range/Units 02:39 WBC (4.5-11.0) K/mm3 RBC (3.65-5.03) M/mm3 Hgb (11.8-15.2) gm/dl Hct (35.5-45.6) % MCV (84-94) fl MCH (28-32) pg MCHC (32-34) % RDW (13.2-15.2) % Plt Count (140-440) K/mm3 Lymph % (Auto) (13.4-35.0) % [place] % (Auto) (0.0-7.3) % Eos % (Auto) (0.0-4.3) % Baso % (Auto) (0.0-1.8) % Lymph # (1.2-5.4) K/mm3 [place] # (0.0-0.8) K/mm3 Eos # (0.0-0.4) K/mm3 Baso # (0.0-0.1) K/mm3 Seg Neutrophils % (40.0-70.0) % Seg Neutrophils # (1.8-7.7) K/mm3 PT (12.2-14.9) Sec. INR (0.87-1.13) Sodium (137-145) mmol/L Potassium (3.6-5.0) mmol/L Chloride (98-107) mmol/L Carbon Dioxide (22-30) mmol/L Anion Gap mmol/L BUN (9-20) mg/dL Creatinine (0.8-1.5) mg/dL Estimated GFR ml/min BUN/Creatinine Ratio % Glucose (75-100) mg/dL Calcium (8.4-10.2) mg/dL Total Bilirubin (0.1-1.2) mg/dL AST (5-40) units/L ALT (7-56) units/L Alkaline Phosphatase (35-129) units/L Troponin T (0.00-0.029) ng/mL Total Protein (6.3-8.2) g/dL Albumin (3.9-5) g/dL Albumin/Globulin Ratio % Lipase 52 (13-60) units/L - EKG Data -: EKG Interpreted by Me - EKG Data 03/14/17 06:[address] segment elevation in leads 2 and 3 normal sinus rhythm no axis deviation. No reciprocal changes. - Radiology Data Radiology results: report reviewed Chest x-ray: Shows mild cardiomegaly - Medical Decision Making Chief medical diagnosis: Non-STEMI Differential medical diagnosis: GERD, arrhythmia CBC, CMP, troponin and chest x-ray and pain medication I will admit patient for acs rule out. Discussed plan with patient he agrees the plan. Critical care attestation.: If time is entered above; I have spent that time in minutes in the direct care of this critically ill patient, excluding procedure time. ED Disposition Clinical Impression: Acute coronary syndrome, Chest pain in adult Disposition: DC-09 OP ADMIT IP TO THIS HOSP Is pt being admited?: Yes Does the pt Need Aspirin: No Condition: Stable
[2017-03-14] MEDS ORDERED: NACL 0.9% 1000 ML 1,000 ML ONE ×4 (02:01→16:34)
[2017-03-14] MEDS ORDERED: AFRIN ONE (02:27)
[2017-03-14 03:12] LABS: Basophils % (Auto) 0.7 % (0.0-1.8); Hematocrit 29.9 % (35.5-45.6); Hemoglobin 9.9 gm/dl (11.8-15.2); Mean Corpuscular HGB Conc 33 % (32-34); Mean Corpuscular Hemoglobin 28 pg (28-32); Mean Corpuscular Volume 84 fl (84-94); Platelet Count 177 K/mm3 (140-440); Red Blood Count 3.59 M/mm3 (3.65-5.03); Red Cell Distribution Width 19.2 % (13.2-15.2); White Blood Count 3.9 K/mm3 (4.5-11.0)
[2017-03-14 03:20] LABS: Alanine Aminotransferase 74 units/L (7-56); Albumin 3.3 g/dL (3.9-5); Albumin/Globulin Ratio 0.9 %; Alkaline Phosphatase 106 units/L (35-129); Anion Gap 18 mmol/L; BUN/Creatinine Ratio 21; Blood Urea Nitrogen 15 mg/dL (9-20); Carbon Dioxide 23 mmol/L (22-30); Chloride 101.7 mmol/L (98-107); Glucose 146 mg/dL (75-100); Potassium 4.2 mmol/L (3.6-5.0); Sodium 138 mmol/L (137-145); Total Protein 6.9 g/dL (6.3-8.2)
[2017-03-14 03:21] LABS: INR 1.06 (0.87-1.13)
[2017-03-14] MEDS ORDERED: TYLENOL PO PRN (05:15)
[2017-03-14] MEDS ORDERED: ZOFRAN IV PRN ×2 (05:15→14:03)
[2017-03-14] MEDS ORDERED: DULCOLAX PR PRN (05:15)
[2017-03-14] MEDS ORDERED: MILK OF MAGNESIA PO PRN (05:15)
--- NOTE | 2017-03-14 05:18 | History and Physical Report ---
History of Present Illness Date of examination: 03/14/17 History of present illness: 76-year-old man history of coronary artery disease, left apical thrombus, also a history of COPD, CVA sent to the emergency room for evaluation. History is very difficult to obtain from the patient he complained to the emergency room physician about chest pain however he denies chest pain to me. Complains of abdominal pain but he is unable to give any details PAST MEDICAL HISTORY:coronary artery disease, left apical thrombus, COPD, CVA PAST SURGICAL HISTORY:UNKNOWN FAMILY HISTORY:UNKNOWN SOCIAL HISTORY:UNKNOWN Medications and Allergies Allergies Allergy/AdvReac Type Severity Reaction Status Date / Time No Known Allergies Allergy Unverified 03/14/17 01:39 Home Medications Medication Instructions Recorded Confirmed Last Taken Type Aspirin [Aspirin BABY CHEW TAB] 81 mg PO QDAY #30 tab.chew 02/23/17 03/14/17 Unknown Rx AtorvaSTATin [Lipitor] 40 mg PO QHS #30 tablet 02/23/17 03/14/17 Unknown Rx Famotidine [Pepcid] 20 mg PO DAILY #30 tablet 02/23/17 03/14/17 Unknown Rx Furosemide [Lasix TAB] 40 mg PO QDAY #30 tablet 02/23/17 03/14/17 Unknown Rx Metoprolol [Lopressor TAB] 12.5 mg PO BID #15 tablet 02/23/17 03/14/17 Unknown Rx Exam - Physical Exam Narrative exam: Gen. appearance: Patient lying in bed in no acute distress HEENT: Normocephalic/atraumatic, pupils equal round reactive to light, extra alkaline movement intact, no scleral icterus, no JVD or thyromegaly or nodule, neck is supple, mucous membrane moist, no erythema or exudate Heart: S1-S2, regular rate and rhythm Lungs: Clear to auscultation bilateral breathing comfortable Abdomen: decrease bowel sounds, tender in the epigastric area, nondistended, no organomegaly Extremities: No edema, cyanosis, clubbing Neuro:: Oriented 3 , cranial nerves II-12 intact, speech Skin: No rash, nodules, warm dry - Constitutional Vitals: Temp Pulse Resp BP Pulse Ox 97.8 F 86 18 147/93 100 03/14/17 03:31 03/14/17 03:31 03/14/17 03:31 03/14/17 03:31 03/14/17 03:31 Results - Labs CBC & Chem 7: 03/15/17 04:15 03/15/17 04:15 Labs: Abnormal lab results 03/14/17 03/14/17 Range/Units 02:39 02:39 WBC 3.9 L (4.5-11.0) K/mm3 RBC 3.59 L (3.65-5.03) M/mm3 Hgb 9.9 L (11.8-15.2) gm/dl Hct 29.9 L (35.5-45.6) % RDW 19.2 H (13.2-15.2) % Lymph % (Auto) 13.3 L (13.4-35.0) % Lymph # 0.5 L (1.2-5.4) K/mm3 Seg Neutrophils % 78.2 H (40.0-70.0) % Creatinine 0.7 L (0.8-1.5) mg/dL Glucose 146 H (75-100) mg/dL ALT 74 H (7-56) units/L Albumin 3.3 L (3.9-5) g/dL - Imaging and Cardiology EKG: image reviewed Chest x-ray: image reviewed Assessment and Plan Assessment Abdominal pain Possible chest pain Coronary artery disease Left apical thrombus with subtherapeutic INR History of CVA History of COPD Plan Admit to medicine Obtain CAT scan of the abdomen and pelvis Check cardiac enzymes consult cardiology Start full Dose Lovenox, unclear why the patient is not continued on his Coumadin Continue appropriate outpatient medications DVT prophylaxis initiated
[2017-03-14 07:02] LABS: Creatine Kinase MB 2.6 ng/mL (0.0-4.0)
[2017-03-14 07:04] LABS: Creatine Kinase 69 units/L (55-170)
--- NOTE | 2017-03-14 07:49 | Cat Scan Report ---
FINAL REPORT EXAM: CT ABDOMEN PELVIS W/O CONTRAST. HISTORY: Abdominal pain. TECHNIQUE: Unenhanced axial CT images of the abdomen and pelvis were obtained, with coronal and sagittal reformatted images. Comparison is made with prior study 02/16/2017. FINDINGS: The unenhanced liver, biliary tree, pancreas, spleen, and adrenal glands are unremarkable. Innumerable tiny calcified gallstones nearly completely fill the gallbladder lumen. The unenhanced kidneys demonstrate no discrete renal lesions. There are no radiopaque urinary tract calculi or evidence of urinary tract obstruction. Evaluation of the bowel is limited due to lack of oral contrast. There are loops of markedly distended small bowel in the anterior abdomen, located anterior to the transverse colon, measuring up to 6.9 cm in diameter, with air-fluid levels. This is associated with slight twisting of the mesentery and vessels in the left paramedian lower abdomen, just below the aortic bifurcation (best demonstrated on coronal images 49-65). The more distal small bowel loops are collapsed. These findings are suspicious for closed loop obstruction, likely due to probable internal hernia (such as sigmoid mesocolon hernia). Note that there is air and moderate stool seen in the remainder of the colon, which is not distended. There is also moderate fluid seen in the rectum. A portion of the sigmoid colon extends into the left inguinal hernia, also seen on prior exam. A small segment of small bowel extends into the right inguinal hernia, also stable. The abdominal aorta is normal in caliber, moderately calcified. There are moderate iliac vascular calcifications. An IVC filter is present. There is no pathologic abdominal or pelvic lymphadenopathy. There is no free or loculated fluid collection. The prostate gland is enlarged with probable TURP defect anteriorly. The unopacified urinary bladder is unremarkable. There are moderate spondylotic and degenerative changes seen throughout the spine. There is a moderate thoracolumbar dextroscoliosis. There is grade 1 anterolisthesis of L4 on L5, and L5 on S1, stable. There are scattered vacuum discs, stable. A right total hip prosthesis is seen, with associated streak artifact. There is been interval resolution of previously identified bilateral pleural effusions. There is been marked interval improved aeration of the lung bases compared to prior exam, with mild residual linear scarring at both posterior lung bases. There are superimposed mild dependent changes. IMPRESSION: 1. Findings of moderate to high-grade closed loop small bowel obstruction, due to probable internal hernia (located just inferior to the aortic bifurcation, slightly to left of midline). Urgent surgical consultation is recommended. 2. Innumerable subcentimeter calcified gallstones. 3. Interval clearing of previously identified bilateral pleural effusions. Markedly improved aeration of the lung bases compared to prior exam. 4. Enlarged prostate gland with presumed TURP defect anteriorly.
[2017-03-14] MEDS ORDERED: D5NS 1,000 ML IV SCH (09:15)
--- NOTE | 2017-03-14 09:29 | XRay Report ---
AP CHEST: HISTORY: chest pain There is poor inspiration. The lungs are clear. Heart size is within normal limits. The bony structures are grossly intact. Chronic left rotator cuff tear is suspected. IMPRESSION: No acute cardiopulmonary process appreciated.
[2017-03-14] MEDS ORDERED: PEPCID PO SCH (10:00)
[2017-03-14] MEDS ORDERED: LASIX PO SCH (10:00)
--- NOTE | 2017-03-14 10:36 | Consultation ---
History of Present Illness Consult date: 03/14/17 Requesting physician: BECCA ROWELL Consult reason: pre op evaluation History of present illness: This is a 76-year-old gentleman with history of hypertension hyperlipidemia severe LV dysfunction EF 10-50% with apical thrombus was in a intermediate was mostly in Coumadin and having abdominal pain was sent back found to have surgical emergency of bowel obstruction patient is having abdominal pain but denies any shortness of breath or chest pain with mild nausea no fever patient is a poor historian discussed with the sister and she is could not give any further information Past History Past Medical History: heart failure, hypertension, hyperlipidemia, other (LV apical thrombus) Past Surgical History: No surgical history Social history: no significant social history, other (intermediate) Medications and Allergies Allergies Allergy/AdvReac Type Severity Reaction Status Date / Time No Known Allergies Allergy Unverified 03/14/17 01:39 Home Medications Medication Instructions Recorded Confirmed Last Taken Type Aspirin [Aspirin BABY CHEW TAB] 81 mg PO QDAY #30 tab.chew 02/23/17 03/14/17 Unknown Rx AtorvaSTATin [Lipitor] 40 mg PO QHS #30 tablet 02/23/17 03/14/17 Unknown Rx Famotidine [Pepcid] 20 mg PO DAILY #30 tablet 02/23/17 03/14/17 Unknown Rx Furosemide [Lasix TAB] 40 mg PO QDAY #30 tablet 02/23/17 03/14/17 Unknown Rx Metoprolol [Lopressor TAB] 12.5 mg PO BID #15 tablet 02/23/17 03/14/17 Unknown Rx Active Meds: Active Medications Acetaminophen (Tylenol) 650 mg PO Q4H PRN PRN Reason: Pain MILD(1-3)/Fever >100.5/LEBRON Aspirin (Baby Aspirin) 81 mg PO QDAY FREYA Atorvastatin Calcium (Lipitor) 40 mg PO QHS FREYA Bisacodyl (Dulcolax) 10 mg ND QDAY PRN PRN Reason: Constipation unrelieved by MOM Enoxaparin Sodium (Lovenox) 70 mg 1 mg/kg (70 mg) SUB-Q Q12HR FREYA Famotidine (Pepcid) 20 mg PO DAILY FREYA Furosemide (Lasix) 40 mg PO QDAY FREYA Dextrose/Sodium Chloride (D5ns) 1,000 mls @ 75 mls/hr IV DIRECT FREYA Magnesium Hydroxide (Milk Of Magnesia) 30 ml PO Q4H PRN PRN Reason: Constipation Metoprolol Tartrate (Lopressor) 12.5 mg PO BID FREYA Ondansetron HCl (Zofran) 4 mg IV Q8H PRN PRN Reason: N/V unrelieved by Reglan Review of Systems All systems: negative (poor historian except HPI) Physical Examination Vital Signs Temp Pulse Resp BP Pulse Ox 97.4 F L 73 18 107/77 100 03/14/17 01:25 03/14/17 01:25 03/14/17 01:25 03/14/17 01:25 03/14/17 01:25 General appearance: mild distress HEENT: Positive: PERRL, EOMI Neck: Positive: neck supple Cardiac: Positive: Reg Rate and Rhythm, Audible Murmur Lungs: Positive: clear to auscultation Neuro: Positive: Grossly Intact Abdomen: Positive: Tender Extremities: Present: normal. Absent: edema Results 03/14/17 02:39 03/14/17 02:39 Cardiac Enzymes 03/14/17 Range/Units 05:35 CK-MB (CK-2) 2.6 (0.0-4.0) ng/mL - Imaging and Cardiology Stress echo: other (02/2017 no ischemia EF 10-15%) Echo: report reviewed (02/2017 over LV dysfunction EF 10-15% with apical thrombus normal RV size and function) EKG interpretations - Telemetry EKG Rhythm: Sinus Rhythm (sinus rhythm nonspecific ST-T wave) Assessment and Plan Closed-loop obstruction causing abdominal pain Severe LV dysfunction EF 10-15% with apical thrombus Hypertension Lipidemia Recommend patient is a high risk cardiovascular patient in for high risk cardiovascular procedure patient is not acute systolic heart failure INR is 1 questionable patient was receiving Coumadin at the intermediate. Discussed with sister about grave prognosis . Discuss with the attending surgeon and primary physician in the hospital but cardiac status
--- NOTE | 2017-03-14 10:50 | Anesthesia Consultation ---
Anesthesia Consult and Med Hx Date of service: 03/14/17 - Airway Anesthetic Teeth Evaluation: Poor ROM Head & Neck: Inadequate Mental/Hyoid Distance: Adequate Mallampati Class: Class II Intubation Access Assessment: Probably Good - Pulmonary Exam CTA: Yes - Cardiac Exam Cardiac Exam: RRR Anesthetic Concerns: Patient is at marked increased risk for surgery and anesthesia. He has severe cardiomyopathy with EF 10-20%. Also has apical thrombus. 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
--- NOTE | 2017-03-14 11:20 | Progress Note ---
Assessment and Plan Full consult dictated Date of examination: 03/14/17 History of present illness: 76-year-old man history of coronary artery disease, left apical thrombus, also a history of COPD, CVA sent to the emergency room for evaluation. History is very difficult to obtain from the patient he complained to the emergency room physician about chest pain however he denies chest pain to me. Complains of abdominal pain but he is unable to give any details PAST MEDICAL HISTORY:coronary artery disease, left apical thrombus, COPD, CVA PAST SURGICAL HISTORY:UNKNOWN FAMILY HISTORY:UNKNOWN SOCIAL HISTORY:UNKNOWN Abd distended - tender CT abd reviewed with Dr Vallejo consistent with closed loop small bowel obst ( surgical emergency) spoke in great detail with pt's sister. Stressed to her the VERY HIGH SURGICAL RISKS that we are dealing with due to the pts 10% cardiac ejection fraction as well as the other multitude of medical problems. Explained that pt may well not survive the surgery or this hospital admission. Sister understands but wishes to proceed with emergency procedure. consented for emerg expl lap possible bowel resection. will proceed as soon as O.R. team is ready. will need ICU bed post-op Objective Vital Signs - 12hr 03/14/17 05:45 Temperature 98.0 F Pulse Rate 80 Respiratory 16 Rate Blood Pressure 140/71 [Left] O2 Sat by Pulse 98 Oximetry - Labs 03/14/17 02:39 03/14/17 02:39
[2017-03-14] MEDS ORDERED: DIPRIVAN 10 MG/ML IV ONE (11:50)
[2017-03-14] MEDS ORDERED: XYLOCAINE CARDIAC IV ONE (11:50)
[2017-03-14] MEDS ORDERED: AMIDATE IV ONE (11:50)
[2017-03-14] MEDS ORDERED: ZEMURON IV ONE (11:51)
[2017-03-14] MEDS ORDERED: SUBLIMAZE ONE ×2 (11:54→18:53)
--- NOTE | 2017-03-14 12:04 | Anesthesia Day of Surgery ---
Anesthesia Day of Surgery - Day of Surgery Patient Examined: Yes Patient H&P Reviewed: Yes Patient is NPO: Yes Cardiac Clearance: Yes (Cardiac evaluation on chart)
--- NOTE | 2017-03-14 12:11 | Consultation ---
REASON FOR CONSULTATION: Abdominal pain, rule out closed loop obstruction. HISTORY OF PRESENT ILLNESS: The patient is a 76-year-old gentleman who currently is not providing any real history. History obtained is from the chart. It is noted that the patient was just recently admitted. PAST MEDICAL HISTORY: He has a history coronary artery disease as well as left apical thrombus. Also, history of COPD and CVA. Other past history is currently not available. PHYSICAL EXAMINATION: GENERAL: Shows the patient to be awake and alert. VITAL SIGNS: Shows to be afebrile with a temperature of 98, blood pressure is 140/71, pulse of 80, respirations 16. ABDOMEN: Distended and tender. Bowel sounds are hypoactive to absent. LABORATORY DATA: Lab work at present includes a CBC which shows a white count of 3.9, H and H is 9.9 and 29.9. Electrolytes were essentially normal. Lipase is 52. CT scan of the abdomen has been performed, which I have reviewed with radiologist, Dr. Vallejo. Indeed findings are consistent with a probable small bowel closed loop obstruction, which we deemed as surgical emergency. I have also discussed with the patient's hospitalist, then his commercial sales manager Dr. Hernandez. It is confirmed that the patient has severe cardiac disease including a very low ejection fraction of 10%. This would make the patient an extremely high surgical risk. I was able to contact the patient's sister and discussed in great detail with her. Again, stressed to her that the procedure is indeed an emergency, but on the other hand the patient's cardiac issues as well as his other medical issues make them very high surgical risk with a high likelihood that he may not even survive the surgery for this hospital admission. The patient's sister fully understands and wishes to proceed with the emergency procedure. Thus, have consent over the phone for emergency exploratory laparotomy, possible bowel resection. I will proceed with emergency surgery once the OR crew is ready. The patient will also need an ICU bed postoperatively. JOB# [id number] BRADEN/NELDA
[2017-03-14] MEDS ORDERED: ANCEF ONE ×2 (13:07)
[2017-03-14] MEDS ORDERED: NACL 0.9% IR ONE (13:11)
[2017-03-14] MEDS ORDERED: REGLAN IV SCH (14:00)
[2017-03-14] MEDS: DILAUDID IV PRN ×4 (14:11→16:10)
[2017-03-14] MEDS ORDERED: DILAUDID ONE ×2 (14:14→15:31)
[2017-03-14] MEDS ORDERED: DIPRIVAN 10 MG/ML 1,000 MG/100 ML BOTTLE IV ONE (14:15)
[2017-03-14] MEDS: DIPRIVAN 10 MG/ML 1,000 MG/100 ML BOTTLE IV SCH (14:30)
--- NOTE | 2017-03-14 14:39 | Post Anesthesia Evaluation ---
- Post Anesthesia Evaluation Patient Participated: No Airway Patent: Yes Stable Respiratory Function: Yes Temp > 96.8F: Yes Pain Manageable: Yes Adequeate Hydration: Yes Patient on Ventilator: Yes
[2017-03-14] MEDS ORDERED: VASELINE LIP THERAPY TP PRN (15:13)
[2017-03-14] MEDS ORDERED: ARTIFICIAL TEARS OPHTH OINT OU PRN (15:13)
--- NOTE | 2017-03-14 15:30 | Operative Report ---
DATE OF PROCEDURE: 03/24/2017 PREOPERATIVE DIAGNOSIS: Rule out closed loop obstruction on CT of the abdomen findings. POSTOPERATIVE DIAGNOSIS: Lexi syndrome. PROCEDURE: Emergency exploratory laparotomy. SURGEON: Rishabh Mariee MD ANESTHESIA: General. ESTIMATED BLOOD LOSS: Minimal. DRAINS: None. COMPLICATIONS: None. PROCEDURE IN DETAIL: The patient was taken to the operating room, prepped and draped in usual sterile fashion. Midline incision was made and abdomen entered. Upon entrance into the abdomen, the colon was noted to be quite distended and quickly popped out and outside the abdominal cavity. The colon was then completely mobilized and carefully inspected. The entire colon was dilated from cecum all the way down to the rectum. No obvious masses or obstruction was noted throughout the entire colon. The small bowel was completely collapsed down to the ileus entering the cecum. The ileocecal valve itself showed no evidence of any pathology or any obstructive signs again the distal ileum was completely collapsed with no signs of obstruction. The entire small bowel was then run from the ligament of Treitz all the way down to the ileocecal valve. The entire small bowel was pink and completely collapsed without signs of obstruction. The entire colon wall once again visualized and again no gross pathology other than the diffuse dilatation was noted. The bowel was then returned to the abdominal cavity. NG tube was also palpated and noted to be within the gastric lumen. The abdomen was irrigated copiously and dried, checked for hemostasis and noted to be dry. The fascia was then closed with interrupted #1 Vicryl suture. Subcutaneous tissues irrigated and skin closed with slick. The patient tolerated the procedure well although he remains at very high risk due to his cardiac insufficiency and no other medical problems. The patient has remained intubated and will be transferred to ICU. Subsequent to this, a rectal tube will be inserted and Reglan will be started as well as GI evaluation to be obtained for possible colonoscopic decompression in the next few days if deemed warranted. Condition remains guarded to critical. JOB# [id number] BRADEN/NELDA
[2017-03-14 16:00] LABS: ABG Base Excess -3.4 mmol/L (-2.0-3.0); ABG HCO3 21.9 mmol/L (20.0-26.0); ABG Oxygen Saturation 99.6 % (95.0-99.0); ABG PCO2 40.3 mm Hg; ABG PH 7.353 pH Units (7.350-7.450)
[2017-03-14 16:01] LABS: ABG PO2 446.4 mm Hg (80.0-90.0)
[2017-03-14] MEDS: REGLAN IV SCH ×2 (16:37→22:19)
[2017-03-14 16:43] LABS: Creatine Kinase MB 2.9 ng/mL (0.0-4.0)
[2017-03-14 16:44] LABS: Creatine Kinase 78 units/L (55-170)
[2017-03-14] MEDS: MORPHINE IV PRN (16:44)
--- NOTE | 2017-03-14 16:48 | XRay Report ---
FINAL REPORT EXAM: XR CHEST 1V AP HISTORY: ETT placement TECHNIQUE: Frontal portable examination of the chest PRIORS: None FINDINGS: Endotracheal tube distal tip projected in the region of the right mainstem bronchus orifice. NG tube extends below the diaphragm into the region of the proximal stomach then curves back on itself with cephalad direction of the distal tip positioned in the region of the distal esophagus. Nonspecific slight patchy opacity in the left upper lobe and right perihilar region. No pneumothorax or pleural effusion. No significant lung consolidation. No acute skeletal pathology. Cardiac silhouette size at upper limits of normal, possibly with slight vascular congestion. IMPRESSION: Cardiac silhouette size at upper limits of normal possibly with slight vascular congestion Bilateral patchy pulmonary parenchymal opacities may reflect edema and/or pneumonia Proximal right mainstem bronchus intubation NG tube distal tip in distal esophagus region with distal portion coiled in the proximal stomach region 03/14/2017 at 4:46 p.m. EST: I discussed the findings over the phone with Nanci Davila RN. She mentioned she would notify the physician
--- NOTE | 2017-03-14 17:42 | Event Note ---
Date: 03/14/17 Ct abdomen and pelvis showed closed loop obstruction, stat consult to Surgery s/p emergent surgery today. Pt seen in the PACU following surgery patient will be transfer to ICU
--- NOTE | 2017-03-14 18:33 | Consultation ---
History of Present Illness Consult date: 03/14/17 Requesting physician: JORGE ORR Reason for consult: other (Acute Hypoxemic Respiratory Failure) History of present illness: PULMONARY/CCM CONSULT NOTE (Full dictation # [id number]) Please see dictated notes for full details Past History Past Medical History: heart failure, hypertension, hyperlipidemia, other (LV apical thrombus) Past Surgical History: No surgical history Social history: no significant social history, other (senior living) Medications and Allergies Allergies Allergy/AdvReac Type Severity Reaction Status Date / Time No Known Allergies Allergy Unverified 03/14/17 01:39 Home Medications Medication Instructions Recorded Confirmed Last Taken Type Aspirin [Aspirin BABY CHEW TAB] 81 mg PO QDAY #30 tab.chew 02/23/17 03/14/17 Unknown Rx AtorvaSTATin [Lipitor] 40 mg PO QHS #30 tablet 02/23/17 03/14/17 Unknown Rx Famotidine [Pepcid] 20 mg PO DAILY #30 tablet 02/23/17 03/14/17 Unknown Rx Furosemide [Lasix TAB] 40 mg PO QDAY #30 tablet 02/23/17 03/14/17 Unknown Rx Metoprolol [Lopressor TAB] 12.5 mg PO BID #15 tablet 02/23/17 03/14/17 Unknown Rx Active Meds: Active Medications Acetaminophen (Tylenol) 650 mg PO Q4H PRN PRN Reason: Pain MILD(1-3)/Fever >100.5/LEBRON Aspirin (Baby Aspirin) 81 mg PO QDAY FREYA Atorvastatin Calcium (Lipitor) 40 mg PO QHS FREYA Bisacodyl (Dulcolax) 10 mg WV QDAY PRN PRN Reason: Constipation unrelieved by MOM Enoxaparin Sodium (Lovenox) 70 mg 1 mg/kg (70 mg) SUB-Q Q12HR FREYA Famotidine (Pepcid) 20 mg PO DAILY FREYA Furosemide (Lasix) 40 mg PO QDAY FREYA Hydromorphone HCl (Dilaudid) 0.5 mg IV Q10MIN PRN PRN Reason: Pain , Severe (7-10) Stop: 03/15/17 14:09 Last Admin: 03/14/17 16:10 Dose: 0.5 mg Hydrophilic Ointment (Vaseline Lip Therapy) 1 applic TP Q2HR PRN PRN Reason: Dry Lips Dextrose/Sodium Chloride (D5ns) 1,000 mls @ 75 mls/hr IV DIRECT FREYA Last Admin: 03/14/17 10:49 Dose: 75 mls/hr Propofol (Diprivan 10 Mg/Ml) 1,000 mg in 100 mls @ 2.068 mls/hr IV TITR FREYA; 5 MCG/KG/MIN PRN Reason: Protocol Last Admin: 03/14/17 14:30 Dose: 5 mcg/kg/min, 2.068 mls/hr Magnesium Hydroxide (Milk Of Magnesia) 30 ml PO Q4H PRN PRN Reason: Constipation Metoclopramide HCl (Reglan) 10 mg IV Q8H FREYA Last Admin: 03/14/17 16:37 Dose: 10 mg Metoprolol Tartrate (Lopressor) 12.5 mg PO BID FREYA Morphine Sulfate (Morphine) 4 mg IV Q3H PRN PRN Reason: Pain , Severe (7-10) Last Admin: 03/14/17 16:44 Dose: 4 mg Multi-Ingred Cream/Lotion/Oil/Oint (Artificial Tears Ophth Oint) 1 applic OU Q4HR PRN PRN Reason: Dry Eye(s) Ondansetron HCl (Zofran) 4 mg IV Q8H PRN PRN Reason: N/V unrelieved by Reglan Ondansetron HCl (Zofran) 4 mg IV Q4H PRN PRN Reason: Nausea And Vomiting Physical Examination Vital signs: Vital Signs Temp Pulse Resp BP Pulse Ox 97.4 F L 73 18 107/77 100 03/14/17 01:25 03/14/17 01:25 03/14/17 01:25 03/14/17 01:25 03/14/17 01:25 Results - Laboratory Findings CBC and BMP: 03/14/17 02:39 03/14/17 02:39 ABG ABG pH 7.353 pH Units (7.350-7.450) 03/14/17 15:36 ABG pCO2 40.3 mm Hg 03/14/17 15:36 ABG pO2 446.4 mm Hg (80.0-90.0) H 03/14/17 15:36 ABG O2 Saturation 99.6 % (95.0-99.0) H 03/14/17 15:36 PT/INR, D-dimer PT 14.3 Sec. (12.2-14.9) 03/14/17 02:39 INR 1.06 (0.87-1.13) 03/14/17 02:39 Abnormal lab findings: Abnormal Labs 03/14/17 15:36 ABG pO2 446.4 H ABG O2 Saturation 99.6 H ABG Base Excess -3.4 L ABG Hemoglobin 12.3 L
[2017-03-14] MEDS ORDERED: SUBLIMAZE IV PRN (18:45)
--- NOTE | 2017-03-14 19:14 | XRay Report ---
FINAL REPORT PROCEDURE: XR CHEST 1V AP 23:03 p.m. TECHNIQUE: Chest radiograph anteroposterior view. CPT 34190 HISTORY: ETT position COMPARISON: 03/14/2017 20:08 p.m. FINDINGS: Heart: Normal. Mediastinum/Vessels: Moderate central vascular congestion with cephalization of flow accentuated by shallow inspiration Lungs/Pleural space: Shallow inspiration with elevation hemidiaphragms. Focal patchy infiltrate left lower lung zone with minimal left lower lung zone atelectasis. Bony thorax: No acute osseous abnormality. Life support devices: Endotracheal tube in the mid to distal trachea 4 centimeters from bifurcation. NG tube along the esophagus. EKG wires and leads. IMPRESSION: Endotracheal tube and NG tube in place. Patchy focal infiltrate left lung base. Central congestion with cephalization of flow
[2017-03-14] MEDS ORDERED: NACL 0.9% 1000 ML 1,000 ML IV SCH (21:00)
[2017-03-14] MEDS: fentaNYL DRIP Premix 2,000 MCG/100 ML BAG IV SCH (21:43)
[2017-03-14] MEDS: LOVENOX SUB-Q SCH ×2 (22:14)
[2017-03-14] MEDS: LOPRESSOR PO SCH (22:16)
[2017-03-14 23:53] LABS: ABG Base Excess -4.6 mmol/L (-2.0-3.0); ABG HCO3 20.5 mmol/L (20.0-26.0); ABG Oxygen Saturation 99.5 % (95.0-99.0); ABG PCO2 38.1 mm Hg; ABG PH 7.349 pH Units (7.350-7.450)
[2017-03-14 23:54] LABS: ABG PO2 274.8 mm Hg (80.0-90.0)
[2017-03-15] MEDS: DIPRIVAN 10 MG/ML 1,000 MG/100 ML BOTTLE IV SCH (01:03)
[2017-03-15 04:30] LABS: Basophils % (Auto) 0.5 % (0.0-1.8); Eosinophils % (Auto) 0.6 % (0.0-4.3); Hematocrit 25.2 % (35.5-45.6); Hemoglobin 8.2 gm/dl (11.8-15.2); Mean Corpuscular HGB Conc 33 % (32-34); Mean Corpuscular Hemoglobin 28 pg (28-32); Mean Corpuscular Volume 85 fl (84-94); Platelet Count 162 K/mm3 (140-440); Red Blood Count 2.98 M/mm3 (3.65-5.03); Red Cell Distribution Width 19.5 % (13.2-15.2); White Blood Count 5.7 K/mm3 (4.5-11.0)
[2017-03-15 04:41] LABS: INR 1.31 (0.87-1.13)
[2017-03-15 04:55] LABS: Alanine Aminotransferase 42 units/L (7-56); Albumin 2.8 g/dL (3.9-5); Alkaline Phosphatase 74 units/L (35-129); Anion Gap 13 mmol/L; BUN/Creatinine Ratio 19; Blood Urea Nitrogen 15 mg/dL (9-20); Calcium 7.5 mg/dL (8.4-10.2); Carbon Dioxide 22 mmol/L (22-30); Chloride 114.1 mmol/L (98-107); Glucose 112 mg/dL (75-100); Potassium 3.8 mmol/L (3.6-5.0); Sodium 145 mmol/L (137-145); Total Protein 5.5 g/dL (6.3-8.2)
[2017-03-15] MEDS ORDERED: NACL 0.9% 500 ML 500 ML IV ONE (05:28)
[2017-03-15] MEDS ORDERED: VITAMIN K (ADULT ONLY) IM ONE ×2 (05:34→06:49)
[2017-03-15] MEDS ORDERED: CALCIUM GLUCONATE 1,000 MG in NACL 0.9% 100 ML IV ONE ×2 (05:45→07:00)
[2017-03-15] MEDS ORDERED: D5W/0.45% NACL/KCL 20 MEQ 20 MEQ/1,000 ML BAG IV SCH (06:00)
[2017-03-15 06:25] LABS: ABG Base Excess -3.8 mmol/L (-2.0-3.0); ABG HCO3 21.7 mmol/L (20.0-26.0); ABG PCO2 41.1 mm Hg; ABG PH 7.34 pH Units (7.350-7.450); ABG PO2 168.3 mm Hg (80.0-90.0)
[2017-03-15] MEDS: REGLAN IV SCH ×2 (06:45→09:52)
--- NOTE | 2017-03-15 07:01 | Progress Note ---
Assessment and Plan POD #1 Pt intubated. resting comfortably Abd soft. large amount of gas noted in rectal tube bag low h/h and elevated INR noted BP was down to 94/50 at one point last night. transfusing 1 unit prbc and 1 unit FFP. also vit K stable but condition remains guarded. further management as per intesivist and cardiology monitor VS and Urine output follow-up h/h post transfusion Selected Entries 03/15/17 03/15/17 03/15/17 03:00 04:00 04:37 Temperature 99.4 F Pulse Rate 78 Respiratory 18 Rate Blood Pressure 101/60 [Left] Laboratory Tests 03/15/17 03/15/17 03/15/17 04:15 04:15 04:15 WBC 5.7 Hgb 8.2 L Hct 25.2 L Plt Count 162 PT 16.9 H INR 1.31 H ABG pH ABG pCO2 ABG pO2 Sodium 145 D Potassium 3.8 Chloride 114.1 H Carbon Dioxide 22 BUN 15 Creatinine 0.8 Glucose 112 H 03/15/17 04:45 WBC Hgb Hct Plt Count PT INR ABG pH 7.340 L ABG pCO2 41.1 ABG pO2 168.3 H Sodium Potassium Chloride Carbon Dioxide BUN Creatinine Glucose Selected Entries 03/15/17 04:00 Blood Pressure 94/50 [Left] Objective Vital Signs - 12hr 03/14/17 03/14/17 03/14/17 19:00 19:30 20:00 Temperature 98.7 F Pulse Rate 84 77 79 Respiratory 14 17 16 Rate Blood Pressure 139/61 107/65 103/65 Blood Pressure [Left] O2 Sat by Pulse 100 100 100 Oximetry 03/14/17 03/14/17 03/14/17 20:30 20:38 21:00 Temperature 99.2 F Pulse Rate 80 85 78 Respiratory 16 20 Rate Blood Pressure 107/63 107/63 106/62 Blood Pressure [Left] O2 Sat by Pulse 100 100 100 Oximetry 03/14/17 03/14/17 03/14/17 21:30 22:00 22:16 Temperature 99.1 F Pulse Rate 77 81 85 Respiratory 20 20 Rate Blood Pressure 103/61 116/67 116/67 Blood Pressure [Left] O2 Sat by Pulse 100 100 Oximetry 03/14/17 03/14/17 03/14/17 22:30 23:00 23:15 Temperature 99.2 F Pulse Rate 81 80 83 Respiratory 20 20 21 Rate Blood Pressure 115/63 96/49 116/69 Blood Pressure [Left] O2 Sat by Pulse 100 100 100 Oximetry 03/14/17 03/14/17 03/15/17 23:30 23:45 00:00 Temperature Pulse Rate 82 82 80 Respiratory 21 21 20 Rate Blood Pressure 120/60 110/56 102/58 Blood Pressure [Left] O2 Sat by Pulse 100 100 100 Oximetry 03/15/17 03/15/17 03/15/17 00:55 01:18 02:00 Temperature 99.0 F 99.0 F Pulse Rate 76 76 74 Respiratory 20 20 Rate Blood Pressure 108/60 Blood Pressure 108/60 86/47 [Left] O2 Sat by Pulse 100 100 100 Oximetry 03/15/17 03/15/17 03/15/17 02:30 03:00 04:00 Temperature 98.9 F 99.4 F Pulse Rate 88 81 78 Respiratory 18 18 20 Rate Blood Pressure Blood Pressure 108/62 101/60 94/50 [Left] O2 Sat by Pulse 100 100 100 Oximetry 03/15/17 04:37 Temperature Pulse Rate 78 Respiratory Rate Blood Pressure 99/56 Blood Pressure [Left] O2 Sat by Pulse 100 Oximetry - Labs 03/15/17 04:15 03/15/17 04:15 Diabetes panel 03/15/17 Range/Units 04:15 Sodium 145 D (137-145) mmol/L Potassium 3.8 (3.6-5.0) mmol/L Chloride 114.1 H (98-107) mmol/L Carbon Dioxide 22 (22-30) mmol/L BUN 15 (9-20) mg/dL Creatinine 0.8 (0.8-1.5) mg/dL Glucose 112 H (75-100) mg/dL Calcium 7.5 L D (8.4-10.2) mg/dL AST 26 (5-40) units/L ALT 42 (7-56) units/L Alkaline Phosphatase 74 (35-129) units/L Total Protein 5.5 L D (6.3-8.2) g/dL Albumin 2.8 L (3.9-5) g/dL Calcium panel 03/15/17 Range/Units 04:15 Calcium 7.5 L D (8.4-10.2) mg/dL Albumin 2.8 L (3.9-5) g/dL Pituitary panel 03/15/17 Range/Units 04:15 Sodium 145 D (137-145) mmol/L Potassium 3.8 (3.6-5.0) mmol/L Chloride 114.1 H (98-107) mmol/L Carbon Dioxide 22 (22-30) mmol/L BUN 15 (9-20) mg/dL Creatinine 0.8 (0.8-1.5) mg/dL Glucose 112 H (75-100) mg/dL Calcium 7.5 L D (8.4-10.2) mg/dL Adrenal panel 03/15/17 Range/Units 04:15 Sodium 145 D (137-145) mmol/L Potassium 3.8 (3.6-5.0) mmol/L Chloride 114.1 H (98-107) mmol/L Carbon Dioxide 22 (22-30) mmol/L BUN 15 (9-20) mg/dL Creatinine 0.8 (0.8-1.5) mg/dL Glucose 112 H (75-100) mg/dL Calcium 7.5 L D (8.4-10.2) mg/dL Total Bilirubin 0.70 (0.1-1.2) mg/dL AST 26 (5-40) units/L ALT 42 (7-56) units/L Alkaline Phosphatase 74 (35-129) units/L Total Protein 5.5 L D (6.3-8.2) g/dL Albumin 2.8 L (3.9-5) g/dL
[2017-03-15 08:38] LABS: Bacteria,Urine 1+ /HPF (Negative); Bilirubin,Urine NEG (Negative); Blood,Urine MOD (Negative); Ketones,Urine NEG (Negative); Leukocyte Esterase,Urine MOD (Negative); Mucus,Urine 2+ /HPF; Nitrite,Urine NEG (Negative); Urobilinogen,Urine < 2.0 mg/dL (<2.0)
[2017-03-15] MEDS: TYLENOL PO PRN ×3 (09:49→18:48)
--- NOTE | 2017-03-15 09:50 | XRay Report ---
AP CHEST: HISTORY: Followup respiratory failure The endotracheal tube and nasogastric tube are unchanged since yesterday's exam. Heart size is stable at the upper limits of normal. Mild chronic interstitial changes or linear scarring in both lungs is identified and unchanged. No evidence for pneumonia, pleural effusion or pneumothorax. IMPRESSION: No acute cardiopulmonary process.
[2017-03-15] MEDS ORDERED: LASIX IV SCH (10:00)
--- NOTE | 2017-03-15 10:31 | Progress Note ---
Assessment and Plan respiratory failure s/p intubation severe lv dsyfunction, lv thrombus hypertension anemia from blood loss hyperlipidemia rec: restart lasix 40mg daily, agree with blood transfusion, start lopressor in am if bp stable and vent as per pulmonary Subjective Date of service: 03/15/17 Principal diagnosis: lv dsyfunction Interval history: pt intubated post surgery, Objective Vital Signs Temp Pulse Resp Resp BP BP BP 03/15/17 10:24 121/54 03/15/17 10:15 100.7 F H 78 20 03/15/17 09:49 20 03/15/17 08:43 100.9 F H 82 125/52 03/15/17 08:41 20 03/15/17 08:38 96 H 03/15/17 07:47 110/71 03/15/17 07:00 98.9 F 86 20 110/68 03/15/17 06:00 99.0 F 91 H 20 115/68 03/15/17 05:00 99.0 F 87 20 114/60 03/15/17 04:37 78 99/56 03/15/17 04:00 99.4 F 78 20 94/50 03/15/17 03:00 98.9 F 81 18 101/60 03/15/17 02:30 88 18 108/62 03/15/17 02:00 99.0 F 74 20 86/47 03/15/17 01:18 99.0 F 76 20 108/60 03/15/17 00:55 76 108/60 03/15/17 00:00 80 20 102/58 03/14/17 23:45 82 21 110/56 03/14/17 23:30 82 21 120/60 03/14/17 23:15 83 21 116/69 03/14/17 23:00 99.2 F 80 20 96/49 03/14/17 22:30 81 20 115/63 03/14/17 22:16 85 116/67 03/14/17 22:00 99.1 F 81 20 116/67 03/14/17 21:30 77 20 103/61 03/14/17 21:00 99.2 F 78 20 106/62 03/14/17 20:38 85 107/63 03/14/17 20:30 80 16 107/63 03/14/17 20:00 98.7 F 79 16 103/65 03/14/17 19:30 77 17 107/65 03/14/17 19:00 84 14 139/61 03/14/17 18:30 82 16 104/56 03/14/17 18:00 78 16 120/58 03/14/17 17:30 77 16 127/69 03/14/17 17:15 82 16 131/74 03/14/17 17:04 81 131/82 03/14/17 17:00 85 16 131/82 03/14/17 16:45 71 17 119/60 03/14/17 16:30 70 16 112/56 03/14/17 16:15 78 16 116/39 03/14/17 16:00 97.7 F 67 16 133/70 03/14/17 15:45 73 16 134/80 03/14/17 15:30 71 16 134/83 03/14/17 15:15 71 16 123/76 03/14/17 15:00 71 16 135/84 03/14/17 14:45 91 H 17 152/98 03/14/17 14:30 91 H 17 150/77 03/14/17 14:15 91 H 17 171/101 03/14/17 14:10 87 16 176/104 03/14/17 14:08 76 150/77 03/14/17 14:05 94 H 21 178/109 03/14/17 14:00 111 H 22 181/118 03/14/17 13:57 98.4 F 111 H 19 175/118 Pulse Ox 03/15/17 10:24 03/15/17 10:15 100 03/15/17 09:49 03/15/17 08:43 03/15/17 08:41 03/15/17 08:38 03/15/17 07:47 100 03/15/17 07:00 100 03/15/17 06:00 100 03/15/17 05:00 100 03/15/17 04:37 100 03/15/17 04:00 100 03/15/17 03:00 100 03/15/17 02:30 100 03/15/17 02:00 100 03/15/17 01:18 100 03/15/17 00:55 100 03/15/17 00:00 100 03/14/17 23:45 100 03/14/17 23:30 100 03/14/17 23:15 100 03/14/17 23:00 100 03/14/17 22:30 100 03/14/17 22:16 03/14/17 22:00 100 03/14/17 21:30 100 03/14/17 21:00 100 03/14/17 20:38 100 03/14/17 20:30 100 03/14/17 20:00 100 03/14/17 19:30 100 03/14/17 19:00 100 03/14/17 18:30 100 03/14/17 18:00 100 03/14/17 17:30 100 03/14/17 17:15 100 03/14/17 17:04 100 03/14/17 17:00 100 03/14/17 16:45 100 03/14/17 16:30 100 03/14/17 16:15 100 03/14/17 16:00 100 03/14/17 15:45 100 03/14/17 15:30 100 03/14/17 15:15 100 03/14/17 15:00 100 03/14/17 14:45 100 03/14/17 14:30 100 03/14/17 14:15 100 03/14/17 14:10 100 03/14/17 14:08 99 03/14/17 14:05 100 03/14/17 14:00 100 03/14/17 13:57 99 - Physical Examination General: Other HEENT: Positive: PERRL, EOMI Neck: Positive: neck supple Cardiac: Positive: Reg Rate and Rhythm Lungs: Positive: clear to auscultation Neuro: Positive: Other (sedated) Abdomen: Positive: Tender Extremities: Present: normal. Absent: edema - Labs and Meds Cardiac Enzymes 03/14/17 03/15/17 Range/Units 16:10 04:15 AST 26 (5-40) units/L CK-MB (CK-2) 2.9 (0.0-4.0) ng/mL Coagulation 03/15/17 Range/Units 04:15 PT 16.9 H (12.2-14.9) Sec. INR 1.31 H (0.87-1.13) CBC 03/15/17 Range/Units 04:15 WBC 5.7 (4.5-11.0) K/mm3 RBC 2.98 L (3.65-5.03) M/mm3 Hgb 8.2 L (11.8-15.2) gm/dl Hct 25.2 L (35.5-45.6) % Plt Count 162 (140-440) K/mm3 Lymph # 0.7 L (1.2-5.4) K/mm3 Harris # 0.5 (0.0-0.8) K/mm3 Eos # 0.0 (0.0-0.4) K/mm3 Baso # 0.0 (0.0-0.1) K/mm3 Comprehensive Metabolic Panel 03/15/17 Range/Units 04:15 Sodium 145 D (137-145) mmol/L Potassium 3.8 (3.6-5.0) mmol/L Chloride 114.1 H (98-107) mmol/L Carbon Dioxide 22 (22-30) mmol/L BUN 15 (9-20) mg/dL Creatinine 0.8 (0.8-1.5) mg/dL Glucose 112 H (75-100) mg/dL Calcium 7.5 L D (8.4-10.2) mg/dL AST 26 (5-40) units/L ALT 42 (7-56) units/L Alkaline Phosphatase 74 (35-129) units/L Total Protein 5.5 L D (6.3-8.2) g/dL Albumin 2.8 L (3.9-5) g/dL - Imaging and Cardiology EKG: image reviewed Stress echo: other (02/2017 no ischemia EF 10-15%) Echo: report reviewed (02/2017 over LV dysfunction EF 10-15% with apical thrombus normal RV size and function) - Telemetry EKG Rhythm: Sinus Rhythm
[2017-03-15] MEDS ORDERED: LASIX PO SCH (10:45)
--- NOTE | 2017-03-15 11:10 | Progress Note ---
Assessment and Plan Acute Hypoxemic Respiratory Failure on MVS SBO s/p Ex-lap Sepsis Syndrome HTN Severe LV Dysfunction Left Ventricular Thrombus Anemia - Begin SBT and extubate if meets criteria - continue to wean oxygen for O2 Sats > 94% - Continue full anticoagulation re: LV thrombus - Wound Care per Surgeon s/p ex-lap - oral/enteral nutrition once clleared by surgeon - prn bronchodilators and pulmonary toilet - VAP bundle addressed ...he is critically ill on life sustaining interventions including MVS and at risk for further deterioration' Subjective Date of service: 03/15/17 Principal diagnosis: Acute Respiratory Failure on MVS; SBO s/p Ex-lap Interval history: Patient is seen today for: Acute Respiratory Failure and Ventilator Management Seen and examined at bedside; 24hour events reviewed; nursing and respiratory care staff consulted; no adverse overnight events reported to me; remains on MVS ; oxygenation better; appears distressed with slight increased work of breathing ; denies chest pains or palpitations; no N/V/F/C; no abdominal pain Objective Vital Signs - 12hr 03/14/17 03/14/17 03/14/17 23:15 23:30 23:45 Temperature Pulse Rate 83 82 82 Respiratory 21 21 21 Rate Respiratory Rate [Abdomen] Blood Pressure 116/69 120/60 110/56 Blood Pressure [Left] Blood Pressure [Right] O2 Sat by Pulse 100 100 100 Oximetry 03/15/17 03/15/17 03/15/17 00:00 00:55 01:18 Temperature 99.0 F Pulse Rate 80 76 76 Respiratory 20 20 Rate Respiratory Rate [Abdomen] Blood Pressure 102/58 108/60 Blood Pressure 108/60 [Left] Blood Pressure [Right] O2 Sat by Pulse 100 100 100 Oximetry 03/15/17 03/15/17 03/15/17 02:00 02:30 03:00 Temperature 99.0 F 98.9 F Pulse Rate 74 88 81 Respiratory 20 18 18 Rate Respiratory Rate [Abdomen] Blood Pressure Blood Pressure 86/47 108/62 101/60 [Left] Blood Pressure [Right] O2 Sat by Pulse 100 100 100 Oximetry 03/15/17 03/15/17 03/15/17 04:00 04:37 05:00 Temperature 99.4 F 99.0 F Pulse Rate 78 78 87 Respiratory 20 20 Rate Respiratory Rate [Abdomen] Blood Pressure 99/56 Blood Pressure 94/50 114/60 [Left] Blood Pressure [Right] O2 Sat by Pulse 100 100 100 Oximetry 03/15/17 03/15/17 03/15/17 06:00 07:00 07:47 Temperature 99.0 F 98.9 F Pulse Rate 91 H 86 Respiratory 20 20 Rate Respiratory Rate [Abdomen] Blood Pressure 110/71 Blood Pressure 115/68 110/68 [Left] Blood Pressure [Right] O2 Sat by Pulse 100 100 100 Oximetry 03/15/17 03/15/17 03/15/17 08:38 08:41 08:43 Temperature 100.9 F H Pulse Rate 96 H 82 Respiratory Rate Respiratory 20 Rate [Abdomen] Blood Pressure Blood Pressure [Left] Blood Pressure 125/52 [Right] O2 Sat by Pulse Oximetry 03/15/17 03/15/17 03/15/17 09:49 10:15 10:24 Temperature 100.7 F H Pulse Rate 78 Respiratory 20 20 Rate Respiratory Rate [Abdomen] Blood Pressure 121/54 Blood Pressure [Left] Blood Pressure [Right] O2 Sat by Pulse 100 Oximetry 03/15/17 10:38 Temperature 100.9 F H Pulse Rate 81 Respiratory 20 Rate Respiratory Rate [Abdomen] Blood Pressure 122/54 Blood Pressure [Left] Blood Pressure [Right] O2 Sat by Pulse 100 Oximetry Constitutional: appears uncomfortable Eyes: non-icteric ENT: oropharynx moist, oropharyngeal exudate pre Neck: supple, no lymphadenopathy, no JVD, other (no thyromegaly) Effort: mildly labored Ascultation: Bilateral: diminished breath sounds, rhonchi (bases) Cardiovascular: regular rate and rhythm, other (no rubs / murmurs) Gastrointestinal: hypoactive bowel sounds, soft, tender (mild diffuse), non- distended, other (No HSM) Integumentary: normal, other (no rash or petechiae) Extremities: no cyanosis, no edema, pulses normal, no ischemia or petechiae Neurologic: non-focal exam, pupils equal and round, motor strength normal and, other (PERRLA, EOMI) Psychiatric: anxious CBC and BMP: 03/15/17 04:15 03/15/17 04:15 ABG, PT/INR, D-dimer: ABG ABG pH 7.340 pH Units (7.350-7.450) L 03/15/17 04:45 ABG pCO2 41.1 mm Hg 03/15/17 04:45 ABG pO2 168.3 mm Hg (80.0-90.0) H 03/15/17 04:45 ABG O2 Saturation 99.0 % (95.0-99.0) 03/15/17 04:45 PT/INR, D-dimer PT 16.9 Sec. (12.2-14.9) H 03/15/17 04:15 INR 1.31 (0.87-1.13) H 03/15/17 04:15 Abnormal lab findings: Abnormal Labs 03/14/17 03/14/17 03/15/17 15:36 Unknown 04:15 RBC 2.98 L Hgb 8.2 L Hct 25.2 L RDW 19.5 H Lymph % (Auto) 12.9 L [place] % (Auto) 9.4 H Lymph # 0.7 L Seg Neutrophils % 76.6 H PT INR ABG pH 7.349 L ABG pO2 446.4 H 274.8 H ABG O2 Saturation 99.6 H 99.5 H ABG Base Excess -3.4 L -4.6 L ABG Hemoglobin 12.3 L 8.6 L Chloride Glucose Calcium Total Protein Albumin Urine WBC (Auto) Crossmatch 03/15/17 03/15/17 03/15/17 04:15 04:15 04:45 RBC Hgb Hct RDW Lymph % (Auto) [place] % (Auto) Lymph # Seg Neutrophils % PT 16.9 H INR 1.31 H ABG pH 7.340 L ABG pO2 168.3 H ABG O2 Saturation ABG Base Excess -3.8 L ABG Hemoglobin 7.7 L Chloride 114.1 H Glucose 112 H Calcium 7.5 L D Total Protein 5.5 L D Albumin 2.8 L Urine WBC (Auto) Crossmatch 03/15/17 03/15/17 06:06 08:20 RBC Hgb Hct RDW Lymph % (Auto) [place] % (Auto) Lymph # Seg Neutrophils % PT INR ABG pH ABG pO2 ABG O2 Saturation ABG Base Excess ABG Hemoglobin Chloride Glucose Calcium Total Protein Albumin Urine WBC (Auto) 15.0 H Crossmatch See Detail Chest x-ray: image reviewed (ETT tip at lower border of clavicular heads; better lung volumes; no focal infiltrate) Allied health notes reviewed: RT
[2017-03-15 13:16] LABS: ABG Base Excess -2.9 mmol/L (-2.0-3.0); ABG HCO3 21.6 mmol/L (20.0-26.0); ABG PCO2 36.2 mm Hg; ABG PH 7.394 pH Units (7.350-7.450); ABG PO2 80.6 mm Hg (80.0-90.0)
[2017-03-15] MEDS: MORPHINE IV PRN (13:43)
--- NOTE | 2017-03-15 14:28 | Event Note ---
Date: 03/15/17 Called because of increased work of breathing; frothy pink secretions suctioned from airway tachycardia up to 150/min coarse bilateral BS without wheezing - stat EKG - deployed BIPAP - stat CXR (? flash pulmonary edema) - anxiolytics / antipsychotics - watch closely ...15' CCT
[2017-03-15] MEDS ORDERED: HALDOL IV PRN (14:29)
[2017-03-15] MEDS ORDERED: LASIX ONE (14:36)
[2017-03-15 14:37] LABS: Basophils % (Auto) 0.2 % (0.0-1.8); Eosinophils % (Auto) 0.9 % (0.0-4.3); Hematocrit 29.4 % (35.5-45.6); Hemoglobin 9.7 gm/dl (11.8-15.2); Mean Corpuscular HGB Conc 33 % (32-34); Mean Corpuscular Hemoglobin 28 pg (28-32); Mean Corpuscular Volume 85 fl (84-94); Platelet Count 171 K/mm3 (140-440); Red Blood Count 3.46 M/mm3 (3.65-5.03)
[2017-03-15] MEDS ORDERED: ZEMURON IV ONE (14:49)
[2017-03-15] MEDS ORDERED: AMIDATE IV ONE (14:49)
[2017-03-15] MEDS ORDERED: LASIX IV ONE (15:00)
[2017-03-15] MEDS ORDERED: Vasostrict 20 UNIT in NACL 0.9% 100 ML IV SCH (15:00)
--- NOTE | 2017-03-15 15:18 | XRay Report ---
FINAL REPORT PROCEDURE: XR CHEST 1V AP TECHNIQUE: Chest radiograph anteroposterior view. CPT 51255 HISTORY: acute respiratory distress COMPARISON: 03/14/2017 FINDINGS: Heart: Mildly enlarged Mediastinum/Vessels: Moderate congestion. Lungs/Pleural space: Multifocal airspace disease seen throughout both lungs appearing progressive from prior study in the upper lobes and fan like regional projections bilaterally and more cohesive on the left than on the right. Streaky appearance in the left lower lung zone infrahilar region and coalescent in the right infra medial lung zone. Bony thorax: No acute osseous abnormality. Life support devices: NG tube along the esophagus curled in the fundus and directed towards the antrum. IMPRESSION: Progressive prominent patchy infiltrates bilaterally Suspect underlying moderate edema with perhaps areas of alveolar edema versus infiltrate.
--- NOTE | 2017-03-15 15:46 | Event Note ---
Date: 03/15/17 30 minutes post extubation Patient having increased work of breathing, tachypnea , increased tachycardia and sats in the 80s. copious amounts of pink frothy sputum noted from mouth. Dr. Angel present and agrees with reintubation. etomidate 20mg and zemuron 50mg administed to facilitate intubation. Direct laryngoscopy performed with mac 3 blade. Large amount of pink frothy sputum suctioned from posterior oropharynx. Cords visualized and 7.5 ETT passed easily to a depth of 22cm. Handed off to RT for securing.
[2017-03-15] MEDS: DOBUTREX DRIP 500MG/D5W 250ML 500 MG/250 ML BAG IV SCH (15:56)
--- NOTE | 2017-03-15 15:59 | XRay Report ---
FINAL REPORT PROCEDURE: XR CHEST 1V AP TECHNIQUE: Chest radiograph anteroposterior view. CPT 33276 HISTORY: ETT placement COMPARISON: 03/15/2017 FINDINGS: Heart: Normal. Mediastinum/Vessels: Stable contour. Lungs/Pleural space: Increased bilateral patchy airspace opacities. There may be small bilateral pleural effusions. No pneumothorax is seen. Bony thorax: No acute osseous abnormality. Life support devices: Nasogastric tube tip is in the distal stomach. Endotracheal tube tip projects 5 centimeters superior the cecy. IMPRESSION: Increased bilateral airspace opacities, may be related to pneumonia or edema.
[2017-03-15 16:28] LABS: ABG Base Excess -6.1 mmol/L (-2.0-3.0); ABG HCO3 20.8 mmol/L (20.0-26.0); ABG Oxygen Saturation 98.9 % (95.0-99.0); ABG PCO2 47.2 mm Hg; ABG PH 7.261 pH Units (7.350-7.450); ABG PO2 170.6 mm Hg (80.0-90.0)
--- NOTE | 2017-03-15 17:08 | Progress Note ---
Assessment and Plan Acute respiratory failure - intubated before surgery on 03/14/17 - plan for extubation today Lexi syndrom - s/p exploratory laperotomy on 03/14/17 - CT abdomen/pelvis suggested closed loop obstruction, which rulled out - Placed on rectal tube, consulted GI Anemia - Hb dropped from 9.9 to 8.2 - could be from hemodilution and from blood loss during surgery which is expected - one unit PRBC transfusion today CHF with Ef 10-15% - cautious with iv fluid Coronary artery disease - cardiology following Left apical thrombus with subtherapeutic INR - on hold anticoagulation due to recent surgery History of CVA - no acute issue now, monitor clinically COPD with exacerbation - likely due to intestinal distension - wean off from vent - cont periodic breathing treatment DVT PX - SCD Brief History: This is a 76-year-old gentleman with history of hypertension hyperlipidemia severe LV dysfunction EF 10-50% with apical thrombus was in a long-term was mostly in Coumadin and having abdominal pain was sent back found to have surgical emergency of closed loop bowel obstruction. Subjective Date of service: 03/15/17 Principal diagnosis: Acute Respiratory Failure on MVS; SBO s/p Ex-lap Interval history: Pt seen and examined remained intubated, plan to extubation getting one unit of FFP and PRBC Objective - Constitutional Vitals: Vital Signs - 12hr 03/15/17 03/15/17 03/15/17 06:00 07:00 07:47 Temperature 99.0 F 98.9 F Pulse Rate 91 H 86 Respiratory 20 20 Rate Respiratory Rate [Abdomen] Blood Pressure 110/71 Blood Pressure 115/68 110/68 [Left] Blood Pressure [Right] O2 Sat by Pulse 100 100 100 Oximetry 03/15/17 03/15/17 03/15/17 08:38 08:41 08:43 Temperature 100.9 F H Pulse Rate 96 H 82 Respiratory Rate Respiratory 20 Rate [Abdomen] Blood Pressure Blood Pressure [Left] Blood Pressure 125/52 [Right] O2 Sat by Pulse Oximetry 03/15/17 03/15/17 03/15/17 09:49 10:15 10:24 Temperature 100.7 F H Pulse Rate 78 Respiratory 20 20 Rate Respiratory Rate [Abdomen] Blood Pressure 121/54 Blood Pressure [Left] Blood Pressure [Right] O2 Sat by Pulse 100 Oximetry 03/15/17 03/15/1717 10:38 10:42 11:00 Temperature 100.9 F H 100.7 F H 100.9 F H Pulse Rate 81 94 H 103 H Respiratory 20 16 Rate Respiratory Rate [Abdomen] Blood Pressure 122/54 136/63 Blood Pressure [Left] Blood Pressure 118/72 [Right] O2 Sat by Pulse 100 100 Oximetry 03/15/17 03/15/17 03/15/17 11:10 11:22 11:27 Temperature 100.9 F H 100 F H Pulse Rate 87 99 H 90 Respiratory 14 10 L 12 Rate Respiratory Rate [Abdomen] Blood Pressure 124/65 98/56 140/59 Blood Pressure [Left] Blood Pressure [Right] O2 Sat by Pulse 100 100 100 Oximetry 03/15/17 03/15/17 03/15/17 12:00 12:11 13:00 Temperature 100.7 F H 99.8 F H 99.8 F H Pulse Rate 89 87 118 H Respiratory 12 Rate Respiratory Rate [Abdomen] Blood Pressure 138/58 Blood Pressure [Left] Blood Pressure 124/65 126/75 [Right] O2 Sat by Pulse 100 Oximetry 03/15/17 03/15/17 03/15/17 13:43 14:00 14:03 Temperature 101.5 F H Pulse Rate 136 H Respiratory 22 Rate Respiratory Rate [Abdomen] Blood Pressure Blood Pressure [Left] Blood Pressure 111/66 [Right] O2 Sat by Pulse 100 Oximetry 03/15/17 03/15/17 03/15/17 15:00 15:16 15:52 Temperature 101.5 F H Pulse Rate 160 H 134 H Respiratory 33 H 23 Rate Respiratory Rate [Abdomen] Blood Pressure 130/91 Blood Pressure [Left] Blood Pressure 130/91 [Right] O2 Sat by Pulse 90 100 Oximetry 03/15/17 16:00 Temperature 100.2 F H Pulse Rate 121 H Respiratory 20 Rate Respiratory Rate [Abdomen] Blood Pressure Blood Pressure [Left] Blood Pressure 124/69 [Right] O2 Sat by Pulse Oximetry General appearance: Present: no acute distress, well-nourished - EENT Eyes: PERRL, EOM intact, no scleral icterus, no conjunctival injection ENT: hearing intact, other (NG and ET tube on place) Ears: bilateral: normal - Neck Neck: supple, normal ROM, other (ET tube on place) - Respiratory Respiratory effort: normal Respiratory: bilateral: CTA - Cardiovascular Rhythm: other (tachycardic) Heart Sounds: Present: S1 & S2. Absent: gallop, rub Extremities: pulses intact, No edema, normal color, Full ROM - Gastrointestinal General gastrointestinal: Present: other (surgical dressing on place, rectal tube on place) - Integumentary Integumentary: clear, warm, dry - Musculoskeletal Musculoskeletal: other (no weakness) - Neurologic Neurologic: moves all extremities - Psychiatric Psychiatric: no agitated - Labs CBC & Chem 7: 03/16/17 05:58 03/16/17 05:58 Labs: Abnormal lab results 03/14/17 03/15/17 03/15/17 Range/Units Unknown 04:15 04:15 RBC 2.98 L (3.65-5.03) M/mm3 Hgb 8.2 L (11.8-15.2) gm/dl Hct 25.2 L (35.5-45.6) % RDW 19.5 H (13.2-15.2) % Lymph % (Auto) 12.9 L (13.4-35.0) % Hand % (Auto) 9.4 H (0.0-7.3) % Lymph # 0.7 L (1.2-5.4) K/mm3 Seg Neutrophils % 76.6 H (40.0-70.0) % PT (12.2-14.9) Sec. INR (0.87-1.13) ABG pH 7.349 L (7.350-7.450) pH Units ABG pO2 274.8 H (80.0-90.0) mm Hg ABG O2 Saturation 99.5 H (95.0-99.0) % ABG Base Excess -4.6 L (-2.0-3.0) mmol/L ABG Hemoglobin 8.6 L (14.0-18.0) gm/dl Oxyhemoglobin (95.0-99.0) % Chloride 114.1 H (98-107) mmol/L Glucose 112 H (75-100) mg/dL Calcium 7.5 L D (8.4-10.2) mg/dL Total Protein 5.5 L D (6.3-8.2) g/dL Albumin 2.8 L (3.9-5) g/dL Urine WBC (Auto) (0.0-6.0) /HPF Crossmatch 03/15/17 03/15/17 03/15/17 Range/Units 04:15 04:45 06:06 RBC (3.65-5.03) M/mm3 Hgb (11.8-15.2) gm/dl Hct (35.5-45.6) % RDW (13.2-15.2) % Lymph % (Auto) (13.4-35.0) % Hand % (Auto) (0.0-7.3) % Lymph # (1.2-5.4) K/mm3 Seg Neutrophils % (40.0-70.0) % PT 16.9 H (12.2-14.9) Sec. INR 1.31 H (0.87-1.13) ABG pH 7.340 L (7.350-7.450) pH Units ABG pO2 168.3 H (80.0-90.0) mm Hg ABG O2 Saturation (95.0-99.0) % ABG Base Excess -3.8 L (-2.0-3.0) mmol/L ABG Hemoglobin 7.7 L (14.0-18.0) gm/dl Oxyhemoglobin (95.0-99.0) % Chloride (98-107) mmol/L Glucose (75-100) mg/dL Calcium (8.4-10.2) mg/dL Total Protein (6.3-8.2) g/dL Albumin (3.9-5) g/dL Urine WBC (Auto) (0.0-6.0) /HPF Crossmatch See Detail 03/15/17 03/15/17 03/15/17 Range/Units 08:20 13:05 14:20 RBC 3.46 L (3.65-5.03) M/mm3 Hgb 9.7 L (11.8-15.2) gm/dl Hct 29.4 L (35.5-45.6) % RDW 19.0 H (13.2-15.2) % Lymph % (Auto) 12.6 L (13.4-35.0) % Hand % (Auto) 9.1 H (0.0-7.3) % Lymph # 0.8 L (1.2-5.4) K/mm3 Seg Neutrophils % 77.2 H (40.0-70.0) % PT (12.2-14.9) Sec. INR (0.87-1.13) ABG pH (7.350-7.450) pH Units ABG pO2 (80.0-90.0) mm Hg ABG O2 Saturation (95.0-99.0) % ABG Base Excess -2.9 L (-2.0-3.0) mmol/L ABG Hemoglobin 8.5 L (14.0-18.0) gm/dl Oxyhemoglobin 94.3 L (95.0-99.0) % Chloride (98-107) mmol/L Glucose (75-100) mg/dL Calcium (8.4-10.2) mg/dL Total Protein (6.3-8.2) g/dL Albumin (3.9-5) g/dL Urine WBC (Auto) 15.0 H (0.0-6.0) /HPF Crossmatch 03/15/17 Range/Units 15:35 RBC (3.65-5.03) M/mm3 Hgb (11.8-15.2) gm/dl Hct (35.5-45.6) % RDW (13.2-15.2) % Lymph % (Auto) (13.4-35.0) % Hand % (Auto) (0.0-7.3) % Lymph # (1.2-5.4) K/mm3 Seg Neutrophils % (40.0-70.0) % PT (12.2-14.9) Sec. INR (0.87-1.13) ABG pH 7.261 L (7.350-7.450) pH Units ABG pO2 170.6 H (80.0-90.0) mm Hg ABG O2 Saturation (95.0-99.0) % ABG Base Excess -6.1 L (-2.0-3.0) mmol/L ABG Hemoglobin 10.4 L (14.0-18.0) gm/dl Oxyhemoglobin (95.0-99.0) % Chloride (98-107) mmol/L Glucose (75-100) mg/dL Calcium (8.4-10.2) mg/dL Total Protein (6.3-8.2) g/dL Albumin (3.9-5) g/dL Urine WBC (Auto) (0.0-6.0) /HPF Crossmatch - Imaging and cardiology Chest x-ray: report reviewed CT scan - abdomen: report reviewed
[2017-03-15] MEDS: fentaNYL DRIP Premix 2,000 MCG/100 ML BAG IV SCH (17:56)
--- NOTE | 2017-03-15 18:47 | Event Note ---
Date: 03/15/17 CRITICAL CARE NOTE (LATE ENTRY) Called to see patient after extubation; was on BIPAP but pink frothy secretions in mask he looked very distressed and was coughing frothy blood tinged sputum no N/V tachycardia persistent up to 150bpm persistent coarse bilateral BS no wheezing Using accessory resp muscles A&P: Acute / Flash pulmonary edema CHF exacerbation ? NH - intubated by anesthesiologist at bedside - fentanyl drip and propofol ordered for sedation - vasopressin ordered for MAP < 60mmHg - discussed with environmental scientist and dobutamine ordered to begin if tachycardia resolves post extubation and sedation - resumed VAP bundle - schedule bronchodilators - increased peep to [id number] this time on MVS and hyperventilating in short term due to mixed acidosis 24' CCT
[2017-03-15 21:03] LABS: ABG Base Excess -3.4 mmol/L (-2.0-3.0); ABG HCO3 20.4 mmol/L (20.0-26.0); ABG Oxygen Saturation 99.4 % (95.0-99.0); ABG PH 7.423 pH Units (7.350-7.450); ABG PO2 229.2 mm Hg (80.0-90.0)
[2017-03-15] MEDS: LOPRESSOR PO SCH (22:33)
[2017-03-15] MEDS: BABY ASPIRIN PO SCH (22:33)
[2017-03-16] MEDS: TYLENOL PO PRN (03:28)
[2017-03-16] MEDS: LOPRESSOR PO SCH ×3 (05:31→21:53)
[2017-03-16 05:37] LABS: ABG Base Excess -2.4 mmol/L (-2.0-3.0); ABG HCO3 22.1 mmol/L (20.0-26.0); ABG Oxygen Saturation 98.6 % (95.0-99.0); ABG PCO2 35.8 mm Hg; ABG PH 7.408 pH Units (7.350-7.450); ABG PO2 130.4 mm Hg (80.0-90.0)
[2017-03-16] MEDS ORDERED: VITAMIN K (ADULT ONLY) IM ONE (06:00)
[2017-03-16] MEDS ORDERED: VITAMIN K (ADULT ONLY) SUB-Q ONE (06:00)
[2017-03-16 06:16] LABS: Hematocrit 27.1 % (35.5-45.6); Hemoglobin 9.1 gm/dl (11.8-15.2); Mean Corpuscular HGB Conc 34 % (32-34); Mean Corpuscular Hemoglobin 28 pg (28-32); Mean Corpuscular Volume 84 fl (84-94); Platelet Count 160 K/mm3 (140-440); Red Blood Count 3.24 M/mm3 (3.65-5.03); Red Cell Distribution Width 19.1 % (13.2-15.2)
[2017-03-16 06:37] LABS: Alanine Aminotransferase 34 units/L (7-56); Albumin 2.7 g/dL (3.9-5); Alkaline Phosphatase 67 units/L (35-129); Anion Gap 16 mmol/L; BUN/Creatinine Ratio 14; Blood Urea Nitrogen 14 mg/dL (9-20); Calcium 7.8 mg/dL (8.4-10.2); Carbon Dioxide 22 mmol/L (22-30); Chloride 108.1 mmol/L (98-107); Glucose 117 mg/dL (75-100); Potassium 3.7 mmol/L (3.6-5.0); Sodium 142 mmol/L (137-145); Total Protein 5.4 g/dL (6.3-8.2)
[2017-03-16 06:52] LABS: Anisocytosis 1+; Basophils % (Manual) 0 % (0.0-1.8); Blastocytes % (Manual) 0 %; Diff Status Complete; Eosinophils % (Manual) 0 % (0.0-4.3); Platelet Estimate Consistent w Auto; Schistocytes Rare
--- NOTE | 2017-03-16 07:20 | XRay Report ---
AP CHEST: HISTORY: Followup respiratory failure Bilateral perihilar pulmonary edema or infiltrates are stable since yesterday's exam. Trace pleural effusions could be present. Heart size is at the upper limits of normal. No pneumothorax. The endotracheal tube and nasogastric tube remain in adequate position. IMPRESSION: No change.
--- NOTE | 2017-03-16 09:06 | Consultation ---
PULMONARY CRITICAL CARE CONSULTATION CONSULTING PHYSICIANS: Dr. Adilene Vaughan Dr. . REASON FOR CONSULTATION: Acute respiratory failure, on mechanical ventilator support, status post exploratory laparotomy. CHIEF COMPLAINT AND HISTORY OF PRESENT ILLNESS: The patient is a 76-year-old -[place] male with past medical history significant amongst other things for a diagnosis of chronic obstructive lung disease, came into the ER complaining of chest pain and abdominal pain, nonspecific symptoms. Otherwise, a CT scan of the abdomen and pelvis was ultimately done. It revealed possible bowel obstruction. He was evaluated by the surgeon and the decision was made to take him into the OR for an exploratory laparotomy this is after it was reported as a high-grade closed loop small-bowel obstruction, probably due to an internal hernia. Postop, he comes out of the mechanical ventilator and we are asked to assist with management and extubation. When I stopped by to see him, he was lightly sedated, denied pain. Denied any history of tobacco use and overall his history; therefore, I suspect as I believe the old records mention tobacco use. On his general exam, he seemed to be in moderate distress, was moving his lower extremities like he was trying to get out of the bed and that is as much of the history of presentation as I have. PAST MEDICAL HISTORY: According to the records, history of coronary artery disease, history of left apical thrombus, history of COPD, history of cerebrovascular accident. PAST SURGICAL HISTORY: Unknown prior past surgical history. MEDICATIONS: The patient was on at the time I stopped by to see him have been reviewed. Pertinent medications include aspirin 81 mg p.o. daily, Lipitor 40 mg p.o. at bedtime, Lovenox 70 mg subq q.12 hours that is 1 mg/kg, Pepcid 20 mg p.o. daily, Dilaudid 0.5 mg IV p.r.n. severe pain. He was also on a propofol drip at 20 mcg per kilogram per minute. Also Lasix 40 mg p.o. daily. ALLERGIES: No known drug allergies. DIET: Thin gentleman, unable to give me any history of significant weight loss or gain. FAMILY AND SOCIAL HISTORY: Lives in the community, had denied at his last admission to any history of tobacco, alcohol or illicit drug abuse as he denies today. Family history is otherwise unobtainable due to his intubation and sedation. REVIEW OF SYSTEMS: Again, this is limited by the fact that he is on the mechanical ventilator. Since he has been here, no gross hematochezia or melena. He had the abdominal pain when he came in. His insight appears to be inappropriate on the sedatives at this time. He denies any chest pain and nods his head no. Again, no seizures since he has been here, he is moving all extremities. No new onset focal weakness. Attempts to obtain 13-system review of systems as in the body of history above or unobtainable. PHYSICAL EXAMINATION: VITAL SIGNS: At presentation, he was afebrile, temperature 97.4 degrees Fahrenheit with a pulse of 73, respiratory rate of 18, blood pressure 107/77, oxygen sats were 100%, inspired oxygen concentration was not recorded. HEAD, EYES, EARS, NOSE AND THROAT: Pupils are equal, round, they are both almost pinpoint. Extraocular muscle movements appeared intact all the same. Grossly, there were no palpable lymph nodes in the supraclavicular or submandibular lymph node chains. No gross jugular venous distention. No thyromegaly. Oropharynx was moist. Endotracheal tube was in place, taped at the lips at 21 cm. LUNGS: Auscultation of both lung alvarado revealed diminished bilateral breath sounds, slightly prolonged expiratory phase. No wheezing. HEART: Heart sounds 1 and 2 are heard. They were regular in rate and rhythm at the time of my evaluation. No rubs or murmurs were heard. ABDOMEN: Soft. Bowel sounds are positive, but diminished. It is slightly tender. No hepatosplenomegaly is palpable. EXTREMITIES: Without overt digital clubbing, no cyanosis, no pedal edema. SKIN: The skin turgor is suboptimal. Skin is dry, no tenting. NEUROLOGIC: The exam is grossly nonfocal. He moves all extremities. Sensation is intact in all extremities. LABORATORY DATA: From my review are as follows: Admission white cell count 3900, hemoglobin 9.9, hematocrit 29.9, and platelet count is 177. No band forms reported. INR 1.06. Arterial blood gas showed a pH of 7.35, pCO2 of 40, pO2 of 446 and that was on the SIMV mode set rate of 16, PEEP of 5, and pressure support I believe was 10, on 100% FIO2. Serum sodium 138, potassium 4.2, chloride 102, bicarbonate 23, BUN 15, creatinine 0.7, glucose was 146. Liver function tests were essentially within normal limits. Troponin was within normal limits. I have reviewed his chest x-ray. Admission chest x-ray is rotated. There is possible borderline cardiomegaly, probably accentuated by the rotation and evidence of hypoventilation. Chest x-ray postoperatively shows an endotracheal tube tip at the right main stem bronchus opening and about to enter the right mainstem. Again, small lung volumes, no cardiomegaly, increased interstitial markings in interstitial and slightly alveolar pattern. He has evidence of chronic granulomas in the mediastinum, perihilar, the film is again rotated to the left. No gross pneumothorax, no gross bony fracture. No central venous access that I can see. Again, I reviewed the CT of the abdomen and pelvis. CT is as mentioned in the body of history above. I did review the chest x-ray films myself. Microbiology: No microbiology studies. ASSESSMENT AND PLAN: We have an elderly gentleman coming in with high-grade bowel obstruction, status post exploratory laparotomy and out of OR, on the mechanical ventilator. Respiratory quevedo, the chest x-ray does not suggest significant severe COPD nor do the laboratory data. Nonetheless, I will change him over to the assist control mode of ventilation, increase tidal volumes to 500, increase the set rate to 20 and to avoid any significant hypercapnic contribution to the mild metabolic acidosis he has at this time. Bronchodilators will be scheduled in the short term, we will go with short acting bronchodilators q.6 hours. Aspiration precautions will be maintained and ventilator bundle will be addressed daily. Oxygen will be weaned to keep sats greater than or equal to about 94%. We will reevaluate him in the morning. From a cardiovascular standpoint, blood pressure is holding at this point. Initial acute coronary syndrome screen was negative. We will follow him clinically. From a GI and nutritional standpoint, he will remain n.p.o. for now until cleared by surgery. He is appropriately on GI prophylaxis. Aspiration precautions will be maintained. I should mention cardiovascular quevedo he has the report of the history of apical thrombus. I believe he is appropriately fully anticoagulated; however, Cardiology evaluation is appropriate and actually he has been seen by virtual assistant for advertisers. I am now reviewing the records and he is a high risk and he will continue the Lovenox that he was on. From a renal standpoint, no major electrolyte abnormalities at this point. He is making urine. Inputs and outputs will be monitored. Electrolytes will be corrected as necessary. From an infectious disease standpoint, he received Ancef and really no signs and symptoms of significant sepsis. I will draw a set of blood cultures, but follow him off antibiotics at this time. I will get a CRP level. I will get a lactic acid level and anti-infectives if started will be deescalated based on results of clinical and microbiologic data. From a [employer] standpoint, the exam was grossly nonfocal. No acute indication for neuro imaging. We will follow him clinically. From a general and hospital healthcare maintenance standpoint, he is appropriately on gastrointestinal prophylaxis. He is fully anticoagulated. Flu and pneumonia vaccination will be per protocol. Thank you very much for the consult, Dr. Vaughan and , we will follow along and make further recommendations as picture progresses/becomes clearer. He is critically ill on life-sustaining interventions including mechanical ventilatory support at high risk for further deterioration including . At this point, I have spent about 35-40 minutes of critical care time without overlap and excluding any procedural time that may be necessary. JOB# [id number] DAVID/NELDA
[2017-03-16] MEDS: BABY ASPIRIN PO SCH (09:42)
[2017-03-16] MEDS: REGLAN IV SCH ×3 (09:48→22:32)
[2017-03-16] MEDS ORDERED: PEPCID PO SCH (10:00)
[2017-03-16] MEDS ORDERED: LASIX PO SCH (10:00)
--- NOTE | 2017-03-16 10:28 | Progress Note ---
Assessment and Plan Acute Hypoxemic Respiratory Failure on MVS SBO s/p Ex-lap Acute CHF exacerbation Sepsis Syndrome HTN Severe LV Dysfunction Left Ventricular Thrombus Anemia - Re-intubated after failed extubation yesterday - Advance ETT 2 cm - schedule lasix 40mg IV q12h - continue dobutamine - walton culture and begin empiric levaquin re: fever spike - get CRP and lactate and trend - continue to wean oxygen for O2 Sats > 94% - Continue full anticoagulation re: LV thrombus - Wound Care per Surgeon s/p ex-lap - oral/enteral nutrition once cleared by surgeon - scheduled bronchodilators and pulmonary toilet - VAP bundle addressed ...he is critically ill on life sustaining interventions including MVS and at risk for further deterioration ....will re-evaluate in am & prn ......32' CCT Subjective Date of service: 03/16/17 Principal diagnosis: Acute Respiratory Failure on MVS; SBO s/p Ex-lap Interval history: Patient is seen today for: Acute Respiratory Failure and Ventilator Management Seen and examined at bedside; 24hour events reviewed; nursing and respiratory care staff consulted; no adverse overnight events reported to me; remains on MVS ; anxious and with increased work of breathing on MVS; ETT changed due to cuff leak earlier; still with frothy secretions; on Dobutamine drip at 5 mics/kg/min ; denies acute chest pains though; No N/V; he spiked a fever of 101/1 F earlier Objective Vital Signs - 12hr 03/15/17 03/15/17 03/15/17 22:30 22:40 22:45 Temperature Pulse Rate 112 H 113 H 110 H Respiratory 20 24 30 H Rate Blood Pressure 89/58 89/58 Blood Pressure 110/60 [Right] O2 Sat by Pulse 100 100 100 Oximetry 03/15/17 03/15/17 03/15/17 22:50 23:00 23:10 Temperature Pulse Rate 110 H 107 H 118 H Respiratory 20 19 16 Rate Blood Pressure 83/52 87/52 100/66 Blood Pressure [Right] O2 Sat by Pulse 100 100 100 Oximetry 03/15/17 03/15/17 03/15/17 23:20 23:30 23:40 Temperature Pulse Rate 120 H 121 H 122 H Respiratory 20 19 19 Rate Blood Pressure 107/62 111/64 111/64 Blood Pressure [Right] O2 Sat by Pulse 100 100 100 Oximetry 03/15/17 03/15/17 03/16/17 23:50 23:52 00:00 Temperature 100.9 F H Pulse Rate 119 H 136 H 147 H Respiratory 20 24 Rate Blood Pressure 112/64 122/76 122/76 Blood Pressure [Right] O2 Sat by Pulse 100 99 98 Oximetry 03/16/17 03/16/17 03/16/17 00:10 00:19 00:20 Temperature 100.4 F H Pulse Rate 127 H 125 H Respiratory 20 22 Rate Blood Pressure 122/76 111/58 Blood Pressure [Right] O2 Sat by Pulse 97 100 Oximetry 03/16/17 03/16/17 03/16/17 00:30 00:40 00:50 Temperature Pulse Rate 124 H 123 H 119 H Respiratory 21 21 20 Rate Blood Pressure 108/62 111/58 103/62 Blood Pressure [Right] O2 Sat by Pulse 98 99 98 Oximetry 03/16/17 03/16/17 03/16/17 01:00 01:10 01:20 Temperature Pulse Rate 121 H 117 H 117 H Respiratory 22 20 20 Rate Blood Pressure 99/63 103/62 106/63 Blood Pressure [Right] O2 Sat by Pulse 100 100 100 Oximetry 03/16/17 03/16/17 03/16/17 01:30 01:40 01:50 Temperature Pulse Rate 114 H 142 H 125 H Respiratory 20 26 H 21 Rate Blood Pressure 96/58 106/63 106/67 Blood Pressure [Right] O2 Sat by Pulse 99 98 100 Oximetry 03/16/17 03/16/17 03/16/17 02:00 02:10 02:20 Temperature Pulse Rate 124 H 118 H 120 H Respiratory 23 20 21 Rate Blood Pressure 106/67 106/67 109/67 Blood Pressure [Right] O2 Sat by Pulse 100 100 100 Oximetry 03/16/17 03/16/17 03/16/17 02:30 02:40 02:50 Temperature Pulse Rate 125 H 125 H 120 H Respiratory 22 21 23 Rate Blood Pressure 112/62 109/65 103/58 Blood Pressure [Right] O2 Sat by Pulse 100 100 100 Oximetry 03/16/17 03/16/17 03/16/17 03:00 03:10 03:20 Temperature Pulse Rate 121 H 130 H 125 H Respiratory 23 26 H 24 Rate Blood Pressure 101/54 101/54 109/56 Blood Pressure [Right] O2 Sat by Pulse 100 100 99 Oximetry 03/16/17 03/16/17 03/16/17 03:30 03:40 03:50 Temperature Pulse Rate 124 H 120 H 109 H Respiratory 24 20 20 Rate Blood Pressure 110/59 110/59 98/49 Blood Pressure [Right] O2 Sat by Pulse 100 100 100 Oximetry 03/16/17 03/16/17 03/16/17 04:00 04:10 04:13 Temperature 101.1 F H Pulse Rate 114 H 109 H 109 H Respiratory 23 25 H Rate Blood Pressure 101/56 101/56 101/56 Blood Pressure [Right] O2 Sat by Pulse 100 100 100 Oximetry 03/16/17 03/16/17 03/16/17 04:20 04:30 04:40 Temperature Pulse Rate 106 H 105 H 109 H Respiratory 20 21 22 Rate Blood Pressure 99/59 88/54 88/54 Blood Pressure [Right] O2 Sat by Pulse 100 100 100 Oximetry 03/16/17 03/16/17 03/16/17 04:50 04:59 05:00 Temperature 99.4 F Pulse Rate 101 H 101 H Respiratory 20 20 Rate Blood Pressure 102/56 98/53 Blood Pressure [Right] O2 Sat by Pulse 100 100 Oximetry 03/16/17 03/16/17 03/16/17 05:10 05:20 05:30 Temperature Pulse Rate 103 H 97 H 98 H Respiratory 22 20 20 Rate Blood Pressure 98/53 102/50 102/50 Blood Pressure [Right] O2 Sat by Pulse 100 100 Oximetry 03/16/17 03/16/17 03/16/17 05:40 05:50 06:00 Temperature Pulse Rate 100 H 103 H 104 H Respiratory 31 H 24 21 Rate Blood Pressure 103/47 116/67 107/61 Blood Pressure [Right] O2 Sat by Pulse 100 100 100 Oximetry 03/16/17 03/16/17 03/16/17 06:10 06:20 06:30 Temperature Pulse Rate 107 H 102 H 103 H Respiratory 22 23 27 H Rate Blood Pressure 107/61 120/68 111/55 Blood Pressure [Right] O2 Sat by Pulse 100 100 100 Oximetry 03/16/17 03/16/17 03/16/17 06:40 06:50 07:00 Temperature Pulse Rate 99 H 93 H 97 H Respiratory 22 20 22 Rate Blood Pressure 111/55 113/52 102/48 Blood Pressure [Right] O2 Sat by Pulse 100 100 Oximetry 03/16/17 03/16/17 03/16/17 07:10 08:00 08:09 Temperature 98.6 F Pulse Rate 84 84 Respiratory 20 Rate Blood Pressure 102/48 102/48 Blood Pressure [Right] O2 Sat by Pulse 100 100 Oximetry Constitutional: alert, appears uncomfortable Eyes: non-icteric ENT: oropharynx moist, oropharyngeal exudate pre Neck: supple, no lymphadenopathy, JVD (to sternal angle), other (no thyromegaly) Effort: mildly labored Ascultation: Bilateral: diminished breath sounds, rales Percussion: Bilateral: not dull Cardiovascular: regular rate and rhythm, other (no rubs / murmurs) Gastrointestinal: hypoactive bowel sounds, soft, tender (mild diffuse), non- distended, other (No HSM) Integumentary: normal, other (no rash or petechiae) Extremities: no cyanosis, no edema, pulses normal, no ischemia or petechiae Neurologic: normal mental status, non-focal exam, pupils equal and round, motor strength normal and, other (PERRLA, EOMI) Psychiatric: anxious CBC and BMP: 03/16/17 05:58 03/16/17 05:58 ABG, PT/INR, D-dimer: ABG ABG pH 7.408 pH Units (7.350-7.450) 03/16/17 04:20 ABG pCO2 35.8 mm Hg 03/16/17 04:20 ABG pO2 130.4 mm Hg (80.0-90.0) H 03/16/17 04:20 ABG O2 Saturation 98.6 % (95.0-99.0) 03/16/17 04:20 PT/INR, D-dimer PT 16.9 Sec. (12.2-14.9) H 03/15/17 04:15 INR 1.31 (0.87-1.13) H 03/15/17 04:15 Abnormal lab findings: Abnormal Labs 03/14/17 03/14/17 03/15/17 15:36 Unknown 04:15 RBC 2.98 L Hgb 8.2 L Hct 25.2 L RDW 19.5 H Lymph % (Auto) 12.9 L [place] % (Auto) 9.4 H Lymph # 0.7 L Seg Neutrophils % 76.6 H Lymphocytes % (Manual) Lymphocytes # (Manual) PT INR ABG pH 7.349 L ABG pO2 446.4 H 274.8 H ABG O2 Saturation 99.6 H 99.5 H ABG Base Excess -3.4 L -4.6 L ABG Hemoglobin 12.3 L 8.6 L Oxyhemoglobin Chloride Glucose POC Glucose Calcium AST Total Protein Albumin Urine WBC (Auto) Crossmatch 03/15/17 03/15/17 03/15/17 04:15 04:15 04:45 RBC Hgb Hct RDW Lymph % (Auto) [place] % (Auto) Lymph # Seg Neutrophils % Lymphocytes % (Manual) Lymphocytes # (Manual) PT 16.9 H INR 1.31 H ABG pH 7.340 L ABG pO2 168.3 H ABG O2 Saturation ABG Base Excess -3.8 L ABG Hemoglobin 7.7 L Oxyhemoglobin Chloride 114.1 H Glucose 112 H POC Glucose Calcium 7.5 L D AST Total Protein 5.5 L D Albumin 2.8 L Urine WBC (Auto) Crossmatch 03/15/17 03/15/17 03/15/17 06:06 08:20 13:05 RBC Hgb Hct RDW Lymph % (Auto) [place] % (Auto) Lymph # Seg Neutrophils % Lymphocytes % (Manual) Lymphocytes # (Manual) PT INR ABG pH ABG pO2 ABG O2 Saturation ABG Base Excess -2.9 L ABG Hemoglobin 8.5 L Oxyhemoglobin 94.3 L Chloride Glucose POC Glucose Calcium AST Total Protein Albumin Urine WBC (Auto) 15.0 H Crossmatch See Detail 03/15/17 03/15/17 03/15/17 14:20 15:35 20:29 RBC 3.46 L Hgb 9.7 L Hct 29.4 L RDW 19.0 H Lymph % (Auto) 12.6 L [place] % (Auto) 9.1 H Lymph # 0.8 L Seg Neutrophils % 77.2 H Lymphocytes % (Manual) Lymphocytes # (Manual) PT INR ABG pH 7.261 L ABG pO2 170.6 H 229.2 H ABG O2 Saturation 99.4 H ABG Base Excess -6.1 L -3.4 L ABG Hemoglobin 10.4 L 8.3 L Oxyhemoglobin Chloride Glucose POC Glucose Calcium AST Total Protein Albumin Urine WBC (Auto) Crossmatch 03/15/17 03/16/17 03/16/17 23:09 04:20 05:58 RBC 3.24 L Hgb 9.1 L Hct 27.1 L RDW 19.1 H Lymph % (Auto) [place] % (Auto) Lymph # Seg Neutrophils % Lymphocytes % (Manual) 11.0 L Lymphocytes # (Manual) 0.6 L PT INR ABG pH ABG pO2 130.4 H ABG O2 Saturation ABG Base Excess -2.4 L ABG Hemoglobin 6.1 L Oxyhemoglobin Chloride Glucose POC Glucose 127 H Calcium AST Total Protein Albumin Urine WBC (Auto) Crossmatch 03/16/17 05:58 RBC Hgb Hct RDW Lymph % (Auto) [place] % (Auto) Lymph # Seg Neutrophils % Lymphocytes % (Manual) Lymphocytes # (Manual) PT INR ABG pH ABG pO2 ABG O2 Saturation ABG Base Excess ABG Hemoglobin Oxyhemoglobin Chloride 108.1 H Glucose 117 H POC Glucose Calcium 7.8 L AST 113 H Total Protein 5.4 L Albumin 2.7 L Urine WBC (Auto) Crossmatch Chest x-ray: image reviewed (bilatera; perihilar predominant infiltrates are persistent but stable; ETT above clavicular heads) Allied health notes reviewed: RT
--- NOTE | 2017-03-16 11:20 | Event Note ---
Date: 03/15/17 Patient reintubated after extubation today.
[2017-03-16] MEDS ORDERED: LOVENOX SUB-Q SCH (12:00)
[2017-03-16] MEDS: LASIX IV SCH ×2 (12:18→21:51)
[2017-03-16] MEDS: LEVAQUIN 750MG/150ML 750 MG/150 ML BAG IV SCH (12:19)
[2017-03-16] MEDS: fentaNYL DRIP Premix 2,000 MCG/100 ML BAG IV SCH (12:29)
--- NOTE | 2017-03-16 12:55 | Progress Note ---
Assessment and Plan POD #2 Pt still intubated. on pressor support Abd soft. dressings dry. -BS gas noted in rectal tube bag guarded continue ng suction. rectal tube drainage. IV reglan monitor h/h f/u portable KUB in am Selected Entries 03/16/17 10:50 Pulse Rate 84 Blood Pressure 102/48 Laboratory Tests 03/15/17 03/16/17 03/16/17 14:20 04:20 05:58 WBC 6.0 5.0 Hgb 9.7 L 9.1 L Hct 29.4 L 27.1 L ABG pH 7.408 ABG pCO2 35.8 ABG pO2 130.4 H ABG HCO3 22.1 ABG O2 Saturation 98.6 FiO2 80 Sodium Potassium Chloride BUN Creatinine Calcium Total Bilirubin AST ALT Alkaline Phosphatase 03/16/17 05:58 WBC Hgb Hct ABG pH ABG pCO2 ABG pO2 ABG HCO3 ABG O2 Saturation FiO2 Sodium 142 Potassium 3.7 Chloride 108.1 H BUN 14 Creatinine 1.0 Calcium 7.8 L Total Bilirubin 1.20 AST 113 H ALT 34 Alkaline Phosphatase 67 Objective Vital Signs - 12hr 03/16/17 03/16/17 03/16/17 01:00 01:10 01:20 Temperature Pulse Rate 121 H 117 H 117 H Respiratory 22 20 20 Rate Blood Pressure 99/63 103/62 106/63 O2 Sat by Pulse 100 100 100 Oximetry 03/16/17 03/16/17 03/16/17 01:30 01:40 01:50 Temperature Pulse Rate 114 H 142 H 125 H Respiratory 20 26 H 21 Rate Blood Pressure 96/58 106/63 106/67 O2 Sat by Pulse 99 98 100 Oximetry 03/16/17 03/16/17 03/16/17 02:00 02:10 02:20 Temperature Pulse Rate 124 H 118 H 120 H Respiratory 23 20 21 Rate Blood Pressure 106/67 106/67 109/67 O2 Sat by Pulse 100 100 100 Oximetry 03/16/17 03/16/17 03/16/17 02:30 02:40 02:50 Temperature Pulse Rate 125 H 125 H 120 H Respiratory 22 21 23 Rate Blood Pressure 112/62 109/65 103/58 O2 Sat by Pulse 100 100 100 Oximetry 03/16/17 03/16/17 03/16/17 03:00 03:10 03:20 Temperature Pulse Rate 121 H 130 H 125 H Respiratory 23 26 H 24 Rate Blood Pressure 101/54 101/54 109/56 O2 Sat by Pulse 100 100 99 Oximetry 03/16/17 03/16/17 03/16/17 03:30 03:40 03:50 Temperature Pulse Rate 124 H 120 H 109 H Respiratory 24 20 20 Rate Blood Pressure 110/59 110/59 98/49 O2 Sat by Pulse 100 100 100 Oximetry 03/16/17 03/16/17 03/16/17 04:00 04:10 04:13 Temperature 101.1 F H Pulse Rate 114 H 109 H 109 H Respiratory 23 25 H Rate Blood Pressure 101/56 101/56 101/56 O2 Sat by Pulse 100 100 100 Oximetry 03/16/17 03/16/17 03/16/17 04:20 04:30 04:40 Temperature Pulse Rate 106 H 105 H 109 H Respiratory 20 21 22 Rate Blood Pressure 99/59 88/54 88/54 O2 Sat by Pulse 100 100 100 Oximetry 03/16/17 03/16/17 03/16/17 04:50 04:59 05:00 Temperature 99.4 F Pulse Rate 101 H 101 H Respiratory 20 20 Rate Blood Pressure 102/56 98/53 O2 Sat by Pulse 100 100 Oximetry 03/16/17 03/16/17 03/16/17 05:10 05:20 05:30 Temperature Pulse Rate 103 H 97 H 98 H Respiratory 22 20 20 Rate Blood Pressure 98/53 102/50 102/50 O2 Sat by Pulse 100 100 Oximetry 03/16/17 03/16/17 03/16/17 05:40 05:50 06:00 Temperature Pulse Rate 100 H 103 H 104 H Respiratory 31 H 24 21 Rate Blood Pressure 103/47 116/67 107/61 O2 Sat by Pulse 100 100 100 Oximetry 03/16/17 03/16/17 03/16/17 06:10 06:20 06:30 Temperature Pulse Rate 107 H 102 H 103 H Respiratory 22 23 27 H Rate Blood Pressure 107/61 120/68 111/55 O2 Sat by Pulse 100 100 100 Oximetry 03/16/17 03/16/17 03/16/17 06:40 06:50 07:00 Temperature Pulse Rate 99 H 93 H 97 H Respiratory 22 20 22 Rate Blood Pressure 111/55 113/52 102/48 O2 Sat by Pulse 100 100 Oximetry 03/16/17 03/16/17 03/16/17 07:10 07:20 07:30 Temperature Pulse Rate 84 110 H 106 H Respiratory 20 20 11 L Rate Blood Pressure 102/48 98/53 101/59 O2 Sat by Pulse 100 100 100 Oximetry 03/16/17 03/16/17 03/16/17 07:40 07:50 08:00 Temperature 98.6 F Pulse Rate 105 H 132 H 114 H Respiratory 19 14 22 Rate Blood Pressure 101/59 98/53 101/60 O2 Sat by Pulse 100 99 100 Oximetry 03/16/17 03/16/17 03/16/17 08:10 08:20 08:30 Temperature Pulse Rate 104 H 104 H 110 H Respiratory 20 19 21 Rate Blood Pressure 101/60 110/59 114/64 O2 Sat by Pulse 100 100 100 Oximetry 03/16/17 03/16/17 03/16/17 08:40 08:50 09:00 Temperature Pulse Rate 108 H 100 H 103 H Respiratory 22 20 20 Rate Blood Pressure 114/64 101/60 103/54 O2 Sat by Pulse 100 100 100 Oximetry 03/16/17 03/16/17 03/16/17 09:10 09:20 09:30 Temperature Pulse Rate 101 H 108 H 128 H Respiratory 20 18 23 Rate Blood Pressure 103/54 105/59 122/72 O2 Sat by Pulse 100 100 100 Oximetry 03/16/17 03/16/17 03/16/17 09:40 09:50 10:00 Temperature Pulse Rate 115 H 114 H 107 H Respiratory 20 14 20 Rate Blood Pressure 122/72 104/60 102/53 O2 Sat by Pulse 100 100 100 Oximetry 03/16/17 03/16/17 03/16/17 10:10 10:20 10:30 Temperature Pulse Rate 104 H 104 H 103 H Respiratory 20 20 22 Rate Blood Pressure 102/53 95/50 87/58 O2 Sat by Pulse 100 100 99 Oximetry 03/16/17 03/16/17 10:40 10:50 Temperature Pulse Rate 105 H 84 Respiratory 19 Rate Blood Pressure 87/58 102/48 O2 Sat by Pulse 100 100 Oximetry - Labs 03/16/17 05:58 03/16/17 05:58 Diabetes panel 03/16/17 Range/Units 05:58 Sodium 142 (137-145) mmol/L Potassium 3.7 (3.6-5.0) mmol/L Chloride 108.1 H (98-107) mmol/L Carbon Dioxide 22 (22-30) mmol/L BUN 14 (9-20) mg/dL Creatinine 1.0 (0.8-1.5) mg/dL Glucose 117 H (75-100) mg/dL Calcium 7.8 L (8.4-10.2) mg/dL AST 113 H (5-40) units/L ALT 34 (7-56) units/L Alkaline Phosphatase 67 (35-129) units/L Total Protein 5.4 L (6.3-8.2) g/dL Albumin 2.7 L (3.9-5) g/dL Calcium panel 03/16/17 Range/Units 05:58 Calcium 7.8 L (8.4-10.2) mg/dL Albumin 2.7 L (3.9-5) g/dL Pituitary panel 03/16/17 Range/Units 05:58 Sodium 142 (137-145) mmol/L Potassium 3.7 (3.6-5.0) mmol/L Chloride 108.1 H (98-107) mmol/L Carbon Dioxide 22 (22-30) mmol/L BUN 14 (9-20) mg/dL Creatinine 1.0 (0.8-1.5) mg/dL Glucose 117 H (75-100) mg/dL Calcium 7.8 L (8.4-10.2) mg/dL Adrenal panel 03/16/17 Range/Units 05:58 Sodium 142 (137-145) mmol/L Potassium 3.7 (3.6-5.0) mmol/L Chloride 108.1 H (98-107) mmol/L Carbon Dioxide 22 (22-30) mmol/L BUN 14 (9-20) mg/dL Creatinine 1.0 (0.8-1.5) mg/dL Glucose 117 H (75-100) mg/dL Calcium 7.8 L (8.4-10.2) mg/dL Total Bilirubin 1.20 (0.1-1.2) mg/dL AST 113 H (5-40) units/L ALT 34 (7-56) units/L Alkaline Phosphatase 67 (35-129) units/L Total Protein 5.4 L (6.3-8.2) g/dL Albumin 2.7 L (3.9-5) g/dL
[2017-03-16] MEDS: DOBUTREX DRIP 500MG/D5W 250ML 500 MG/250 ML BAG IV SCH (13:09)
--- NOTE | 2017-03-16 13:31 | Progress Note ---
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 LV thrombus HTN anemia from blood loss HLP Subtherapeutic INR on admission - questionable compliance Plan: Cont present cardiac management. Consider addition of ACEI/ARB when BPs can tolerate and if renal function remains stable. Consider d/c of dobutamine tomorrow. Resume coumadin with tx INR 2-3 if/when okay per surgery. The patient has been seen in conjunction with Dr. Rush who agrees with the assessment and plan of care. Subjective Date of service: 03/16/17 Principal diagnosis: Acute Respiratory Failure on MVS; SBO s/p Ex-lap Interval history: pt remains intubated. Objective Last Vital Signs Temp 98.5 F 03/16/17 12:00 Pulse 110 H 03/16/17 13:18 Resp 19 03/16/17 10:40 BP 115/55 03/16/17 13:18 Pulse Ox 100 03/16/17 13:18 - Physical Examination General: Other (intubated) HEENT: Positive: PERRL, EOMI Neck: Positive: neck supple Cardiac: Positive: Reg Rate and Rhythm, irregularly irregular Lungs: Positive: Decreased Breath Sounds, Ventilated Respirations Neuro: Positive: Other (sedated) Abdomen: Positive: Tender Extremities: Present: normal. Absent: edema - Labs and Meds Cardiac Enzymes 03/16/17 Range/Units 05:58 AST 113 H (5-40) units/L CBC 03/15/17 03/16/17 Range/Units 14:20 05:58 WBC 6.0 5.0 (4.5-11.0) K/mm3 RBC 3.46 L 3.24 L (3.65-5.03) M/mm3 Hgb 9.7 L 9.1 L (11.8-15.2) gm/dl Hct 29.4 L 27.1 L (35.5-45.6) % Plt Count 171 160 (140-440) K/mm3 Lymph # 0.8 L (1.2-5.4) K/mm3 Imperial # 0.5 (0.0-0.8) K/mm3 Eos # 0.1 (0.0-0.4) K/mm3 Baso # 0.0 (0.0-0.1) K/mm3 Comprehensive Metabolic Panel 03/16/17 Range/Units 05:58 Sodium 142 (137-145) mmol/L Potassium 3.7 (3.6-5.0) mmol/L Chloride 108.1 H (98-107) mmol/L Carbon Dioxide 22 (22-30) mmol/L BUN 14 (9-20) mg/dL Creatinine 1.0 (0.8-1.5) mg/dL Glucose 117 H (75-100) mg/dL Calcium 7.8 L (8.4-10.2) mg/dL AST 113 H (5-40) units/L ALT 34 (7-56) units/L Alkaline Phosphatase 67 (35-129) units/L Total Protein 5.4 L (6.3-8.2) g/dL Albumin 2.7 L (3.9-5) g/dL - Imaging and Cardiology EKG: image reviewed Stress echo: other (02/2017 no ischemia EF 10-15%) Echo: report reviewed (02/2017 over LV dysfunction EF 10-15% with apical thrombus normal RV size and function) - Allied health notes Allied health notes reviewed: RT
--- NOTE | 2017-03-16 15:49 | XRay Report ---
PORTABLE CHEST INDICATION: Right arm PICC placement. COMPARISON: 1:38 AM earlier today. FINDINGS: Portable, frontal chest radiograph, 3:23 PM, 03/16/2017 demonstrates slight improved congestive haziness, though perihilar and lower lung airspace opacities persist. Stable esophagogastric tube. Endotracheal tube tip now projects about T1-T2 level, approximately 2 cm higher than before. New right upper extremity PICC tip along the distal SVC. Stable cardiomediastinal silhouette, EKG leads and osseous structures. CONCLUSION: 1. Interval uncomplicated right upper extremity PICC placement. Endotracheal tube tip also now projects slightly higher, as described. 2. Improving CHF pattern. Thank you for the opportunity to participate in this patient's care.
[2017-03-16] MEDS: PEPCID IV SCH ×2 (15:55→21:51)
[2017-03-16] MEDS: DIPRIVAN 10 MG/ML 1,000 MG/100 ML BOTTLE IV SCH (17:39)
--- NOTE | 2017-03-16 19:42 | Progress Note ---
Assessment and Plan Acute respiratory failure - intubated before surgery on 03/14/17 - extubation yesterday but required reintubation for respiratory distress - pulmonary following, cont breathing treatment and mechanical ventilation [place] syndrom - s/p exploratory laperotomy on 03/14/17 - CT abdomen/pelvis suggested closed loop obstruction, which rulled out - Placed on rectal tube, reglan, consulted GI RLE DVT - discussed with intencivist - poor candidate for anticoagulation, may need IVC filter - will place on heparin drip for now Anemia - Hb dropped to 8.2 - could be from hemodilution and from blood loss during surgery which is expected - one unit PRBC transfusion on 03/15/17 CHF (Ef 10-15%) - cautious with iv fluid - placed on dobutamin drip Coronary artery disease - cardiology following Left apical thrombus with subtherapeutic INR - on heparin drip History of CVA - no acute issue now, monitor clinically COPD with exacerbation - likely due to intestinal distension - cont periodic breathing treatment DVT PX - heparin drip Brief History: This is a 76-year-old gentleman with history of hypertension hyperlipidemia severe LV dysfunction EF 10-50% with apical thrombus was in a assisted was mostly in Coumadin and having abdominal pain was sent back found to have surgical emergency of closed loop bowel obstruction. Current Meds: Generic Name Dose Route Start Last Admin Trade Name Freq PRN Reason Stop Dose Admin Acetaminophen 650 mg 03/15/17 10:00 03/16/17 03:28 Tylenol PO 650 mg Q4H PRN Administration Pain,Mild (1-3) FEVER>100.5/LEBRON Aspirin 81 mg 03/14/17 10:00 03/16/17 09:42 Baby Aspirin PO Not Given QDAY FREYA Atorvastatin Calcium 40 mg 03/14/17 22:00 03/16/17 21:51 Lipitor PO Not Given QHS FREYA Bisacodyl 10 mg 03/14/17 05:15 Dulcolax NM QDAY PRN Constipation unrelieved by MOM Famotidine 20 mg 03/16/17 15:00 03/16/17 21:51 Pepcid IV 20 mg BID FREYA Administration Furosemide 40 mg 03/16/17 12:00 03/16/17 21:51 Lasix IV 40 mg BID FREYA Administration Haloperidol Lactate 5 mg 03/15/17 14:29 Haldol IV Q6H PRN Agitation Hydrophilic Ointment 1 applic 03/14/17 15:13 Vaseline Lip Therapy TP Q2HR PRN Dry Lips Propofol 1,000 mg in 100 mls @ 2.068 mls/hr 03/14/17 16:00 03/16/17 17:39 Diprivan 10 Mg/Ml IV 5 mcg/kg/min TITR FREYA 2.068 mls/hr Protocol Administration 5 MCG/KG/MIN Fentanyl Citrate 2,000 mcg in 100 mls @ 3.447 mls/hr 03/14/17 19:50 03/16/17 12:29 Fentanyl Drip Premix IV 1 mcg/kg/hr TITR FREYA 3.447 mls/hr Protocol Administration 1 MCG/KG/HR Vasopressin 20 unit/ Sodium 101 mls @ 12.12 mls/hr 03/15/17 15:00 Chloride IV TITR FREYA Protocol 0.04 UNITS/MIN Dobutamine HCl/Dextrose 500 mg in 250 mls @ 5.171 mls/hr 03/15/17 15:00 03/16 13:09 Dobutrex Drip 500mg/D5w 250ml IV 5 mcg/kg/min DIRECT FREYA 10.342 mls/hr Protocol Administration 2.5 MCG/KG/MIN Levofloxacin/Dextrose 750 mg in 150 mls @ 100 mls/hr 03/16/17 12:00 03/16/17 12:19 Levaquin 750mg/150ml IV 03/20/17 11:29 100 mls/hr Q24HR FREYA Administration Heparin Sodium/Sodium Chloride 25,000 unit in 500 mls @ 20 mls/hr 03/16/17 22: 00 03/16/17 21:55 Heparin/ 0.45% Nacl-25,000 Unit/500 Ml IV 1,000 units/hr TITR FREYA 20 mls/hr Protocol Administration 1,000 UNITS/HR Magnesium Hydroxide 30 ml 03/14/17 05:15 Milk Of Magnesia PO Q4H PRN Constipation Metoclopramide HCl 10 mg 03/14/17 15:00 03/16/17 22:32 Reglan IV 10 mg Q8H FREYA Administration Metoprolol Tartrate 12.5 mg 03/14/17 10:00 03/16/17 21:53 Lopressor PO Not Given BID FREYA Morphine Sulfate 4 mg 03/14/17 14:03 03/15/17 13:43 Morphine IV 4 mg Q3H PRN Administration Pain , Severe (7-10) Multi-Ingred Cream/Lotion/Oil/Oint 1 applic 03/14/17 15:13 Artificial Tears Ophth Oint OU Q4HR PRN Dry Eye(s) Ondansetron HCl 4 mg 03/14/17 14:03 Zofran IV Q4H PRN Nausea And Vomiting Subjective Date of service: 03/16/17 Principal diagnosis: Acute Respiratory Failure on MVS; SBO s/p Ex-lap Interval history: Pt seen and examined remained intubated, placed on dobutamine LE doppler showed Rt LE DVT Objective - Exam Narrative Exam: General appearance: Present: no acute distress, well-nourished - EENT Eyes: PERRL, EOM intact, no scleral icterus, no conjunctival injection ENT: hearing intact, other (NG and ET tube on place) Ears: bilateral: normal - Neck Neck: supple, normal ROM, other (ET tube on place) - Respiratory Respiratory effort: normal Respiratory: bilateral: CTA - Cardiovascular Rhythm: other (tachycardic) Heart Sounds: Present: S1 & S2. Absent: gallop, rub Extremities: pulses intact, No edema, normal color, Full ROM - Gastrointestinal General gastrointestinal: Present: other (surgical dressing on place, rectal tube on place) - Integumentary Integumentary: clear, warm, dry - Musculoskeletal Musculoskeletal: other (no weakness) - Neurologic Neurologic: moves all extremities - Psychiatric Psychiatric: no agitated - Constitutional Vitals: Vital Signs - 12hr 03/16/17 03/16/17 03/16/17 07:50 08:00 08:10 Temperature 98.6 F Pulse Rate 132 H 114 H 104 H Respiratory 14 22 20 Rate Blood Pressure 98/53 101/60 101/60 O2 Sat by Pulse 99 100 100 Oximetry 03/16/17 03/16/17 03/16/17 08:20 08:30 08:40 Temperature Pulse Rate 104 H 110 H 108 H Respiratory 19 21 22 Rate Blood Pressure 110/59 114/64 114/64 O2 Sat by Pulse 100 100 100 Oximetry 03/16/17 03/16/17 03/16/17 08:50 09:00 09:10 Temperature Pulse Rate 100 H 103 H 101 H Respiratory 20 20 20 Rate Blood Pressure 101/60 103/54 103/54 O2 Sat by Pulse 100 100 100 Oximetry 03/16/17 03/16/17 03/16/17 09:20 09:30 09:40 Temperature Pulse Rate 108 H 128 H 115 H Respiratory 18 23 20 Rate Blood Pressure 105/59 122/72 122/72 O2 Sat by Pulse 100 100 100 Oximetry 03/16/17 03/16/17 03/16/17 09:50 10:00 10:10 Temperature Pulse Rate 114 H 107 H 104 H Respiratory 14 20 20 Rate Blood Pressure 104/60 102/53 102/53 O2 Sat by Pulse 100 100 100 Oximetry 03/16/17 03/16/17 03/16/17 10:20 10:30 10:40 Temperature Pulse Rate 104 H 103 H 105 H Respiratory 20 22 19 Rate Blood Pressure 95/50 87/58 87/58 O2 Sat by Pulse 100 99 100 Oximetry 03/16/17 03/16/17 03/16/17 10:50 11:00 11:10 Temperature Pulse Rate 107 H 108 H 102 H Respiratory 18 18 15 Rate Blood Pressure 87/58 87/58 105/46 O2 Sat by Pulse 99 99 100 Oximetry 03/16/17 03/16/17 03/16/17 11:20 11:30 11:40 Temperature Pulse Rate 107 H 110 H 111 H Respiratory 18 17 21 Rate Blood Pressure 106/53 112/62 112/62 O2 Sat by Pulse 100 100 100 Oximetry 03/16/17 03/16/17 03/16/17 11:50 12:00 12:10 Temperature 98.5 F Pulse Rate 119 H 104 H 106 H Respiratory 20 17 19 Rate Blood Pressure 118/73 91/55 91/55 O2 Sat by Pulse 97 99 100 Oximetry 03/16/17 03/16/17 03/16/17 12:20 12:30 12:40 Temperature Pulse Rate 112 H 111 H 112 H Respiratory 21 15 17 Rate Blood Pressure 117/61 108/59 108/59 O2 Sat by Pulse 100 99 100 Oximetry 03/16/17 03/16/17 03/16/17 12:50 13:00 13:10 Temperature Pulse Rate 106 H 103 H 111 H Respiratory 16 15 18 Rate Blood Pressure 114/63 113/58 113/58 O2 Sat by Pulse 100 100 100 Oximetry 03/16/17 03/16/17 03/16/17 13:18 13:20 13:30 Temperature Pulse Rate 110 H 108 H 116 H Respiratory 17 19 Rate Blood Pressure 115/55 111/67 118/72 O2 Sat by Pulse 100 100 98 Oximetry 03/16/17 03/16/17 03/16/17 13:40 13:50 14:00 Temperature Pulse Rate 109 H 102 H 107 H Respiratory 18 19 17 Rate Blood Pressure 118/72 108/61 100/67 O2 Sat by Pulse 99 100 99 Oximetry 03/16/17 03/16/17 03/16/17 14:10 14:20 14:30 Temperature Pulse Rate 105 H 108 H 117 H Respiratory 19 17 21 Rate Blood Pressure 100/67 106/67 106/67 O2 Sat by Pulse 100 100 99 Oximetry 03/16/17 03/16/17 03/16/17 14:40 14:50 15:00 Temperature Pulse Rate 115 H 113 H 114 H Respiratory 19 18 20 Rate Blood Pressure 106/67 106/67 106/67 O2 Sat by Pulse 100 Oximetry 03/16/17 03/16/17 03/16/17 15:10 15:20 15:30 Temperature Pulse Rate 110 H 109 H 111 H Respiratory 16 20 21 Rate Blood Pressure 106/67 118/63 118/63 O2 Sat by Pulse 100 100 Oximetry 03/16/17 03/16/17 03/16/17 15:40 15:50 16:00 Temperature 98.7 F Pulse Rate 112 H 109 H 106 H Respiratory 21 21 18 Rate Blood Pressure 107/59 115/61 108/61 O2 Sat by Pulse 100 100 100 Oximetry 03/16/17 03/16/17 03/16/17 16:10 16:20 16:30 Temperature Pulse Rate 109 H 105 H 108 H Respiratory 15 18 19 Rate Blood Pressure 108/61 115/67 113/62 O2 Sat by Pulse 100 100 100 Oximetry 03/16/17 03/16/17 03/16/17 16:40 16:50 17:00 Temperature Pulse Rate 111 H 107 H 107 H Respiratory 15 16 17 Rate Blood Pressure 113/62 120/62 113/66 O2 Sat by Pulse 100 100 100 Oximetry 03/16/17 03/16/17 03/16/17 17:10 17:20 17:30 Temperature Pulse Rate 101 H 113 H 108 H Respiratory 14 21 19 Rate Blood Pressure 113/66 103/41 118/69 O2 Sat by Pulse 100 100 100 Oximetry 03/16/17 03/16/17 03/16/17 17:41 17:43 17:51 Temperature Pulse Rate 107 H 104 H 104 H Respiratory 16 15 Rate Blood Pressure 103/41 116/45 121/64 O2 Sat by Pulse 99 99 99 Oximetry 03/16/17 03/16/17 18:00 18:11 Temperature Pulse Rate 106 H 102 H Respiratory 18 14 Rate Blood Pressure 104/65 104/65 O2 Sat by Pulse 100 100 Oximetry - Labs CBC & Chem 7: 03/16/17 05:58 03/16/17 05:58 Labs: Abnormal lab results 03/15/17 03/15/17 03/16/17 Range/Units 20:29 23:09 04:20 RBC (3.65-5.03) M/mm3 Hgb (11.8-15.2) gm/dl Hct (35.5-45.6) % RDW (13.2-15.2) % Lymphocytes % (Manual) (13.4-35.0) % Lymphocytes # (Manual) (1.2-5.4) K/mm3 ABG pO2 229.2 H 130.4 H (80.0-90.0) mm Hg ABG O2 Saturation 99.4 H (95.0-99.0) % ABG Base Excess -3.4 L -2.4 L (-2.0-3.0) mmol/L ABG Hemoglobin 8.3 L 6.1 L (14.0-18.0) gm/dl Chloride (98-107) mmol/L Glucose (75-100) mg/dL POC Glucose 127 H (70-105) Calcium (8.4-10.2) mg/dL AST (5-40) units/L C-Reactive Protein (0.00-1.30) mg/dL Total Protein (6.3-8.2) g/dL Albumin (3.9-5) g/dL 03/16/17 03/16/17 03/16/17 Range/Units 05:58 05:58 17:51 RBC 3.24 L (3.65-5.03) M/mm3 Hgb 9.1 L (11.8-15.2) gm/dl Hct 27.1 L (35.5-45.6) % RDW 19.1 H (13.2-15.2) % Lymphocytes % (Manual) 11.0 L (13.4-35.0) % Lymphocytes # (Manual) 0.6 L (1.2-5.4) K/mm3 ABG pO2 (80.0-90.0) mm Hg ABG O2 Saturation (95.0-99.0) % ABG Base Excess (-2.0-3.0) mmol/L ABG Hemoglobin (14.0-18.0) gm/dl Chloride 108.1 H (98-107) mmol/L Glucose 117 H (75-100) mg/dL POC Glucose (70-105) Calcium 7.8 L (8.4-10.2) mg/dL AST 113 H (5-40) units/L C-Reactive Protein 23.90 H (0.00-1.30) mg/dL Total Protein 5.4 L (6.3-8.2) g/dL Albumin 2.7 L (3.9-5) g/dL
[2017-03-16] MEDS: HEPARIN/ 0.45% NACL-25,000 UNIT/500 ML 25,000 UNIT/500 ML BAG IV SCH (21:55)
[2017-03-16 22:18] LABS: INR 1.36 (0.87-1.13); Partial Thromboplastin Time 49.4 Sec. (24.2-36.6)
[2017-03-17 05:56] LABS: Hematocrit 25.5 % (35.5-45.6); Hemoglobin 8.6 gm/dl (11.8-15.2); Mean Corpuscular HGB Conc 34 % (32-34); Mean Corpuscular Hemoglobin 28 pg (28-32); Mean Corpuscular Volume 84 fl (84-94); Platelet Count 148 K/mm3 (140-440); Red Blood Count 3.06 M/mm3 (3.65-5.03); Red Cell Distribution Width 18.9 % (13.2-15.2); White Blood Count 6.6 K/mm3 (4.5-11.0)
[2017-03-17 06:09] LABS: INR 1.3 (0.87-1.13)
[2017-03-17 06:31] LABS: Anion Gap 15 mmol/L; BUN/Creatinine Ratio 15; Blood Urea Nitrogen 12 mg/dL (9-20); Calcium 8.3 mg/dL (8.4-10.2); Carbon Dioxide 26 mmol/L (22-30); Chloride 102.2 mmol/L (98-107); Glucose 102 mg/dL (75-100); Potassium 3.2 mmol/L (3.6-5.0); Sodium 140 mmol/L (137-145)
[2017-03-17] MEDS: REGLAN IV SCH ×4 (08:00→22:52)
--- NOTE | 2017-03-17 08:14 | Progress Note ---
Assessment and Plan Acute respiratory failure - intubated before surgery on 03/14/17 - Wean as tolerated - Continue with Bronchodilators. Pulm following COPD with exacerbation - wean off from vent as tolerated - Continue with Bronchodilators - cont periodic breathing treatment SBO - s/p exploratory laperotomy on 03/14/17 - - Placed on rectal tube, consulted GI Anemia - could be from hemodilution and from blood loss during surgery which is expected - s/p one unit PRBC transfusion Acute on Chronic systolic with Ef 10-15% - cautious with iv fluid Coronary artery disease - cardiology following Left apical thrombus with subtherapeutic INR - on hold anticoagulation due to recent surgery History of CVA - Stable. Monitor clinically DVT PX - SCD Critical care time spent > 32 mins in direct pt care and review of laboratory adn radiological data Subjective Date of service: 03/17/17 Principal diagnosis: Acute Respiratory Failure on MVS; SBO s/p Ex-lap Interval history: Remains intubated and vent supported Objective - Constitutional Vitals: Vital Signs - 12hr 03/16/17 03/16/17 03/16/17 20:11 20:21 20:30 Temperature Pulse Rate 106 H 100 H 102 H Respiratory 18 14 18 Rate Blood Pressure 116/67 117/57 121/66 O2 Sat by Pulse 100 100 100 Oximetry 03/16/17 03/16/17 03/16/17 20:41 20:51 20:58 Temperature Pulse Rate 99 H 100 H 103 H Respiratory 15 14 Rate Blood Pressure 121/66 116/67 126/57 O2 Sat by Pulse 100 100 100 Oximetry 03/16/17 03/16/17 03/16/17 21:00 21:11 21:21 Temperature Pulse Rate 100 H 102 H 96 H Respiratory 15 14 15 Rate Blood Pressure 122/62 122/62 111/65 O2 Sat by Pulse 100 100 100 Oximetry 03/16/17 03/16/17 03/16/17 21:30 21:41 21:51 Temperature Pulse Rate 99 H 104 H 102 H Respiratory 15 16 20 Rate Blood Pressure 122/66 122/66 130/81 O2 Sat by Pulse 100 100 100 Oximetry 03/16/17 03/16/17 03/16/17 21:53 22:00 22:11 Temperature Pulse Rate 98 H 102 H 98 H Respiratory 15 14 Rate Blood Pressure 120/53 122/66 122/66 O2 Sat by Pulse Oximetry 03/16/17 03/16/17 03/16/17 22:21 22:31 22:41 Temperature Pulse Rate 104 H 108 H 100 H Respiratory 20 15 17 Rate Blood Pressure 120/59 129/63 129/63 O2 Sat by Pulse Oximetry 03/16/17 03/16/17 03/16/17 22:51 23:00 23:11 Temperature Pulse Rate 98 H 101 H 103 H Respiratory 13 16 15 Rate Blood Pressure 129/63 107/57 107/57 O2 Sat by Pulse Oximetry 03/16/17 03/16/17 03/16/17 23:14 23:21 23:30 Temperature 99.9 F H Pulse Rate 102 H 100 H Respiratory 16 18 Rate Blood Pressure 107/57 112/57 O2 Sat by Pulse Oximetry 03/16/17 03/16/17 03/16/17 23:41 23:47 23:51 Temperature Pulse Rate 102 H 97 H 97 H Respiratory 18 18 Rate Blood Pressure 112/57 120/53 112/57 O2 Sat by Pulse 100 Oximetry 03/17/17 03/17/17 03/17/17 00:00 00:11 00:21 Temperature Pulse Rate 104 H 100 H 103 H Respiratory 16 18 16 Rate Blood Pressure 113/67 113/67 113/67 O2 Sat by Pulse Oximetry 03/17/17 03/17/17 03/17/17 00:30 00:41 00:51 Temperature Pulse Rate 115 H 137 H 115 H Respiratory 20 16 20 Rate Blood Pressure 131/82 131/82 131/82 O2 Sat by Pulse 99 99 Oximetry 03/17/17 03/17/17 03/17/17 01:00 01:11 01:21 Temperature Pulse Rate 114 H 108 H 107 H Respiratory 21 15 14 Rate Blood Pressure 118/71 118/71 118/71 O2 Sat by Pulse 99 100 100 Oximetry 03/17/17 03/17/17 03/17/17 01:30 01:41 01:51 Temperature Pulse Rate 104 H 111 H 103 H Respiratory 14 16 14 Rate Blood Pressure 104/62 104/62 104/62 O2 Sat by Pulse 100 100 100 Oximetry 03/17/17 03/17/17 03/17/17 02:00 02:11 02:21 Temperature Pulse Rate 108 H 126 H 110 H Respiratory 19 19 18 Rate Blood Pressure 131/77 131/77 131/77 O2 Sat by Pulse 100 100 100 Oximetry 03/17/17 03/17/17 03/17/17 02:30 02:41 02:51 Temperature Pulse Rate 108 H 104 H 101 H Respiratory 16 16 15 Rate Blood Pressure 121/71 121/71 121/71 O2 Sat by Pulse 100 100 100 Oximetry 03/17/17 03/17/17 03/17/17 03:00 03:11 03:21 Temperature Pulse Rate 102 H 95 H 92 H Respiratory 16 15 14 Rate Blood Pressure 111/57 111/57 111/57 O2 Sat by Pulse 100 100 100 Oximetry 03/17/17 03/17/17 03/17/17 03:26 03:30 03:41 Temperature 98.9 F Pulse Rate 102 H 106 H Respiratory 18 18 Rate Blood Pressure 122/64 122/64 O2 Sat by Pulse 100 100 Oximetry 03/17/17 03/17/17 03/17/17 03:51 04:00 04:11 Temperature Pulse Rate 96 H 105 H 135 H Respiratory 15 18 21 Rate Blood Pressure 122/64 121/66 121/66 O2 Sat by Pulse 100 100 100 Oximetry 03/17/17 03/17/17 03/17/17 04:21 04:30 04:41 Temperature Pulse Rate 119 H 108 H Respiratory 16 14 Rate Blood Pressure 121/66 119/69 119/69 O2 Sat by Pulse 100 100 100 Oximetry 03/17/17 03/17/17 03/17/17 04:51 05:00 05:11 Temperature Pulse Rate 105 H 98 H 100 H Respiratory 14 14 15 Rate Blood Pressure 119/69 111/66 111/66 O2 Sat by Pulse 100 100 100 Oximetry 03/17/17 03/17/17 03/17/17 05:21 05:30 05:41 Temperature Pulse Rate 102 H 102 H 100 H Respiratory 15 14 14 Rate Blood Pressure 111/66 105/60 105/60 O2 Sat by Pulse 100 100 100 Oximetry 03/17/17 03/17/17 03/17/17 05:51 06:00 06:11 Temperature Pulse Rate 99 H 105 H 103 H Respiratory 14 15 14 Rate Blood Pressure 105/60 111/60 111/60 O2 Sat by Pulse 100 100 100 Oximetry 03/17/17 06:21 Temperature Pulse Rate 102 H Respiratory 14 Rate Blood Pressure 111/60 O2 Sat by Pulse 100 Oximetry General appearance: Present: no acute distress, well-nourished, other (intubated ) - EENT Eyes: PERRL, EOM intact Ears: bilateral: normal - Neck Neck: supple, normal ROM - Respiratory Respiratory effort: normal Respiratory: bilateral: diminished - Cardiovascular Rhythm: regular Heart Sounds: Present: S1 & S2. Absent: gallop, rub Extremities: pulses intact, No edema, normal color, Full ROM - Gastrointestinal General gastrointestinal: Present: soft, non-tender, non-distended, normal bowel sounds - Integumentary Integumentary: clear, warm, dry - Musculoskeletal Musculoskeletal: generalized weakness - Neurologic Neurologic: moves all extremities - Psychiatric Psychiatric: other (intubated) - Labs CBC & Chem 7: 03/17/17 05:00 03/17/17 05:00 Labs: Abnormal lab results 03/16/17 03/16/17 03/17/17 Range/Units 17:51 21:45 00:01 RBC (3.65-5.03) M/mm3 Hgb (11.8-15.2) gm/dl Hct (35.5-45.6) % RDW (13.2-15.2) % PT 17.5 H (12.2-14.9) Sec. INR 1.36 H (0.87-1.13) APTT 49.4 H (24.2-36.6) Sec. Potassium (3.6-5.0) mmol/L Glucose (75-100) mg/dL POC Glucose 108 H (70-105) Calcium (8.4-10.2) mg/dL C-Reactive Protein 23.90 H (0.00-1.30) mg/dL 03/17/17 03/17/17 03/17/17 Range/Units 05:00 05:00 05:00 RBC 3.06 L (3.65-5.03) M/mm3 Hgb 8.6 L (11.8-15.2) gm/dl Hct 25.5 L (35.5-45.6) % RDW 18.9 H (13.2-15.2) % PT 16.8 H (12.2-14.9) Sec. INR 1.30 H (0.87-1.13) APTT (24.2-36.6) Sec. Potassium 3.2 L (3.6-5.0) mmol/L Glucose 102 H (75-100) mg/dL POC Glucose (70-105) Calcium 8.3 L (8.4-10.2) mg/dL C-Reactive Protein (0.00-1.30) mg/dL
--- NOTE | 2017-03-17 08:55 | XRay Report ---
Single view chest: History: Colonic ileus. Findings: Tip of NG tube in distal stomach. Suspicion of multiple calculi in gallbladder. Moderate distention of colon. Minimal air in small bowel. Impression: Nonspecific findings. Probable early ileus.
--- NOTE | 2017-03-17 08:56 | XRay Report ---
Single view chest: Compared to 03/16/17. History: Followup of respiratory failure. Findings: Cardiomegaly with mild pulmonary venous congestion predominantly right-sided. Stable support system. Minimal left pleural effusion. Impression: No significant interval change.
[2017-03-17] MEDS: BABY ASPIRIN PO SCH (09:25)
[2017-03-17] MEDS: LEVAQUIN 750MG/150ML 750 MG/150 ML BAG IV SCH (09:26)
[2017-03-17] MEDS: LOPRESSOR PO SCH (09:26)
[2017-03-17] MEDS: PEPCID IV SCH ×2 (09:27→21:19)
[2017-03-17] MEDS: LASIX IV SCH ×2 (09:27→21:19)
--- NOTE | 2017-03-17 09:59 | Vascular Lab Report ---
LOWER EXTREMITY VENOUS DUPLEX: REASON FOR EXAM: Respiratory distress. COMMENTS ON THE RIGHT: Deep venous thrombosis is noted in the popliteal, femoral, common femoral, deep femoral veins. The remaining veins visualized are freely compressible without evidence of internal echogenicity. Spontaneous and phasic flow is present proximally. COMMENTS ON THE LEFT: All veins visualized are freely compressible without evidence of internal echogenicity. Flow is spontaneous and phasic throughout. IMPRESSION: Deep venous thrombosis in the right lower extremity
--- NOTE | 2017-03-17 11:07 | Progress Note ---
Assessment and Plan Acute Hypoxemic Respiratory Failure on MVS SBO s/p Ex-lap Acute CHF exacerbation Sepsis Syndrome HTN Severe LV Dysfunction Left Ventricular Thrombus Anemia (Still with copious oropharyngeal secretions; will continue daytime PSV and hold extubation till tomorrow if meets criterai otherwise) - continue daytime PSV trials as tolerated - continue scheduled lasix 40mg IV q12h (good diuresis) - continue dobutamine - [place] cultured and continuing empiric levaquin re: fever spike (Cultures NGTD) - follow CRP and lactate and trend - continue to wean oxygen for O2 Sats > 94% - Continue full anticoagulation re: LV thrombus - continue wound Care per Surgeon s/p ex-lap (to begin tube feeds today) - scheduled bronchodilators and pulmonary toilet - continue daytime PSV trials and rest on AC qhs - VAP bundle addressed ...he remains critically ill on life sustaining interventions including MVS and at risk for further deterioration ....will re-evaluate in am & prn ......30' CCT without overlap Subjective Date of service: 03/17/17 Principal diagnosis: Acute Respiratory Failure on MVS; SBO s/p Ex-lap Interval history: Patient is seen today for: Acute Respiratory Failure and Ventilator Management in setting of severe CHF (EF 15%) Seen and examined at bedside; 24hour events reviewed; nursing and respiratory care staff consulted; no adverse overnight events reported to me; remains on MVS ; tolerating PSV trial but oropharyngeal / ETT secretions remain copious despite diuresis; No N/V/F/C; denies chest pains or palpitations; No new leg swelling or pain; No gross bleeding despite anticoagulation for intra- ventricular thrombus and DVT Objective Vital Signs - 12hr 03/16/17 03/16/17 03/16/17 23:11 23:14 23:21 Temperature 99.9 F H Pulse Rate 103 H 102 H Respiratory 15 16 Rate Blood Pressure 107/57 107/57 O2 Sat by Pulse Oximetry 03/16/17 03/16/17 03/16/17 23:30 23:41 23:47 Temperature Pulse Rate 100 H 102 H 97 H Respiratory 18 18 Rate Blood Pressure 112/57 112/57 120/53 O2 Sat by Pulse 100 Oximetry 03/16/17 03/17/17 03/17/17 23:51 00:00 00:11 Temperature Pulse Rate 97 H 104 H 100 H Respiratory 18 16 18 Rate Blood Pressure 112/57 113/67 113/67 O2 Sat by Pulse Oximetry 03/17/17 03/17/17 03/17/17 00:21 00:30 00:41 Temperature Pulse Rate 103 H 115 H 137 H Respiratory 16 20 16 Rate Blood Pressure 113/67 131/82 131/82 O2 Sat by Pulse 99 Oximetry 03/17/17 03/17/17 03/17/17 00:51 01:00 01:11 Temperature Pulse Rate 115 H 114 H 108 H Respiratory 20 21 15 Rate Blood Pressure 131/82 118/71 118/71 O2 Sat by Pulse 99 99 100 Oximetry 03/17/17 03/17/17 03/17/17 01:21 01:30 01:41 Temperature Pulse Rate 107 H 104 H 111 H Respiratory 14 14 16 Rate Blood Pressure 118/71 104/62 104/62 O2 Sat by Pulse 100 100 100 Oximetry 03/17/17 03/17/17 03/17/17 01:51 02:00 02:11 Temperature Pulse Rate 103 H 108 H 126 H Respiratory 14 19 19 Rate Blood Pressure 104/62 131/77 131/77 O2 Sat by Pulse 100 100 100 Oximetry 03/17/17 03/17/17 03/17/17 02:21 02:30 02:41 Temperature Pulse Rate 110 H 108 H 104 H Respiratory 18 16 16 Rate Blood Pressure 131/77 121/71 121/71 O2 Sat by Pulse 100 100 100 Oximetry 03/17/17 03/17/17 03/17/17 02:51 03:00 03:11 Temperature Pulse Rate 101 H 102 H 95 H Respiratory 15 16 15 Rate Blood Pressure 121/71 111/57 111/57 O2 Sat by Pulse 100 100 100 Oximetry 03/17/17 03/17/17 03/17/17 03:21 03:26 03:30 Temperature 98.9 F Pulse Rate 92 H 102 H Respiratory 14 18 Rate Blood Pressure 111/57 122/64 O2 Sat by Pulse 100 100 Oximetry 03/17/17 03/17/17 03/17/17 03:41 03:51 04:00 Temperature Pulse Rate 106 H 96 H 105 H Respiratory 18 15 18 Rate Blood Pressure 122/64 122/64 121/66 O2 Sat by Pulse 100 100 100 Oximetry 03/17/17 03/17/17 03/17/17 04:11 04:21 04:30 Temperature Pulse Rate 135 H 119 H Respiratory 21 16 Rate Blood Pressure 121/66 121/66 119/69 O2 Sat by Pulse 100 100 100 Oximetry 03/17/17 03/17/17 03/17/17 04:41 04:51 05:00 Temperature Pulse Rate 108 H 105 H 98 H Respiratory 14 14 14 Rate Blood Pressure 119/69 119/69 111/66 O2 Sat by Pulse 100 100 100 Oximetry 03/17/17 03/17/17 03/17/17 05:11 05:21 05:30 Temperature Pulse Rate 100 H 102 H 102 H Respiratory 15 15 14 Rate Blood Pressure 111/66 111/66 105/60 O2 Sat by Pulse 100 100 100 Oximetry 03/17/17 03/17/17 03/17/17 05:41 05:51 06:00 Temperature Pulse Rate 100 H 99 H 105 H Respiratory 14 14 15 Rate Blood Pressure 105/60 105/60 111/60 O2 Sat by Pulse 100 100 100 Oximetry 03/17/17 03/17/17 03/17/17 06:11 06:21 06:30 Temperature Pulse Rate 103 H 102 H 103 H Respiratory 14 14 15 Rate Blood Pressure 111/60 111/60 114/66 O2 Sat by Pulse 100 100 100 Oximetry 03/17/17 03/17/17 03/17/17 06:41 06:51 07:01 Temperature Pulse Rate 103 H 107 H 106 H Respiratory 14 14 15 Rate Blood Pressure 114/66 114/66 103/61 O2 Sat by Pulse 100 100 100 Oximetry 03/17/17 03/17/17 03/17/17 07:11 07:21 07:30 Temperature Pulse Rate 101 H 105 H 103 H Respiratory 14 14 15 Rate Blood Pressure 103/61 103/61 113/63 O2 Sat by Pulse 100 100 100 Oximetry 03/17/17 03/17/17 03/17/17 07:41 07:51 08:00 Temperature 99.3 F Pulse Rate 103 H 101 H Respiratory 14 14 Rate Blood Pressure 113/63 113/63 O2 Sat by Pulse 100 100 Oximetry 03/17/17 03/17/17 03/17/17 08:01 08:11 08:21 Temperature Pulse Rate 113 H 109 H 103 H Respiratory 19 14 14 Rate Blood Pressure 113/89 113/89 113/89 O2 Sat by Pulse 100 100 100 Oximetry 03/17/17 03/17/17 03/17/17 08:31 08:41 08:51 Temperature Pulse Rate 102 H 123 H 106 H Respiratory 14 17 15 Rate Blood Pressure 111/49 111/49 111/49 O2 Sat by Pulse 100 100 100 Oximetry 03/17/17 03/17/17 03/17/17 09:00 09:11 09:21 Temperature Pulse Rate 108 H 136 H 124 H Respiratory 15 16 15 Rate Blood Pressure 113/72 113/72 113/72 O2 Sat by Pulse 100 100 100 Oximetry 03/17/17 03/17/17 03/17/17 09:26 09:30 09:38 Temperature Pulse Rate 123 H 121 H 121 H Respiratory 15 Rate Blood Pressure 113/72 115/68 115/68 O2 Sat by Pulse 100 100 Oximetry 03/17/17 03/17/17 03/17/17 09:41 09:51 10:00 Temperature Pulse Rate 121 H 121 H 106 H Respiratory 16 14 14 Rate Blood Pressure 115/68 115/68 110/61 O2 Sat by Pulse 100 100 100 Oximetry 03/17/17 03/17/17 03/17/17 10:11 10:21 10:31 Temperature Pulse Rate 107 H 126 H 123 H Respiratory 14 14 14 Rate Blood Pressure 110/61 110/61 121/75 O2 Sat by Pulse 100 99 100 Oximetry Constitutional: alert, appears uncomfortable Eyes: non-icteric ENT: oropharynx moist, oropharyngeal exudate pre Neck: supple, no lymphadenopathy, JVD (to sternal angle), other (no thyromegaly) Effort: mildly labored Ascultation: Bilateral: diminished breath sounds, rales Percussion: Bilateral: not dull Cardiovascular: regular rate and rhythm, other (no rubs / murmurs) Gastrointestinal: normoactive bowel sounds, soft, non-tender, non-distended, other (No HSM) Integumentary: normal, other (no rash or petechiae) Extremities: no cyanosis, no edema, pulses normal, no ischemia or petechiae Neurologic: normal mental status, non-focal exam, pupils equal and round, motor strength normal and, other (PERRLA, EOMI) Psychiatric: anxious CBC and BMP: 03/19/17 05:00 03/19/17 05:00 ABG, PT/INR, D-dimer: ABG ABG pH 7.408 pH Units (7.350-7.450) 03/16/17 04:20 ABG pCO2 35.8 mm Hg 03/16/17 04:20 ABG pO2 130.4 mm Hg (80.0-90.0) H 03/16/17 04:20 ABG O2 Saturation 98.6 % (95.0-99.0) 03/16/17 04:20 PT/INR, D-dimer PT 16.8 Sec. (12.2-14.9) H 03/17/17 05:00 INR 1.30 (0.87-1.13) H 03/17/17 05:00 Abnormal lab findings: Abnormal Labs 03/14/17 03/14/17 03/15/17 15:36 Unknown 04:15 RBC 2.98 L Hgb 8.2 L Hct 25.2 L RDW 19.5 H Lymph % (Auto) 12.9 L [place] % (Auto) 9.4 H Lymph # 0.7 L Seg Neutrophils % 76.6 H Lymphocytes % (Manual) Lymphocytes # (Manual) PT INR APTT ABG pH 7.349 L ABG pO2 446.4 H 274.8 H ABG O2 Saturation 99.6 H 99.5 H ABG Base Excess -3.4 L -4.6 L ABG Hemoglobin 12.3 L 8.6 L Oxyhemoglobin Potassium Chloride Glucose POC Glucose Calcium AST C-Reactive Protein Total Protein Albumin Urine WBC (Auto) Crossmatch 03/15/17 03/15/17 03/15/17 04:15 04:15 04:45 RBC Hgb Hct RDW Lymph % (Auto) [place] % (Auto) Lymph # Seg Neutrophils % Lymphocytes % (Manual) Lymphocytes # (Manual) PT 16.9 H INR 1.31 H APTT ABG pH 7.340 L ABG pO2 168.3 H ABG O2 Saturation ABG Base Excess -3.8 L ABG Hemoglobin 7.7 L Oxyhemoglobin Potassium Chloride 114.1 H Glucose 112 H POC Glucose Calcium 7.5 L D AST C-Reactive Protein Total Protein 5.5 L D Albumin 2.8 L Urine WBC (Auto) Crossmatch 03/15/17 03/15/17 03/15/17 06:06 08:20 13:05 RBC Hgb Hct RDW Lymph % (Auto) [place] % (Auto) Lymph # Seg Neutrophils % Lymphocytes % (Manual) Lymphocytes # (Manual) PT INR APTT ABG pH ABG pO2 ABG O2 Saturation ABG Base Excess -2.9 L ABG Hemoglobin 8.5 L Oxyhemoglobin 94.3 L Potassium Chloride Glucose POC Glucose Calcium AST C-Reactive Protein Total Protein Albumin Urine WBC (Auto) 15.0 H Crossmatch See Detail 03/15/17 03/15/17 03/15/17 14:20 15:35 20:29 RBC 3.46 L Hgb 9.7 L Hct 29.4 L RDW 19.0 H Lymph % (Auto) 12.6 L [place] % (Auto) 9.1 H Lymph # 0.8 L Seg Neutrophils % 77.2 H Lymphocytes % (Manual) Lymphocytes # (Manual) PT INR APTT ABG pH 7.261 L ABG pO2 170.6 H 229.2 H ABG O2 Saturation 99.4 H ABG Base Excess -6.1 L -3.4 L ABG Hemoglobin 10.4 L 8.3 L Oxyhemoglobin Potassium Chloride Glucose POC Glucose Calcium AST C-Reactive Protein Total Protein Albumin Urine WBC (Auto) Crossmatch 03/15/17 03/16/17 03/16/17 23:09 04:20 05:58 RBC 3.24 L Hgb 9.1 L Hct 27.1 L RDW 19.1 H Lymph % (Auto) [place] % (Auto) Lymph # Seg Neutrophils % Lymphocytes % (Manual) 11.0 L Lymphocytes # (Manual) 0.6 L PT INR APTT ABG pH ABG pO2 130.4 H ABG O2 Saturation ABG Base Excess -2.4 L ABG Hemoglobin 6.1 L Oxyhemoglobin Potassium Chloride Glucose POC Glucose 127 H Calcium AST C-Reactive Protein Total Protein Albumin Urine WBC (Auto) Crossmatch 03/16/17 03/16/17 03/16/17 05:58 17:51 21:45 RBC Hgb Hct RDW Lymph % (Auto) [place] % (Auto) Lymph # Seg Neutrophils % Lymphocytes % (Manual) Lymphocytes # (Manual) PT 17.5 H INR 1.36 H APTT 49.4 H ABG pH ABG pO2 ABG O2 Saturation ABG Base Excess ABG Hemoglobin Oxyhemoglobin Potassium Chloride 108.1 H Glucose 117 H POC Glucose Calcium 7.8 L AST 113 H C-Reactive Protein 23.90 H Total Protein 5.4 L Albumin 2.7 L Urine WBC (Auto) Crossmatch 03/17/17 03/17/17 03/17/17 00:01 05:00 05:00 RBC 3.06 L Hgb 8.6 L Hct 25.5 L RDW 18.9 H Lymph % (Auto) [place] % (Auto) Lymph # Seg Neutrophils % Lymphocytes % (Manual) Lymphocytes # (Manual) PT INR APTT ABG pH ABG pO2 ABG O2 Saturation ABG Base Excess ABG Hemoglobin Oxyhemoglobin Potassium 3.2 L Chloride Glucose 102 H POC Glucose 108 H Calcium 8.3 L AST C-Reactive Protein Total Protein Albumin Urine WBC (Auto) Crossmatch 03/17/17 05:00 RBC Hgb Hct RDW Lymph % (Auto) [place] % (Auto) Lymph # Seg Neutrophils % Lymphocytes % (Manual) Lymphocytes # (Manual) PT 16.8 H INR 1.30 H APTT ABG pH ABG pO2 ABG O2 Saturation ABG Base Excess ABG Hemoglobin Oxyhemoglobin Potassium Chloride Glucose POC Glucose Calcium AST C-Reactive Protein Total Protein Albumin Urine WBC (Auto) Crossmatch Chest x-ray: image reviewed (improving pulmonary edema) Allied health notes reviewed: RT
--- NOTE | 2017-03-17 11:50 | Progress Note ---
Assessment and Plan POD #3 Pt intubated. awake. appears comfortable Abd soft. neg BS slightly lower h/h hemodynamically stable surgically stable abd series - status quo monitor h/h closely may attempt TF at very low rate starting am if h/h stable Selected Entries 03/17/17 10:31 Pulse Rate 123 H Respiratory 14 Rate Blood Pressure 121/75 Laboratory Tests 03/15/17 03/16/17 03/17/17 04:15 05:58 05:00 WBC 6.6 Hgb 9.1 L 8.6 L Hct 25.2 L 27.1 L 25.5 L Objective Vital Signs - 12hr 03/16/17 03/17/17 03/17/17 23:51 00:00 00:11 Temperature Pulse Rate 97 H 104 H 100 H Respiratory 18 16 18 Rate Blood Pressure 112/57 113/67 113/67 O2 Sat by Pulse Oximetry 03/17/17 03/17/17 03/17/17 00:21 00:30 00:41 Temperature Pulse Rate 103 H 115 H 137 H Respiratory 16 20 16 Rate Blood Pressure 113/67 131/82 131/82 O2 Sat by Pulse 99 Oximetry 03/17/17 03/17/17 03/17/17 00:51 01:00 01:11 Temperature Pulse Rate 115 H 114 H 108 H Respiratory 20 21 15 Rate Blood Pressure 131/82 118/71 118/71 O2 Sat by Pulse 99 99 100 Oximetry 03/17/17 03/17/17 03/17/17 01:21 01:30 01:41 Temperature Pulse Rate 107 H 104 H 111 H Respiratory 14 14 16 Rate Blood Pressure 118/71 104/62 104/62 O2 Sat by Pulse 100 100 100 Oximetry 03/17/17 03/17/17 03/17/17 01:51 02:00 02:11 Temperature Pulse Rate 103 H 108 H 126 H Respiratory 14 19 19 Rate Blood Pressure 104/62 131/77 131/77 O2 Sat by Pulse 100 100 100 Oximetry 03/17/17 03/17/17 03/17/17 02:21 02:30 02:41 Temperature Pulse Rate 110 H 108 H 104 H Respiratory 18 16 16 Rate Blood Pressure 131/77 121/71 121/71 O2 Sat by Pulse 100 100 100 Oximetry 03/17/17 03/17/17 03/17/17 02:51 03:00 03:11 Temperature Pulse Rate 101 H 102 H 95 H Respiratory 15 16 15 Rate Blood Pressure 121/71 111/57 111/57 O2 Sat by Pulse 100 100 100 Oximetry 03/17/17 03/17/17 03/17/17 03:21 03:26 03:30 Temperature 98.9 F Pulse Rate 92 H 102 H Respiratory 14 18 Rate Blood Pressure 111/57 122/64 O2 Sat by Pulse 100 100 Oximetry 03/17/17 03/17/17 03/17/17 03:41 03:51 04:00 Temperature Pulse Rate 106 H 96 H 105 H Respiratory 18 15 18 Rate Blood Pressure 122/64 122/64 121/66 O2 Sat by Pulse 100 100 100 Oximetry 03/17/17 03/17/17 03/17/17 04:11 04:21 04:30 Temperature Pulse Rate 135 H 119 H Respiratory 21 16 Rate Blood Pressure 121/66 121/66 119/69 O2 Sat by Pulse 100 100 100 Oximetry 03/17/17 03/17/17 03/17/17 04:41 04:51 05:00 Temperature Pulse Rate 108 H 105 H 98 H Respiratory 14 14 14 Rate Blood Pressure 119/69 119/69 111/66 O2 Sat by Pulse 100 100 100 Oximetry 03/17/17 03/17/17 03/17/17 05:11 05:21 05:30 Temperature Pulse Rate 100 H 102 H 102 H Respiratory 15 15 14 Rate Blood Pressure 111/66 111/66 105/60 O2 Sat by Pulse 100 100 100 Oximetry 03/17/17 03/17/17 03/17/17 05:41 05:51 06:00 Temperature Pulse Rate 100 H 99 H 105 H Respiratory 14 14 15 Rate Blood Pressure 105/60 105/60 111/60 O2 Sat by Pulse 100 100 100 Oximetry 03/17/17 03/17/17 03/17/17 06:11 06:21 06:30 Temperature Pulse Rate 103 H 102 H 103 H Respiratory 14 14 15 Rate Blood Pressure 111/60 111/60 114/66 O2 Sat by Pulse 100 100 100 Oximetry 03/17/17 03/17/17 03/17/17 06:41 06:51 07:01 Temperature Pulse Rate 103 H 107 H 106 H Respiratory 14 14 15 Rate Blood Pressure 114/66 114/66 103/61 O2 Sat by Pulse 100 100 100 Oximetry 03/17/17 03/17/17 03/17/17 07:11 07:21 07:30 Temperature Pulse Rate 101 H 105 H 103 H Respiratory 14 14 15 Rate Blood Pressure 103/61 103/61 113/63 O2 Sat by Pulse 100 100 100 Oximetry 03/17/17 03/17/17 03/17/17 07:41 07:51 08:00 Temperature 99.3 F Pulse Rate 103 H 101 H Respiratory 14 14 Rate Blood Pressure 113/63 113/63 O2 Sat by Pulse 100 100 Oximetry 03/17/17 03/17/17 03/17/17 08:01 08:11 08:21 Temperature Pulse Rate 113 H 109 H 103 H Respiratory 19 14 14 Rate Blood Pressure 113/89 113/89 113/89 O2 Sat by Pulse 100 100 100 Oximetry 03/17/17 03/17/17 03/17/17 08:31 08:41 08:51 Temperature Pulse Rate 102 H 123 H 106 H Respiratory 14 17 15 Rate Blood Pressure 111/49 111/49 111/49 O2 Sat by Pulse 100 100 100 Oximetry 03/17/17 03/17/17 03/17/17 09:00 09:11 09:21 Temperature Pulse Rate 108 H 136 H 124 H Respiratory 15 16 15 Rate Blood Pressure 113/72 113/72 113/72 O2 Sat by Pulse 100 100 100 Oximetry 03/17/17 03/17/17 03/17/17 09:26 09:30 09:38 Temperature Pulse Rate 123 H 121 H 121 H Respiratory 15 Rate Blood Pressure 113/72 115/68 115/68 O2 Sat by Pulse 100 100 Oximetry 03/17/17 03/17/17 03/17/17 09:41 09:51 10:00 Temperature Pulse Rate 121 H 121 H 106 H Respiratory 16 14 14 Rate Blood Pressure 115/68 115/68 110/61 O2 Sat by Pulse 100 100 100 Oximetry 03/17/17 03/17/17 03/17/17 10:11 10:21 10:31 Temperature Pulse Rate 107 H 126 H 123 H Respiratory 14 14 14 Rate Blood Pressure 110/61 110/61 121/75 O2 Sat by Pulse 100 99 100 Oximetry - Labs 03/17/17 05:00 03/17/17 05:00 Diabetes panel 03/17/17 Range/Units 05:00 Sodium 140 (137-145) mmol/L Potassium 3.2 L (3.6-5.0) mmol/L Chloride 102.2 (98-107) mmol/L Carbon Dioxide 26 (22-30) mmol/L BUN 12 (9-20) mg/dL Creatinine 0.8 (0.8-1.5) mg/dL Glucose 102 H (75-100) mg/dL Calcium 8.3 L (8.4-10.2) mg/dL Calcium panel 03/17/17 Range/Units 05:00 Calcium 8.3 L (8.4-10.2) mg/dL Pituitary panel 03/17/17 Range/Units 05:00 Sodium 140 (137-145) mmol/L Potassium 3.2 L (3.6-5.0) mmol/L Chloride 102.2 (98-107) mmol/L Carbon Dioxide 26 (22-30) mmol/L BUN 12 (9-20) mg/dL Creatinine 0.8 (0.8-1.5) mg/dL Glucose 102 H (75-100) mg/dL Calcium 8.3 L (8.4-10.2) mg/dL Adrenal panel 03/17/17 Range/Units 05:00 Sodium 140 (137-145) mmol/L Potassium 3.2 L (3.6-5.0) mmol/L Chloride 102.2 (98-107) mmol/L Carbon Dioxide 26 (22-30) mmol/L BUN 12 (9-20) mg/dL Creatinine 0.8 (0.8-1.5) mg/dL Glucose 102 H (75-100) mg/dL Calcium 8.3 L (8.4-10.2) mg/dL
[2017-03-17] MEDS ORDERED: LOPRESSOR PO SCH ×2 (11:53→11:55)
--- NOTE | 2017-03-17 11:54 | Progress Note ---
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 Sinus tachycardia LV thrombus HTN anemia from blood loss HLP Subtherapeutic INR on admission - questionable compliance Hypokalemia Plan: Cont Lopressor. Consider addition of ACEI/ARB when BPs can tolerate and if renal function remains stable. D/c dobutamine. Cont diuresis with IV lasix. Replete K+. Heparin gtt initiated per pulmonary. Resume coumadin with tx INR 2-3 if/when okay per surgery. The patient has been seen in conjunction with Dr. Rush who agrees with the assessment and plan of care. Subjective Date of service: 03/17/17 Principal diagnosis: Acute Respiratory Failure on MVS; SBO s/p Ex-lap Interval history: pt remains intubated. Objective Last Vital Signs Temp 99.3 F 03/17/17 08:00 Pulse 118 H 03/17/17 11:41 Resp 15 03/17/17 11:41 BP 126/70 03/17/17 11:41 Pulse Ox 100 03/17/17 11:41 - Physical Examination General: Other (intubated) HEENT: Positive: PERRL, EOMI Neck: Positive: neck supple Cardiac: Positive: Reg Rate and Rhythm, S1/S2 Lungs: Positive: Decreased Breath Sounds, Ventilated Respirations Neuro: Positive: Other (sedated) Abdomen: Positive: Tender Extremities: Present: normal. Absent: edema - Labs and Meds Coagulation 03/16/17 03/17/17 Range/Units 21:45 05:00 PT 17.5 H 16.8 H (12.2-14.9) Sec. INR 1.36 H 1.30 H (0.87-1.13) APTT 49.4 H (24.2-36.6) Sec. CBC 03/17/17 Range/Units 05:00 WBC 6.6 (4.5-11.0) K/mm3 RBC 3.06 L (3.65-5.03) M/mm3 Hgb 8.6 L (11.8-15.2) gm/dl Hct 25.5 L (35.5-45.6) % Plt Count 148 (140-440) K/mm3 Comprehensive Metabolic Panel 03/17/17 Range/Units 05:00 Sodium 140 (137-145) mmol/L Potassium 3.2 L (3.6-5.0) mmol/L Chloride 102.2 (98-107) mmol/L Carbon Dioxide 26 (22-30) mmol/L BUN 12 (9-20) mg/dL Creatinine 0.8 (0.8-1.5) mg/dL Glucose 102 H (75-100) mg/dL Calcium 8.3 L (8.4-10.2) mg/dL - Imaging and Cardiology EKG: image reviewed Stress echo: other (02/2017 no ischemia EF 10-15%) Echo: report reviewed (02/2017 over LV dysfunction EF 10-15% with apical thrombus normal RV size and function) - Allied health notes Allied health notes reviewed: RT
[2017-03-17] MEDS ORDERED: KCL 10MEQ/100ML 10 MEQ/100 ML BAG IV SCH (12:00)
[2017-03-17] MEDS: fentaNYL DRIP Premix 2,000 MCG/100 ML BAG IV SCH (12:36)
[2017-03-17] MEDS: LOPRESSOR IV SCH ×2 (12:45→21:00)
[2017-03-17] MEDS: KCL 20MEQ/100ML 20 MEQ/100 ML BAG IV SCH ×3 (13:28→18:09)
[2017-03-17 15:53] LABS: Hematocrit 24.5 % (35.5-45.6); Hemoglobin 8.2 gm/dl (11.8-15.2); Mean Corpuscular HGB Conc 33 % (32-34); Mean Corpuscular Hemoglobin 28 pg (28-32); Mean Corpuscular Volume 83 fl (84-94); Platelet Count 155 K/mm3 (140-440); Red Blood Count 2.96 M/mm3 (3.65-5.03); Red Cell Distribution Width 18.6 % (13.2-15.2); White Blood Count 6.9 K/mm3 (4.5-11.0)
[2017-03-17 17:00] LABS: Basophils % (Manual) 0 % (0.0-1.8); Blastocytes % (Manual) 0 %; Eosinophils % (Manual) 0 % (0.0-4.3)
[2017-03-17 17:01] LABS: Platelet Estimate Consistent w Auto
[2017-03-17 17:02] LABS: Anisocytosis 1+; Poikilocytosis 1+; Schistocytes Few
[2017-03-17 17:03] LABS: Diff Status Complete; Elliptocytes Few; Tear Drop Cells Few
[2017-03-17 21:59] LABS: Anion Gap 15 mmol/L; BUN/Creatinine Ratio 19; Blood Urea Nitrogen 15 mg/dL (9-20); Calcium 8.1 mg/dL (8.4-10.2); Carbon Dioxide 28 mmol/L (22-30); Chloride 100.9 mmol/L (98-107); Glucose 91 mg/dL (75-100); Potassium 3.8 mmol/L (3.6-5.0); Sodium 140 mmol/L (137-145)
[2017-03-18] MEDS: HEPARIN/ 0.45% NACL-25,000 UNIT/500 ML 25,000 UNIT/500 ML BAG IV SCH (01:21)
[2017-03-18 03:52] LABS: ABG Base Excess 4.3 mmol/L (-2.0-3.0); ABG HCO3 29.2 mmol/L (20.0-26.0); ABG Oxygen Saturation 98.6 % (95.0-99.0); ABG PCO2 45.9 mm Hg; ABG PH 7.422 pH Units (7.350-7.450); ABG PO2 132.3 mm Hg (80.0-90.0)
[2017-03-18] MEDS: LOPRESSOR IV SCH ×3 (04:22→21:13)
[2017-03-18 05:16] LABS: Basophils % (Auto) 0.6 % (0.0-1.8); Eosinophils % (Auto) 2.7 % (0.0-4.3); Hematocrit 25.9 % (35.5-45.6); Hemoglobin 8.8 gm/dl (11.8-15.2); Mean Corpuscular HGB Conc 34 % (32-34); Mean Corpuscular Hemoglobin 28 pg (28-32); Mean Corpuscular Volume 83 fl (84-94); Platelet Count 168 K/mm3 (140-440); Red Blood Count 3.12 M/mm3 (3.65-5.03); Red Cell Distribution Width 18.3 % (13.2-15.2); White Blood Count 6.1 K/mm3 (4.5-11.0)
[2017-03-18 05:40] LABS: Alanine Aminotransferase 26 units/L (7-56); Albumin 2.7 g/dL (3.9-5); Albumin/Globulin Ratio 0.8 %; Alkaline Phosphatase 72 units/L (35-129); Anion Gap 16 mmol/L; BUN/Creatinine Ratio 18; Blood Urea Nitrogen 16 mg/dL (9-20); Calcium 8.2 mg/dL (8.4-10.2); Carbon Dioxide 28 mmol/L (22-30); Chloride 99.2 mmol/L (98-107); Glucose 89 mg/dL (75-100); Potassium 3.1 mmol/L (3.6-5.0); Sodium 140 mmol/L (137-145); Total Protein 6.1 g/dL (6.3-8.2)
[2017-03-18] MEDS: REGLAN IV SCH ×3 (06:25→18:13)
--- NOTE | 2017-03-18 07:40 | Progress Note ---
Assessment and Plan Acute respiratory failure - intubated before surgery on 03/14/17 - Wean as tolerated - Continue with Bronchodilators. Pulm. following COPD with exacerbation - wean off from vent as tolerated - Continue with Bronchodilators - cont. periodic breathing treatment SBO - s/p exploratory laperotomy on 03/14/17 - Placed on rectal tube, consulted GI Anemia - could be from hemodilution and from blood loss during surgery which is expected - s/p one unit PRBC transfusion Acute on Chronic systolic with Ef 10-15% -diuresis. Metoprolol. ACEI on hold for low BP Coronary artery disease - cardiology following Left apical thrombus with subtherapeutic INR on admission - commneced pt on heparin History of CVA - Stable. Monitor clinically DVT PX - SCD Critical care time spent > 32 mins in direct pt care and review of laboratory and radiological data Subjective Date of service: 03/18/17 Principal diagnosis: Acute Respiratory Failure on MVS; SBO s/p Ex-lap Interval history: Awake. interactive. Still intubated Objective - Constitutional Vitals: Vital Signs - 12hr 03/17/17 03/17/17 03/17/17 19:41 19:47 19:51 Temperature 98.7 F Pulse Rate 75 82 Respiratory 14 14 Rate Blood Pressure 115/68 115/68 O2 Sat by Pulse 100 100 Oximetry 03/17/17 03/17/17 03/17/17 20:00 20:08 20:11 Temperature Pulse Rate 79 72 84 Respiratory 14 15 Rate Blood Pressure 102/66 102/66 102/66 O2 Sat by Pulse 100 100 100 Oximetry 03/17/17 03/17/17 03/17/17 20:21 20:30 20:41 Temperature Pulse Rate 65 89 68 Respiratory 14 14 14 Rate Blood Pressure 102/66 93/67 93/67 O2 Sat by Pulse 100 100 100 Oximetry 03/17/17 03/17/17 03/17/17 20:51 21:00 21:11 Temperature Pulse Rate 89 67 65 Respiratory 18 14 14 Rate Blood Pressure 93/67 116/61 116/61 O2 Sat by Pulse 100 100 100 Oximetry 03/17/17 03/17/17 03/17/17 21:21 21:30 21:41 Temperature Pulse Rate 67 70 70 Respiratory 14 14 14 Rate Blood Pressure 116/61 105/65 105/65 O2 Sat by Pulse 100 100 100 Oximetry 03/17/17 03/17/17 03/17/17 21:51 22:00 22:11 Temperature Pulse Rate 67 81 68 Respiratory 14 14 14 Rate Blood Pressure 105/65 109/70 109/70 O2 Sat by Pulse 100 100 100 Oximetry 03/17/17 03/17/17 03/17/17 22:21 22:31 22:41 Temperature Pulse Rate 72 76 70 Respiratory 14 14 14 Rate Blood Pressure 109/70 96/57 96/57 O2 Sat by Pulse 100 100 100 Oximetry 03/17/17 03/17/17 03/17/17 22:51 23:00 23:11 Temperature Pulse Rate 88 85 73 Respiratory 14 14 14 Rate Blood Pressure 96/57 112/69 112/69 O2 Sat by Pulse 100 100 100 Oximetry 03/17/17 03/17/17 03/17/17 23:21 23:23 23:27 Temperature Pulse Rate 60 62 61 Respiratory 14 14 Rate Blood Pressure 112/69 112/69 112/69 O2 Sat by Pulse 100 100 100 Oximetry 03/17/17 03/17/17 03/17/17 23:30 23:31 23:41 Temperature 98.1 F Pulse Rate 92 H 81 64 Respiratory 15 15 14 Rate Blood Pressure 108/75 108/75 108/75 O2 Sat by Pulse 100 100 100 Oximetry 03/17/17 03/18/17 03/18/17 23:51 00:00 00:11 Temperature Pulse Rate 64 87 77 Respiratory 14 14 14 Rate Blood Pressure 108/75 116/72 116/72 O2 Sat by Pulse 100 100 100 Oximetry 03/18/17 03/18/17 03/18/17 00:21 00:30 00:41 Temperature Pulse Rate 65 69 66 Respiratory 14 16 14 Rate Blood Pressure 116/72 105/63 105/63 O2 Sat by Pulse 100 100 100 Oximetry 03/18/17 03/18/17 03/18/17 00:51 01:00 01:11 Temperature Pulse Rate 66 70 69 Respiratory 14 15 14 Rate Blood Pressure 105/63 106/68 106/68 O2 Sat by Pulse 100 100 100 Oximetry 03/18/17 03/18/17 03/18/17 01:21 01:31 01:41 Temperature Pulse Rate 64 67 69 Respiratory 14 14 14 Rate Blood Pressure 106/68 91/52 91/52 O2 Sat by Pulse 100 100 100 Oximetry 03/18/17 03/18/17 03/18/17 01:51 02:00 02:11 Temperature Pulse Rate 69 61 61 Respiratory 14 14 14 Rate Blood Pressure 91/52 91/51 91/51 O2 Sat by Pulse 100 100 100 Oximetry 03/18/17 03/18/17 03/18/17 02:21 02:31 02:41 Temperature Pulse Rate 62 89 118 H Respiratory 14 18 15 Rate Blood Pressure 91/51 114/73 114/73 O2 Sat by Pulse 100 100 100 Oximetry 03/18/17 03/18/17 03/18/17 02:51 03:00 03:03 Temperature Pulse Rate 103 H 89 80 Respiratory 19 15 Rate Blood Pressure 114/73 118/69 118/69 O2 Sat by Pulse 100 100 100 Oximetry 03/18/17 03/18/17 03/18/17 03:11 03:21 03:30 Temperature Pulse Rate 77 70 68 Respiratory 14 14 14 Rate Blood Pressure 118/69 118/69 106/62 O2 Sat by Pulse 100 100 100 Oximetry 03/18/17 03/18/17 03/18/17 03:41 03:51 04:00 Temperature 97.4 F L Pulse Rate 69 71 85 Respiratory 14 14 14 Rate Blood Pressure 106/62 106/62 113/68 O2 Sat by Pulse 100 100 100 Oximetry 03/18/17 03/18/17 03/18/17 04:11 04:21 04:22 Temperature Pulse Rate 116 H 87 89 Respiratory 18 14 Rate Blood Pressure 113/68 113/68 113/68 O2 Sat by Pulse 100 100 Oximetry 03/18/17 03/18/17 03/18/17 04:30 04:41 04:51 Temperature Pulse Rate 86 77 69 Respiratory 14 14 12 Rate Blood Pressure 113/68 116/77 O2 Sat by Pulse 100 100 100 Oximetry 03/18/17 03/18/17 03/18/17 05:00 05:11 05:21 Temperature Pulse Rate 68 60 63 Respiratory 13 14 13 Rate Blood Pressure 100/64 100/64 100/64 O2 Sat by Pulse 100 100 100 Oximetry 03/18/17 03/18/17 03/18/17 05:30 05:41 05:51 Temperature Pulse Rate 66 74 68 Respiratory 14 14 14 Rate Blood Pressure 98/57 98/57 98/57 O2 Sat by Pulse 100 100 100 Oximetry 03/18/17 06:00 Temperature Pulse Rate 68 Respiratory 14 Rate Blood Pressure 98/57 O2 Sat by Pulse 100 Oximetry General appearance: Present: no acute distress, well-nourished - EENT Eyes: PERRL, EOM intact ENT: other (intubated and vent supported) Ears: bilateral: normal - Neck Neck: supple, normal ROM - Respiratory Respiratory: bilateral: diminished - Cardiovascular Rhythm: regular Heart Sounds: Present: S1 & S2. Absent: gallop, rub Extremities: pulses intact, No edema, normal color, Full ROM - Gastrointestinal General gastrointestinal: Present: soft, non-tender, non-distended, normal bowel sounds - Genitourinary Male genitourinary: normal - Integumentary Integumentary: clear, warm, dry - Musculoskeletal Musculoskeletal: 1, strength equal bilaterally - Neurologic Neurologic: moves all extremities - Psychiatric Psychiatric: memory intact, appropriate mood/affect, intact judgment & insight - Labs CBC & Chem 7: 03/18/17 04:45 03/18/17 04:45 Labs: Abnormal lab results 03/17/17 03/17/17 03/18/17 Range/Units 15:40 21:30 00:05 RBC 2.96 L (3.65-5.03) M/mm3 Hgb 8.2 L (11.8-15.2) gm/dl Hct 24.5 L (35.5-45.6) % MCV 83 L (84-94) fl RDW 18.6 H (13.2-15.2) % Lymph % (Auto) (13.4-35.0) % Lymph # (1.2-5.4) K/mm3 Seg Neutrophils % (40.0-70.0) % Seg Neuts % (Manual) 93.0 H (40.0-70.0) % Lymphocytes % (Manual) 2.0 L (13.4-35.0) % Lymphocytes # (Manual) 0.1 L (1.2-5.4) K/mm3 ABG pO2 (80.0-90.0) mm Hg ABG HCO3 (20.0-26.0) mmol/L ABG Base Excess (-2.0-3.0) mmol/L ABG Hemoglobin (14.0-18.0) gm/dl POC Glucose 108 H (70-105) Calcium 8.1 L (8.4-10.2) mg/dL Total Bilirubin (0.1-1.2) mg/dL AST (5-40) units/L Total Protein (6.3-8.2) g/dL Albumin (3.9-5) g/dL 03/18/17 03/18/17 03/18/17 Range/Units 03:45 04:45 04:45 RBC 3.12 L (3.65-5.03) M/mm3 Hgb 8.8 L (11.8-15.2) gm/dl Hct 25.9 L (35.5-45.6) % MCV 83 L (84-94) fl RDW 18.3 H (13.2-15.2) % Lymph % (Auto) 9.5 L (13.4-35.0) % Lymph # 0.6 L (1.2-5.4) K/mm3 Seg Neutrophils % 81.7 H (40.0-70.0) % Seg Neuts % (Manual) (40.0-70.0) % Lymphocytes % (Manual) (13.4-35.0) % Lymphocytes # (Manual) (1.2-5.4) K/mm3 ABG pO2 132.3 H (80.0-90.0) mm Hg ABG HCO3 29.2 H (20.0-26.0) mmol/L ABG Base Excess 4.3 H (-2.0-3.0) mmol/L ABG Hemoglobin 8.7 L (14.0-18.0) gm/dl POC Glucose (70-105) Calcium 8.2 L (8.4-10.2) mg/dL Total Bilirubin 1.40 H (0.1-1.2) mg/dL AST 53 H (5-40) units/L Total Protein 6.1 L (6.3-8.2) g/dL Albumin 2.7 L (3.9-5) g/dL 03/18/17 Range/Units 05:44 RBC (3.65-5.03) M/mm3 Hgb (11.8-15.2) gm/dl Hct (35.5-45.6) % MCV (84-94) fl RDW (13.2-15.2) % Lymph % (Auto) (13.4-35.0) % Lymph # (1.2-5.4) K/mm3 Seg Neutrophils % (40.0-70.0) % Seg Neuts % (Manual) (40.0-70.0) % Lymphocytes % (Manual) (13.4-35.0) % Lymphocytes # (Manual) (1.2-5.4) K/mm3 ABG pO2 (80.0-90.0) mm Hg ABG HCO3 (20.0-26.0) mmol/L ABG Base Excess (-2.0-3.0) mmol/L ABG Hemoglobin (14.0-18.0) gm/dl POC Glucose 108 H (70-105) Calcium (8.4-10.2) mg/dL Total Bilirubin (0.1-1.2) mg/dL AST (5-40) units/L Total Protein (6.3-8.2) g/dL Albumin (3.9-5) g/dL
--- NOTE | 2017-03-18 07:55 | XRay Report ---
AP CHEST: HISTORY: Followup respiratory failure No significant change is appreciated in the borderline heart size and mild pulmonary venous congestion since yesterday's exam. No consolidation, large pleural effusion or pneumothorax has developed. Lines and support devices remain in adequate position. IMPRESSION: No change.
[2017-03-18] MEDS: PEPCID IV SCH ×2 (09:30→21:13)
[2017-03-18] MEDS: BABY ASPIRIN PO SCH (09:30)
[2017-03-18] MEDS: LASIX IV SCH (09:30)
[2017-03-18] MEDS: LEVAQUIN 750MG/150ML 750 MG/150 ML BAG IV SCH (09:30)
--- NOTE | 2017-03-18 11:36 | Progress Note ---
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 Sinus tachycardia LV thrombus HTN anemia from blood loss HLP Subtherapeutic INR on admission - questionable compliance Hypokalemia Plan: Cont Lopressor. Initiate low dose lisinopril. Titrate as tolerated. Decrease IV lasix to 40mg IV daily. Wean vent per pulmonary. Heparin gtt initiated per pulmonary. Resume coumadin with tx INR 2-3 if/when okay per surgery. The patient has been seen in conjunction with Dr. Rush who agrees with the assessment and plan of care. Subjective Date of service: 03/18/17 Principal diagnosis: Acute Respiratory Failure on MVS; SBO s/p Ex-lap Interval history: pt remains intubated. Objective Last Vital Signs Temp 99.1 F 03/18/17 08:00 Pulse 79 03/18/17 08:31 Resp 13 03/18/17 08:31 BP 119/65 03/18/17 08:31 Pulse Ox 99 03/18/17 08:31 - Physical Examination General: Other (intubated) HEENT: Positive: PERRL, EOMI Neck: Positive: neck supple Cardiac: Positive: Reg Rate and Rhythm, S1/S2 Lungs: Positive: Ventilated Respirations Neuro: Positive: Other (sedated) Abdomen: Positive: Tender Extremities: Present: normal. Absent: edema - Labs and Meds Cardiac Enzymes 03/18/17 Range/Units 04:45 AST 53 H (5-40) units/L CBC 03/17/17 03/18/17 Range/Units 15:40 04:45 WBC 6.9 6.1 (4.5-11.0) K/mm3 RBC 2.96 L 3.12 L (3.65-5.03) M/mm3 Hgb 8.2 L 8.8 L (11.8-15.2) gm/dl Hct 24.5 L 25.9 L (35.5-45.6) % Plt Count 155 168 (140-440) K/mm3 Lymph # 0.6 L (1.2-5.4) K/mm3 Nance # 0.3 (0.0-0.8) K/mm3 Eos # 0.2 (0.0-0.4) K/mm3 Baso # 0.0 (0.0-0.1) K/mm3 Comprehensive Metabolic Panel 03/17/17 03/18/17 Range/Units 21:30 04:45 Sodium 140 (137-145) mmol/L Potassium 3.8 (3.6-5.0) mmol/L Chloride 100.9 (98-107) mmol/L Carbon Dioxide 28 28 (22-30) mmol/L BUN 15 16 (9-20) mg/dL Creatinine 0.8 0.9 (0.8-1.5) mg/dL Glucose 91 89 (75-100) mg/dL Calcium 8.1 L 8.2 L (8.4-10.2) mg/dL AST 53 H (5-40) units/L ALT 26 (7-56) units/L Alkaline Phosphatase 72 (35-129) units/L Total Protein 6.1 L (6.3-8.2) g/dL Albumin 2.7 L (3.9-5) g/dL - Imaging and Cardiology EKG: image reviewed Stress echo: other (02/2017 no ischemia EF 10-15%) Echo: report reviewed (02/2017 over LV dysfunction EF 10-15% with apical thrombus normal RV size and function) - Allied health notes Allied health notes reviewed: RT
[2017-03-18] MEDS: KCL 20MEQ/100ML 20 MEQ/100 ML BAG IV SCH ×4 (11:39→15:00)
--- NOTE | 2017-03-18 11:42 | Progress Note ---
Assessment and Plan Acute Hypoxemic Respiratory Failure on MVS SBO s/p Ex-lap Acute CHF exacerbation Sepsis Syndrome HTN Severe LV Dysfunction Left Ventricular Thrombus Anemia (I fear that once he is extubated and positive pressure removed he may be unable to deal with increased preload and may develop flash pulmonary edema with failure of extubation) - verbally consolled him at bedside and explained that he need not be overtly anxious as well as outlined the care plan decisions - resume dobutamine for inotropic support (discussed with cardiology and we will resume and 2.5 mics/kg/min) - continue scheduled lasix 40mg IV q12h to optimize pulmonary function/ compliance via edema clearance - walton cultured and remains empiric levaquin re: fever spike (NGTD) - get CRP and lactate and trend (lactate WNL but CRP significantly elevated) - continue to wean oxygen for O2 Sats > 94% - Continue full anticoagulation re: LV thrombus - Wound Care per Surgeon s/p ex-lap - continue enteral nutrition as tolerated and advance to goal rate - scheduled bronchodilators and pulmonary toilet - VAP bundle addressed ...he remains critically ill on life sustaining interventions including MVS and at risk for further deterioration ....will re-evaluate in am & prn ......38' CCT Subjective Date of service: 03/18/17 Principal diagnosis: Acute Respiratory Failure on MVS; SBO s/p Ex-lap Interval history: Patient is seen today for: Acute Respiratory Failure and Ventilator Management Seen and examined at bedside; 24hour events reviewed; nursing and respiratory care staff consulted; no adverse overnight events reported to me; crying when i came in room; anxious; denies acute chest pains or increased SOB; dobutamine stopped by cardiology; improving secretions; denies palpitations; tolerating tube feeds well so far. Objective Vital Signs - 12hr 03/17/17 03/18/17 03/18/17 23:51 00:00 00:11 Temperature Pulse Rate 64 87 77 Respiratory 14 14 14 Rate Blood Pressure 108/75 116/72 116/72 O2 Sat by Pulse 100 100 100 Oximetry 03/18/17 03/18/17 03/18/17 00:21 00:30 00:41 Temperature Pulse Rate 65 69 66 Respiratory 14 16 14 Rate Blood Pressure 116/72 105/63 105/63 O2 Sat by Pulse 100 100 100 Oximetry 03/18/17 03/18/1703/18/17 00:51 01:00 01:11 Temperature Pulse Rate 66 70 69 Respiratory 14 15 14 Rate Blood Pressure 105/63 106/68 106/68 O2 Sat by Pulse 100 100 100 Oximetry 03/18/17 03/18/17 03/18/17 01:21 01:31 01:41 Temperature Pulse Rate 64 67 69 Respiratory 14 14 14 Rate Blood Pressure 106/68 91/52 91/52 O2 Sat by Pulse 100 100 100 Oximetry 03/18/17 03/18/17 03/18/17 01:51 02:00 02:11 Temperature Pulse Rate 69 61 61 Respiratory 14 14 14 Rate Blood Pressure 91/52 91/51 91/51 O2 Sat by Pulse 100 100 100 Oximetry 03/18/17 03/18/17 03/18/17 02:21 02:31 02:41 Temperature Pulse Rate 62 89 118 H Respiratory 14 18 15 Rate Blood Pressure 91/51 114/73 114/73 O2 Sat by Pulse 100 100 100 Oximetry 03/18/17 03/18/17 03/18/17 02:51 03:00 03:03 Temperature Pulse Rate 103 H 89 80 Respiratory 19 15 Rate Blood Pressure 114/73 118/69 118/69 O2 Sat by Pulse 100 100 100 Oximetry 03/18/17 03/18/17 03/18/17 03:11 03:21 03:30 Temperature Pulse Rate 77 70 68 Respiratory 14 14 14 Rate Blood Pressure 118/69 118/69 106/62 O2 Sat by Pulse 100 100 100 Oximetry 03/18/17 03/18/17 03/18/17 03:41 03:51 04:00 Temperature 97.4 F L Pulse Rate 69 71 85 Respiratory 14 14 14 Rate Blood Pressure 106/62 106/62 113/68 O2 Sat by Pulse 100 100 100 Oximetry 03/18/17 03/18/17 03/18/17 04:11 04:21 04:22 Temperature Pulse Rate 116 H 87 89 Respiratory 18 14 Rate Blood Pressure 113/68 113/68 113/68 O2 Sat by Pulse 100 100 Oximetry 03/18/17 03/18/17 03/18/17 04:30 04:41 04:51 Temperature Pulse Rate 86 77 69 Respiratory 14 14 12 Rate Blood Pressure 113/68 116/77 O2 Sat by Pulse 100 100 100 Oximetry 03/18/17 03/18/17 03/18/17 05:00 05:11 05:21 Temperature Pulse Rate 68 60 63 Respiratory 13 14 13 Rate Blood Pressure 100/64 100/64 100/64 O2 Sat by Pulse 100 100 100 Oximetry 03/18/17 03/18/17 03/18/17 05:30 05:41 05:51 Temperature Pulse Rate 66 74 68 Respiratory 14 14 14 Rate Blood Pressure 98/57 98/57 98/57 O2 Sat by Pulse 100 100 100 Oximetry 03/18/17 03/18/17 03/18/17 06:00 06:11 06:21 Temperature Pulse Rate 68 69 70 Respiratory 14 14 14 Rate Blood Pressure 98/57 103/59 103/59 O2 Sat by Pulse 100 100 100 Oximetry 03/18/17 03/18/17 03/18/17 06:30 06:41 06:51 Temperature Pulse Rate 65 68 67 Respiratory 14 14 14 Rate Blood Pressure 104/53 104/53 103/59 O2 Sat by Pulse 100 100 100 Oximetry 03/18/17 03/18/17 03/18/17 07:00 07:10 07:21 Temperature Pulse Rate 69 76 70 Respiratory 9 L 14 15 Rate Blood Pressure 110/60 110/60 110/60 O2 Sat by Pulse 100 100 100 Oximetry 03/18/17 03/18/17 03/18/17 07:30 07:41 07:51 Temperature Pulse Rate 70 69 68 Respiratory 14 12 14 Rate Blood Pressure 109/67 109/67 109/67 O2 Sat by Pulse 100 100 100 Oximetry 03/18/17 03/18/17 03/18/17 08:00 08:11 08:21 Temperature 99.1 F Pulse Rate 65 67 67 Respiratory 13 14 12 Rate Blood Pressure 118/68 114/66 114/66 O2 Sat by Pulse 100 100 100 Oximetry 03/18/17 03/18/17 03/18/17 08:30 08:31 11:38 Temperature Pulse Rate 79 81 Respiratory 13 Rate Blood Pressure 119/65 103/64 O2 Sat by Pulse 100 99 Oximetry Constitutional: alert, appears uncomfortable Eyes: non-icteric ENT: oropharynx moist, oropharyngeal exudate pre Neck: supple, no lymphadenopathy, JVD (to sternal angle), other (no thyromegaly) Effort: mildly labored Ascultation: Bilateral: diminished breath sounds, rales (bases) Percussion: Bilateral: not dull Cardiovascular: regular rate and rhythm, other (no rubs / murmurs) Gastrointestinal: hypoactive bowel sounds, soft, non-tender, non-distended, other (No HSM) Integumentary: normal, other (no rash or petechiae) Extremities: no cyanosis, no edema, pulses normal, no ischemia or petechiae Neurologic: normal mental status, non-focal exam, pupils equal and round, motor strength normal and, other (PERRLA, EOMI) Psychiatric: anxious, tearful CBC and BMP: 03/19/17 05:00 03/19/17 05:00 ABG, PT/INR, D-dimer: ABG ABG pH 7.422 pH Units (7.350-7.450) 03/18/17 03:45 ABG pCO2 45.9 mm Hg 03/18/17 03:45 ABG pO2 132.3 mm Hg (80.0-90.0) H 03/18/17 03:45 ABG O2 Saturation 98.6 % (95.0-99.0) 03/18/17 03:45 PT/INR, D-dimer PT 16.8 Sec. (12.2-14.9) H 03/17/17 05:00 INR 1.30 (0.87-1.13) H 03/17/17 05:00 Abnormal lab findings: Abnormal Labs 03/14/17 03/14/17 03/15/17 15:36 Unknown 04:15 RBC 2.98 L Hgb 8.2 L Hct 25.2 L MCV RDW 19.5 H Lymph % (Auto) 12.9 L Nolan % (Auto) 9.4 H Lymph # 0.7 L Seg Neutrophils % 76.6 H Seg Neuts % (Manual) Lymphocytes % (Manual) Lymphocytes # (Manual) PT INR APTT ABG pH 7.349 L ABG pO2 446.4 H 274.8 H ABG HCO3 ABG O2 Saturation 99.6 H 99.5 H ABG Base Excess -3.4 L -4.6 L ABG Hemoglobin 12.3 L 8.6 L Oxyhemoglobin Potassium Chloride Glucose POC Glucose Calcium Total Bilirubin AST C-Reactive Protein Total Protein Albumin Urine WBC (Auto) Crossmatch 03/15/17 03/15/17 03/15/17 04:15 04:15 04:45 RBC Hgb Hct MCV RDW Lymph % (Auto) Nolan % (Auto) Lymph # Seg Neutrophils % Seg Neuts % (Manual) Lymphocytes % (Manual) Lymphocytes # (Manual) PT 16.9 H INR 1.31 H APTT ABG pH 7.340 L ABG pO2 168.3 H ABG HCO3 ABG O2 Saturation ABG Base Excess -3.8 L ABG Hemoglobin 7.7 L Oxyhemoglobin Potassium Chloride 114.1 H Glucose 112 H POC Glucose Calcium 7.5 L D Total Bilirubin AST C-Reactive Protein Total Protein 5.5 L D Albumin 2.8 L Urine WBC (Auto) Crossmatch 03/15/17 03/15/17 03/15/17 06:06 08:20 13:05 RBC Hgb Hct MCV RDW Lymph % (Auto) Nolan % (Auto) Lymph # Seg Neutrophils % Seg Neuts % (Manual) Lymphocytes % (Manual) Lymphocytes # (Manual) PT INR APTT ABG pH ABG pO2 ABG HCO3 ABG O2 Saturation ABG Base Excess -2.9 L ABG Hemoglobin 8.5 L Oxyhemoglobin 94.3 L Potassium Chloride Glucose POC Glucose Calcium Total Bilirubin AST C-Reactive Protein Total Protein Albumin Urine WBC (Auto) 15.0 H Crossmatch See Detail 03/15/17 03/15/17 03/15/17 14:20 15:35 20:29 RBC 3.46 L Hgb 9.7 L Hct 29.4 L MCV RDW 19.0 H Lymph % (Auto) 12.6 L Nolan % (Auto) 9.1 H Lymph # 0.8 L Seg Neutrophils % 77.2 H Seg Neuts % (Manual) Lymphocytes % (Manual) Lymphocytes # (Manual) PT INR APTT ABG pH 7.261 L ABG pO2 170.6 H 229.2 H ABG HCO3 ABG O2 Saturation 99.4 H ABG Base Excess -6.1 L -3.4 L ABG Hemoglobin 10.4 L 8.3 L Oxyhemoglobin Potassium Chloride Glucose POC Glucose Calcium Total Bilirubin AST C-Reactive Protein Total Protein Albumin Urine WBC (Auto) Crossmatch 03/15/17 03/16/17 03/16/17 23:09 04:20 05:58 RBC 3.24 L Hgb 9.1 L Hct 27.1 L MCV RDW 19.1 H Lymph % (Auto) Nolan % (Auto) Lymph # Seg Neutrophils % Seg Neuts % (Manual) Lymphocytes % (Manual) 11.0 L Lymphocytes # (Manual) 0.6 L PT INR APTT ABG pH ABG pO2 130.4 H ABG HCO3 ABG O2 Saturation ABG Base Excess -2.4 L ABG Hemoglobin 6.1 L Oxyhemoglobin Potassium Chloride Glucose POC Glucose 127 H Calcium Total Bilirubin AST C-Reactive Protein Total Protein Albumin Urine WBC (Auto) Crossmatch 03/16/17 03/16/17 03/16/17 05:58 17:51 21:45 RBC Hgb Hct MCV RDW Lymph % (Auto) Nolan % (Auto) Lymph # Seg Neutrophils % Seg Neuts % (Manual) Lymphocytes % (Manual) Lymphocytes # (Manual) PT 17.5 H INR 1.36 H APTT 49.4 H ABG pH ABG pO2 ABG HCO3 ABG O2 Saturation ABG Base Excess ABG Hemoglobin Oxyhemoglobin Potassium Chloride 108.1 H Glucose 117 H POC Glucose Calcium 7.8 L Total Bilirubin AST 113 H C-Reactive Protein 23.90 H Total Protein 5.4 L Albumin 2.7 L Urine WBC (Auto) Crossmatch 03/17/17 03/17/17 03/17/17 00:01 05:00 05:00 RBC 3.06 L Hgb 8.6 L Hct 25.5 L MCV RDW 18.9 H Lymph % (Auto) Nolan % (Auto) Lymph # Seg Neutrophils % Seg Neuts % (Manual) Lymphocytes % (Manual) Lymphocytes # (Manual) PT INR APTT ABG pH ABG pO2 ABG HCO3 ABG O2 Saturation ABG Base Excess ABG Hemoglobin Oxyhemoglobin Potassium 3.2 L Chloride Glucose 102 H POC Glucose 108 H Calcium 8.3 L Total Bilirubin AST C-Reactive Protein Total Protein Albumin Urine WBC (Auto) Crossmatch 03/17/17 03/17/17 03/17/17 05:00 15:40 21:30 RBC 2.96 L Hgb 8.2 L Hct 24.5 L MCV 83 L RDW 18.6 H Lymph % (Auto) Nolan % (Auto) Lymph # Seg Neutrophils % Seg Neuts % (Manual) 93.0 H Lymphocytes % (Manual) 2.0 L Lymphocytes # (Manual) 0.1 L PT 16.8 H INR 1.30 H APTT ABG pH ABG pO2 ABG HCO3 ABG O2 Saturation ABG Base Excess ABG Hemoglobin Oxyhemoglobin Potassium Chloride Glucose POC Glucose Calcium 8.1 L Total Bilirubin AST C-Reactive Protein Total Protein Albumin Urine WBC (Auto) Crossmatch 03/18/17 03/18/17 03/18/17 00:05 03:45 04:45 RBC 3.12 L Hgb 8.8 L Hct 25.9 L MCV 83 L RDW 18.3 H Lymph % (Auto) 9.5 L Nolan % (Auto) Lymph # 0.6 L Seg Neutrophils % 81.7 H Seg Neuts % (Manual) Lymphocytes % (Manual) Lymphocytes # (Manual) PT INR APTT ABG pH ABG pO2 132.3 H ABG HCO3 29.2 H ABG O2 Saturation ABG Base Excess 4.3 H ABG Hemoglobin 8.7 L Oxyhemoglobin Potassium Chloride Glucose POC Glucose 108 H Calcium Total Bilirubin AST C-Reactive Protein Total Protein Albumin Urine WBC (Auto) Crossmatch 03/18/17 03/18/17 04:45 05:44 RBC Hgb Hct MCV RDW Lymph % (Auto) Nolan % (Auto) Lymph # Seg Neutrophils % Seg Neuts % (Manual) Lymphocytes % (Manual) Lymphocytes # (Manual) PT INR APTT ABG pH ABG pO2 ABG HCO3 ABG O2 Saturation ABG Base Excess ABG Hemoglobin Oxyhemoglobin Potassium Chloride Glucose POC Glucose 108 H Calcium 8.2 L Total Bilirubin 1.40 H AST 53 H C-Reactive Protein Total Protein 6.1 L Albumin 2.7 L Urine WBC (Auto) Crossmatch Chest x-ray: image reviewed (persistent but improved bilateral infiltrates) Allied health notes reviewed: RT
[2017-03-18 12:37] LABS: ABG HCO3 27.9 mmol/L (20.0-26.0); ABG Oxygen Saturation 98.5 % (95.0-99.0); ABG PCO2 34.4 mm Hg; ABG PH 7.526 pH Units (7.350-7.450); ABG PO2 118.5 mm Hg (80.0-90.0)
[2017-03-18] MEDS: MORPHINE IV PRN ×2 (13:50→18:10)
[2017-03-18] MEDS ORDERED: DOBUTREX DRIP 500MG/D5W 250ML 500 MG/250 ML BAG IV SCH (14:00)
--- NOTE | 2017-03-18 14:56 | Progress Note ---
Assessment and Plan POD #4 Pt status quo. still intubated. awake & alert Abd soft h/h low but stable may attempt TF Selected Entries 03/18/17 12:49 Pulse Rate 67 Blood Pressure 100/54 Laboratory Tests 03/16/17 03/17/17 03/17/17 21:45 05:00 05:00 Hgb 8.6 L Hct 25.5 L PT 16.8 H INR 1.30 H APTT 49.4 H 03/18/17 04:45 Hgb 8.8 L Hct 25.9 L PT INR APTT Objective Vital Signs - 12hr 03/18/17 03/18/17 03/18/17 03:00 03:03 03:11 Temperature Pulse Rate 89 80 77 Respiratory 15 14 Rate Blood Pressure 118/69 118/69 118/69 O2 Sat by Pulse 100 100 100 Oximetry 03/18/17 03/18/17 03/18/17 03:21 03:30 03:41 Temperature Pulse Rate 70 68 69 Respiratory 14 14 14 Rate Blood Pressure 118/69 106/62 106/62 O2 Sat by Pulse 100 100 100 Oximetry 03/18/17 03/18/17 03/18/17 03:51 04:00 04:11 Temperature 97.4 F L Pulse Rate 71 85 116 H Respiratory 14 14 18 Rate Blood Pressure 106/62 113/68 113/68 O2 Sat by Pulse 100 100 100 Oximetry 03/18/17 03/18/17 03/18/17 04:21 04:22 04:30 Temperature Pulse Rate 87 89 86 Respiratory 14 14 Rate Blood Pressure 113/68 113/68 113/68 O2 Sat by Pulse 100 100 Oximetry 03/18/17 03/18/17 03/18/17 04:41 04:51 05:00 Temperature Pulse Rate 77 69 68 Respiratory 14 12 13 Rate Blood Pressure 116/77 100/64 O2 Sat by Pulse 100 100 100 Oximetry 03/18/17 03/18/17 03/18/17 05:11 05:21 05:30 Temperature Pulse Rate 60 63 66 Respiratory 14 13 14 Rate Blood Pressure 100/64 100/64 98/57 O2 Sat by Pulse 100 100 100 Oximetry 03/18/17 03/18/17 03/18/17 05:41 05:51 06:00 Temperature Pulse Rate 74 68 68 Respiratory 14 14 14 Rate Blood Pressure 98/57 98/57 98/57 O2 Sat by Pulse 100 100 100 Oximetry 03/18/17 03/18/17 03/18/17 06:11 06:21 06:30 Temperature Pulse Rate 69 70 65 Respiratory 14 14 14 Rate Blood Pressure 103/59 103/59 104/53 O2 Sat by Pulse 100 100 100 Oximetry 03/18/17 03/18/17 03/18/17 06:41 06:51 07:00 Temperature Pulse Rate 68 67 69 Respiratory 14 14 9 L Rate Blood Pressure 104/53 103/59 110/60 O2 Sat by Pulse 100 100 100 Oximetry 03/18/17 03/18/17 03/18/17 07:10 07:21 07:30 Temperature Pulse Rate 76 70 70 Respiratory 14 15 14 Rate Blood Pressure 110/60 110/60 109/67 O2 Sat by Pulse 100 100 100 Oximetry 03/18/17 03/18/17 03/18/17 07:41 07:51 08:00 Temperature 99.1 F Pulse Rate 69 68 65 Respiratory 12 14 20 Rate Blood Pressure 109/67 109/67 118/68 O2 Sat by Pulse 100 100 100 Oximetry 03/18/17 03/18/17 03/18/17 08:11 08:21 08:30 Temperature Pulse Rate 67 67 Respiratory 14 12 Rate Blood Pressure 114/66 114/66 O2 Sat by Pulse 100 100 100 Oximetry 03/18/17 03/18/17 03/18/17 08:31 08:41 08:51 Temperature Pulse Rate 79 67 68 Respiratory 13 14 12 Rate Blood Pressure 119/65 119/65 119/65 O2 Sat by Pulse 99 100 100 Oximetry 03/18/17 03/18/17 03/18/17 09:00 09:11 09:21 Temperature Pulse Rate 66 69 95 H Respiratory 14 12 16 Rate Blood Pressure 96/51 96/51 96/51 O2 Sat by Pulse 100 100 87 Oximetry 03/18/17 03/18/17 03/18/17 09:30 09:41 09:51 Temperature Pulse Rate 74 78 80 Respiratory 16 14 14 Rate Blood Pressure 118/68 118/68 118/68 O2 Sat by Pulse 100 100 100 Oximetry 03/18/17 03/18/17 03/18/17 10:00 10:11 10:21 Temperature Pulse Rate 84 85 112 H Respiratory 16 14 24 Rate Blood Pressure 120/66 120/66 120/66 O2 Sat by Pulse 100 100 100 Oximetry 03/18/17 03/18/17 03/18/17 10:30 10:41 10:51 Temperature Pulse Rate 83 126 H 89 Respiratory 19 30 H 16 Rate Blood Pressure 130/70 130/70 130/70 O2 Sat by Pulse 100 100 100 Oximetry 03/18/17 03/18/17 03/18/17 11:01 11:11 11:21 Temperature Pulse Rate 85 85 83 Respiratory 22 18 22 Rate Blood Pressure 104/62 104/62 104/62 O2 Sat by Pulse 100 100 100 Oximetry 03/18/17 03/18/17 03/18/17 11:30 11:38 11:41 Temperature Pulse Rate 79 81 79 Respiratory 13 15 Rate Blood Pressure 103/64 103/64 103/64 O2 Sat by Pulse 100 100 Oximetry 03/18/17 03/18/17 03/18/17 11:51 12:00 12:11 Temperature Pulse Rate 67 61 77 Respiratory 23 17 15 Rate Blood Pressure 103/64 104/59 104/59 O2 Sat by Pulse 100 100 100 Oximetry 03/18/17 03/18/17 12:21 12:49 Temperature Pulse Rate 74 67 Respiratory 20 21 Rate Blood Pressure 104/59 100/54 O2 Sat by Pulse 100 100 Oximetry - Labs 03/18/17 04:45 03/18/17 04:45 Diabetes panel 03/17/17 03/18/17 Range/Units 21:30 04:45 Sodium 140 (137-145) mmol/L Potassium 3.8 (3.6-5.0) mmol/L Chloride 100.9 (98-107) mmol/L Carbon Dioxide 28 28 (22-30) mmol/L BUN 15 16 (9-20) mg/dL Creatinine 0.8 0.9 (0.8-1.5) mg/dL Glucose 91 89 (75-100) mg/dL Calcium 8.1 L 8.2 L (8.4-10.2) mg/dL AST 53 H (5-40) units/L ALT 26 (7-56) units/L Alkaline Phosphatase 72 (35-129) units/L Total Protein 6.1 L (6.3-8.2) g/dL Albumin 2.7 L (3.9-5) g/dL Calcium panel 03/17/17 03/18/17 Range/Units 21:30 04:45 Calcium 8.1 L 8.2 L (8.4-10.2) mg/dL Albumin 2.7 L (3.9-5) g/dL Pituitary panel 03/17/17 03/18/17 Range/Units 21:30 04:45 Sodium 140 (137-145) mmol/L Potassium 3.8 (3.6-5.0) mmol/L Chloride 100.9 (98-107) mmol/L Carbon Dioxide 28 28 (22-30) mmol/L BUN 15 16 (9-20) mg/dL Creatinine 0.8 0.9 (0.8-1.5) mg/dL Glucose 91 89 (75-100) mg/dL Calcium 8.1 L 8.2 L (8.4-10.2) mg/dL Adrenal panel 03/17/17 03/18/17 Range/Units 21:30 04:45 Sodium 140 (137-145) mmol/L Potassium 3.8 (3.6-5.0) mmol/L Chloride 100.9 (98-107) mmol/L Carbon Dioxide 28 28 (22-30) mmol/L BUN 15 16 (9-20) mg/dL Creatinine 0.8 0.9 (0.8-1.5) mg/dL Glucose 91 89 (75-100) mg/dL Calcium 8.1 L 8.2 L (8.4-10.2) mg/dL Total Bilirubin 1.40 H (0.1-1.2) mg/dL AST 53 H (5-40) units/L ALT 26 (7-56) units/L Alkaline Phosphatase 72 (35-129) units/L Total Protein 6.1 L (6.3-8.2) g/dL Albumin 2.7 L (3.9-5) g/dL
[2017-03-18] MEDS ORDERED: SODIUM BICARBONATE FEEDTUBE PRN (15:41)
[2017-03-18] MEDS ORDERED: SIMPLE SYRUP FEEDTUBE PRN ×2 (15:41)
[2017-03-18] MEDS ORDERED: PANCREAZE DR 10,500 UNIT FEEDTUBE PRN (15:41)
--- NOTE | 2017-03-18 16:33 | XRay Report ---
KUB: 03/18/17 CLINICAL: Feeding tube placement. FINDINGS: The previously identified nasogastric tube has been removed and a Dobbhoff feeding tube has been placed. The Dobbhoff tube tip is in the proximal stomach at the cardia.Normal gas pattern. IMPRESSION: Feeding tube in the stomach but in the proximal stomach. Recommend more distal placement with advancement of the tube by at least 10 cm.
[2017-03-18 16:49] LABS: Basophils % (Auto) 0.4 % (0.0-1.8); Eosinophils % (Auto) 1.4 % (0.0-4.3); Hematocrit 26.5 % (35.5-45.6); Hemoglobin 8.7 gm/dl (11.8-15.2); Mean Corpuscular HGB Conc 33 % (32-34); Mean Corpuscular Hemoglobin 27 pg (28-32); Mean Corpuscular Volume 84 fl (84-94); Platelet Count 201 K/mm3 (140-440); Red Blood Count 3.17 M/mm3 (3.65-5.03); Red Cell Distribution Width 18.4 % (13.2-15.2); White Blood Count 6.9 K/mm3 (4.5-11.0)
--- NOTE | 2017-03-18 18:44 | XRay Report ---
FINAL REPORT PROCEDURE: XR ABDOMEN 1V AP TECHNIQUE: AP view of the upper abdomen and lower chest is obtained. HISTORY: dobhoff placement COMPARISON: No prior studies are available for comparison. FINDINGS: The Dobbhoff tube is coiled in the fundus of the stomach, with the tip directed cephalad towards the GE junction. IVC filter is seen in the right upper quadrant of the abdomen. IMPRESSION: Dobbhoff tube is coiled in the fundus of the stomach.
--- NOTE | 2017-03-18 21:16 | XRay Report ---
FINAL REPORT EXAM: XR ABDOMEN 1V AP HISTORY: dobhoff placement TECHNIQUE: Supine AP view of the abdomen. PRIORS: None. FINDINGS: There is a Dobhoff tube in place with the tip in the mid stomach. There are several gas distended loops of small bowel in the upper abdomen. There are multiple small calcified stones in the gallbladder. An IVC filter is noted. Midline lower abdominal skin slick are noted. The bones are unremarkable. IMPRESSION: Feeding tube tip in mid stomach Bowel gas pattern is most likely due to a postoperative ileus Numerous small calcified stones in the gallbladder
[2017-03-19] MEDS: REGLAN IV SCH ×4 (00:56→22:38)
[2017-03-19] MEDS: HEPARIN/ 0.45% NACL-25,000 UNIT/500 ML 25,000 UNIT/500 ML BAG IV SCH (00:57)
[2017-03-19 04:19] LABS: ABG Base Excess 2.6 mmol/L (-2.0-3.0); ABG HCO3 26.4 mmol/L (20.0-26.0); ABG Oxygen Saturation 98.3 % (95.0-99.0); ABG PCO2 37.1 mm Hg; ABG PH 7.47 pH Units (7.350-7.450); ABG PO2 115.3 mm Hg (80.0-90.0)
[2017-03-19] MEDS: LOPRESSOR IV SCH ×3 (04:44→20:00)
[2017-03-19 06:16] LABS: Hematocrit 25.1 % (35.5-45.6); Hemoglobin 8.4 gm/dl (11.8-15.2); Mean Corpuscular HGB Conc 34 % (32-34); Mean Corpuscular Hemoglobin 28 pg (28-32); Mean Corpuscular Volume 83 fl (84-94); Platelet Count 188 K/mm3 (140-440); Red Blood Count 3.05 M/mm3 (3.65-5.03); Red Cell Distribution Width 18.9 % (13.2-15.2)
[2017-03-19 06:38] LABS: Alanine Aminotransferase 20 units/L (7-56); Albumin 2.7 g/dL (3.9-5); Albumin/Globulin Ratio 0.8 %; Alkaline Phosphatase 70 units/L (35-129); Anion Gap 16 mmol/L; BUN/Creatinine Ratio 29; Blood Urea Nitrogen 20 mg/dL (9-20); Calcium 8.4 mg/dL (8.4-10.2); Carbon Dioxide 27 mmol/L (22-30); Chloride 100.9 mmol/L (98-107); Glucose 94 mg/dL (75-100); Potassium 3.2 mmol/L (3.6-5.0); Sodium 141 mmol/L (137-145); Total Protein 6.1 g/dL (6.3-8.2)
[2017-03-19 07:47] LABS: Blastocytes % (Manual) 0 %
[2017-03-19 07:48] LABS: Anisocytosis 2+; Basophils % (Manual) 0 % (0.0-1.8); Elliptocytes 2+
[2017-03-19 07:49] LABS: Ovalocytes Few; Poikilocytosis 1+; Schistocytes Few
[2017-03-19 07:50] LABS: Diff Status Complete; Large Platelets Rare; Platelet Estimate Consistent w Auto; Polychromasia Rare
--- NOTE | 2017-03-19 08:05 | XRay Report ---
AP CHEST :03/19/17 02:10 CLINICAL: Intubated.Follow up respiratory failure. COMPARISON:Previous day. FINDINGS: The endotracheal tube is in satisfactory position. The feeding tube is satisfactory. Right PICC line tip is in the SVC. The heart and lungs are unchanged. Prominence of the right hilum due to rotation. The heart is normal size. Mild central pulmonary vascular congestion. No airspace disease or pleural effusion. No pneumothorax. IMPRESSION: No change.No CHF or pneumonia.
[2017-03-19] MEDS: BABY ASPIRIN PO SCH (09:08)
[2017-03-19] MEDS: LASIX IV SCH (09:08)
[2017-03-19] MEDS: PEPCID IV SCH (09:08)
[2017-03-19] MEDS: LEVAQUIN 750MG/150ML 750 MG/150 ML BAG IV SCH (09:09)
[2017-03-19] MEDS: ZESTRIL PO SCH (09:31)
[2017-03-19] MEDS: POTASSIUM CHLORIDE FEEDTUBE SCH ×2 (09:36→14:22)
--- NOTE | 2017-03-19 10:59 | Progress Note ---
Assessment and Plan POD #5 Pt awake. possibly to be extubated today. appears to be peter low rate TF Abd soft. dressings dry low h/h low K+ trans prbc's as per PCP monitor h/h replenish K surgically stable guarded Selected Entries 03/19/17 10:30 Pulse Rate 99 H Respiratory 23 Rate Blood Pressure 100/68 Laboratory Tests 03/19/17 03/19/17 03/19/17 04:15 05:00 05:00 WBC 6.0 Hgb 8.4 L Hct 25.1 L ABG pH 7.470 H ABG pCO2 37.1 ABG pO2 115.3 H ABG HCO3 26.4 H ABG O2 Saturation 98.3 Sodium 141 Potassium 3.2 L Chloride 100.9 Carbon Dioxide 27 Anion Gap 16 BUN 20 Creatinine 0.7 L Objective Vital Signs - 12hr 03/18/17 03/18/17 03/18/17 23:01 23:11 23:21 Temperature Pulse Rate 84 84 82 Respiratory 14 14 14 Rate Respiratory Rate [Abdomen] Respiratory Rate [Chest] Blood Pressure 118/64 118/64 118/64 O2 Sat by Pulse 100 100 100 Oximetry 03/18/17 03/18/17 03/18/17 23:30 23:41 23:51 Temperature Pulse Rate 88 88 91 H Respiratory 14 14 14 Rate Respiratory Rate [Abdomen] Respiratory Rate [Chest] Blood Pressure 116/57 116/57 116/57 O2 Sat by Pulse 100 100 100 Oximetry 03/19/17 03/19/17 03/19/17 00:00 00:11 00:21 Temperature 97.9 F Pulse Rate 86 83 82 Respiratory 14 14 14 Rate Respiratory Rate [Abdomen] Respiratory Rate [Chest] Blood Pressure 110/55 110/55 110/55 O2 Sat by Pulse 100 100 100 Oximetry 03/19/17 03/19/17 03/19/17 00:30 00:41 00:44 Temperature Pulse Rate 87 82 81 Respiratory 14 14 Rate Respiratory Rate [Abdomen] Respiratory Rate [Chest] Blood Pressure 113/63 113/63 113/63 O2 Sat by Pulse 100 100 100 Oximetry 03/19/17 03/19/17 03/19/17 00:51 01:00 01:11 Temperature Pulse Rate 85 84 83 Respiratory 14 14 14 Rate Respiratory Rate [Abdomen] Respiratory Rate [Chest] Blood Pressure 113/63 121/67 121/67 O2 Sat by Pulse 100 100 100 Oximetry 03/19/17 03/19/17 03/19/17 01:21 01:30 01:41 Temperature Pulse Rate 84 86 90 Respiratory 14 14 14 Rate Respiratory Rate [Abdomen] Respiratory Rate [Chest] Blood Pressure 121/67 107/61 107/61 O2 Sat by Pulse 100 100 100 Oximetry 03/19/17 03/19/17 03/19/17 01:51 02:01 02:11 Temperature Pulse Rate 87 83 98 H Respiratory 14 13 16 Rate Respiratory Rate [Abdomen] Respiratory Rate [Chest] Blood Pressure 107/61 108/63 108/63 O2 Sat by Pulse 100 100 100 Oximetry 03/19/17 03/19/17 03/19/17 02:21 02:30 02:41 Temperature Pulse Rate 83 80 78 Respiratory 14 14 14 Rate Respiratory Rate [Abdomen] Respiratory Rate [Chest] Blood Pressure 108/63 119/64 119/64 O2 Sat by Pulse 100 100 100 Oximetry 03/19/17 03/19/17 03/19/17 02:51 03:01 03:11 Temperature Pulse Rate 81 91 H Respiratory 14 22 Rate Respiratory Rate [Abdomen] Respiratory Rate [Chest] Blood Pressure 119/64 119/64 119/64 O2 Sat by Pulse 100 100 Oximetry 03/19/17 03/19/17 03/19/17 03:21 03:30 03:41 Temperature Pulse Rate 90 86 88 Respiratory 14 16 14 Rate Respiratory Rate [Abdomen] Respiratory Rate [Chest] Blood Pressure 115/70 126/69 126/69 O2 Sat by Pulse 100 Oximetry 03/19/17 03/19/17 03/19/17 03:51 03:56 04:00 Temperature 97.5 F L Pulse Rate 85 92 H 83 Respiratory 14 14 Rate Respiratory Rate [Abdomen] Respiratory Rate [Chest] Blood Pressure 126/69 126/69 115/57 O2 Sat by Pulse 99 100 100 Oximetry 03/19/17 03/19/17 03/19/17 04:11 04:21 04:30 Temperature Pulse Rate 87 85 96 H Respiratory 16 14 16 Rate Respiratory Rate [Abdomen] Respiratory Rate [Chest] Blood Pressure 115/57 115/57 122/58 O2 Sat by Pulse 100 100 100 Oximetry 03/19/17 03/19/17 03/19/17 04:41 04:44 04:51 Temperature Pulse Rate 91 H 94 H 62 Respiratory 14 14 Rate Respiratory Rate [Abdomen] Respiratory Rate [Chest] Blood Pressure 122/58 122/58 122/58 O2 Sat by Pulse 100 100 Oximetry 03/19/17 03/19/17 03/19/17 05:01 05:11 05:21 Temperature Pulse Rate 64 69 67 Respiratory 14 17 17 Rate Respiratory Rate [Abdomen] Respiratory Rate [Chest] Blood Pressure 98/55 98/55 98/55 O2 Sat by Pulse 100 100 100 Oximetry 03/19/17 03/19/17 03/19/17 05:30 05:41 05:51 Temperature Pulse Rate 74 85 81 Respiratory 14 20 14 Rate Respiratory Rate [Abdomen] Respiratory Rate [Chest] Blood Pressure 99/56 99/56 99/56 O2 Sat by Pulse 100 100 100 Oximetry 03/19/17 03/19/17 03/19/17 06:00 06:31 07:00 Temperature Pulse Rate 75 76 91 H Respiratory 14 14 14 Rate Respiratory Rate [Abdomen] Respiratory Rate [Chest] Blood Pressure 107/55 92/61 96/58 O2 Sat by Pulse 100 100 100 Oximetry 03/19/17 03/19/17 03/19/17 07:31 07:37 08:00 Temperature 99.2 F Pulse Rate 99 H 87 Respiratory 25 H 14 Rate Respiratory Rate [Abdomen] Respiratory Rate [Chest] Blood Pressure 113/80 114/59 O2 Sat by Pulse 100 100 Oximetry 03/19/17 03/19/17 03/19/17 08:29 08:30 08:39 Temperature Pulse Rate 86 81 84 Respiratory 14 16 Rate Respiratory Rate [Abdomen] Respiratory Rate [Chest] Blood Pressure 114/59 115/62 115/62 O2 Sat by Pulse 100 100 86 Oximetry 03/19/17 03/19/17 03/19/17 09:00 09:30 09:31 Temperature Pulse Rate 82 80 88 Respiratory 18 19 Rate Respiratory Rate [Abdomen] Respiratory Rate [Chest] Blood Pressure 112/55 113/62 113/62 O2 Sat by Pulse 99 98 Oximetry 03/19/17 03/19/17 10:00 10:30 Temperature Pulse Rate 87 99 H Respiratory 20 23 Rate Respiratory 24 Rate [Abdomen] Respiratory 24 Rate [Chest] Blood Pressure 128/75 100/68 O2 Sat by Pulse 100 100 Oximetry - Labs 03/19/17 05:00 03/19/17 05:00 Diabetes panel 03/19/17 Range/Units 05:00 Sodium 141 (137-145) mmol/L Potassium 3.2 L (3.6-5.0) mmol/L Chloride 100.9 (98-107) mmol/L Carbon Dioxide 27 (22-30) mmol/L BUN 20 (9-20) mg/dL Creatinine 0.7 L (0.8-1.5) mg/dL Glucose 94 (75-100) mg/dL Calcium 8.4 (8.4-10.2) mg/dL AST 33 (5-40) units/L ALT 20 (7-56) units/L Alkaline Phosphatase 70 (35-129) units/L Total Protein 6.1 L (6.3-8.2) g/dL Albumin 2.7 L (3.9-5) g/dL Calcium panel 03/19/17 Range/Units 05:00 Calcium 8.4 (8.4-10.2) mg/dL Albumin 2.7 L (3.9-5) g/dL Pituitary panel 03/19/17 Range/Units 05:00 Sodium 141 (137-145) mmol/L Potassium 3.2 L (3.6-5.0) mmol/L Chloride 100.9 (98-107) mmol/L Carbon Dioxide 27 (22-30) mmol/L BUN 20 (9-20) mg/dL Creatinine 0.7 L (0.8-1.5) mg/dL Glucose 94 (75-100) mg/dL Calcium 8.4 (8.4-10.2) mg/dL Adrenal panel 03/19/17 Range/Units 05:00 Sodium 141 (137-145) mmol/L Potassium 3.2 L (3.6-5.0) mmol/L Chloride 100.9 (98-107) mmol/L Carbon Dioxide 27 (22-30) mmol/L BUN 20 (9-20) mg/dL Creatinine 0.7 L (0.8-1.5) mg/dL Glucose 94 (75-100) mg/dL Calcium 8.4 (8.4-10.2) mg/dL Total Bilirubin 1.20 (0.1-1.2) mg/dL AST 33 (5-40) units/L ALT 20 (7-56) units/L Alkaline Phosphatase 70 (35-129) units/L Total Protein 6.1 L (6.3-8.2) g/dL Albumin 2.7 L (3.9-5) g/dL
--- NOTE | 2017-03-19 11:50 | Progress Note ---
Assessment and Plan Acute Hypoxemic Respiratory Failure on MVS SBO s/p Ex-lap Acute CHF exacerbation Sepsis Syndrome HTN Severe LV Dysfunction Left Ventricular Thrombus Anemia (doing much better today and tolerating SBT well so far) - continue dobutamine at current dose - extubate if ABG acceptable - reduce lasix dosing at this point - [place] cultured and remains empiric levaquin re: fever spike (NGTD) - stop levaquin after 5 days - continue to wean oxygen for O2 Sats > 94% - Continue full anticoagulation re: LV thrombus (discuss coumadin with cardiology / surgery and begin if OK) - continue wound Care per Surgeon s/p ex-lap - continue enteral nutrition as tolerated and advance to goal rate - continue scheduled bronchodilators and pulmonary toilet - VAP bundle addressed - continue to follow CBC but transfuse only for Hb < 7.0 except falling rapidly ...he remains critically ill on life sustaining interventions including MVS and at risk for further deterioration but improved today ....will re-evaluate in am & prn ......32' CCT Subjective Date of service: 03/19/17 Principal diagnosis: Acute Respiratory Failure on MVS; SBO s/p Ex-lap Interval history: Patient is seen today for: Acute Respiratory Failure and Ventilator Management Seen and examined at bedside; 24hour events reviewed; nursing and respiratory care staff consulted; no adverse overnight events reported to me; on SBT and tolerating well; resting peacefully in bed; not anxious today; denies acute chest pains or increased SOB; No N/V/F/C/palpitations; no gross bleeding on IV heparin; H&H slightly lower Objective Vital Signs - 12hr 03/18/17 03/19/17 03/19/17 23:51 00:00 00:11 Temperature 97.9 F Pulse Rate 91 H 86 83 Respiratory 14 14 14 Rate Respiratory Rate [Abdomen] Respiratory Rate [Chest] Blood Pressure 116/57 110/55 110/55 O2 Sat by Pulse 100 100 100 Oximetry 03/19/17 03/19/17 03/19/17 00:21 00:30 00:41 Temperature Pulse Rate 82 87 82 Respiratory 14 14 14 Rate Respiratory Rate [Abdomen] Respiratory Rate [Chest] Blood Pressure 110/55 113/63 113/63 O2 Sat by Pulse 100 100 100 Oximetry 03/19/17 03/19/17 03/19/17 00:44 00:51 01:00 Temperature Pulse Rate 81 85 84 Respiratory 14 14 Rate Respiratory Rate [Abdomen] Respiratory Rate [Chest] Blood Pressure 113/63 113/63 121/67 O2 Sat by Pulse 100 100 100 Oximetry 03/19/17 03/19/17 03/19/17 01:11 01:21 01:30 Temperature Pulse Rate 83 84 86 Respiratory 14 14 14 Rate Respiratory Rate [Abdomen] Respiratory Rate [Chest] Blood Pressure 121/67 121/67 107/61 O2 Sat by Pulse 100 100 100 Oximetry 03/19/17 03/19/17 03/19/17 01:41 01:51 02:01 Temperature Pulse Rate 90 87 83 Respiratory 14 14 13 Rate Respiratory Rate [Abdomen] Respiratory Rate [Chest] Blood Pressure 107/61 107/61 108/63 O2 Sat by Pulse 100 100 100 Oximetry 03/19/17 03/19/17 03/19/17 02:11 02:21 02:30 Temperature Pulse Rate 98 H 83 80 Respiratory 16 14 14 Rate Respiratory Rate [Abdomen] Respiratory Rate [Chest] Blood Pressure 108/63 108/63 119/64 O2 Sat by Pulse 100 100 100 Oximetry 03/19/17 03/19/17 03/19/17 02:41 02:51 03:01 Temperature Pulse Rate 78 81 Respiratory 14 14 Rate Respiratory Rate [Abdomen] Respiratory Rate [Chest] Blood Pressure 119/64 119/64 119/64 O2 Sat by Pulse 100 100 100 Oximetry 03/19/17 03/19/17 03/19/17 03:11 03:21 03:30 Temperature Pulse Rate 91 H 90 86 Respiratory 22 14 16 Rate Respiratory Rate [Abdomen] Respiratory Rate [Chest] Blood Pressure 119/64 115/70 126/69 O2 Sat by Pulse Oximetry 03/19/17 03/19/17 03/19/17 03:41 03:51 03:56 Temperature Pulse Rate 88 85 92 H Respiratory 14 14 Rate Respiratory Rate [Abdomen] Respiratory Rate [Chest] Blood Pressure 126/69 126/69 126/69 O2 Sat by Pulse 100 99 100 Oximetry 03/19/17 03/19/17 03/19/17 04:00 04:11 04:21 Temperature 97.5 F L Pulse Rate 83 87 85 Respiratory 14 16 14 Rate Respiratory Rate [Abdomen] Respiratory Rate [Chest] Blood Pressure 115/57 115/57 115/57 O2 Sat by Pulse 100 100 100 Oximetry 03/19/17 03/19/17 03/19/17 04:30 04:41 04:44 Temperature Pulse Rate 96 H 91 H 94 H Respiratory 16 14 Rate Respiratory Rate [Abdomen] Respiratory Rate [Chest] Blood Pressure 122/58 122/58 122/58 O2 Sat by Pulse 100 100 Oximetry 03/19/17 03/19/17 03/19/17 04:51 05:01 05:11 Temperature Pulse Rate 62 64 69 Respiratory 14 14 17 Rate Respiratory Rate [Abdomen] Respiratory Rate [Chest] Blood Pressure 122/58 98/55 98/55 O2 Sat by Pulse 100 100 100 Oximetry 03/19/17 03/19/17 03/19/17 05:21 05:30 05:41 Temperature Pulse Rate 67 74 85 Respiratory 17 14 20 Rate Respiratory Rate [Abdomen] Respiratory Rate [Chest] Blood Pressure 98/55 99/56 99/56 O2 Sat by Pulse 100 100 100 Oximetry 03/19/17 03/19/17 03/19/17 05:51 06:00 06:31 Temperature Pulse Rate 81 75 76 Respiratory 14 14 14 Rate Respiratory Rate [Abdomen] Respiratory Rate [Chest] Blood Pressure 99/56 107/55 92/61 O2 Sat by Pulse 100 100 100 Oximetry 03/19/17 03/19/17 03/19/17 07:00 07:31 07:37 Temperature 99.2 F Pulse Rate 91 H 99 H Respiratory 14 25 H Rate Respiratory Rate [Abdomen] Respiratory Rate [Chest] Blood Pressure 96/58 113/80 O2 Sat by Pulse 100 100 Oximetry 03/19/17 03/19/17 03/19/17 08:00 08:29 08:30 Temperature Pulse Rate 87 86 81 Respiratory 14 14 Rate Respiratory Rate [Abdomen] Respiratory Rate [Chest] Blood Pressure 114/59 114/59 115/62 O2 Sat by Pulse 100 100 100 Oximetry 03/19/17 03/19/17 03/19/17 08:39 09:00 09:30 Temperature Pulse Rate 84 82 80 Respiratory 16 18 19 Rate Respiratory Rate [Abdomen] Respiratory Rate [Chest] Blood Pressure 115/62 112/55 113/62 O2 Sat by Pulse 86 99 98 Oximetry 03/19/17 03/19/17 03/19/17 09:31 10:00 10:30 Temperature Pulse Rate 88 87 99 H Respiratory 20 23 Rate Respiratory 24 Rate [Abdomen] Respiratory 24 Rate [Chest] Blood Pressure 113/62 128/75 100/68 O2 Sat by Pulse 100 100 Oximetry 03/19/17 11:00 Temperature Pulse Rate 120 H Respiratory 29 H Rate Respiratory Rate [Abdomen] Respiratory Rate [Chest] Blood Pressure 122/77 O2 Sat by Pulse 100 Oximetry Constitutional: no acute distress, alert Eyes: non-icteric ENT: oropharynx moist, other (normocephalic) Neck: supple, no lymphadenopathy, JVD (to sternal angle), other (no thyromegaly) Effort: normal Ascultation: Bilateral: diminished breath sounds, rhonchi (scant in bases) Percussion: Bilateral: not dull Cardiovascular: regular rate and rhythm, other (no rubs / murmurs) Gastrointestinal: hypoactive bowel sounds, soft, non-tender, non-distended, other (No HSM) Integumentary: normal, other (no rash or petechiae) Extremities: no cyanosis, no edema, pulses normal, no ischemia or petechiae Neurologic: normal mental status, non-focal exam, pupils equal and round, motor strength normal and, other (PERRLA, EOMI) Psychiatric: mood appropriate, affect normal CBC and BMP: 03/19/17 05:00 03/19/17 05:00 ABG, PT/INR, D-dimer: ABG ABG pH 7.470 pH Units (7.350-7.450) H 03/19/17 04:15 ABG pCO2 37.1 mm Hg 03/19/17 04:15 ABG pO2 115.3 mm Hg (80.0-90.0) H 03/19/17 04:15 ABG O2 Saturation 98.3 % (95.0-99.0) 03/19/17 04:15 PT/INR, D-dimer PT 16.8 Sec. (12.2-14.9) H 03/17/17 05:00 INR 1.30 (0.87-1.13) H 03/17/17 05:00 Abnormal lab findings: Abnormal Labs 03/14/17 03/14/17 03/15/17 15:36 Unknown 04:15 RBC 2.98 L Hgb 8.2 L Hct 25.2 L MCV MCH RDW 19.5 H Lymph % (Auto) 12.9 L [place] % (Auto) 9.4 H Lymph # 0.7 L Seg Neutrophils % 76.6 H Seg Neuts % (Manual) Lymphocytes % (Manual) Lymphocytes # (Manual) PT INR APTT Heparin Anti-Xa Level ABG pH 7.349 L ABG pO2 446.4 H 274.8 H ABG HCO3 ABG O2 Saturation 99.6 H 99.5 H ABG Base Excess -3.4 L -4.6 L ABG Hemoglobin 12.3 L 8.6 L Oxyhemoglobin Potassium Chloride Creatinine Glucose POC Glucose Calcium Total Bilirubin AST C-Reactive Protein Total Protein Albumin Urine WBC (Auto) Crossmatch 03/15/17 03/15/17 03/15/17 04:15 04:15 04:45 RBC Hgb Hct MCV MCH RDW Lymph % (Auto) [place] % (Auto) Lymph # Seg Neutrophils % Seg Neuts % (Manual) Lymphocytes % (Manual) Lymphocytes # (Manual) PT 16.9 H INR 1.31 H APTT Heparin Anti-Xa Level ABG pH 7.340 L ABG pO2 168.3 H ABG HCO3 ABG O2 Saturation ABG Base Excess -3.8 L ABG Hemoglobin 7.7 L Oxyhemoglobin Potassium Chloride 114.1 H Creatinine Glucose 112 H POC Glucose Calcium 7.5 L D Total Bilirubin AST C-Reactive Protein Total Protein 5.5 L D Albumin 2.8 L Urine WBC (Auto) Crossmatch 03/15/17 03/15/17 03/15/17 06:06 08:20 13:05 RBC Hgb Hct MCV MCH RDW Lymph % (Auto) [place] % (Auto) Lymph # Seg Neutrophils % Seg Neuts % (Manual) Lymphocytes % (Manual) Lymphocytes # (Manual) PT INR APTT Heparin Anti-Xa Level ABG pH ABG pO2 ABG HCO3 ABG O2 Saturation ABG Base Excess -2.9 L ABG Hemoglobin 8.5 L Oxyhemoglobin 94.3 L Potassium Chloride Creatinine Glucose POC Glucose Calcium Total Bilirubin AST C-Reactive Protein Total Protein Albumin Urine WBC (Auto) 15.0 H Crossmatch See Detail 03/15/17 03/15/17 03/15/17 14:20 15:35 20:29 RBC 3.46 L Hgb 9.7 L Hct 29.4 L MCV MCH RDW 19.0 H Lymph % (Auto) 12.6 L [place] % (Auto) 9.1 H Lymph # 0.8 L Seg Neutrophils % 77.2 H Seg Neuts % (Manual) Lymphocytes % (Manual) Lymphocytes # (Manual) PT INR APTT Heparin Anti-Xa Level ABG pH 7.261 L ABG pO2 170.6 H 229.2 H ABG HCO3 ABG O2 Saturation 99.4 H ABG Base Excess -6.1 L -3.4 L ABG Hemoglobin 10.4 L 8.3 L Oxyhemoglobin Potassium Chloride Creatinine Glucose POC Glucose Calcium Total Bilirubin AST C-Reactive Protein Total Protein Albumin Urine WBC (Auto) Crossmatch 03/15/17 03/16/17 03/16/17 23:09 04:20 05:58 RBC 3.24 L Hgb 9.1 L Hct 27.1 L MCV MCH RDW 19.1 H Lymph % (Auto) [place] % (Auto) Lymph # Seg Neutrophils % Seg Neuts % (Manual) Lymphocytes % (Manual) 11.0 L Lymphocytes # (Manual) 0.6 L PT INR APTT Heparin Anti-Xa Level ABG pH ABG pO2 130.4 H ABG HCO3 ABG O2 Saturation ABG Base Excess -2.4 L ABG Hemoglobin 6.1 L Oxyhemoglobin Potassium Chloride Creatinine Glucose POC Glucose 127 H Calcium Total Bilirubin AST C-Reactive Protein Total Protein Albumin Urine WBC (Auto) Crossmatch 03/16/17 03/16/17 03/16/17 05:58 17:51 21:45 RBC Hgb Hct MCV MCH RDW Lymph % (Auto) [place] % (Auto) Lymph # Seg Neutrophils % Seg Neuts % (Manual) Lymphocytes % (Manual) Lymphocytes # (Manual) PT 17.5 H INR 1.36 H APTT 49.4 H Heparin Anti-Xa Level ABG pH ABG pO2 ABG HCO3 ABG O2 Saturation ABG Base Excess ABG Hemoglobin Oxyhemoglobin Potassium Chloride 108.1 H Creatinine Glucose 117 H POC Glucose Calcium 7.8 L Total Bilirubin AST 113 H C-Reactive Protein 23.90 H Total Protein 5.4 L Albumin 2.7 L Urine WBC (Auto) Crossmatch 03/17/17 03/17/17 03/17/17 00:01 05:00 05:00 RBC 3.06 L Hgb 8.6 L Hct 25.5 L MCV MCH RDW 18.9 H Lymph % (Auto) [place] % (Auto) Lymph # Seg Neutrophils % Seg Neuts % (Manual) Lymphocytes % (Manual) Lymphocytes # (Manual) PT INR APTT Heparin Anti-Xa Level ABG pH ABG pO2 ABG HCO3 ABG O2 Saturation ABG Base Excess ABG Hemoglobin Oxyhemoglobin Potassium 3.2 L Chloride Creatinine Glucose 102 H POC Glucose 108 H Calcium 8.3 L Total Bilirubin AST C-Reactive Protein Total Protein Albumin Urine WBC (Auto) Crossmatch 03/17/17 03/17/17 03/17/17 05:00 15:40 21:30 RBC 2.96 L Hgb 8.2 L Hct 24.5 L MCV 83 L MCH RDW 18.6 H Lymph % (Auto) [place] % (Auto) Lymph # Seg Neutrophils % Seg Neuts % (Manual) 93.0 H Lymphocytes % (Manual) 2.0 L Lymphocytes # (Manual) 0.1 L PT 16.8 H INR 1.30 H APTT Heparin Anti-Xa Level ABG pH ABG pO2 ABG HCO3 ABG O2 Saturation ABG Base Excess ABG Hemoglobin Oxyhemoglobin Potassium Chloride Creatinine Glucose POC Glucose Calcium 8.1 L Total Bilirubin AST C-Reactive Protein Total Protein Albumin Urine WBC (Auto) Crossmatch 03/18/17 03/18/17 03/18/17 00:05 03:45 04:45 RBC 3.12 L Hgb 8.8 L Hct 25.9 L MCV 83 L MCH RDW 18.3 H Lymph % (Auto) 9.5 L [place] % (Auto) Lymph # 0.6 L Seg Neutrophils % 81.7 H Seg Neuts % (Manual) Lymphocytes % (Manual) Lymphocytes # (Manual) PT INR APTT Heparin Anti-Xa Level ABG pH ABG pO2 132.3 H ABG HCO3 29.2 H ABG O2 Saturation ABG Base Excess 4.3 H ABG Hemoglobin 8.7 L Oxyhemoglobin Potassium Chloride Creatinine Glucose POC Glucose 108 H Calcium Total Bilirubin AST C-Reactive Protein Total Protein Albumin Urine WBC (Auto) Crossmatch 03/18/17 03/18/17 03/18/17 04:45 05:44 12:26 RBC Hgb Hct MCV MCH RDW Lymph % (Auto) [place] % (Auto) Lymph # Seg Neutrophils % Seg Neuts % (Manual) Lymphocytes % (Manual) Lymphocytes # (Manual) PT INR APTT Heparin Anti-Xa Level ABG pH 7.526 H ABG pO2 118.5 H ABG HCO3 27.9 H ABG O2 Saturation ABG Base Excess 5.0 H ABG Hemoglobin 9.3 L Oxyhemoglobin Potassium Chloride Creatinine Glucose POC Glucose 108 H Calcium 8.2 L Total Bilirubin 1.40 H AST 53 H C-Reactive Protein Total Protein 6.1 L Albumin 2.7 L Urine WBC (Auto) Crossmatch 03/18/17 03/18/17 03/18/17 14:10 21:00 Unknown RBC 3.17 L Hgb 8.7 L Hct 26.5 L MCV MCH 27 L RDW 18.4 H Lymph % (Auto) 9.4 L [place] % (Auto) Lymph # 0.6 L Seg Neutrophils % 83.7 H Seg Neuts % (Manual) Lymphocytes % (Manual) Lymphocytes # (Manual) PT INR APTT Heparin Anti-Xa Level 0.22 L ABG pH ABG pO2 ABG HCO3 ABG O2 Saturation ABG Base Excess ABG Hemoglobin Oxyhemoglobin Potassium Chloride Creatinine Glucose POC Glucose Calcium Total Bilirubin AST C-Reactive Protein 17.50 H Total Protein Albumin Urine WBC (Auto) Crossmatch 03/19/17 03/19/17 03/19/17 04:15 05:00 05:00 RBC 3.05 L Hgb 8.4 L Hct 25.1 L MCV 83 L MCH RDW 18.9 H Lymph % (Auto) [place] % (Auto) Lymph # Seg Neutrophils % Seg Neuts % (Manual) 94.0 H Lymphocytes % (Manual) 2.0 L Lymphocytes # (Manual) 0.1 L PT INR APTT Heparin Anti-Xa Level ABG pH 7.470 H ABG pO2 115.3 H ABG HCO3 26.4 H ABG O2 Saturation ABG Base Excess ABG Hemoglobin 8.9 L Oxyhemoglobin Potassium 3.2 L Chloride Creatinine 0.7 L Glucose POC Glucose Calcium Total Bilirubin AST C-Reactive Protein Total Protein 6.1 L Albumin 2.7 L Urine WBC (Auto) Crossmatch Chest x-ray: image reviewed Allied health notes reviewed: RT
[2017-03-19 12:02] LABS: ABG Base Excess 4.1 mmol/L (-2.0-3.0); ABG HCO3 27.5 mmol/L (20.0-26.0); ABG Oxygen Saturation 97.9 % (95.0-99.0); ABG PCO2 36.3 mm Hg; ABG PH 7.497 pH Units (7.350-7.450); ABG PO2 100.9 mm Hg (80.0-90.0)
--- NOTE | 2017-03-19 14:24 | Progress Note ---
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 Sinus tachycardia LV thrombus HTN anemia from blood loss HLP Subtherapeutic INR on admission - questionable compliance Hypokalemia Plan: Cont present cardiac management. For possible extubation. Heparin gtt initiated per pulmonary. Resume coumadin with tx INR 2-3 if/when okay per surgery. The patient has been seen in conjunction with Dr. Rush who agrees with the assessment and plan of care. Subjective Date of service: 03/19/17 Principal diagnosis: Acute Respiratory Failure on MVS; SBO s/p Ex-lap Interval history: pt remains intubated. Alert. for possible extubation today. Objective Last Vital Signs Temp 98.0 F 03/19/17 12:00 Pulse 86 03/19/17 12:40 Resp 29 H 03/19/17 11:00 BP 92/58 03/19/17 12:40 Pulse Ox 99 03/19/17 12:08 - Physical Examination General: Other (intubated) HEENT: Positive: PERRL, EOMI Neck: Positive: neck supple Cardiac: Positive: Reg Rate and Rhythm, S1/S2 Neuro: Positive: Other (intubated, alert) Abdomen: Positive: Active Bowel Sounds Extremities: Present: normal. Absent: edema - Labs and Meds Cardiac Enzymes 03/19/17 Range/Units 05:00 AST 33 (5-40) units/L CBC 03/18/17 03/19/17 Range/Units Unknown 05:00 WBC 6.9 6.0 (4.5-11.0) K/mm3 RBC 3.17 L 3.05 L (3.65-5.03) M/mm3 Hgb 8.7 L 8.4 L (11.8-15.2) gm/dl Hct 26.5 L 25.1 L (35.5-45.6) % Plt Count 201 188 (140-440) K/mm3 Lymph # 0.6 L (1.2-5.4) K/mm3 [place] # 0.4 (0.0-0.8) K/mm3 Eos # 0.1 (0.0-0.4) K/mm3 Baso # 0.0 (0.0-0.1) K/mm3 Comprehensive Metabolic Panel 03/19/17 Range/Units 05:00 Sodium 141 (137-145) mmol/L Potassium 3.2 L (3.6-5.0) mmol/L Chloride 100.9 (98-107) mmol/L Carbon Dioxide 27 (22-30) mmol/L BUN 20 (9-20) mg/dL Creatinine 0.7 L (0.8-1.5) mg/dL Glucose 94 (75-100) mg/dL Calcium 8.4 (8.4-10.2) mg/dL AST 33 (5-40) units/L ALT 20 (7-56) units/L Alkaline Phosphatase 70 (35-129) units/L Total Protein 6.1 L (6.3-8.2) g/dL Albumin 2.7 L (3.9-5) g/dL - Imaging and Cardiology EKG: image reviewed Stress echo: other (02/2017 no ischemia EF 10-15%) Echo: report reviewed (02/2017 over LV dysfunction EF 10-15% with apical thrombus normal RV size and function) - Telemetry EKG Rhythm: Sinus Rhythm - Allied health notes Allied health notes reviewed: RT
--- NOTE | 2017-03-19 16:45 | Progress Note ---
Assessment and Plan Acute respiratory failure - intubated before surgery on 03/14/17 - Wean as tolerated - Continue with Bronchodilators. Machine Hand following COPD with exacerbation - wean off from vent as tolerated - Continue with Bronchodilators - cont. periodic breathing treatment SBO - s/p exploratory laparotomy on 03/14/17 - Placed on rectal tube, consulted GI Anemia - could be from hemodilution and from blood loss during surgery which is expected - s/p one unit PRBC transfusion Mild hypokalemia - will trend. as pt had Acute on chronic kidney disease Acute on Chronic systolic with Ef 10-15% -diuresis. Metoprolol. ACEI on hold for low BP Coronary artery disease - cardiology following Left apical thrombus with subtherapeutic INR on admission - commneced pt on heparin History of CVA - Stable. Monitor clinically DVT PX - SCD Critical care time spent > 32 mins in direct pt care and review of laboratory and radiological data Subjective Date of service: 03/19/17 Principal diagnosis: Acute Respiratory Failure on MVS; SBO s/p Ex-lap Interval history: Awake. interactive. Still intubated Objective - Constitutional Vitals: Vital Signs - 12hr 03/19/17 03/19/17 03/19/17 04:41 04:44 04:51 Temperature Pulse Rate 91 H 94 H 62 Respiratory 14 14 Rate Respiratory Rate [Abdomen] Respiratory Rate [Chest] Blood Pressure 122/58 122/58 122/58 O2 Sat by Pulse 100 100 Oximetry 03/19/17 03/19/17 03/19/17 05:01 05:11 05:21 Temperature Pulse Rate 64 69 67 Respiratory 14 17 17 Rate Respiratory Rate [Abdomen] Respiratory Rate [Chest] Blood Pressure 98/55 98/55 98/55 O2 Sat by Pulse 100 100 100 Oximetry 03/19/17 03/19/17 03/19/17 05:30 05:41 05:51 Temperature Pulse Rate 74 85 81 Respiratory 14 20 14 Rate Respiratory Rate [Abdomen] Respiratory Rate [Chest] Blood Pressure 99/56 99/56 99/56 O2 Sat by Pulse 100 100 100 Oximetry 03/19/17 03/19/17 03/19/17 06:00 06:31 07:00 Temperature Pulse Rate 75 76 91 H Respiratory 14 14 14 Rate Respiratory Rate [Abdomen] Respiratory Rate [Chest] Blood Pressure 107/55 92/61 96/58 O2 Sat by Pulse 100 100 100 Oximetry 03/19/17 03/19/17 03/19/17 07:31 07:37 08:00 Temperature 99.2 F Pulse Rate 99 H 87 Respiratory 25 H 14 Rate Respiratory Rate [Abdomen] Respiratory Rate [Chest] Blood Pressure 113/80 114/59 O2 Sat by Pulse 100 100 Oximetry 03/19/17 03/19/17 03/19/17 08:29 08:30 08:39 Temperature Pulse Rate 86 81 84 Respiratory 14 16 Rate Respiratory Rate [Abdomen] Respiratory Rate [Chest] Blood Pressure 114/59 115/62 115/62 O2 Sat by Pulse 100 100 86 Oximetry 03/19/17 03/19/17 03/19/17 09:00 09:30 09:31 Temperature Pulse Rate 82 80 88 Respiratory 18 19 Rate Respiratory Rate [Abdomen] Respiratory Rate [Chest] Blood Pressure 112/55 113/62 113/62 O2 Sat by Pulse 99 98 Oximetry 03/19/17 03/19/17 03/19/17 10:00 10:30 11:00 Temperature Pulse Rate 87 99 H 120 H Respiratory 20 23 29 H Rate Respiratory 24 Rate [Abdomen] Respiratory 24 Rate [Chest] Blood Pressure 128/75 100/68 122/77 O2 Sat by Pulse 100 100 100 Oximetry 03/19/17 03/19/17 03/19/17 11:30 12:00 12:08 Temperature 98.0 F Pulse Rate 90 100 H Respiratory 19 29 H Rate Respiratory Rate [Abdomen] Respiratory Rate [Chest] Blood Pressure 104/62 104/66 O2 Sat by Pulse 98 100 99 Oximetry 03/19/17 03/19/17 03/19/17 12:30 12:40 13:00 Temperature Pulse Rate 89 86 86 Respiratory 35 H 24 Rate Respiratory Rate [Abdomen] Respiratory Rate [Chest] Blood Pressure 92/58 92/58 91/59 O2 Sat by Pulse 100 100 Oximetry 03/19/17 03/19/17 03/19/17 13:30 14:00 14:30 Temperature Pulse Rate 90 87 82 Respiratory 34 H 29 H 24 Rate Respiratory Rate [Abdomen] Respiratory Rate [Chest] Blood Pressure 93/66 94/67 106/56 O2 Sat by Pulse 100 100 100 Oximetry 03/19/17 03/19/17 03/19/17 15:00 15:30 15:38 Temperature 97.9 F Pulse Rate 86 82 Respiratory 30 H 23 Rate Respiratory Rate [Abdomen] Respiratory Rate [Chest] Blood Pressure 93/58 93/54 O2 Sat by Pulse 100 100 Oximetry 03/19/17 16:00 Temperature Pulse Rate Respiratory 26 H Rate Respiratory Rate [Abdomen] Respiratory Rate [Chest] Blood Pressure O2 Sat by Pulse 100 Oximetry General appearance: Present: no acute distress, well-nourished, other - EENT Eyes: PERRL, EOM intact Ears: bilateral: normal - Neck Neck: supple, normal ROM - Respiratory Respiratory effort: normal Respiratory: bilateral: CTA - Cardiovascular Rhythm: regular Heart Sounds: Present: S1 & S2. Absent: gallop, rub Extremities: pulses intact, normal color, Full ROM - Gastrointestinal General gastrointestinal: Present: soft, non-tender, normal bowel sounds - Genitourinary Male genitourinary: normal - Integumentary Integumentary: clear, warm, dry - Musculoskeletal Musculoskeletal: 1, strength equal bilaterally - Neurologic Neurologic: moves all extremities - Psychiatric Psychiatric: memory intact, appropriate mood/affect, intact judgment & insight - Labs CBC & Chem 7: 03/19/17 05:00 03/19/17 05:00 Labs: Abnormal lab results 03/18/17 03/18/17 03/19/17 Range/Units 21:00 Unknown 04:15 RBC 3.17 L (3.65-5.03) M/mm3 Hgb 8.7 L (11.8-15.2) gm/dl Hct 26.5 L (35.5-45.6) % MCV (84-94) fl MCH 27 L (28-32) pg RDW 18.4 H (13.2-15.2) % Lymph % (Auto) 9.4 L (13.4-35.0) % Lymph # 0.6 L (1.2-5.4) K/mm3 Seg Neutrophils % 83.7 H (40.0-70.0) % Seg Neuts % (Manual) (40.0-70.0) % Lymphocytes % (Manual) (13.4-35.0) % Lymphocytes # (Manual) (1.2-5.4) K/mm3 Heparin Anti-Xa Level (0.3-0.7) U.I./ml ABG pH 7.470 H (7.350-7.450) pH Units ABG pO2 115.3 H (80.0-90.0) mm Hg ABG HCO3 26.4 H (20.0-26.0) mmol/L ABG Base Excess (-2.0-3.0) mmol/L ABG Hemoglobin 8.9 L (14.0-18.0) gm/dl Potassium (3.6-5.0) mmol/L Creatinine (0.8-1.5) mg/dL C-Reactive Protein 17.50 H (0.00-1.30) mg/dL Total Protein (6.3-8.2) g/dL Albumin (3.9-5) g/dL 03/19/17 03/19/17 03/19/17 Range/Units 05:00 05:00 11:35 RBC 3.05 L (3.65-5.03) M/mm3 Hgb 8.4 L (11.8-15.2) gm/dl Hct 25.1 L (35.5-45.6) % MCV 83 L (84-94) fl MCH (28-32) pg RDW 18.9 H (13.2-15.2) % Lymph % (Auto) (13.4-35.0) % Lymph # (1.2-5.4) K/mm3 Seg Neutrophils % (40.0-70.0) % Seg Neuts % (Manual) 94.0 H (40.0-70.0) % Lymphocytes % (Manual) 2.0 L (13.4-35.0) % Lymphocytes # (Manual) 0.1 L (1.2-5.4) K/mm3 Heparin Anti-Xa Level (0.3-0.7) U.I./ml ABG pH 7.497 H (7.350-7.450) pH Units ABG pO2 100.9 H (80.0-90.0) mm Hg ABG HCO3 27.5 H (20.0-26.0) mmol/L ABG Base Excess 4.1 H (-2.0-3.0) mmol/L ABG Hemoglobin 8.6 L (14.0-18.0) gm/dl Potassium 3.2 L (3.6-5.0) mmol/L Creatinine 0.7 L (0.8-1.5) mg/dL C-Reactive Protein (0.00-1.30) mg/dL Total Protein 6.1 L (6.3-8.2) g/dL Albumin 2.7 L (3.9-5) g/dL 03/19/17 Range/Units Unknown RBC (3.65-5.03) M/mm3 Hgb (11.8-15.2) gm/dl Hct (35.5-45.6) % MCV (84-94) fl MCH (28-32) pg RDW (13.2-15.2) % Lymph % (Auto) (13.4-35.0) % Lymph # (1.2-5.4) K/mm3 Seg Neutrophils % (40.0-70.0) % Seg Neuts % (Manual) (40.0-70.0) % Lymphocytes % (Manual) (13.4-35.0) % Lymphocytes # (Manual) (1.2-5.4) K/mm3 Heparin Anti-Xa Level 0.23 L (0.3-0.7) U.I./ml ABG pH (7.350-7.450) pH Units ABG pO2 (80.0-90.0) mm Hg ABG HCO3 (20.0-26.0) mmol/L ABG Base Excess (-2.0-3.0) mmol/L ABG Hemoglobin (14.0-18.0) gm/dl Potassium (3.6-5.0) mmol/L Creatinine (0.8-1.5) mg/dL C-Reactive Protein (0.00-1.30) mg/dL Total Protein (6.3-8.2) g/dL Albumin (3.9-5) g/dL
[2017-03-19] MEDS: PEPCID PO SCH (23:37)
[2017-03-20] MEDS: TYLENOL PO PRN (00:06)
[2017-03-20] MEDS: HEPARIN/ 0.45% NACL-25,000 UNIT/500 ML 25,000 UNIT/500 ML BAG IV SCH (02:41)
[2017-03-20] MEDS: LOPRESSOR IV SCH ×3 (04:00→20:31)
[2017-03-20 08:38] LABS: Alanine Aminotransferase 15 units/L (7-56); Albumin 2.5 g/dL (3.9-5); Albumin/Globulin Ratio 0.7 %; Alkaline Phosphatase 62 units/L (35-129); Anion Gap 15 mmol/L; BUN/Creatinine Ratio 26; Blood Urea Nitrogen 18 mg/dL (9-20); Calcium 8.4 mg/dL (8.4-10.2); Carbon Dioxide 28 mmol/L (22-30); Chloride 103.4 mmol/L (98-107); Glucose 117 mg/dL (75-100); Potassium 3.3 mmol/L (3.6-5.0); Sodium 143 mmol/L (137-145); Total Protein 5.9 g/dL (6.3-8.2)
[2017-03-20 08:43] LABS: Basophils % (Auto) 0.6 % (0.0-1.8); Eosinophils % (Auto) 2.3 % (0.0-4.3); Hematocrit 26.1 % (35.5-45.6); Hemoglobin 8.5 gm/dl (11.8-15.2); Mean Corpuscular HGB Conc 33 % (32-34); Mean Corpuscular Hemoglobin 27 pg (28-32); Mean Corpuscular Volume 84 fl (84-94); Platelet Count 215 K/mm3 (140-440); Red Blood Count 3.12 M/mm3 (3.65-5.03); Red Cell Distribution Width 18.9 % (13.2-15.2); White Blood Count 4.7 K/mm3 (4.5-11.0)
[2017-03-20] MEDS: REGLAN IV SCH (09:27)
[2017-03-20] MEDS: PEPCID PO SCH ×2 (09:39→23:09)
[2017-03-20] MEDS: ZESTRIL PO SCH (09:39)
[2017-03-20] MEDS: BABY ASPIRIN PO SCH (09:40)
[2017-03-20] MEDS: LEVAQUIN 750MG/150ML 750 MG/150 ML BAG IV SCH (09:41)
[2017-03-20] MEDS: LASIX IV SCH ×2 (09:41→10:10)
--- NOTE | 2017-03-20 10:19 | Progress Note ---
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 Sinus tachycardia LV thrombus HTN anemia from blood loss HLP Subtherapeutic INR on admission - questionable compliance Hypokalemia Plan: Cont present cardiac management. Heparin gtt initiated per pulmonary. Resume coumadin with tx INR 2-3 if/when okay per surgery. Consider conversion of IV lasix to PO in AM. The patient has been seen in conjunction with Dr. Rush who agrees with the assessment and plan of care. Subjective Date of service: 03/20/17 Principal diagnosis: Acute Respiratory Failure on MVS; SBO s/p Ex-lap Interval history: Alert. has been extubated. no current complaints. Objective Last Vital Signs Temp 98.0 F 03/20/17 07:51 Pulse 93 H 03/20/17 07:30 Resp 27 H 03/20/17 08:00 BP 110/44 03/20/17 07:30 Pulse Ox 100 03/20/17 09:19 - Physical Examination General: No Apparent Distress HEENT: Positive: PERRL, EOMI Neck: Positive: neck supple Cardiac: Positive: Reg Rate and Rhythm, S1/S2 Lungs: Positive: clear to auscultation Neuro: Positive: Grossly Intact Abdomen: Positive: Active Bowel Sounds Incision: Incision Site (abdominal) Extremities: Present: normal. Absent: edema - Labs and Meds Cardiac Enzymes 03/20/17 Range/Units 06:00 AST 23 (5-40) units/L CBC 03/20/17 Range/Units 06:00 WBC 4.7 (4.5-11.0) K/mm3 RBC 3.12 L (3.65-5.03) M/mm3 Hgb 8.5 L (11.8-15.2) gm/dl Hct 26.1 L (35.5-45.6) % Plt Count 215 (140-440) K/mm3 Lymph # 0.7 L (1.2-5.4) K/mm3 [place] # 0.5 (0.0-0.8) K/mm3 Eos # 0.1 (0.0-0.4) K/mm3 Baso # 0.0 (0.0-0.1) K/mm3 Comprehensive Metabolic Panel 03/20/17 Range/Units 06:00 Sodium 143 (137-145) mmol/L Potassium 3.3 L (3.6-5.0) mmol/L Chloride 103.4 (98-107) mmol/L Carbon Dioxide 28 (22-30) mmol/L BUN 18 (9-20) mg/dL Creatinine 0.7 L (0.8-1.5) mg/dL Glucose 117 H (75-100) mg/dL Calcium 8.4 (8.4-10.2) mg/dL AST 23 (5-40) units/L ALT 15 (7-56) units/L Alkaline Phosphatase 62 (35-129) units/L Total Protein 5.9 L (6.3-8.2) g/dL Albumin 2.5 L (3.9-5) g/dL - Imaging and Cardiology EKG: image reviewed Stress echo: other (02/2017 no ischemia EF 10-15%) Echo: report reviewed (02/2017 over LV dysfunction EF 10-15% with apical thrombus normal RV size and function) - Telemetry EKG Rhythm: Sinus Rhythm - Allied health notes Allied health notes reviewed: RT
[2017-03-20] MEDS ORDERED: K-DUR PO ONE (13:00)
--- NOTE | 2017-03-20 13:26 | Progress Note ---
Assessment and Plan POD # 6 Pt extubated yest. resting comfortably. feeling well with no compl. +BM Abd soft, non tender. incision clean & dry + BS d/c rectal tube attempt po cl liq no carbonated continue K correction may d/c slick in am Selected Entries 03/20/17 03/20/17 12:00 12:50 Temperature 98.0 F Pulse Rate 71 Respiratory 20 Rate Blood Pressure 96/61 Laboratory Tests 03/20/17 03/20/17 06:00 06:00 WBC 4.7 Hgb 8.5 L Hct 26.1 L Potassium 3.3 L Objective Vital Signs - 12hr 03/20/17 03/20/17 03/20/17 01:30 02:01 02:31 Temperature Pulse Rate 88 90 87 Respiratory 30 H 33 H 33 H Rate Respiratory Rate [Abdomen] Respiratory Rate [Bilateral Leg] Respiratory Rate [Chest] Blood Pressure 100/57 95/66 119/51 O2 Sat by Pulse 100 100 100 Oximetry 03/20/17 03/20/17 03/20/17 03:01 03:30 04:00 Temperature 98.1 F Pulse Rate 87 86 Respiratory 27 H 27 H Rate Respiratory Rate [Abdomen] Respiratory Rate [Bilateral Leg] Respiratory Rate [Chest] Blood Pressure 117/60 111/59 O2 Sat by Pulse 100 100 Oximetry 03/20/17 03/20/17 03/20/17 04:01 04:02 04:30 Temperature Pulse Rate 87 86 Respiratory 29 H 19 30 H Rate Respiratory Rate [Abdomen] Respiratory Rate [Bilateral Leg] Respiratory Rate [Chest] Blood Pressure 106/51 109/57 O2 Sat by Pulse 100 97 100 Oximetry 03/20/17 03/20/17 03/20/17 05:00 05:31 06:00 Temperature Pulse Rate 84 85 91 H Respiratory 26 H 30 H 35 H Rate Respiratory Rate [Abdomen] Respiratory Rate [Bilateral Leg] Respiratory Rate [Chest] Blood Pressure 111/53 110/59 120/59 O2 Sat by Pulse 100 100 100 Oximetry 03/20/17 03/20/17 03/20/17 06:30 07:00 07:30 Temperature Pulse Rate 87 90 93 H Respiratory 27 H 39 H 22 Rate Respiratory Rate [Abdomen] Respiratory Rate [Bilateral Leg] Respiratory Rate [Chest] Blood Pressure 122/60 121/55 110/44 O2 Sat by Pulse 100 100 99 Oximetry 03/20/17 03/20/17 03/20/17 07:45 07:51 08:00 Temperature 98.0 F Pulse Rate 84 85 Respiratory 27 H 27 H Rate Respiratory Rate [Abdomen] Respiratory Rate [Bilateral Leg] Respiratory Rate [Chest] Blood Pressure 121/55 98/61 O2 Sat by Pulse 100 99 Oximetry 03/20/17 03/20/17 03/20/17 08:15 08:31 08:45 Temperature Pulse Rate 83 88 77 Respiratory 26 H 16 24 Rate Respiratory Rate [Abdomen] Respiratory Rate [Bilateral Leg] Respiratory Rate [Chest] Blood Pressure 98/61 108/65 108/65 O2 Sat by Pulse 100 100 100 Oximetry 03/20/17 03/20/17 03/20/17 09:00 09:15 09:19 Temperature Pulse Rate 71 73 Respiratory 24 21 Rate Respiratory Rate [Abdomen] Respiratory Rate [Bilateral Leg] Respiratory Rate [Chest] Blood Pressure 108/65 108/65 O2 Sat by Pulse 100 100 100 Oximetry 03/20/17 03/20/17 03/20/17 09:31 09:45 10:00 Temperature Pulse Rate 68 67 63 Respiratory 22 24 25 H Rate Respiratory 24 Rate [Abdomen] Respiratory 24 Rate [Bilateral Leg] Respiratory 24 Rate [Chest] Blood Pressure 108/65 98/63 101/55 O2 Sat by Pulse 100 99 100 Oximetry 03/20/17 03/20/17 03/20/17 10:15 10:30 10:45 Temperature Pulse Rate 70 74 77 Respiratory 24 26 H 19 Rate Respiratory Rate [Abdomen] Respiratory Rate [Bilateral Leg] Respiratory Rate [Chest] Blood Pressure 101/55 95/62 101/55 O2 Sat by Pulse 100 100 100 Oximetry 03/20/17 03/20/17 03/20/17 11:00 11:15 11:30 Temperature Pulse Rate 72 74 74 Respiratory 26 H 28 H 25 H Rate Respiratory Rate [Abdomen] Respiratory Rate [Bilateral Leg] Respiratory Rate [Chest] Blood Pressure 96/59 95/62 105/63 O2 Sat by Pulse 100 100 100 Oximetry 03/20/17 03/20/17 03/20/17 11:45 12:00 12:50 Temperature 98.0 F Pulse Rate 68 71 71 Respiratory 22 20 Rate Respiratory Rate [Abdomen] Respiratory Rate [Bilateral Leg] Respiratory Rate [Chest] Blood Pressure 96/59 97/56 96/61 O2 Sat by Pulse 99 100 Oximetry - Labs 03/20/17 06:00 03/20/17 06:00 Diabetes panel 03/20/17 Range/Units 06:00 Sodium 143 (137-145) mmol/L Potassium 3.3 L (3.6-5.0) mmol/L Chloride 103.4 (98-107) mmol/L Carbon Dioxide 28 (22-30) mmol/L BUN 18 (9-20) mg/dL Creatinine 0.7 L (0.8-1.5) mg/dL Glucose 117 H (75-100) mg/dL Calcium 8.4 (8.4-10.2) mg/dL AST 23 (5-40) units/L ALT 15 (7-56) units/L Alkaline Phosphatase 62 (35-129) units/L Total Protein 5.9 L (6.3-8.2) g/dL Albumin 2.5 L (3.9-5) g/dL Calcium panel 03/20/17 Range/Units 06:00 Calcium 8.4 (8.4-10.2) mg/dL Albumin 2.5 L (3.9-5) g/dL Pituitary panel 03/20/17 Range/Units 06:00 Sodium 143 (137-145) mmol/L Potassium 3.3 L (3.6-5.0) mmol/L Chloride 103.4 (98-107) mmol/L Carbon Dioxide 28 (22-30) mmol/L BUN 18 (9-20) mg/dL Creatinine 0.7 L (0.8-1.5) mg/dL Glucose 117 H (75-100) mg/dL Calcium 8.4 (8.4-10.2) mg/dL Adrenal panel 03/20/17 Range/Units 06:00 Sodium 143 (137-145) mmol/L Potassium 3.3 L (3.6-5.0) mmol/L Chloride 103.4 (98-107) mmol/L Carbon Dioxide 28 (22-30) mmol/L BUN 18 (9-20) mg/dL Creatinine 0.7 L (0.8-1.5) mg/dL Glucose 117 H (75-100) mg/dL Calcium 8.4 (8.4-10.2) mg/dL Total Bilirubin 1.00 (0.1-1.2) mg/dL AST 23 (5-40) units/L ALT 15 (7-56) units/L Alkaline Phosphatase 62 (35-129) units/L Total Protein 5.9 L (6.3-8.2) g/dL Albumin 2.5 L (3.9-5) g/dL
--- NOTE | 2017-03-20 13:41 | Progress Note ---
Subjective Date of service: 03/20/17 Principal diagnosis: Acute Respiratory Failure on MVS; SBO s/p Ex-lap Interval history: Patient is seen today for: Seen and examined at bedside; 24hour events reviewed; nursing and respiratory care staff consulted; no adverse overnight events reported to me; Objective Vital Signs - 12hr 03/20/17 03/20/17 03/20/17 02:01 02:31 03:01 Temperature Pulse Rate 90 87 87 Respiratory 33 H 33 H 27 H Rate Respiratory Rate [Abdomen] Respiratory Rate [Bilateral Leg] Respiratory Rate [Chest] Blood Pressure 95/66 119/51 117/60 O2 Sat by Pulse 100 100 100 Oximetry 03/20/17 03/20/17 03/20/17 03:30 04:00 04:01 Temperature 98.1 F Pulse Rate 86 87 Respiratory 27 H 29 H Rate Respiratory Rate [Abdomen] Respiratory Rate [Bilateral Leg] Respiratory Rate [Chest] Blood Pressure 111/59 106/51 O2 Sat by Pulse 100 100 Oximetry 03/20/17 03/20/17 03/20/17 04:02 04:30 05:00 Temperature Pulse Rate 86 84 Respiratory 19 30 H 26 H Rate Respiratory Rate [Abdomen] Respiratory Rate [Bilateral Leg] Respiratory Rate [Chest] Blood Pressure 109/57 111/53 O2 Sat by Pulse 97 100 100 Oximetry 03/20/17 03/20/17 03/20/17 05:31 06:00 06:30 Temperature Pulse Rate 85 91 H 87 Respiratory 30 H 35 H 27 H Rate Respiratory Rate [Abdomen] Respiratory Rate [Bilateral Leg] Respiratory Rate [Chest] Blood Pressure 110/59 120/59 122/60 O2 Sat by Pulse 100 100 100 Oximetry 03/20/17 03/20/17 03/20/17 07:00 07:30 07:45 Temperature Pulse Rate 90 93 H 84 Respiratory 39 H 22 27 H Rate Respiratory Rate [Abdomen] Respiratory Rate [Bilateral Leg] Respiratory Rate [Chest] Blood Pressure 121/55 110/44 121/55 O2 Sat by Pulse 100 99 100 Oximetry 03/20/17 03/20/17 03/20/17 07:51 08:00 08:15 Temperature 98.0 F Pulse Rate 85 83 Respiratory 27 H 26 H Rate Respiratory Rate [Abdomen] Respiratory Rate [Bilateral Leg] Respiratory Rate [Chest] Blood Pressure 98/61 98/61 O2 Sat by Pulse 99 100 Oximetry 03/20/17 03/20/17 03/20/17 08:31 08:45 09:00 Temperature Pulse Rate 88 77 71 Respiratory 16 24 24 Rate Respiratory Rate [Abdomen] Respiratory Rate [Bilateral Leg] Respiratory Rate [Chest] Blood Pressure 108/65 108/65 108/65 O2 Sat by Pulse 100 100 100 Oximetry 03/20/17 03/20/17 03/20/17 09:15 09:19 09:31 Temperature Pulse Rate 73 68 Respiratory 21 22 Rate Respiratory Rate [Abdomen] Respiratory Rate [Bilateral Leg] Respiratory Rate [Chest] Blood Pressure 108/65 108/65 O2 Sat by Pulse 100 100 100 Oximetry 03/20/17 03/20/17 03/20/17 09:45 10:00 10:15 Temperature Pulse Rate 67 63 70 Respiratory 24 25 H 24 Rate Respiratory 24 Rate [Abdomen] Respiratory 24 Rate [Bilateral Leg] Respiratory 24 Rate [Chest] Blood Pressure 98/63 101/55 101/55 O2 Sat by Pulse 99 100 100 Oximetry 03/20/17 03/20/17 03/20/17 10:30 10:45 11:00 Temperature Pulse Rate 74 77 72 Respiratory 26 H 19 26 H Rate Respiratory Rate [Abdomen] Respiratory Rate [Bilateral Leg] Respiratory Rate [Chest] Blood Pressure 95/62 101/55 96/59 O2 Sat by Pulse 100 100 100 Oximetry 03/20/17 03/20/17 03/20/17 11:15 11:30 11:45 Temperature Pulse Rate 74 74 68 Respiratory 28 H 25 H 22 Rate Respiratory Rate [Abdomen] Respiratory Rate [Bilateral Leg] Respiratory Rate [Chest] Blood Pressure 95/62 105/63 96/59 O2 Sat by Pulse 100 100 99 Oximetry 03/20/17 03/20/17 12:00 12:50 Temperature 98.0 F Pulse Rate 71 71 Respiratory 20 Rate Respiratory Rate [Abdomen] Respiratory Rate [Bilateral Leg] Respiratory Rate [Chest] Blood Pressure 97/56 96/61 O2 Sat by Pulse 100 Oximetry Constitutional: no acute distress, alert Eyes: non-icteric ENT: oropharynx moist, other (normocephalic) Neck: supple, no lymphadenopathy, JVD (to sternal angle), other (no thyromegaly) Effort: normal Ascultation: Bilateral: diminished breath sounds, rales (bases), rhonchi (scant in bases) Percussion: Bilateral: not dull Cardiovascular: regular rate and rhythm, other (no rubs / murmurs) Gastrointestinal: hypoactive bowel sounds, soft, non-tender, non-distended, other (No HSM) Integumentary: normal, other (no rash or petechiae) Extremities: no cyanosis, no edema, pulses normal, no ischemia or petechiae Neurologic: normal mental status, non-focal exam, pupils equal and round, motor strength normal and, other (PERRLA, EOMI) Psychiatric: mood appropriate, affect normal CBC and BMP: 03/20/17 06:00 03/20/17 06:00 ABG, PT/INR, D-dimer: ABG ABG pH 7.497 pH Units (7.350-7.450) H 03/19/17 11:35 ABG pCO2 36.3 mm Hg 03/19/17 11:35 ABG pO2 100.9 mm Hg (80.0-90.0) H 03/19/17 11:35 ABG O2 Saturation 97.9 % (95.0-99.0) 03/19/17 11:35 PT/INR, D-dimer PT 16.8 Sec. (12.2-14.9) H 03/17/17 05:00 INR 1.30 (0.87-1.13) H 03/17/17 05:00 Abnormal lab findings: Abnormal Labs 03/14/17 03/14/17 03/15/17 15:36 Unknown 04:15 RBC 2.98 L Hgb 8.2 L Hct 25.2 L MCV MCH RDW 19.5 H Lymph % (Auto) 12.9 L [place] % (Auto) 9.4 H Lymph # 0.7 L Seg Neutrophils % 76.6 H Seg Neuts % (Manual) Lymphocytes % (Manual) Lymphocytes # (Manual) PT INR APTT Heparin Anti-Xa Level ABG pH 7.349 L ABG pO2 446.4 H 274.8 H ABG HCO3 ABG O2 Saturation 99.6 H 99.5 H ABG Base Excess -3.4 L -4.6 L ABG Hemoglobin 12.3 L 8.6 L Oxyhemoglobin Potassium Chloride Creatinine Glucose POC Glucose Calcium Total Bilirubin AST C-Reactive Protein Total Protein Albumin Urine WBC (Auto) Crossmatch 03/15/17 03/15/17 03/15/17 04:15 04:15 04:45 RBC Hgb Hct MCV MCH RDW Lymph % (Auto) [place] % (Auto) Lymph # Seg Neutrophils % Seg Neuts % (Manual) Lymphocytes % (Manual) Lymphocytes # (Manual) PT 16.9 H INR 1.31 H APTT Heparin Anti-Xa Level ABG pH 7.340 L ABG pO2 168.3 H ABG HCO3 ABG O2 Saturation ABG Base Excess -3.8 L ABG Hemoglobin 7.7 L Oxyhemoglobin Potassium Chloride 114.1 H Creatinine Glucose 112 H POC Glucose Calcium 7.5 L D Total Bilirubin AST C-Reactive Protein Total Protein 5.5 L D Albumin 2.8 L Urine WBC (Auto) Crossmatch 03/15/17 03/15/17 03/15/17 06:06 08:20 13:05 RBC Hgb Hct MCV MCH RDW Lymph % (Auto) [place] % (Auto) Lymph # Seg Neutrophils % Seg Neuts % (Manual) Lymphocytes % (Manual) Lymphocytes # (Manual) PT INR APTT Heparin Anti-Xa Level ABG pH ABG pO2 ABG HCO3 ABG O2 Saturation ABG Base Excess -2.9 L ABG Hemoglobin 8.5 L Oxyhemoglobin 94.3 L Potassium Chloride Creatinine Glucose POC Glucose Calcium Total Bilirubin AST C-Reactive Protein Total Protein Albumin Urine WBC (Auto) 15.0 H Crossmatch See Detail 03/15/17 03/15/17 03/15/17 14:20 15:35 20:29 RBC 3.46 L Hgb 9.7 L Hct 29.4 L MCV MCH RDW 19.0 H Lymph % (Auto) 12.6 L [place] % (Auto) 9.1 H Lymph # 0.8 L Seg Neutrophils % 77.2 H Seg Neuts % (Manual) Lymphocytes % (Manual) Lymphocytes # (Manual) PT INR APTT Heparin Anti-Xa Level ABG pH 7.261 L ABG pO2 170.6 H 229.2 H ABG HCO3 ABG O2 Saturation 99.4 H ABG Base Excess -6.1 L -3.4 L ABG Hemoglobin 10.4 L 8.3 L Oxyhemoglobin Potassium Chloride Creatinine Glucose POC Glucose Calcium Total Bilirubin AST C-Reactive Protein Total Protein Albumin Urine WBC (Auto) Crossmatch 03/15/17 03/16/17 03/16/17 23:09 04:20 05:58 RBC 3.24 L Hgb 9.1 L Hct 27.1 L MCV MCH RDW 19.1 H Lymph % (Auto) [place] % (Auto) Lymph # Seg Neutrophils % Seg Neuts % (Manual) Lymphocytes % (Manual) 11.0 L Lymphocytes # (Manual) 0.6 L PT INR APTT Heparin Anti-Xa Level ABG pH ABG pO2 130.4 H ABG HCO3 ABG O2 Saturation ABG Base Excess -2.4 L ABG Hemoglobin 6.1 L Oxyhemoglobin Potassium Chloride Creatinine Glucose POC Glucose 127 H Calcium Total Bilirubin AST C-Reactive Protein Total Protein Albumin Urine WBC (Auto) Crossmatch 03/16/17 03/16/17 03/16/17 05:58 17:51 21:45 RBC Hgb Hct MCV MCH RDW Lymph % (Auto) [place] % (Auto) Lymph # Seg Neutrophils % Seg Neuts % (Manual) Lymphocytes % (Manual) Lymphocytes # (Manual) PT 17.5 H INR 1.36 H APTT 49.4 H Heparin Anti-Xa Level ABG pH ABG pO2 ABG HCO3 ABG O2 Saturation ABG Base Excess ABG Hemoglobin Oxyhemoglobin Potassium Chloride 108.1 H Creatinine Glucose 117 H POC Glucose Calcium 7.8 L Total Bilirubin AST 113 H C-Reactive Protein 23.90 H Total Protein 5.4 L Albumin 2.7 L Urine WBC (Auto) Crossmatch 03/17/17 03/17/17 03/17/17 00:01 05:00 05:00 RBC 3.06 L Hgb 8.6 L Hct 25.5 L MCV MCH RDW 18.9 H Lymph % (Auto) [place] % (Auto) Lymph # Seg Neutrophils % Seg Neuts % (Manual) Lymphocytes % (Manual) Lymphocytes # (Manual) PT INR APTT Heparin Anti-Xa Level ABG pH ABG pO2 ABG HCO3 ABG O2 Saturation ABG Base Excess ABG Hemoglobin Oxyhemoglobin Potassium 3.2 L Chloride Creatinine Glucose 102 H POC Glucose 108 H Calcium 8.3 L Total Bilirubin AST C-Reactive Protein Total Protein Albumin Urine WBC (Auto) Crossmatch 03/17/17 03/17/17 03/17/17 05:00 15:40 21:30 RBC 2.96 L Hgb 8.2 L Hct 24.5 L MCV 83 L MCH RDW 18.6 H Lymph % (Auto) [place] % (Auto) Lymph # Seg Neutrophils % Seg Neuts % (Manual) 93.0 H Lymphocytes % (Manual) 2.0 L Lymphocytes # (Manual) 0.1 L PT 16.8 H INR 1.30 H APTT Heparin Anti-Xa Level ABG pH ABG pO2 ABG HCO3 ABG O2 Saturation ABG Base Excess ABG Hemoglobin Oxyhemoglobin Potassium Chloride Creatinine Glucose POC Glucose Calcium 8.1 L Total Bilirubin AST C-Reactive Protein Total Protein Albumin Urine WBC (Auto) Crossmatch 03/18/17 03/18/17 03/18/17 00:05 03:45 04:45 RBC 3.12 L Hgb 8.8 L Hct 25.9 L MCV 83 L MCH RDW 18.3 H Lymph % (Auto) 9.5 L [place] % (Auto) Lymph # 0.6 L Seg Neutrophils % 81.7 H Seg Neuts % (Manual) Lymphocytes % (Manual) Lymphocytes # (Manual) PT INR APTT Heparin Anti-Xa Level ABG pH ABG pO2 132.3 H ABG HCO3 29.2 H ABG O2 Saturation ABG Base Excess 4.3 H ABG Hemoglobin 8.7 L Oxyhemoglobin Potassium Chloride Creatinine Glucose POC Glucose 108 H Calcium Total Bilirubin AST C-Reactive Protein Total Protein Albumin Urine WBC (Auto) Crossmatch 03/18/17 03/18/17 03/18/17 04:45 05:44 12:26 RBC Hgb Hct MCV MCH RDW Lymph % (Auto) [place] % (Auto) Lymph # Seg Neutrophils % Seg Neuts % (Manual) Lymphocytes % (Manual) Lymphocytes # (Manual) PT INR APTT Heparin Anti-Xa Level ABG pH 7.526 H ABG pO2 118.5 H ABG HCO3 27.9 H ABG O2 Saturation ABG Base Excess 5.0 H ABG Hemoglobin 9.3 L Oxyhemoglobin Potassium Chloride Creatinine Glucose POC Glucose 108 H Calcium 8.2 L Total Bilirubin 1.40 H AST 53 H C-Reactive Protein Total Protein 6.1 L Albumin 2.7 L Urine WBC (Auto) Crossmatch 03/18/17 03/18/17 03/18/17 14:10 21:00 Unknown RBC 3.17 L Hgb 8.7 L Hct 26.5 L MCV MCH 27 L RDW 18.4 H Lymph % (Auto) 9.4 L [place] % (Auto) Lymph # 0.6 L Seg Neutrophils % 83.7 H Seg Neuts % (Manual) Lymphocytes % (Manual) Lymphocytes # (Manual) PT INR APTT Heparin Anti-Xa Level 0.22 L ABG pH ABG pO2 ABG HCO3 ABG O2 Saturation ABG Base Excess ABG Hemoglobin Oxyhemoglobin Potassium Chloride Creatinine Glucose POC Glucose Calcium Total Bilirubin AST C-Reactive Protein 17.50 H Total Protein Albumin Urine WBC (Auto) Crossmatch 03/19/17 03/19/17 03/19/17 04:15 05:00 05:00 RBC 3.05 L Hgb 8.4 L Hct 25.1 L MCV 83 L MCH RDW 18.9 H Lymph % (Auto) [place] % (Auto) Lymph # Seg Neutrophils % Seg Neuts % (Manual) 94.0 H Lymphocytes % (Manual) 2.0 L Lymphocytes # (Manual) 0.1 L PT INR APTT Heparin Anti-Xa Level ABG pH 7.470 H ABG pO2 115.3 H ABG HCO3 26.4 H ABG O2 Saturation ABG Base Excess ABG Hemoglobin 8.9 L Oxyhemoglobin Potassium 3.2 L Chloride Creatinine 0.7 L Glucose POC Glucose Calcium Total Bilirubin AST C-Reactive Protein Total Protein 6.1 L Albumin 2.7 L Urine WBC (Auto) Crossmatch 03/19/17 03/19/17 03/19/17 11:35 23:53 Unknown RBC Hgb Hct MCV MCH RDW Lymph % (Auto) [place] % (Auto) Lymph # Seg Neutrophils % Seg Neuts % (Manual) Lymphocytes % (Manual) Lymphocytes # (Manual) PT INR APTT Heparin Anti-Xa Level 0.23 L ABG pH 7.497 H ABG pO2 100.9 H ABG HCO3 27.5 H ABG O2 Saturation ABG Base Excess 4.1 H ABG Hemoglobin 8.6 L Oxyhemoglobin Potassium Chloride Creatinine Glucose POC Glucose 126 H Calcium Total Bilirubin AST C-Reactive Protein Total Protein Albumin Urine WBC (Auto) Crossmatch 03/20/17 03/20/17 03/20/17 05:40 06:00 06:00 RBC 3.12 L Hgb 8.5 L Hct 26.1 L MCV MCH 27 L RDW 18.9 H Lymph % (Auto) [place] % (Auto) 10.6 H Lymph # 0.7 L Seg Neutrophils % 70.8 H Seg Neuts % (Manual) Lymphocytes % (Manual) Lymphocytes # (Manual) PT INR APTT Heparin Anti-Xa Level ABG pH ABG pO2 ABG HCO3 ABG O2 Saturation ABG Base Excess ABG Hemoglobin Oxyhemoglobin Potassium 3.3 L Chloride Creatinine 0.7 L Glucose 117 H POC Glucose 125 H Calcium Total Bilirubin AST C-Reactive Protein Total Protein 5.9 L Albumin 2.5 L Urine WBC (Auto) Crossmatch Allied health notes reviewed: RT
--- NOTE | 2017-03-20 14:18 | XRay Report ---
ABDOMEN RADIOGRAPH INDICATION: Ileus. COMPARISON: 03/18/2017 FINDINGS: Frontal abdominal radiograph demonstrates interval Dobbhoff tube advancement with its tip now along distal aspect of the second portion of the duodenum. Nonobstructive bowel gas pattern. Extensive tiny cholelithiasis, IVC filter, lower abdominal and pelvic skin slick and right hip replacement again noted. Stable bones. EKG leads. Lung bases not imaged. CONCLUSION: Findings, as above. Thank you for the opportunity to participate in this patient's care.
[2017-03-20] MEDS: COUMADIN PO SCH (18:07)
--- NOTE | 2017-03-20 19:46 | Progress Note ---
Hospitalist Physical - Constitutional Vitals: Temp Pulse Resp BP Pulse Ox 98.1 F 74 25 H 114/67 99 03/20/17 16:00 03/20/17 18:00 03/20/17 18:00 03/20/17 18:00 03/20/17 18:00 General appearance: Present: no acute distress, well-nourished, other Results - Labs CBC & Chem 7: 03/20/17 06:00 03/20/17 06:00 Labs: Laboratory Last Values WBC 4.7 K/mm3 (4.5-11.0) 03/20/17 06:00 RBC 3.12 M/mm3 (3.65-5.03) L 03/20/17 06:00 Hgb 8.5 gm/dl (11.8-15.2) L 03/20/17 06:00 Hct 26.1 % (35.5-45.6) L 03/20/17 06:00 MCV 84 fl (84-94) 03/20/17 06:00 MCH 27 pg (28-32) L 03/20/17 06:00 MCHC 33 % (32-34) 03/20/17 06:00 RDW 18.9 % (13.2-15.2) H 03/20/17 06:00 Plt Count 215 K/mm3 (140-440) 03/20/17 06:00 Lymph % (Auto) 15.7 % (13.4-35.0) 03/20/17 06:00 [place] % (Auto) 10.6 % (0.0-7.3) H 03/20/17 06:00 Eos % (Auto) 2.3 % (0.0-4.3) 03/20/17 06:00 Baso % (Auto) 0.6 % (0.0-1.8) 03/20/17 06:00 Lymph # 0.7 K/mm3 (1.2-5.4) L 03/20/17 06:00 [place] # 0.5 K/mm3 (0.0-0.8) 03/20/17 06:00 Eos # 0.1 K/mm3 (0.0-0.4) 03/20/17 06:00 Baso # 0.0 K/mm3 (0.0-0.1) 03/20/17 06:00 Add Manual Diff Complete 03/19/17 05:00 Total Counted 100 03/19/17 05:00 Seg Neutrophils % 70.8 % (40.0-70.0) H 03/20/17 06:00 Seg Neuts % (Manual) 94.0 % (40.0-70.0) H 03/19/17 05:00 Band Neutrophils % 0 % 03/19/17 05:00 Lymphocytes % (Manual) 2.0 % (13.4-35.0) L 03/19/17 05:00 Reactive Lymphs % (Man) 0 % 03/19/17 05:00 Monocytes % (Manual) 2.0 % (0.0-7.3) 03/19/17 05:00 Eosinophils % (Manual) 2.0 % (0.0-4.3) 03/19/17 05:00 Basophils % (Manual) 0 % (0.0-1.8) 03/19/17 05:00 Metamyelocytes % 0 % 03/19/17 05:00 Myelocytes % 0 % 03/19/17 05:00 Promyelocytes % 0 % 03/19/17 05:00 Blast Cells % 0 % 03/19/17 05:00 Nucleated RBC % Not Reportable 03/19/17 05:00 Seg Neutrophils # 3.3 K/mm3 (1.8-7.7) 03/20/17 06:00 Seg Neutrophils # Man 5.6 K/mm3 (1.8-7.7) 03/19/17 05:00 Band Neutrophils # 0.0 K/mm3 03/19/17 05:00 Lymphocytes # (Manual) 0.1 K/mm3 (1.2-5.4) L 03/19/17 05:00 Abs React Lymphs (Man) 0.0 K/mm3 03/19/17 05:00 Monocytes # (Manual) 0.1 K/mm3 (0.0-0.8) 03/19/17 05:00 Eosinophils # (Manual) 0.1 K/mm3 (0.0-0.4) 03/19/17 05:00 Basophils # (Manual) 0.0 K/mm3 (0.0-0.1) 03/19/17 05:00 Metamyelocytes # 0.0 K/mm3 03/19/17 05:00 Myelocytes # 0.0 K/mm3 03/19/17 05:00 Promyelocytes # 0.0 K/mm3 03/19/17 05:00 Blast Cells # 0.0 K/mm3 03/19/17 05:00 WBC Morphology Not Reportable 03/19/17 05:00 Hypersegmented Neuts Not Reportable 03/19/17 05:00 Hyposegmented Neuts Not Reportable 03/19/17 05:00 Hypogranular Neuts Not Reportable 03/19/17 05:00 Smudge Cells Not Reportable 03/19/17 05:00 Toxic Granulation Not Reportable 03/19/17 05:00 Toxic Vacuolation Not Reportable 03/19/17 05:00 Dohle Bodies Not Reportable 03/19/17 05:00 Pelger-Huet Anomaly Not Reportable 03/19/17 05:00 Mary Rods Not Reportable 03/19/17 05:00 Platelet Estimate Consistent w auto 03/19/17 05:00 Clumped Platelets Not Reportable 03/19/17 05:00 Plt Clumps, EDTA Not Reportable 03/19/17 05:00 Large Platelets Rare 03/19/17 05:00 Giant Platelets Not Reportable 03/19/17 05:00 Platelet Satelliting Not Reportable 03/19/17 05:00 Plt Morphology Comment Not Reportable 03/19/17 05:00 RBC Morphology Not Reportable 03/19/17 05:00 Dimorphic RBCs Not Reportable 03/19/17 05:00 Polychromasia Rare 03/19/17 05:00 Hypochromasia Not Reportable 03/19/17 05:00 Poikilocytosis 1+ 03/19/17 05:00 Anisocytosis 2+ 03/19/17 05:00 Microcytosis Not Reportable 03/19/17 05:00 Macrocytosis Not Reportable 03/19/17 05:00 Spherocytes Not Reportable 03/19/17 05:00 Pappenheimer Bodies Not Reportable 03/19/17 05:00 Sickle Cells Not Reportable 03/19/17 05:00 Target Cells Not Reportable 03/19/17 05:00 Tear Drop Cells Not Reportable 03/19/17 05:00 Ovalocytes Few 03/19/17 05:00 Helmet Cells Not Reportable 03/19/17 05:00 [place] Bodies Not Reportable 03/19/17 05:00 [place] Rings Not Reportable 03/19/17 05:00 [place] Cells Not Reportable 03/19/17 05:00 Bite Cells Not Reportable 03/19/17 05:00 Crenated Cell Not Reportable 03/19/17 05:00 Elliptocytes 2+ 03/19/17 05:00 Acanthocytes (Spur) Not Reportable 03/19/17 05:00 Rouleaux Not Reportable 03/19/17 05:00 Hemoglobin C Crystals Not Reportable 03/19/17 05:00 Schistocytes Few 03/19/17 05:00 Malaria parasites Not Reportable 03/19/17 05:00 [place] Bodies Not Reportable 03/19/17 05:00 Hem Pathologist Commnt No 03/19/17 05:00 PT 16.8 Sec. (12.2-14.9) H 03/17/17 05:00 INR 1.30 (0.87-1.13) H 03/17/17 05:00 APTT 49.4 Sec. (24.2-36.6) H 03/16/17 21:45 Heparin Anti-Xa Level 0.24 U.I./ml (0.3-0.7) L 03/20/17 14:26 ABG pH 7.497 pH Units (7.350-7.450) H 03/19/17 11:35 ABG pCO2 36.3 mm Hg 03/19/17 11:35 ABG pO2 100.9 mm Hg (80.0-90.0) H 03/19/17 11:35 ABG HCO3 27.5 mmol/L (20.0-26.0) H 03/19/17 11:35 ABG O2 Saturation 97.9 % (95.0-99.0) 03/19/17 11:35 ABG O2 Content 11.8 (0.0-44) 03/19/17 11:35 ABG Base Excess 4.1 mmol/L (-2.0-3.0) H 03/19/17 11:35 ABG Hemoglobin 8.6 gm/dl (14.0-18.0) L 03/19/17 11:35 ABG Carboxyhemoglobin 2.1 % (0.0-5.0) 03/19/17 11:35 ABG Methemoglobin 0.5 % (0.0-1.5) 03/19/17 11:35 Oxyhemoglobin 95.4 % (95.0-99.0) 03/19/17 11:35 FiO2 30 % 03/19/17 11:35 Sodium 143 mmol/L (137-145) 03/20/17 06:00 Potassium 3.3 mmol/L (3.6-5.0) L 03/20/17 06:00 Chloride 103.4 mmol/L (98-107) 03/20/17 06:00 Carbon Dioxide 28 mmol/L (22-30) 03/20/17 06:00 Anion Gap 15 mmol/L 03/20/17 06:00 BUN 18 mg/dL (9-20) 03/20/17 06:00 Creatinine 0.7 mg/dL (0.8-1.5) L 03/20/17 06:00 Estimated GFR > 60 ml/min 03/20/17 06:00 BUN/Creatinine Ratio 26 % 03/20/17 06:00 Glucose 117 mg/dL (75-100) H 03/20/17 06:00 POC Glucose 101 (70-105) 03/20/17 17:42 Lactic Acid 1.20 mmol/L (0.7-2.0) 03/18/17 12:59 Calcium 8.4 mg/dL (8.4-10.2) 03/20/17 06:00 Total Bilirubin 1.00 mg/dL (0.1-1.2) 03/20/17 06:00 AST 23 units/L (5-40) 03/20/17 06:00 ALT 15 units/L (7-56) 03/20/17 06:00 Alkaline Phosphatase 62 units/L (35-129) 03/20/17 06:00 Total Creatine Kinase 78 units/L (55-170) 03/14/17 16:10 CK-MB (CK-2) 2.9 ng/mL (0.0-4.0) 03/14/17 16:10 CK-MB (CK-2) Rel Index 3.7 (0-4) 03/14/17 16:10 Troponin T < 0.010 ng/mL (0.00-0.029) 03/14/17 16:10 C-Reactive Protein 17.50 mg/dL (0.00-1.30) H 03/18/17 21:00 Total Protein 5.9 g/dL (6.3-8.2) L 03/20/17 06:00 Albumin 2.5 g/dL (3.9-5) L 03/20/17 06:00 Albumin/Globulin Ratio 0.7 % 03/20/17 06:00 Lipase 52 units/L (13-60) 03/14/17 02:39 Urine Color Yellow (Yellow) 03/15/17 08:20 Urine Turbidity Clear (Clear) 03/15/17 08:20 Urine pH 5.0 (5.0-7.0) 03/15/17 08:20 Ur Specific [place] 1.018 (1.003-1.030) 03/15/17 08:20 Urine Protein 30 mg/dl mg/dL (Negative) 03/15/17 08:20 Urine Glucose (UA) Neg mg/dL (Negative) 03/15/17 08:20 Urine Ketones Neg mg/dL (Negative) 03/15/17 08:20 Urine Blood Mod (Negative) 03/15/17 08:20 Urine Nitrite Neg (Negative) 03/15/17 08:20 Urine Bilirubin Neg (Negative) 03/15/17 08:20 Urine Urobilinogen < 2.0 mg/dL (<2.0) 03/15/17 08:20 Ur Leukocyte Esterase Mod (Negative) 03/15/17 08:20 Urine WBC (Auto) 15.0 /HPF (0.0-6.0) H 03/15/17 08:20 Urine RBC (Auto) 26.0 /HPF (0.0-6.0) 03/15/17 08:20 Urine Bacteria (Auto) 1+ /HPF (Negative) 03/15/17 08:20 Urine Mucus 2+ /HPF 03/15/17 08:20 Blood Type O POSITIVE 03/15/17 06:06 Antibody Screen TNR 03/15/17 06:06 BRENDA Antibody Screen Negative 03/15/17 06:06 Crossmatch See Detail 03/15/17 06:06
--- NOTE | 2017-03-20 23:37 | Progress Note ---
Assessment and Plan Assessment and plan: Acute respiratory failure- expected - intubated before surgery on 03/14/17 and extubated successful following >96 hrs intubation - Wean as tolerated - Continue with Bronchodilators. [employer] Work[employer] following COPD with exacerbation - wean off from vent as tolerated - Continue with Bronchodilators - cont. periodic breathing treatment SBO - s/p exploratory laparotomy on 03/14/17 - Placed on rectal tube, consulted GI Anemia - could be from hemodilution and from blood loss during surgery which is expected - s/p one unit PRBC transfusion Mild hypokalemia - will trend. as pt had Acute on chronic kidney disease Acute on Chronic systolic with Ef 10-15% -diuresis. Metoprolol. ACEI on hold for low BP Coronary artery disease - cardiology following Left apical thrombus with subtherapeutic INR on admission - commneced pt on heparin LV thrombus. INR daily Awaiting for Surgery in order to restart coumadin History of CVA - Stable. Monitor clinically DVT PX - SCD History Interval history: patient seen and examined, in no acute distress. Hospitalist Physical - Constitutional Vitals: Temp Pulse Resp BP Pulse Ox 97.9 F 64 18 103/63 100 03/20/17 22:26 03/20/17 22:26 03/20/17 22:26 03/20/17 22:26 03/20/17 22:26 General appearance: Present: no acute distress, well-nourished, other (lathergic ) - EENT Eyes: Present: PERRL, EOM intact ENT: hearing intact, clear oral mucosa - Neck Neck: Present: supple, normal ROM - Respiratory Respiratory: bilateral: diminished - Cardiovascular Rhythm: regular Heart Sounds: Present: S1 & S2. Absent: systolic murmur, diastolic murmur - Extremities Extremities: no ischemia, pulses intact, pulses symmetrical, No edema Peripheral Pulses: within normal limits - Abdominal General gastrointestinal: soft, tender (at surgical site), non-distended, hypoactive bowel sounds - Integumentary Integumentary: Present: clear, warm - Psychiatric Psychiatric: appropriate mood/affect - Neurologic Neurologic: CNII-XII intact, moves all extremities - Allied Health Allied health notes reviewed: nursing, case management Results - Labs CBC & Chem 7: 03/20/17 06:00 03/20/17 06:00 Labs: Laboratory Last Values WBC 4.7 K/mm3 (4.5-11.0) 03/20/17 06:00 RBC 3.12 M/mm3 (3.65-5.03) L 03/20/17 06:00 Hgb 8.5 gm/dl (11.8-15.2) L 03/20/17 06:00 Hct 26.1 % (35.5-45.6) L 03/20/17 06:00 MCV 84 fl (84-94) 03/20/17 06:00 MCH 27 pg (28-32) L 03/20/17 06:00 MCHC 33 % (32-34) 03/20/17 06:00 RDW 18.9 % (13.2-15.2) H 03/20/17 06:00 Plt Count 215 K/mm3 (140-440) 03/20/17 06:00 Lymph % (Auto) 15.7 % (13.4-35.0) 03/20/17 06:00 [place] % (Auto) 10.6 % (0.0-7.3) H 03/20/17 06:00 Eos % (Auto) 2.3 % (0.0-4.3) 03/20/17 06:00 Baso % (Auto) 0.6 % (0.0-1.8) 03/20/17 06:00 Lymph # 0.7 K/mm3 (1.2-5.4) L 03/20/17 06:00 [place] # 0.5 K/mm3 (0.0-0.8) 03/20/17 06:00 Eos # 0.1 K/mm3 (0.0-0.4) 03/20/17 06:00 Baso # 0.0 K/mm3 (0.0-0.1) 03/20/17 06:00 Add Manual Diff Complete 03/19/17 05:00 Total Counted 100 03/19/17 05:00 Seg Neutrophils % 70.8 % (40.0-70.0) H 03/20/17 06:00 Seg Neuts % (Manual) 94.0 % (40.0-70.0) H 03/19/17 05:00 Band Neutrophils % 0 % 03/19/17 05:00 Lymphocytes % (Manual) 2.0 % (13.4-35.0) L 03/19/17 05:00 Reactive Lymphs % (Man) 0 % 03/19/17 05:00 Monocytes % (Manual) 2.0 % (0.0-7.3) 03/19/17 05:00 Eosinophils % (Manual) 2.0 % (0.0-4.3) 03/19/17 05:00 Basophils % (Manual) 0 % (0.0-1.8) 03/19/17 05:00 Metamyelocytes % 0 % 03/19/17 05:00 Myelocytes % 0 % 03/19/17 05:00 Promyelocytes % 0 % 03/19/17 05:00 Blast Cells % 0 % 03/19/17 05:00 Nucleated RBC % Not Reportable 03/19/17 05:00 Seg Neutrophils # 3.3 K/mm3 (1.8-7.7) 03/20/17 06:00 Seg Neutrophils # Man 5.6 K/mm3 (1.8-7.7) 03/19/17 05:00 Band Neutrophils # 0.0 K/mm3 03/19/17 05:00 Lymphocytes # (Manual) 0.1 K/mm3 (1.2-5.4) L 03/19/17 05:00 Abs React Lymphs (Man) 0.0 K/mm3 03/19/17 05:00 Monocytes # (Manual) 0.1 K/mm3 (0.0-0.8) 03/19/17 05:00 Eosinophils # (Manual) 0.1 K/mm3 (0.0-0.4) 03/19/17 05:00 Basophils # (Manual) 0.0 K/mm3 (0.0-0.1) 03/19/17 05:00 Metamyelocytes # 0.0 K/mm3 03/19/17 05:00 Myelocytes # 0.0 K/mm3 03/19/17 05:00 Promyelocytes # 0.0 K/mm3 03/19/17 05:00 Blast Cells # 0.0 K/mm3 03/19/17 05:00 WBC Morphology Not Reportable 03/19/17 05:00 Hypersegmented Neuts Not Reportable 03/19/17 05:00 Hyposegmented Neuts Not Reportable 03/19/17 05:00 Hypogranular Neuts Not Reportable 03/19/17 05:00 Smudge Cells Not Reportable 03/19/17 05:00 Toxic Granulation Not Reportable 03/19/17 05:00 Toxic Vacuolation Not Reportable 03/19/17 05:00 Dohle Bodies Not Reportable 03/19/17 05:00 Pelger-Huet Anomaly Not Reportable 03/19/17 05:00 Mary Rods Not Reportable 03/19/17 05:00 Platelet Estimate Consistent w auto 03/19/17 05:00 Clumped Platelets Not Reportable 03/19/17 05:00 Plt Clumps, EDTA Not Reportable 03/19/17 05:00 Large Platelets Rare 03/19/17 05:00 Giant Platelets Not Reportable 03/19/17 05:00 Platelet Satelliting Not Reportable 03/19/17 05:00 Plt Morphology Comment Not Reportable 03/19/17 05:00 RBC Morphology Not Reportable 03/19/17 05:00 Dimorphic RBCs Not Reportable 03/19/17 05:00 Polychromasia Rare 03/19/17 05:00 Hypochromasia Not Reportable 03/19/17 05:00 Poikilocytosis 1+ 03/19/17 05:00 Anisocytosis 2+ 03/19/17 05:00 Microcytosis Not Reportable 03/19/17 05:00 Macrocytosis Not Reportable 03/19/17 05:00 Spherocytes Not Reportable 03/19/17 05:00 Pappenheimer Bodies Not Reportable 03/19/17 05:00 Sickle Cells Not Reportable 03/19/17 05:00 Target Cells Not Reportable 03/19/17 05:00 Tear Drop Cells Not Reportable 03/19/17 05:00 Ovalocytes Few 03/19/17 05:00 Helmet Cells Not Reportable 03/19/17 05:00 [place] Bodies Not Reportable 03/19/17 05:00 [place] Rings Not Reportable 03/19/17 05:00 [place] Cells Not Reportable 03/19/17 05:00 Bite Cells Not Reportable 03/19/17 05:00 Crenated Cell Not Reportable 03/19/17 05:00 Elliptocytes 2+ 03/19/17 05:00 Acanthocytes (Spur) Not Reportable 03/19/17 05:00 Rouleaux Not Reportable 03/19/17 05:00 Hemoglobin C Crystals Not Reportable 03/19/17 05:00 Schistocytes Few 03/19/17 05:00 Malaria parasites Not Reportable 03/19/17 05:00 [place] Bodies Not Reportable 03/19/17 05:00 Hem Pathologist Commnt No 03/19/17 05:00 PT 16.8 Sec. (12.2-14.9) H 03/17/17 05:00 INR 1.30 (0.87-1.13) H 03/17/17 05:00 APTT 49.4 Sec. (24.2-36.6) H 03/16/17 21:45 Heparin Anti-Xa Level 0.24 U.I./ml (0.3-0.7) L 03/20/17 14:26 ABG pH 7.497 pH Units (7.350-7.450) H 03/19/17 11:35 ABG pCO2 36.3 mm Hg 03/19/17 11:35 ABG pO2 100.9 mm Hg (80.0-90.0) H 03/19/17 11:35 ABG HCO3 27.5 mmol/L (20.0-26.0) H 03/19/17 11:35 ABG O2 Saturation 97.9 % (95.0-99.0) 03/19/17 11:35 ABG O2 Content 11.8 (0.0-44) 03/19/17 11:35 ABG Base Excess 4.1 mmol/L (-2.0-3.0) H 03/19/17 11:35 ABG Hemoglobin 8.6 gm/dl (14.0-18.0) L 03/19/17 11:35 ABG Carboxyhemoglobin 2.1 % (0.0-5.0) 03/19/17 11:35 ABG Methemoglobin 0.5 % (0.0-1.5) 03/19/17 11:35 Oxyhemoglobin 95.4 % (95.0-99.0) 03/19/17 11:35 FiO2 30 % 03/19/17 11:35 Sodium 143 mmol/L (137-145) 03/20/17 06:00 Potassium 3.3 mmol/L (3.6-5.0) L 03/20/17 06:00 Chloride 103.4 mmol/L (98-107) 03/20/17 06:00 Carbon Dioxide 28 mmol/L (22-30) 03/20/17 06:00 Anion Gap 15 mmol/L 03/20/17 06:00 BUN 18 mg/dL (9-20) 03/20/17 06:00 Creatinine 0.7 mg/dL (0.8-1.5) L 03/20/17 06:00 Estimated GFR > 60 ml/min 03/20/17 06:00 BUN/Creatinine Ratio 26 % 03/20/17 06:00 Glucose 117 mg/dL (75-100) H 03/20/17 06:00 POC Glucose 101 (70-105) 03/20/17 17:42 Lactic Acid 1.20 mmol/L (0.7-2.0) 03/18/17 12:59 Calcium 8.4 mg/dL (8.4-10.2) 03/20/17 06:00 Total Bilirubin 1.00 mg/dL (0.1-1.2) 03/20/17 06:00 AST 23 units/L (5-40) 03/20/17 06:00 ALT 15 units/L (7-56) 03/20/17 06:00 Alkaline Phosphatase 62 units/L (35-129) 03/20/17 06:00 Total Creatine Kinase 78 units/L (55-170) 03/14/17 16:10 CK-MB (CK-2) 2.9 ng/mL (0.0-4.0) 03/14/17 16:10 CK-MB (CK-2) Rel Index 3.7 (0-4) 03/14/17 16:10 Troponin T < 0.010 ng/mL (0.00-0.029) 03/14/17 16:10 C-Reactive Protein 17.50 mg/dL (0.00-1.30) H 03/18/17 21:00 Total Protein 5.9 g/dL (6.3-8.2) L 03/20/17 06:00 Albumin 2.5 g/dL (3.9-5) L 03/20/17 06:00 Albumin/Globulin Ratio 0.7 % 03/20/17 06:00 Lipase 52 units/L (13-60) 03/14/17 02:39 Urine Color Yellow (Yellow) 03/15/17 08:20 Urine Turbidity Clear (Clear) 03/15/17 08:20 Urine pH 5.0 (5.0-7.0) 03/15/17 08:20 Ur Specific [place] 1.018 (1.003-1.030) 03/15/17 08:20 Urine Protein 30 mg/dl mg/dL (Negative) 03/15/17 08:20 Urine Glucose (UA) Neg mg/dL (Negative) 03/15/17 08:20 Urine Ketones Neg mg/dL (Negative) 03/15/17 08:20 Urine Blood Mod (Negative) 03/15/17 08:20 Urine Nitrite Neg (Negative) 03/15/17 08:20 Urine Bilirubin Neg (Negative) 03/15/17 08:20 Urine Urobilinogen < 2.0 mg/dL (<2.0) 03/15/17 08:20 Ur Leukocyte Esterase Mod (Negative) 03/15/17 08:20 Urine WBC (Auto) 15.0 /HPF (0.0-6.0) H 03/15/17 08:20 Urine RBC (Auto) 26.0 /HPF (0.0-6.0) 03/15/17 08:20 Urine Bacteria (Auto) 1+ /HPF (Negative) 03/15/17 08:20 Urine Mucus 2+ /HPF 03/15/17 08:20 Blood Type O POSITIVE 03/15/17 06:06 Antibody Screen TNR 03/15/17 06:06 BRENDA Antibody Screen Negative 03/15/17 06:06 Crossmatch See Detail 03/15/17 06:06 - Imaging and Cardiology Abdominal x-ray: image reviewed (dobhuff noted. right position)
[2017-03-21 05:50] LABS: INR 1.06 (0.87-1.13)
[2017-03-21] MEDS: LOPRESSOR IV SCH ×3 (06:20→21:12)
[2017-03-21] MEDS: HEPARIN/ 0.45% NACL-25,000 UNIT/500 ML 25,000 UNIT/500 ML BAG IV SCH (07:50)
[2017-03-21] MEDS: ZESTRIL PO SCH (10:00)
[2017-03-21] MEDS: BABY ASPIRIN PO SCH (10:03)
[2017-03-21] MEDS: PEPCID PO SCH ×2 (10:04→21:11)
[2017-03-21] MEDS: LASIX PO SCH (10:04)
--- NOTE | 2017-03-21 10:30 | Progress Note ---
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 Sinus tachycardia LV thrombus HTN anemia from blood loss HLP Subtherapeutic INR on admission - questionable compliance Hypokalemia Patient appears to be comfortable. Anemia still seems to be a problem. Cardiac -[place] no significant new symptoms are noted. Continue current management. - Patient Problems (1) Acute coronary syndrome Current Visit: Yes Status: Acute (2) Left ventricular apical thrombus Current Visit: No Status: Acute (3) Non-ST elevation VT (NSTEMI) Current Visit: No Status: Acute (4) Cardiomyopathy Current Visit: No Status: Chronic Qualifiers: Cardiomyopathy type: C (5) History of CVA (cerebrovascular accident) Current Visit: No Status: Chronic (6) Pneumonia Current Visit: No Status: Suspected Qualifiers: Pneumonia type: P Aspiration pneumonia type: A Laterality: L Lung location: L Subjective Date of service: 03/21/17 Principal diagnosis: Acute Respiratory Failure on MVS; SBO s/p Ex-lap Interval history: Patient is comfortable today. No cardiac symptoms. Still has NG tube in place. Abdominal symptoms are improving. Objective Vital Signs Temp Pulse Resp BP Pulse Ox 03/21/17 09:18 98 03/21/17 07:35 98.3 F 62 98/58 100 03/21/17 06:20 65 101/58 03/21/17 06:16 65 03/21/17 06:13 101/58 03/21/17 05:11 70 98 03/21/17 04:33 62 03/20/17 23:37 98.1 F 72 18 101/61 99 03/20/17 22:26 97.9 F 64 18 103/63 100 03/20/17 21:21 105/71 97 03/20/17 21:11 105/71 97 03/20/17 21:01 69 26 H 105/71 98 03/20/17 20:31 75 105/71 03/20/17 20:00 98.0 F 75 26 H 105/71 98 03/20/17 18:00 74 25 H 114/67 99 03/20/17 16:00 98.1 F 75 20 104/65 100 03/20/17 15:01 80 28 H 98/52 97 03/20/17 14:45 78 29 H 98/52 92 03/20/17 14:31 70 26 H 98/52 100 03/20/17 14:15 71 25 H 98/52 100 03/20/17 14:00 66 23 98/52 100 03/20/17 13:51 98.0 F 03/20/17 13:45 72 26 H 105/68 100 03/20/17 13:30 74 26 H 108/69 99 03/20/17 13:15 70 25 H 96/61 100 03/20/17 13:00 79 23 105/68 100 03/20/17 12:50 71 96/61 03/20/17 12:45 67 26 H 96/61 100 03/20/17 12:30 72 22 96/61 100 03/20/17 12:15 67 25 H 97/56 100 03/20/17 12:00 98.0 F 71 20 97/56 100 03/20/17 11:45 68 22 96/59 99 03/20/17 11:30 74 25 H 105/63 100 03/20/17 11:15 74 28 H 95/62 100 03/20/17 11:00 72 26 H 96/59 100 03/20/17 10:45 77 19 101/55 100 03/20/17 10:30 74 26 H 95/62 100 - Physical Examination General: No Apparent Distress HEENT: Positive: PERRL, EOMI Neck: Positive: neck supple Cardiac: Positive: Regular Rate Lungs: Positive: clear to auscultation Neuro: Positive: Grossly Intact Abdomen: Positive: Active Bowel Sounds Incision: Incision Site (abdominal) Extremities: Present: normal. Absent: edema - Labs and Meds Coagulation 03/21/17 Range/Units 04:36 PT 14.3 (12.2-14.9) Sec. INR 1.06 (0.87-1.13) - Imaging and Cardiology EKG: image reviewed Stress echo: other (02/2017 no ischemia EF 10-15%) Echo: report reviewed (02/2017 over LV dysfunction EF 10-15% with apical thrombus normal RV size and function) - Allied health notes Allied health notes reviewed: RT
--- NOTE | 2017-03-21 14:10 | Progress Note ---
Assessment and Plan PODd #7 Pt transferred to floor. feeling well. peter cl liq diet Abd soft, non tender surgically stable d/c feeding tube d/c lovett d/c slick advance to full liq diet Selected Entries 03/21/17 07:35 Temperature 98.3 F Pulse Rate 62 Blood Pressure 98/58 Objective Vital Signs - 12hr 03/21/17 03/21/17 03/21/17 04:33 05:11 06:13 Temperature Pulse Rate 62 70 Blood Pressure 101/58 O2 Sat by Pulse 98 Oximetry 03/21/17 03/21/17 03/21/17 06:16 06:20 07:35 Temperature 98.3 F Pulse Rate 65 65 62 Blood Pressure 101/58 98/58 O2 Sat by Pulse 100 Oximetry 03/21/17 09:18 Temperature Pulse Rate Blood Pressure O2 Sat by Pulse 98 Oximetry - Labs 03/20/17 06:00 03/20/17 06:00
--- NOTE | 2017-03-21 15:45 | Progress Note ---
Assessment and Plan Patient resting on room air. Weak but no acute respiratory distress.O2 saturation 96%.No complaint of chest pain or shortness of breath at this time. - Patient Problems (1) Chest pain in adult Current Visit: Yes Status: Acute Plan to address problem: Management as per cardiology. (2) Acute respiratory failure Current Visit: No Status: Acute Qualifiers: Respiratory failure complication: hypoxia Qualified Code(s): J96.01 - Acute respiratory failure with hypoxia Plan to address problem: Patient intubated for surgery and extubated. Presently on room air. O2 saturation 96%. (3) Acute coronary syndrome Current Visit: Yes Status: Acute Plan to address problem: Patient is on I/V Heparin and Po coumadin. Management as per cardiology. (4) ADONIS (acute kidney injury) Current Visit: No Status: Acute Plan to address problem: Management as per nephrology. (5) Left ventricular apical thrombus Current Visit: No Status: Acute Plan to address problem: Patient is on I/V heparin and coumadin. Management as per cardiology. (6) Cardiomyopathy Current Visit: No Status: Chronic Qualifiers: Cardiomyopathy type: C Plan to address problem: Ejection fraction 10to 15%. Management as per cardiology. Subjective Date of service: 03/21/17 Principal diagnosis: Acute Respiratory Failure on MVS; SBO s/p Ex-lap Interval history: Patient resting on room air. Weak but no acute respiratory distress.O2 saturation 96%.No complaint of chest pain or shortness of breath at this time. Objective Vital Signs - 12hr 03/21/17 03/21/17 03/21/17 04:33 05:11 06:13 Temperature Pulse Rate 62 70 Blood Pressure 101/58 O2 Sat by Pulse 98 Oximetry 03/21/17 03/21/17 03/21/17 06:16 06:20 07:35 Temperature 98.3 F Pulse Rate 65 65 62 Blood Pressure 101/58 98/58 O2 Sat by Pulse 100 Oximetry 03/21/17 03/21/17 09:18 13:25 Temperature 97.6 F Pulse Rate 58 L Blood Pressure 116/57 O2 Sat by Pulse 98 100 Oximetry Constitutional: no acute distress, alert Eyes: non-icteric ENT: oropharynx moist, other (normocephalic) Neck: supple, no lymphadenopathy, JVD (to sternal angle), other (no thyromegaly) Effort: normal Ascultation: Bilateral: diminished breath sounds, rales (bases), rhonchi (scant in bases) Percussion: Bilateral: not dull Cardiovascular: regular rate and rhythm, other (no rubs / murmurs) Gastrointestinal: hypoactive bowel sounds, soft, non-tender, non-distended, other (No HSM) Integumentary: normal, other (no rash or petechiae) Extremities: no cyanosis, no edema, pulses normal, no ischemia or petechiae Neurologic: normal mental status, non-focal exam, pupils equal and round, motor strength normal and, other (PERRLA, EOMI) Psychiatric: mood appropriate, affect normal CBC and BMP: 03/20/17 06:00 03/20/17 06:00 ABG, PT/INR, D-dimer: ABG ABG pH 7.497 pH Units (7.350-7.450) H 03/19/17 11:35 ABG pCO2 36.3 mm Hg 03/19/17 11:35 ABG pO2 100.9 mm Hg (80.0-90.0) H 03/19/17 11:35 ABG O2 Saturation 97.9 % (95.0-99.0) 03/19/17 11:35 PT/INR, D-dimer PT 14.3 Sec. (12.2-14.9) 03/21/17 04:36 INR 1.06 (0.87-1.13) 03/21/17 04:36 Abnormal lab findings: Abnormal Labs 03/14/17 03/14/17 03/15/17 15:36 Unknown 04:15 RBC 2.98 L Hgb 8.2 L Hct 25.2 L MCV MCH RDW 19.5 H Lymph % (Auto) 12.9 L [facility] % (Auto) 9.4 H Lymph # 0.7 L Seg Neutrophils % 76.6 H Seg Neuts % (Manual) Lymphocytes % (Manual) Lymphocytes # (Manual) PT INR APTT Heparin Anti-Xa Level ABG pH 7.349 L ABG pO2 446.4 H 274.8 H ABG HCO3 ABG O2 Saturation 99.6 H 99.5 H ABG Base Excess -3.4 L -4.6 L ABG Hemoglobin 12.3 L 8.6 L Oxyhemoglobin Potassium Chloride Creatinine Glucose POC Glucose Calcium Total Bilirubin AST C-Reactive Protein Total Protein Albumin Urine WBC (Auto) Crossmatch 03/15/17 03/15/17 03/15/17 04:15 04:15 04:45 RBC Hgb Hct MCV MCH RDW Lymph % (Auto) [facility] % (Auto) Lymph # Seg Neutrophils % Seg Neuts % (Manual) Lymphocytes % (Manual) Lymphocytes # (Manual) PT 16.9 H INR 1.31 H APTT Heparin Anti-Xa Level ABG pH 7.340 L ABG pO2 168.3 H ABG HCO3 ABG O2 Saturation ABG Base Excess -3.8 L ABG Hemoglobin 7.7 L Oxyhemoglobin Potassium Chloride 114.1 H Creatinine Glucose 112 H POC Glucose Calcium 7.5 L D Total Bilirubin AST C-Reactive Protein Total Protein 5.5 L D Albumin 2.8 L Urine WBC (Auto) Crossmatch 03/15/17 03/15/17 03/15/17 06:06 08:20 13:05 RBC Hgb Hct MCV MCH RDW Lymph % (Auto) [facility] % (Auto) Lymph # Seg Neutrophils % Seg Neuts % (Manual) Lymphocytes % (Manual) Lymphocytes # (Manual) PT INR APTT Heparin Anti-Xa Level ABG pH ABG pO2 ABG HCO3 ABG O2 Saturation ABG Base Excess -2.9 L ABG Hemoglobin 8.5 L Oxyhemoglobin 94.3 L Potassium Chloride Creatinine Glucose POC Glucose Calcium Total Bilirubin AST C-Reactive Protein Total Protein Albumin Urine WBC (Auto) 15.0 H Crossmatch See Detail 03/15/17 03/15/17 03/15/17 14:20 15:35 20:29 RBC 3.46 L Hgb 9.7 L Hct 29.4 L MCV MCH RDW 19.0 H Lymph % (Auto) 12.6 L [facility] % (Auto) 9.1 H Lymph # 0.8 L Seg Neutrophils % 77.2 H Seg Neuts % (Manual) Lymphocytes % (Manual) Lymphocytes # (Manual) PT INR APTT Heparin Anti-Xa Level ABG pH 7.261 L ABG pO2 170.6 H 229.2 H ABG HCO3 ABG O2 Saturation 99.4 H ABG Base Excess -6.1 L -3.4 L ABG Hemoglobin 10.4 L 8.3 L Oxyhemoglobin Potassium Chloride Creatinine Glucose POC Glucose Calcium Total Bilirubin AST C-Reactive Protein Total Protein Albumin Urine WBC (Auto) Crossmatch 03/15/17 03/16/17 03/16/17 23:09 04:20 05:58 RBC 3.24 L Hgb 9.1 L Hct 27.1 L MCV MCH RDW 19.1 H Lymph % (Auto) [facility] % (Auto) Lymph # Seg Neutrophils % Seg Neuts % (Manual) Lymphocytes % (Manual) 11.0 L Lymphocytes # (Manual) 0.6 L PT INR APTT Heparin Anti-Xa Level ABG pH ABG pO2 130.4 H ABG HCO3 ABG O2 Saturation ABG Base Excess -2.4 L ABG Hemoglobin 6.1 L Oxyhemoglobin Potassium Chloride Creatinine Glucose POC Glucose 127 H Calcium Total Bilirubin AST C-Reactive Protein Total Protein Albumin Urine WBC (Auto) Crossmatch 03/16/17 03/16/17 03/16/17 05:58 17:51 21:45 RBC Hgb Hct MCV MCH RDW Lymph % (Auto) [facility] % (Auto) Lymph # Seg Neutrophils % Seg Neuts % (Manual) Lymphocytes % (Manual) Lymphocytes # (Manual) PT 17.5 H INR 1.36 H APTT 49.4 H Heparin Anti-Xa Level ABG pH ABG pO2 ABG HCO3 ABG O2 Saturation ABG Base Excess ABG Hemoglobin Oxyhemoglobin Potassium Chloride 108.1 H Creatinine Glucose 117 H POC Glucose Calcium 7.8 L Total Bilirubin AST 113 H C-Reactive Protein 23.90 H Total Protein 5.4 L Albumin 2.7 L Urine WBC (Auto) Crossmatch 03/17/17 03/17/17 03/17/17 00:01 05:00 05:00 RBC 3.06 L Hgb 8.6 L Hct 25.5 L MCV MCH RDW 18.9 H Lymph % (Auto) [facility] % (Auto) Lymph # Seg Neutrophils % Seg Neuts % (Manual) Lymphocytes % (Manual) Lymphocytes # (Manual) PT INR APTT Heparin Anti-Xa Level ABG pH ABG pO2 ABG HCO3 ABG O2 Saturation ABG Base Excess ABG Hemoglobin Oxyhemoglobin Potassium 3.2 L Chloride Creatinine Glucose 102 H POC Glucose 108 H Calcium 8.3 L Total Bilirubin AST C-Reactive Protein Total Protein Albumin Urine WBC (Auto) Crossmatch 03/17/17 03/17/17 03/17/17 05:00 15:40 21:30 RBC 2.96 L Hgb 8.2 L Hct 24.5 L MCV 83 L MCH RDW 18.6 H Lymph % (Auto) [facility] % (Auto) Lymph # Seg Neutrophils % Seg Neuts % (Manual) 93.0 H Lymphocytes % (Manual) 2.0 L Lymphocytes # (Manual) 0.1 L PT 16.8 H INR 1.30 H APTT Heparin Anti-Xa Level ABG pH ABG pO2 ABG HCO3 ABG O2 Saturation ABG Base Excess ABG Hemoglobin Oxyhemoglobin Potassium Chloride Creatinine Glucose POC Glucose Calcium 8.1 L Total Bilirubin AST C-Reactive Protein Total Protein Albumin Urine WBC (Auto) Crossmatch 03/18/17 03/18/17 03/18/17 00:05 03:45 04:45 RBC 3.12 L Hgb 8.8 L Hct 25.9 L MCV 83 L MCH RDW 18.3 H Lymph % (Auto) 9.5 L [facility] % (Auto) Lymph # 0.6 L Seg Neutrophils % 81.7 H Seg Neuts % (Manual) Lymphocytes % (Manual) Lymphocytes # (Manual) PT INR APTT Heparin Anti-Xa Level ABG pH ABG pO2 132.3 H ABG HCO3 29.2 H ABG O2 Saturation ABG Base Excess 4.3 H ABG Hemoglobin 8.7 L Oxyhemoglobin Potassium Chloride Creatinine Glucose POC Glucose 108 H Calcium Total Bilirubin AST C-Reactive Protein Total Protein Albumin Urine WBC (Auto) Crossmatch 03/18/17 03/18/17 03/18/17 04:45 05:44 12:26 RBC Hgb Hct MCV MCH RDW Lymph % (Auto) [facility] % (Auto) Lymph # Seg Neutrophils % Seg Neuts % (Manual) Lymphocytes % (Manual) Lymphocytes # (Manual) PT INR APTT Heparin Anti-Xa Level ABG pH 7.526 H ABG pO2 118.5 H ABG HCO3 27.9 H ABG O2 Saturation ABG Base Excess 5.0 H ABG Hemoglobin 9.3 L Oxyhemoglobin Potassium Chloride Creatinine Glucose POC Glucose 108 H Calcium 8.2 L Total Bilirubin 1.40 H AST 53 H C-Reactive Protein Total Protein 6.1 L Albumin 2.7 L Urine WBC (Auto) Crossmatch 03/18/17 03/18/17 03/18/17 14:10 21:00 Unknown RBC 3.17 L Hgb 8.7 L Hct 26.5 L MCV MCH 27 L RDW 18.4 H Lymph % (Auto) 9.4 L [facility] % (Auto) Lymph # 0.6 L Seg Neutrophils % 83.7 H Seg Neuts % (Manual) Lymphocytes % (Manual) Lymphocytes # (Manual) PT INR APTT Heparin Anti-Xa Level 0.22 L ABG pH ABG pO2 ABG HCO3 ABG O2 Saturation ABG Base Excess ABG Hemoglobin Oxyhemoglobin Potassium Chloride Creatinine Glucose POC Glucose Calcium Total Bilirubin AST C-Reactive Protein 17.50 H Total Protein Albumin Urine WBC (Auto) Crossmatch 03/19/17 03/19/17 03/19/17 04:15 05:00 05:00 RBC 3.05 L Hgb 8.4 L Hct 25.1 L MCV 83 L MCH RDW 18.9 H Lymph % (Auto) [facility] % (Auto) Lymph # Seg Neutrophils % Seg Neuts % (Manual) 94.0 H Lymphocytes % (Manual) 2.0 L Lymphocytes # (Manual) 0.1 L PT INR APTT Heparin Anti-Xa Level ABG pH 7.470 H ABG pO2 115.3 H ABG HCO3 26.4 H ABG O2 Saturation ABG Base Excess ABG Hemoglobin 8.9 L Oxyhemoglobin Potassium 3.2 L Chloride Creatinine 0.7 L Glucose POC Glucose Calcium Total Bilirubin AST C-Reactive Protein Total Protein 6.1 L Albumin 2.7 L Urine WBC (Auto) Crossmatch 03/19/17 03/19/17 03/19/17 11:35 23:53 Unknown RBC Hgb Hct MCV MCH RDW Lymph % (Auto) [facility] % (Auto) Lymph # Seg Neutrophils % Seg Neuts % (Manual) Lymphocytes % (Manual) Lymphocytes # (Manual) PT INR APTT Heparin Anti-Xa Level 0.23 L ABG pH 7.497 H ABG pO2 100.9 H ABG HCO3 27.5 H ABG O2 Saturation ABG Base Excess 4.1 H ABG Hemoglobin 8.6 L Oxyhemoglobin Potassium Chloride Creatinine Glucose POC Glucose 126 H Calcium Total Bilirubin AST C-Reactive Protein Total Protein Albumin Urine WBC (Auto) Crossmatch 03/20/17 03/20/17 03/20/17 05:40 06:00 06:00 RBC 3.12 L Hgb 8.5 L Hct 26.1 L MCV MCH 27 L RDW 18.9 H Lymph % (Auto) [facility] % (Auto) 10.6 H Lymph # 0.7 L Seg Neutrophils % 70.8 H Seg Neuts % (Manual) Lymphocytes % (Manual) Lymphocytes # (Manual) PT INR APTT Heparin Anti-Xa Level ABG pH ABG pO2 ABG HCO3 ABG O2 Saturation ABG Base Excess ABG Hemoglobin Oxyhemoglobin Potassium 3.3 L Chloride Creatinine 0.7 L Glucose 117 H POC Glucose 125 H Calcium Total Bilirubin AST C-Reactive Protein Total Protein 5.9 L Albumin 2.5 L Urine WBC (Auto) Crossmatch 03/20/17 03/21/17 14:26 13:53 RBC Hgb Hct MCV MCH RDW Lymph % (Auto) [facility] % (Auto) Lymph # Seg Neutrophils % Seg Neuts % (Manual) Lymphocytes % (Manual) Lymphocytes # (Manual) PT INR APTT Heparin Anti-Xa Level 0.24 L 0.19 L ABG pH ABG pO2 ABG HCO3 ABG O2 Saturation ABG Base Excess ABG Hemoglobin Oxyhemoglobin Potassium Chloride Creatinine Glucose POC Glucose Calcium Total Bilirubin AST C-Reactive Protein Total Protein Albumin Urine WBC (Auto) Crossmatch Chest x-ray: report reviewed (No pneumonia, no chf.), image reviewed Allied health notes reviewed: RT
--- NOTE | 2017-03-21 16:48 | Progress Note ---
Subjective Date of service: 03/21/17 Principal diagnosis: Acute Respiratory Failure on MVS; SBO s/p Ex-lap Interval history: Assessment and Plan Assessment and plan: Acute respiratory failure- expected - intubated before surgery on 03/14/17 and extubated successful following >96 hrs intubation - Wean as tolerated - Continue with Bronchodilators. 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 periodic breathing treatment SBO - s/p exploratory laparotomy on 03/14/17 - Placed on rectal tube, consulted GI Anemia - could be from hemodilution and from blood loss during surgery which is expected - s/p one unit PRBC transfusion Mild hypokalemia - will trend. as pt had Acute on chronic kidney disease Acute on Chronic systolic with Ef 10-15% -diuresis. Metoprolol. ACEI on hold for low BP Coronary artery disease - cardiology following Left apical thrombus with subtherapeutic INR on admission - commneced pt on heparin LV thrombus. INR daily Awaiting for Surgery in order to restart coumadin History of CVA - Stable. Monitor clinically DVT PX - SCD Objective - Constitutional Vitals: Vital Signs - 12hr 03/21/17 03/21/17 03/21/17 05:11 06:13 06:16 Temperature Pulse Rate 70 65 Blood Pressure 101/58 O2 Sat by Pulse 98 Oximetry 03/21/17 03/21/17 03/21/17 06:20 07:35 09:18 Temperature 98.3 F Pulse Rate 65 62 Blood Pressure 101/58 98/58 O2 Sat by Pulse 100 98 Oximetry 03/21/17 13:25 Temperature 97.6 F Pulse Rate 58 L Blood Pressure 116/57 O2 Sat by Pulse 100 Oximetry - Labs CBC & Chem 7: 03/20/17 06:00 03/20/17 06:00 Labs: Abnormal lab results 03/21/17 Range/Units 13:53 Heparin Anti-Xa Level 0.19 L (0.3-0.7) U.I./ml
[2017-03-21] MEDS: COUMADIN PO SCH (18:38)
[2017-03-22] MEDS: LOPRESSOR IV SCH ×3 (04:09→21:47)
[2017-03-22 05:33] LABS: INR 1.23 (0.87-1.13)
[2017-03-22] MEDS: ZESTRIL PO SCH (09:27)
[2017-03-22] MEDS: BABY ASPIRIN PO SCH (09:27)
[2017-03-22] MEDS: LASIX PO SCH (09:27)
[2017-03-22] MEDS: PEPCID PO SCH ×2 (09:27→22:41)
--- NOTE | 2017-03-22 12:15 | Progress Note ---
Assessment and Plan Pt feeling well without compl. peter diet Abd soft, non tender surgically stable d/c slick will follow prn to see in office in 2 wks Objective Vital Signs - 12hr 03/22/17 03/22/17 03/22/17 04:06 08:27 09:27 Temperature 98.7 F 98.2 F Pulse Rate 87 97 H 97 H Respiratory 16 17 Rate Blood Pressure 107/64 120/70 120/70 O2 Sat by Pulse 97 99 Oximetry - Labs 03/20/17 06:00 03/20/17 06:00
--- NOTE | 2017-03-22 12:35 | Progress Note ---
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 Sinus tachycardia LV thrombus HTN anemia from blood loss HLP Subtherapeutic INR on admission - questionable compliance Hypokalemia Patient is feeling better today. No significant cardiac symptoms. Advised increase activity. Cardiac status is stable - Patient Problems (1) Acute coronary syndrome Current Visit: Yes Status: Acute (2) Left ventricular apical thrombus Current Visit: No Status: Acute (3) Non-ST elevation [place] (NSTEMI) Current Visit: No Status: Acute (4) Cardiomyopathy Current Visit: No Status: Chronic Qualifiers: Cardiomyopathy type: C (5) History of CVA (cerebrovascular accident) Current Visit: No Status: Chronic (6) Pneumonia Current Visit: No Status: Suspected Qualifiers: Pneumonia type: P Aspiration pneumonia type: A Laterality: L Lung location: L Subjective Date of service: 03/22/17 Principal diagnosis: Acute Respiratory Failure on MVS; SBO s/p Ex-lap Interval history: Patient is doing better today. No cardiac symptoms. NG tube has been removed and patient is tolerating diet well. Objective Vital Signs Temp Pulse Resp Resp Resp BP Pulse Ox 03/22/17 09:27 97 H 120/70 03/22/17 08:27 98.2 F 97 H 17 120/70 99 03/22/17 04:06 98.7 F 87 16 107/64 97 03/22/17 00:10 83 24 24 03/21/17 23:56 98.3 F 83 12 109/72 99 03/21/17 21:16 100 03/21/17 21:12 54 L 105/59 03/21/17 19:48 98.3 F 54 L 16 105/59 100 03/21/17 17:16 71 96 03/21/17 17:15 97.2 F L 81 20 104/60 99 03/21/17 13:25 97.6 F 58 L 116/57 100 - Physical Examination General: No Apparent Distress HEENT: Positive: PERRL, EOMI Neck: Positive: neck supple Cardiac: Positive: Regular Rate Lungs: Positive: clear to auscultation Neuro: Positive: Grossly Intact Abdomen: Positive: Active Bowel Sounds Incision: Incision Site (abdominal) Extremities: Present: normal. Absent: edema - Labs and Meds Coagulation 03/22/17 Range/Units 04:56 PT 16.1 H (12.2-14.9) Sec. INR 1.23 H (0.87-1.13) - Imaging and Cardiology EKG: image reviewed Stress echo: other (02/2017 no ischemia EF 10-15%) Echo: report reviewed (02/2017 over LV dysfunction EF 10-15% with apical thrombus normal RV size and function) - Allied health notes Allied health notes reviewed: RT
[2017-03-22] MEDS: HEPARIN/ 0.45% NACL-25,000 UNIT/500 ML 25,000 UNIT/500 ML BAG IV SCH ×2 (13:24→16:07)
--- NOTE | 2017-03-22 16:25 | Progress Note ---
Assessment and Plan Patient resting on 2 litres O2. Weak but no acute respiratory distress.O2 saturation 99% on 2 litres O2..No complaint of chest pain or shortness of breath at this time. - Patient Problems (1) Chest pain in adult Current Visit: Yes Status: Acute Plan to address problem: Management as per cardiology. (2) Acute respiratory failure Current Visit: No Status: Acute Qualifiers: Respiratory failure complication: hypoxia Qualified Code(s): J96.01 - Acute respiratory failure with hypoxia Plan to address problem: Patient intubated for surgery and extubated. Presently on 2 litres O2.. O2 saturation 99%. No acute respiratory distress. (3) Acute coronary syndrome Current Visit: Yes Status: Acute Plan to address problem: Patient is on I/V Heparin and Po coumadin. Management as per cardiology. (4) ADONIS (acute kidney injury) Current Visit: No Status: Acute Plan to address problem: Management as per nephrology. (5) Left ventricular apical thrombus Current Visit: No Status: Acute Plan to address problem: Patient is on I/V heparin and coumadin. Management as per cardiology. (6) Cardiomyopathy Current Visit: No Status: Chronic Qualifiers: Cardiomyopathy type: C Plan to address problem: Ejection fraction 10to 15%. Management as per cardiology. Subjective Date of service: 03/22/17 Principal diagnosis: Acute Respiratory Failure on MVS; SBO s/p Ex-lap Interval history: Patient resting on 2 litres O2.. Weak but no acute respiratory distress.O2 saturation 99% on 2 litres O2..No complaint of chest pain or shortness of breath at this time. Objective Vital Signs - 12hr 03/22/17 03/22/17 03/22/17 08:27 09:27 13:23 Temperature 98.2 F 99.0 F Pulse Rate 97 H 97 H 50 L Respiratory 17 17 Rate Blood Pressure 120/70 120/70 108/53 O2 Sat by Pulse 99 99 Oximetry Constitutional: no acute distress, alert Eyes: non-icteric ENT: oropharynx moist, other (normocephalic) Neck: supple, no lymphadenopathy, JVD (to sternal angle), other (no thyromegaly) Effort: normal Ascultation: Bilateral: diminished breath sounds, rales (bases), rhonchi (scant in bases) Percussion: Bilateral: not dull Cardiovascular: regular rate and rhythm, other (no rubs / murmurs) Gastrointestinal: hypoactive bowel sounds, soft, non-tender, non-distended, other (No HSM) Integumentary: normal, other (no rash or petechiae) Extremities: no cyanosis, no edema, pulses normal, no ischemia or petechiae Neurologic: normal mental status, non-focal exam, pupils equal and round, motor strength normal and, other (PERRLA, EOMI) Psychiatric: mood appropriate, affect normal CBC and BMP: 03/20/17 06:00 03/20/17 06:00 ABG, PT/INR, D-dimer: ABG ABG pH 7.497 pH Units (7.350-7.450) H 03/19/17 11:35 ABG pCO2 36.3 mm Hg 03/19/17 11:35 ABG pO2 100.9 mm Hg (80.0-90.0) H 03/19/17 11:35 ABG O2 Saturation 97.9 % (95.0-99.0) 03/19/17 11:35 PT/INR, D-dimer PT 16.1 Sec. (12.2-14.9) H 03/22/17 04:56 INR 1.23 (0.87-1.13) H 03/22/17 04:56 Abnormal lab findings: Abnormal Labs 03/14/17 03/14/17 03/15/17 15:36 Unknown 04:15 RBC 2.98 L Hgb 8.2 L Hct 25.2 L MCV MCH RDW 19.5 H Lymph % (Auto) 12.9 L Smyth % (Auto) 9.4 H Lymph # 0.7 L Seg Neutrophils % 76.6 H Seg Neuts % (Manual) Lymphocytes % (Manual) Lymphocytes # (Manual) PT INR APTT Heparin Anti-Xa Level ABG pH 7.349 L ABG pO2 446.4 H 274.8 H ABG HCO3 ABG O2 Saturation 99.6 H 99.5 H ABG Base Excess -3.4 L -4.6 L ABG Hemoglobin 12.3 L 8.6 L Oxyhemoglobin Potassium Chloride Creatinine Glucose POC Glucose Calcium Total Bilirubin AST C-Reactive Protein Total Protein Albumin Urine WBC (Auto) Crossmatch 03/15/17 03/15/17 03/15/17 04:15 04:15 04:45 RBC Hgb Hct MCV MCH RDW Lymph % (Auto) Smyth % (Auto) Lymph # Seg Neutrophils % Seg Neuts % (Manual) Lymphocytes % (Manual) Lymphocytes # (Manual) PT 16.9 H INR 1.31 H APTT Heparin Anti-Xa Level ABG pH 7.340 L ABG pO2 168.3 H ABG HCO3 ABG O2 Saturation ABG Base Excess -3.8 L ABG Hemoglobin 7.7 L Oxyhemoglobin Potassium Chloride 114.1 H Creatinine Glucose 112 H POC Glucose Calcium 7.5 L D Total Bilirubin AST C-Reactive Protein Total Protein 5.5 L D Albumin 2.8 L Urine WBC (Auto) Crossmatch 03/15/17 03/15/17 03/15/17 06:06 08:20 13:05 RBC Hgb Hct MCV MCH RDW Lymph % (Auto) Smyth % (Auto) Lymph # Seg Neutrophils % Seg Neuts % (Manual) Lymphocytes % (Manual) Lymphocytes # (Manual) PT INR APTT Heparin Anti-Xa Level ABG pH ABG pO2 ABG HCO3 ABG O2 Saturation ABG Base Excess -2.9 L ABG Hemoglobin 8.5 L Oxyhemoglobin 94.3 L Potassium Chloride Creatinine Glucose POC Glucose Calcium Total Bilirubin AST C-Reactive Protein Total Protein Albumin Urine WBC (Auto) 15.0 H Crossmatch See Detail 03/15/17 03/15/17 03/15/17 14:20 15:35 20:29 RBC 3.46 L Hgb 9.7 L Hct 29.4 L MCV MCH RDW 19.0 H Lymph % (Auto) 12.6 L Smyth % (Auto) 9.1 H Lymph # 0.8 L Seg Neutrophils % 77.2 H Seg Neuts % (Manual) Lymphocytes % (Manual) Lymphocytes # (Manual) PT INR APTT Heparin Anti-Xa Level ABG pH 7.261 L ABG pO2 170.6 H 229.2 H ABG HCO3 ABG O2 Saturation 99.4 H ABG Base Excess -6.1 L -3.4 L ABG Hemoglobin 10.4 L 8.3 L Oxyhemoglobin Potassium Chloride Creatinine Glucose POC Glucose Calcium Total Bilirubin AST C-Reactive Protein Total Protein Albumin Urine WBC (Auto) Crossmatch 03/15/17 03/16/17 03/16/17 23:09 04:20 05:58 RBC 3.24 L Hgb 9.1 L Hct 27.1 L MCV MCH RDW 19.1 H Lymph % (Auto) Smyth % (Auto) Lymph # Seg Neutrophils % Seg Neuts % (Manual) Lymphocytes % (Manual) 11.0 L Lymphocytes # (Manual) 0.6 L PT INR APTT Heparin Anti-Xa Level ABG pH ABG pO2 130.4 H ABG HCO3 ABG O2 Saturation ABG Base Excess -2.4 L ABG Hemoglobin 6.1 L Oxyhemoglobin Potassium Chloride Creatinine Glucose POC Glucose 127 H Calcium Total Bilirubin AST C-Reactive Protein Total Protein Albumin Urine WBC (Auto) Crossmatch 03/16/17 03/16/17 03/16/17 05:58 17:51 21:45 RBC Hgb Hct MCV MCH RDW Lymph % (Auto) Smyth % (Auto) Lymph # Seg Neutrophils % Seg Neuts % (Manual) Lymphocytes % (Manual) Lymphocytes # (Manual) PT 17.5 H INR 1.36 H APTT 49.4 H Heparin Anti-Xa Level ABG pH ABG pO2 ABG HCO3 ABG O2 Saturation ABG Base Excess ABG Hemoglobin Oxyhemoglobin Potassium Chloride 108.1 H Creatinine Glucose 117 H POC Glucose Calcium 7.8 L Total Bilirubin AST 113 H C-Reactive Protein 23.90 H Total Protein 5.4 L Albumin 2.7 L Urine WBC (Auto) Crossmatch 03/17/17 03/17/17 03/17/17 00:01 05:00 05:00 RBC 3.06 L Hgb 8.6 L Hct 25.5 L MCV MCH RDW 18.9 H Lymph % (Auto) Smyth % (Auto) Lymph # Seg Neutrophils % Seg Neuts % (Manual) Lymphocytes % (Manual) Lymphocytes # (Manual) PT INR APTT Heparin Anti-Xa Level ABG pH ABG pO2 ABG HCO3 ABG O2 Saturation ABG Base Excess ABG Hemoglobin Oxyhemoglobin Potassium 3.2 L Chloride Creatinine Glucose 102 H POC Glucose 108 H Calcium 8.3 L Total Bilirubin AST C-Reactive Protein Total Protein Albumin Urine WBC (Auto) Crossmatch 03/17/17 03/17/17 03/17/17 05:00 15:40 21:30 RBC 2.96 L Hgb 8.2 L Hct 24.5 L MCV 83 L MCH RDW 18.6 H Lymph % (Auto) Smyth % (Auto) Lymph # Seg Neutrophils % Seg Neuts % (Manual) 93.0 H Lymphocytes % (Manual) 2.0 L Lymphocytes # (Manual) 0.1 L PT 16.8 H INR 1.30 H APTT Heparin Anti-Xa Level ABG pH ABG pO2 ABG HCO3 ABG O2 Saturation ABG Base Excess ABG Hemoglobin Oxyhemoglobin Potassium Chloride Creatinine Glucose POC Glucose Calcium 8.1 L Total Bilirubin AST C-Reactive Protein Total Protein Albumin Urine WBC (Auto) Crossmatch 03/18/17 03/18/17 03/18/17 00:05 03:45 04:45 RBC 3.12 L Hgb 8.8 L Hct 25.9 L MCV 83 L MCH RDW 18.3 H Lymph % (Auto) 9.5 L Smyth % (Auto) Lymph # 0.6 L Seg Neutrophils % 81.7 H Seg Neuts % (Manual) Lymphocytes % (Manual) Lymphocytes # (Manual) PT INR APTT Heparin Anti-Xa Level ABG pH ABG pO2 132.3 H ABG HCO3 29.2 H ABG O2 Saturation ABG Base Excess 4.3 H ABG Hemoglobin 8.7 L Oxyhemoglobin Potassium Chloride Creatinine Glucose POC Glucose 108 H Calcium Total Bilirubin AST C-Reactive Protein Total Protein Albumin Urine WBC (Auto) Crossmatch 03/18/17 03/18/17 03/18/17 04:45 05:44 12:26 RBC Hgb Hct MCV MCH RDW Lymph % (Auto) Smyth % (Auto) Lymph # Seg Neutrophils % Seg Neuts % (Manual) Lymphocytes % (Manual) Lymphocytes # (Manual) PT INR APTT Heparin Anti-Xa Level ABG pH 7.526 H ABG pO2 118.5 H ABG HCO3 27.9 H ABG O2 Saturation ABG Base Excess 5.0 H ABG Hemoglobin 9.3 L Oxyhemoglobin Potassium Chloride Creatinine Glucose POC Glucose 108 H Calcium 8.2 L Total Bilirubin 1.40 H AST 53 H C-Reactive Protein Total Protein 6.1 L Albumin 2.7 L Urine WBC (Auto) Crossmatch 03/18/17 03/18/17 03/18/17 14:10 21:00 Unknown RBC 3.17 L Hgb 8.7 L Hct 26.5 L MCV MCH 27 L RDW 18.4 H Lymph % (Auto) 9.4 L Smyth % (Auto) Lymph # 0.6 L Seg Neutrophils % 83.7 H Seg Neuts % (Manual) Lymphocytes % (Manual) Lymphocytes # (Manual) PT INR APTT Heparin Anti-Xa Level 0.22 L ABG pH ABG pO2 ABG HCO3 ABG O2 Saturation ABG Base Excess ABG Hemoglobin Oxyhemoglobin Potassium Chloride Creatinine Glucose POC Glucose Calcium Total Bilirubin AST C-Reactive Protein 17.50 H Total Protein Albumin Urine WBC (Auto) Crossmatch 03/19/17 03/19/17 03/19/17 04:15 05:00 05:00 RBC 3.05 L Hgb 8.4 L Hct 25.1 L MCV 83 L MCH RDW 18.9 H Lymph % (Auto) Smyth % (Auto) Lymph # Seg Neutrophils % Seg Neuts % (Manual) 94.0 H Lymphocytes % (Manual) 2.0 L Lymphocytes # (Manual) 0.1 L PT INR APTT Heparin Anti-Xa Level ABG pH 7.470 H ABG pO2 115.3 H ABG HCO3 26.4 H ABG O2 Saturation ABG Base Excess ABG Hemoglobin 8.9 L Oxyhemoglobin Potassium 3.2 L Chloride Creatinine 0.7 L Glucose POC Glucose Calcium Total Bilirubin AST C-Reactive Protein Total Protein 6.1 L Albumin 2.7 L Urine WBC (Auto) Crossmatch 03/19/17 03/19/17 03/19/17 11:35 23:53 Unknown RBC Hgb Hct MCV MCH RDW Lymph % (Auto) Smyth % (Auto) Lymph # Seg Neutrophils % Seg Neuts % (Manual) Lymphocytes % (Manual) Lymphocytes # (Manual) PT INR APTT Heparin Anti-Xa Level 0.23 L ABG pH 7.497 H ABG pO2 100.9 H ABG HCO3 27.5 H ABG O2 Saturation ABG Base Excess 4.1 H ABG Hemoglobin 8.6 L Oxyhemoglobin Potassium Chloride Creatinine Glucose POC Glucose 126 H Calcium Total Bilirubin AST C-Reactive Protein Total Protein Albumin Urine WBC (Auto) Crossmatch 03/20/17 03/20/17 03/20/17 05:40 06:00 06:00 RBC 3.12 L Hgb 8.5 L Hct 26.1 L MCV MCH 27 L RDW 18.9 H Lymph % (Auto) Smyth % (Auto) 10.6 H Lymph # 0.7 L Seg Neutrophils % 70.8 H Seg Neuts % (Manual) Lymphocytes % (Manual) Lymphocytes # (Manual) PT INR APTT Heparin Anti-Xa Level ABG pH ABG pO2 ABG HCO3 ABG O2 Saturation ABG Base Excess ABG Hemoglobin Oxyhemoglobin Potassium 3.3 L Chloride Creatinine 0.7 L Glucose 117 H POC Glucose 125 H Calcium Total Bilirubin AST C-Reactive Protein Total Protein 5.9 L Albumin 2.5 L Urine WBC (Auto) Crossmatch 03/20/17 03/21/17 03/22/17 14:26 13:53 04:56 RBC Hgb Hct MCV MCH RDW Lymph % (Auto) Smyth % (Auto) Lymph # Seg Neutrophils % Seg Neuts % (Manual) Lymphocytes % (Manual) Lymphocytes # (Manual) PT 16.1 H INR 1.23 H APTT Heparin Anti-Xa Level 0.24 L 0.19 L ABG pH ABG pO2 ABG HCO3 ABG O2 Saturation ABG Base Excess ABG Hemoglobin Oxyhemoglobin Potassium Chloride Creatinine Glucose POC Glucose Calcium Total Bilirubin AST C-Reactive Protein Total Protein Albumin Urine WBC (Auto) Crossmatch 03/22/17 13:22 RBC Hgb Hct MCV MCH RDW Lymph % (Auto) Smyth % (Auto) Lymph # Seg Neutrophils % Seg Neuts % (Manual) Lymphocytes % (Manual) Lymphocytes # (Manual) PT INR APTT Heparin Anti-Xa Level 0.11 L ABG pH ABG pO2 ABG HCO3 ABG O2 Saturation ABG Base Excess ABG Hemoglobin Oxyhemoglobin Potassium Chloride Creatinine Glucose POC Glucose Calcium Total Bilirubin AST C-Reactive Protein Total Protein Albumin Urine WBC (Auto) Crossmatch Allied health notes reviewed: RT
[2017-03-22] MEDS: COUMADIN PO SCH (17:15)
[2017-03-22] MEDS: MORPHINE IV PRN (22:45)
--- NOTE | 2017-03-22 23:11 | Progress Note ---
Assessment and Plan Assessment and Plan Assessment and plan: Acute respiratory failure- expected - intubated before surgery on 03/14/17 and extubated successful following >96 hrs intubation - Wean as tolerated - Continue with Bronchodilators. 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 periodic breathing treatment SBO - s/p exploratory laparotomy on 03/14/17 - Placed on rectal tube, consulted GI Anemia - could be from hemodilution and from blood loss during surgery which is expected - s/p one unit PRBC transfusion Mild hypokalemia - will trend. as pt had Acute on chronic kidney disease Acute on Chronic systolic with Ef 10-15% -diuresis. Metoprolol. ACEI on hold for low BP Coronary artery disease - cardiology following Left apical thrombus with subtherapeutic INR on admission - commneced pt on heparin LV thrombus. INR daily Awaiting for Surgery in order to restart coumadin History of CVA - Stable. Monitor clinically DVT PX - SCD Placement Says her sister takes care of him Subjective Date of service: 03/22/17 Principal diagnosis: Acute Respiratory Failure on MVS; SBO s/p Ex-lap Interval history: Sx better Objective - Constitutional Vitals: Vital Signs - 12hr 03/22/17 03/22/17 03/22/17 13:23 17:07 20:10 Temperature 99.0 F 99.3 F 97.8 F Pulse Rate 50 L 76 77 Respiratory 17 18 22 Rate Blood Pressure 108/53 100/53 99/43 O2 Sat by Pulse 99 98 100 Oximetry 03/22/17 03/22/17 20:19 21:47 Temperature Pulse Rate 77 Respiratory Rate Blood Pressure 99/43 O2 Sat by Pulse 100 Oximetry General appearance: Present: no acute distress, well-nourished - EENT Eyes: PERRL, EOM intact ENT: hearing intact, clear oral mucosa Ears: bilateral: normal - Neck Neck: supple, normal ROM - Respiratory Respiratory effort: normal Respiratory: bilateral: CTA - Breasts Breasts: normal - Cardiovascular Rhythm: regular Heart Sounds: Present: S1 & S2. Absent: gallop, rub Extremities: pulses intact, No edema, normal color, Full ROM - Gastrointestinal General gastrointestinal: Present: soft, non-tender, non-distended, normal bowel sounds - Genitourinary Male genitourinary: normal - Integumentary Integumentary: clear, warm, dry - Musculoskeletal Musculoskeletal: 1, strength equal bilaterally - Neurologic Neurologic: moves all extremities - Psychiatric Psychiatric: memory intact, appropriate mood/affect, intact judgment & insight - Labs CBC & Chem 7: 03/20/17 06:00 03/20/17 06:00 Labs: Abnormal lab results 03/22/17 03/22/17 Range/Units 04:56 13:22 PT 16.1 H (12.2-14.9) Sec. INR 1.23 H (0.87-1.13) Heparin Anti-Xa Level 0.11 L (0.3-0.7) U.I./ml
[2017-03-23 05:29] LABS: Bilirubin,Urine NEG (Negative); Blood,Urine SM (Negative); Ketones,Urine NEG (Negative); Leukocyte Esterase,Urine MOD (Negative); Mucus,Urine FEW /HPF; Nitrite,Urine NEG (Negative); Protein,Urine <15 mg/dL mg/dL (Negative)
[2017-03-23] MEDS: LOPRESSOR IV SCH (05:45)
[2017-03-23 06:22] LABS: INR 1.41 (0.87-1.13)
[2017-03-23] MEDS: LASIX PO SCH (09:43)
[2017-03-23] MEDS: PEPCID PO SCH ×2 (09:43→22:25)
[2017-03-23] MEDS: ZESTRIL PO SCH (09:43)
[2017-03-23] MEDS: BABY ASPIRIN PO SCH (09:43)
--- NOTE | 2017-03-23 10:01 | Progress Note ---
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 Sinus tachycardia LV thrombus HTN anemia from blood loss HLP Subtherapeutic INR on admission - questionable compliance Hypokalemia Plan: Convert IV lopressor to PO. Cont all other present cardiac management. Cont coumadin with tx INR 2-3. Heparin "bridging" is not necessary as LV thrombus appears chronic. Currently stable cardiac status. Nothing further to add from cardiac perspective at this time. Will see PRN. Recommend pt to follow up in our office with Dr. Hernandez within 3-5 business days of hospital discharge ([phone]). The patient has been seen in conjunction with Dr. Tay who agrees with the assessment and plan of care. Subjective Date of service: 03/23/17 Principal diagnosis: Acute Respiratory Failure on MVS; SBO s/p Ex-lap Interval history: Resting comfortably in bed, no current complaints. Heparin gtt infusing. Objective Last Vital Signs Temp 97.5 F L 03/23/17 09:34 Pulse 53 L 03/23/17 09:34 Resp 18 03/23/17 09:34 BP 101/61 03/23/17 09:34 Pulse Ox 97 03/23/17 09:34 - Physical Examination General: No Apparent Distress HEENT: Positive: PERRL, EOMI Neck: Positive: neck supple Cardiac: Positive: Reg Rate and Rhythm, S1/S2 Lungs: Positive: clear to auscultation Neuro: Positive: Grossly Intact Abdomen: Positive: Active Bowel Sounds Incision: Incision Site (abdominal) Extremities: Present: normal. Absent: edema - Labs and Meds Coagulation 03/23/17 Range/Units 05:36 PT 18.0 H (12.2-14.9) Sec. INR 1.41 H (0.87-1.13) - Imaging and Cardiology EKG: image reviewed Stress echo: other (02/2017 no ischemia EF 10-15%) Echo: report reviewed (02/2017 over LV dysfunction EF 10-15% with apical thrombus normal RV size and function) - Allied health notes Allied health notes reviewed: RT
--- NOTE | 2017-03-23 11:02 | Discharge Summary ---
Providers - Providers Date of Admission: 03/14/17 05:15 Attending physician: CELY SCHOFIELD MD 03/14/17 05:51 Consult to Physician [CONS] Routine Consulting Provider: DOYLE LEAHY Reason For Exam: chest pain Notified:: office secretary pl call 03/14/17 08:48 Consult to Physician [CONS] Urgent Consulting Provider: JORGE ORR Reason For Exam: bowel obstruction Place consult to:: quality control lead General surgeon Notified:: ANSWERING SERVICE Phone number called:: [phone] Was contact made?: Yes If yes, spoke with:: EDWIGE Time called:: 09:20 Comment:: CONSULT COMPLETED - ALAN 03/14/17 14:04 Consult to Physician [CONS] Routine Consulting Provider: CHARANJIT SAHU Reason For Exam: [place] for possible colonoscopic decompresssio Place consult to:: lisseth Notified:: yes Phone number called:: [phone] Was contact made?: Yes If yes, spoke with:: answering service Time called:: 08:47 Comment:: kun 03/14/17 14:15 Consult to Physician [CONS] Routine Consulting Provider: SALOME NEWTON Reason For Exam: high risk surgery patient Place consult to:: Dr Hayes Notified:: Dr. Watson Was contact made?: Yes If yes, spoke with:: Dr. Watson 03/14/17 15:05 Consult to Physician [CONS] Urgent Consulting Provider: SALOME NEWTON Reason For Exam: ICU ADMISSION PT IS ON VENT Place consult to:: DR NEWTON Notified:: YES VIA TEXT Was contact made?: Yes If yes, spoke with:: PACU NURSE TEXT Time called:: 15:05 03/14/17 15:13 Consult to Dietitian/Nutrition [CONS] Routine Physician Instructions: Reason For Exam: Reason for Consult: Evaluate nutritional intake 03/16/17 00:31 Consult to PICC Line RN [CONS] Routine Reason For Exam: cardiovascular gtts infusing Type Line:: PICC 03/16/17 11:57 Consult to Dietitian/Nutrition [CONS] Routine Physician Instructions: Reason For Exam: Reason for Consult: Write/Manage Tube Feeding 03/18/17 12:28 Consult to Wound/ET Nurse [CONS] Routine Reason For Exam: wound eval 03/20/17 12:59 Physical Therapy Evaluation and Treat [CONS] Routine Comment: PT for gait training, transfers and endurance. Reason For Exam: Debility 03/20/17 13:00 Occupational Therapy Evaluate and Treat [CONS] Routine Comment: OT for activity of daily living needs. 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 Sent to the emergency room for evaluation. History is very difficult to obtain from the patient he complained to the emergency room physician about chest pain however he denies chest pain to me. Complains of abdominal pain but he is unable to give any details, on imaging was noted to have SBO and surgery was consulted. Patient was also seen by cardiology felt to be extremely high risk due to severe LV dysfunction with an ejection fraction of 45-50% with apical thrombosis. Patient did proceed to have surgery which was successful. He was intubated and was in the ICU for greater than 96 hours on mechanical ventilation was successfully extubated to pressors and currently is doing well He is tolerating diet and doing well at this time. Cardiology does not feel like he needs any bridge and as apical thrombosis chronic. Acute respiratory failure- expected - intubated before surgery on 03/14/17 and extubated successful following >96 hrs intubation - Weaned and extubated - Continue with Bronchodilators. 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 periodic breathing treatment SBO - s/p exploratory laparotomy on 03/14/17 -Resolved. tolerating diet Anemia - could be from hemodilution and from blood loss during surgery which is expected - s/p one unit PRBC transfusion Mild hypokalemia - Replaced Acute on Chronic systolic with Ef 10-15% -Diuresis. Metoprolol. Restarted BILL inhibitor with low dose due to blood pressure. CMP - EF 10-15%; CMP is presumably nonischemic given recent negative lexiscan MPI stress test Coronary artery disease - cardiology following Left apical thrombus with subtherapeutic INR on admission -Heparin discontinued patient continues on warfarin. Chronic LV thrombus. INR daily Restarted on Warfain Secondary coagulopathy - Secondary to warfarin. Hypertension - Started on metoprolol and BILL inhibitor History of CVA - Stable. Monitor clinically DVT/GI prophy Patient planned for discharge today but was delayed due to insurance. Discussed with patient. He will be Returning to SNF. Disposition: [id number]/[id number] Time spent for discharge: 35 mins Core Measure Documentation - Palliative Care Palliative Care/ Comfort Measures: Not Applicable - Core Measures Any of the following diagnoses?: heart failure - Heart Failure Discharge Requirements BILL/ARB for LVSD if EF <40%: Yes Beta donnie at discharge: Yes Exam - Physical Exam Narrative exam: VITAL SIGNS: Reviewed. GENERAL: The patient Cachetic otherwise in no acute distress. Vital signs as documented. HEAD: No signs of head trauma. EYES: Pupils are equal. Extraocular motions intact. EARS: Hearing grossly intact. MOUTH: Oropharynx is normal. NECK: No adenopathy, no JVD. CHEST: Chest with clear breath sounds bilaterally. No wheezes, rales, or rhonchi. CARDIAC: Regular rate and rhythm. S1 and S2, without murmurs, gallops, or rubs. VASCULAR: No Edema. Peripheral pulses normal and equal in all extremities. ABDOMEN: Soft, binders in place. Sterile strips noted around the incision site. Mild dyscomfort at surgical sight. incision intact. No rebound or guarding, and no masses palpated. Bowel Sounds normal. MUSCULOSKELETAL: Mild contraction of right upper extremity chronic.. Extremities without clubbing, cyanosis or edema. NEUROLOGIC EXAM: Alert and oriented x 3. No focal sensory or strength deficits. Speech normal. Follows commands. PSYCHIATRIC: Mood normal. SKIN: No rash or lesions. - Constitutional Vitals: Temp Pulse Resp BP Pulse Ox 97.5 F L 53 L 18 101/61 97 03/23/17 09:34 03/23/17 09:34 03/23/17 09:34 03/23/17 09:34 03/23/17 09:34 Plan Activity: advance as tolerated, fall precautions Diet: low salt, other (gi soft and advance as tolerated) Special Instructions: record daily BP diary, physical therapy Durable Medical Equipment Needed Upon Discharge: Oxygen (2 LPM WEAN TOLERATED ) Additional Instructions: CHECK INR IN 2 DAYS. SEND REPORT TO PCP AND FINAL OPERATIONS TECHNICIAN Follow up with: BESSY GIBSON MD [Primary Care Provider] - 3-5 Days ROBSON MADSEN MD [Staff Physician] - 7 Days SHOSHANA AGRAWAL MD [Staff Physician] - 7 Days JORGE ORR MD [Staff Physician] - 7 Days Forms: Warfarin Discharge Instruction Prescriptions: Furosemide [Lasix TAB] 40 mg PO QDAY #30 tablet Lisinopril [Zestril TAB] 5 mg PO QDAY #30 tablet Metoprolol [Lopressor TAB] 12.5 mg PO BID #60 tablet Warfarin [Coumadin] 5 mg PO DAILY@1700 #30 tablet
[2017-03-23] MEDS: COUMADIN PO SCH (18:26)
--- NOTE | 2017-03-23 19:06 | Progress Note ---
Assessment and Plan Patient resting on room air. Weak but no acute respiratory distress.O2 saturation 97% on room air.No complaint of chest pain or shortness of breath at this time. - Patient Problems (1) Chest pain in adult Current Visit: Yes Status: Acute Plan to address problem: Management as per cardiology. (2) Acute respiratory failure Current Visit: No Status: Acute Qualifiers: Respiratory failure complication: hypoxia Qualified Code(s): J96.01 - Acute respiratory failure with hypoxia Plan to address problem: Patient intubated for surgery and extubated. Presently resting on room air.. O2 saturation 97%. No acute respiratory distress. (3) Acute coronary syndrome Current Visit: Yes Status: Acute Plan to address problem: . Management as per cardiology. (4) ADONIS (acute kidney injury) Current Visit: No Status: Acute Plan to address problem: Management as per nephrology. (5) Left ventricular apical thrombus Current Visit: No Status: Acute Plan to address problem: Patient is on Coumadin. Management as per cardiology. (6) Cardiomyopathy Current Visit: No Status: Chronic Qualifiers: Cardiomyopathy type: C Plan to address problem: Ejection fraction 10to 15%. Management as per cardiology. Subjective Date of service: 03/23/17 Principal diagnosis: Acute Respiratory Failure on MVS; SBO s/p Ex-lap Interval history: Patient resting on room air. Weak but no acute respiratory distress.O2 saturation 97% on room air..No complaint of chest pain or shortness of breath at this time. Objective Vital Signs - 12hr 03/23/17 03/23/17 03/23/17 08:10 09:33 09:34 Temperature 97.6 F 97.5 F L Pulse Rate 47 L 85 53 L Respiratory 16 16 18 Rate Blood Pressure 101/61 Blood Pressure 117/70 101/61 [Right] O2 Sat by Pulse 98 98 97 Oximetry 03/23/17 03/23/17 03/23/17 12:42 13:38 14:03 Temperature 97.9 F 97.9 F Pulse Rate 58 L 79 55 L Respiratory 18 18 Rate Blood Pressure 114/62 Blood Pressure 114/62 [Right] O2 Sat by Pulse 97 97 Oximetry 03/23/17 16:33 Temperature 99.0 F Pulse Rate Respiratory 18 Rate Blood Pressure 101/69 Blood Pressure [Right] O2 Sat by Pulse Oximetry Constitutional: no acute distress, alert Eyes: non-icteric ENT: oropharynx moist, other (normocephalic) Neck: supple, no lymphadenopathy, JVD (to sternal angle), other (no thyromegaly) Effort: normal Ascultation: Bilateral: diminished breath sounds, rales (bases), rhonchi (scant in bases) Percussion: Bilateral: not dull Cardiovascular: regular rate and rhythm, other (no rubs / murmurs) Gastrointestinal: hypoactive bowel sounds, soft, non-tender, non-distended, other (No HSM) Integumentary: normal, other (no rash or petechiae) Extremities: no cyanosis, no edema, pulses normal, no ischemia or petechiae Neurologic: normal mental status, non-focal exam, pupils equal and round, motor strength normal and, other (PERRLA, EOMI) Psychiatric: mood appropriate, affect normal CBC and BMP: 03/20/17 06:00 03/20/17 06:00 ABG, PT/INR, D-dimer: ABG ABG pH 7.497 pH Units (7.350-7.450) H 03/19/17 11:35 ABG pCO2 36.3 mm Hg 03/19/17 11:35 ABG pO2 100.9 mm Hg (80.0-90.0) H 03/19/17 11:35 ABG O2 Saturation 97.9 % (95.0-99.0) 03/19/17 11:35 PT/INR, D-dimer PT 18.0 Sec. (12.2-14.9) H 03/23/17 05:36 INR 1.41 (0.87-1.13) H 03/23/17 05:36 Abnormal lab findings: Abnormal Labs 03/14/17 03/14/17 03/15/17 15:36 Unknown 04:15 RBC 2.98 L Hgb 8.2 L Hct 25.2 L MCV MCH RDW 19.5 H Lymph % (Auto) 12.9 L Weber % (Auto) 9.4 H Lymph # 0.7 L Seg Neutrophils % 76.6 H Seg Neuts % (Manual) Lymphocytes % (Manual) Lymphocytes # (Manual) PT INR APTT Heparin Anti-Xa Level ABG pH 7.349 L ABG pO2 446.4 H 274.8 H ABG HCO3 ABG O2 Saturation 99.6 H 99.5 H ABG Base Excess -3.4 L -4.6 L ABG Hemoglobin 12.3 L 8.6 L Oxyhemoglobin Potassium Chloride Creatinine Glucose POC Glucose Calcium Total Bilirubin AST C-Reactive Protein Total Protein Albumin Urine WBC (Auto) Crossmatch 03/15/17 03/15/17 03/15/17 04:15 04:15 04:45 RBC Hgb Hct MCV MCH RDW Lymph % (Auto) Weber % (Auto) Lymph # Seg Neutrophils % Seg Neuts % (Manual) Lymphocytes % (Manual) Lymphocytes # (Manual) PT 16.9 H INR 1.31 H APTT Heparin Anti-Xa Level ABG pH 7.340 L ABG pO2 168.3 H ABG HCO3 ABG O2 Saturation ABG Base Excess -3.8 L ABG Hemoglobin 7.7 L Oxyhemoglobin Potassium Chloride 114.1 H Creatinine Glucose 112 H POC Glucose Calcium 7.5 L D Total Bilirubin AST C-Reactive Protein Total Protein 5.5 L D Albumin 2.8 L Urine WBC (Auto) Crossmatch 03/15/17 03/15/17 03/15/17 06:06 08:20 13:05 RBC Hgb Hct MCV MCH RDW Lymph % (Auto) Weber % (Auto) Lymph # Seg Neutrophils % Seg Neuts % (Manual) Lymphocytes % (Manual) Lymphocytes # (Manual) PT INR APTT Heparin Anti-Xa Level ABG pH ABG pO2 ABG HCO3 ABG O2 Saturation ABG Base Excess -2.9 L ABG Hemoglobin 8.5 L Oxyhemoglobin 94.3 L Potassium Chloride Creatinine Glucose POC Glucose Calcium Total Bilirubin AST C-Reactive Protein Total Protein Albumin Urine WBC (Auto) 15.0 H Crossmatch See Detail 03/15/17 03/15/17 03/15/17 14:20 15:35 20:29 RBC 3.46 L Hgb 9.7 L Hct 29.4 L MCV MCH RDW 19.0 H Lymph % (Auto) 12.6 L Weber % (Auto) 9.1 H Lymph # 0.8 L Seg Neutrophils % 77.2 H Seg Neuts % (Manual) Lymphocytes % (Manual) Lymphocytes # (Manual) PT INR APTT Heparin Anti-Xa Level ABG pH 7.261 L ABG pO2 170.6 H 229.2 H ABG HCO3 ABG O2 Saturation 99.4 H ABG Base Excess -6.1 L -3.4 L ABG Hemoglobin 10.4 L 8.3 L Oxyhemoglobin Potassium Chloride Creatinine Glucose POC Glucose Calcium Total Bilirubin AST C-Reactive Protein Total Protein Albumin Urine WBC (Auto) Crossmatch 03/15/17 03/16/17 03/16/17 23:09 04:20 05:58 RBC 3.24 L Hgb 9.1 L Hct 27.1 L MCV MCH RDW 19.1 H Lymph % (Auto) Weber % (Auto) Lymph # Seg Neutrophils % Seg Neuts % (Manual) Lymphocytes % (Manual) 11.0 L Lymphocytes # (Manual) 0.6 L PT INR APTT Heparin Anti-Xa Level ABG pH ABG pO2 130.4 H ABG HCO3 ABG O2 Saturation ABG Base Excess -2.4 L ABG Hemoglobin 6.1 L Oxyhemoglobin Potassium Chloride Creatinine Glucose POC Glucose 127 H Calcium Total Bilirubin AST C-Reactive Protein Total Protein Albumin Urine WBC (Auto) Crossmatch 03/16/17 03/16/17 03/16/17 05:58 17:51 21:45 RBC Hgb Hct MCV MCH RDW Lymph % (Auto) Weber % (Auto) Lymph # Seg Neutrophils % Seg Neuts % (Manual) Lymphocytes % (Manual) Lymphocytes # (Manual) PT 17.5 H INR 1.36 H APTT 49.4 H Heparin Anti-Xa Level ABG pH ABG pO2 ABG HCO3 ABG O2 Saturation ABG Base Excess ABG Hemoglobin Oxyhemoglobin Potassium Chloride 108.1 H Creatinine Glucose 117 H POC Glucose Calcium 7.8 L Total Bilirubin AST 113 H C-Reactive Protein 23.90 H Total Protein 5.4 L Albumin 2.7 L Urine WBC (Auto) Crossmatch 03/17/17 03/17/17 03/17/17 00:01 05:00 05:00 RBC 3.06 L Hgb 8.6 L Hct 25.5 L MCV MCH RDW 18.9 H Lymph % (Auto) Weber % (Auto) Lymph # Seg Neutrophils % Seg Neuts % (Manual) Lymphocytes % (Manual) Lymphocytes # (Manual) PT INR APTT Heparin Anti-Xa Level ABG pH ABG pO2 ABG HCO3 ABG O2 Saturation ABG Base Excess ABG Hemoglobin Oxyhemoglobin Potassium 3.2 L Chloride Creatinine Glucose 102 H POC Glucose 108 H Calcium 8.3 L Total Bilirubin AST C-Reactive Protein Total Protein Albumin Urine WBC (Auto) Crossmatch 03/17/17 03/17/17 03/17/17 05:00 15:40 21:30 RBC 2.96 L Hgb 8.2 L Hct 24.5 L MCV 83 L MCH RDW 18.6 H Lymph % (Auto) Weber % (Auto) Lymph # Seg Neutrophils % Seg Neuts % (Manual) 93.0 H Lymphocytes % (Manual) 2.0 L Lymphocytes # (Manual) 0.1 L PT 16.8 H INR 1.30 H APTT Heparin Anti-Xa Level ABG pH ABG pO2 ABG HCO3 ABG O2 Saturation ABG Base Excess ABG Hemoglobin Oxyhemoglobin Potassium Chloride Creatinine Glucose POC Glucose Calcium 8.1 L Total Bilirubin AST C-Reactive Protein Total Protein Albumin Urine WBC (Auto) Crossmatch 03/18/17 03/18/17 03/18/17 00:05 03:45 04:45 RBC 3.12 L Hgb 8.8 L Hct 25.9 L MCV 83 L MCH RDW 18.3 H Lymph % (Auto) 9.5 L Weber % (Auto) Lymph # 0.6 L Seg Neutrophils % 81.7 H Seg Neuts % (Manual) Lymphocytes % (Manual) Lymphocytes # (Manual) PT INR APTT Heparin Anti-Xa Level ABG pH ABG pO2 132.3 H ABG HCO3 29.2 H ABG O2 Saturation ABG Base Excess 4.3 H ABG Hemoglobin 8.7 L Oxyhemoglobin Potassium Chloride Creatinine Glucose POC Glucose 108 H Calcium Total Bilirubin AST C-Reactive Protein Total Protein Albumin Urine WBC (Auto) Crossmatch 03/18/17 03/18/17 03/18/17 04:45 05:44 12:26 RBC Hgb Hct MCV MCH RDW Lymph % (Auto) Weber % (Auto) Lymph # Seg Neutrophils % Seg Neuts % (Manual) Lymphocytes % (Manual) Lymphocytes # (Manual) PT INR APTT Heparin Anti-Xa Level ABG pH 7.526 H ABG pO2 118.5 H ABG HCO3 27.9 H ABG O2 Saturation ABG Base Excess 5.0 H ABG Hemoglobin 9.3 L Oxyhemoglobin Potassium Chloride Creatinine Glucose POC Glucose 108 H Calcium 8.2 L Total Bilirubin 1.40 H AST 53 H C-Reactive Protein Total Protein 6.1 L Albumin 2.7 L Urine WBC (Auto) Crossmatch 03/18/17 03/18/17 03/18/17 14:10 21:00 Unknown RBC 3.17 L Hgb 8.7 L Hct 26.5 L MCV MCH 27 L RDW 18.4 H Lymph % (Auto) 9.4 L Weber % (Auto) Lymph # 0.6 L Seg Neutrophils % 83.7 H Seg Neuts % (Manual) Lymphocytes % (Manual) Lymphocytes # (Manual) PT INR APTT Heparin Anti-Xa Level 0.22 L ABG pH ABG pO2 ABG HCO3 ABG O2 Saturation ABG Base Excess ABG Hemoglobin Oxyhemoglobin Potassium Chloride Creatinine Glucose POC Glucose Calcium Total Bilirubin AST C-Reactive Protein 17.50 H Total Protein Albumin Urine WBC (Auto) Crossmatch 03/19/17 03/19/17 03/19/17 04:15 05:00 05:00 RBC 3.05 L Hgb 8.4 L Hct 25.1 L MCV 83 L MCH RDW 18.9 H Lymph % (Auto) Weber % (Auto) Lymph # Seg Neutrophils % Seg Neuts % (Manual) 94.0 H Lymphocytes % (Manual) 2.0 L Lymphocytes # (Manual) 0.1 L PT INR APTT Heparin Anti-Xa Level ABG pH 7.470 H ABG pO2 115.3 H ABG HCO3 26.4 H ABG O2 Saturation ABG Base Excess ABG Hemoglobin 8.9 L Oxyhemoglobin Potassium 3.2 L Chloride Creatinine 0.7 L Glucose POC Glucose Calcium Total Bilirubin AST C-Reactive Protein Total Protein 6.1 L Albumin 2.7 L Urine WBC (Auto) Crossmatch 03/19/17 03/19/17 03/19/17 11:35 23:53 Unknown RBC Hgb Hct MCV MCH RDW Lymph % (Auto) Weber % (Auto) Lymph # Seg Neutrophils % Seg Neuts % (Manual) Lymphocytes % (Manual) Lymphocytes # (Manual) PT INR APTT Heparin Anti-Xa Level 0.23 L ABG pH 7.497 H ABG pO2 100.9 H ABG HCO3 27.5 H ABG O2 Saturation ABG Base Excess 4.1 H ABG Hemoglobin 8.6 L Oxyhemoglobin Potassium Chloride Creatinine Glucose POC Glucose 126 H Calcium Total Bilirubin AST C-Reactive Protein Total Protein Albumin Urine WBC (Auto) Crossmatch 03/20/17 03/20/17 03/20/17 05:40 06:00 06:00 RBC 3.12 L Hgb 8.5 L Hct 26.1 L MCV MCH 27 L RDW 18.9 H Lymph % (Auto) Weber % (Auto) 10.6 H Lymph # 0.7 L Seg Neutrophils % 70.8 H Seg Neuts % (Manual) Lymphocytes % (Manual) Lymphocytes # (Manual) PT INR APTT Heparin Anti-Xa Level ABG pH ABG pO2 ABG HCO3 ABG O2 Saturation ABG Base Excess ABG Hemoglobin Oxyhemoglobin Potassium 3.3 L Chloride Creatinine 0.7 L Glucose 117 H POC Glucose 125 H Calcium Total Bilirubin AST C-Reactive Protein Total Protein 5.9 L Albumin 2.5 L Urine WBC (Auto) Crossmatch 03/20/17 03/21/17 03/22/17 14:26 13:53 04:56 RBC Hgb Hct MCV MCH RDW Lymph % (Auto) Weber % (Auto) Lymph # Seg Neutrophils % Seg Neuts % (Manual) Lymphocytes % (Manual) Lymphocytes # (Manual) PT 16.1 H INR 1.23 H APTT Heparin Anti-Xa Level 0.24 L 0.19 L ABG pH ABG pO2 ABG HCO3 ABG O2 Saturation ABG Base Excess ABG Hemoglobin Oxyhemoglobin Potassium Chloride Creatinine Glucose POC Glucose Calcium Total Bilirubin AST C-Reactive Protein Total Protein Albumin Urine WBC (Auto) Crossmatch 03/22/17 03/23/17 13:22 05:36 RBC Hgb Hct MCV MCH RDW Lymph % (Auto) Weber % (Auto) Lymph # Seg Neutrophils % Seg Neuts % (Manual) Lymphocytes % (Manual) Lymphocytes # (Manual) PT 18.0 H INR 1.41 H APTT Heparin Anti-Xa Level 0.11 L ABG pH ABG pO2 ABG HCO3 ABG O2 Saturation ABG Base Excess ABG Hemoglobin Oxyhemoglobin Potassium Chloride Creatinine Glucose POC Glucose Calcium Total Bilirubin AST C-Reactive Protein Total Protein Albumin Urine WBC (Auto) Crossmatch Allied health notes reviewed: RT
[2017-03-23] MEDS: LOPRESSOR PO SCH (23:02)
--- NOTE | 2017-03-23 23:23 | Progress Note ---
Assessment and Plan Assessment and plan: Acute respiratory failure- expected - intubated before surgery on 03/14/17 and extubated successful following >96 hrs intubation - Wean as tolerated - Continue with Bronchodilators. [employer] following COPD with exacerbation - wean off from vent as tolerated - Improved - Continue with Bronchodilators - cont. periodic breathing treatment SBO - s/p exploratory laparotomy on 03/14/17 -Resolved. tolerating diet Anemia - could be from hemodilution and from blood loss during surgery which is expected - s/p one unit PRBC transfusion Mild hypokalemia - Will trend. corrected Acute on Chronic systolic with Ef 10-15% -Diuresis. Metoprolol. ACEI on hold for low BP Coronary artery disease - cardiology following Left apical thrombus with subtherapeutic INR on admission - commenced pt on heparin LV thrombus. INR daily Restarted on [place] History of CVA - Stable. Monitor clinically Patient planned for discharge today but was delayed due to insurance. Discussed with patient. He will be Returning to SNF. DVT PX - SCD History Interval history: patient seen and examined, in no acute distress. Tolerating diet per nursing staff. PT to evaluate. Hospitalist Physical - Physical exam Narrative exam: VITAL SIGNS: Reviewed. GENERAL: The patient Cachetic and lethegic otherwise in no acute distress. Vital signs as documented. HEAD: No signs of head trauma. EYES: Pupils are equal. Extraocular motions intact. EARS: Hearing grossly intact. MOUTH: Oropharynx is normal. NECK: No adenopathy, no JVD. CHEST: Chest with clear breath sounds bilaterally. No wheezes, rales, or rhonchi. CARDIAC: Regular rate and rhythm. S1 and S2, without murmurs, gallops, or rubs. VASCULAR: No Edema. Peripheral pulses normal and equal in all extremities. ABDOMEN: Soft, mild dyscomfort at surgical sight. incision intact. No rebound or guarding, and no masses palpated. Bowel Sounds normal. MUSCULOSKELETAL: Good range of motion of all major joints. Extremities without clubbing, cyanosis or edema. NEUROLOGIC EXAM: Alert and oriented x 3. No focal sensory or strength deficits. Speech normal. Follows commands. PSYCHIATRIC: Mood normal. SKIN: No rash or lesions. - Constitutional Vitals: Temp Pulse Resp BP Pulse Ox 98.8 F 82 18 101/61 97 03/23/17 22:45 03/23/17 23:02 03/23/17 22:45 03/23/17 23:02 03/23/17 22:45 General appearance: Present: no acute distress, well-nourished Results - Labs CBC & Chem 7: 03/20/17 06:00 03/20/17 06:00 Labs: Laboratory Last Values WBC 4.7 K/mm3 (4.5-11.0) 03/20/17 06:00 RBC 3.12 M/mm3 (3.65-5.03) L 03/20/17 06:00 Hgb 8.5 gm/dl (11.8-15.2) L 03/20/17 06:00 Hct 26.1 % (35.5-45.6) L 03/20/17 06:00 MCV 84 fl (84-94) 03/20/17 06:00 MCH 27 pg (28-32) L 03/20/17 06:00 MCHC 33 % (32-34) 03/20/17 06:00 RDW 18.9 % (13.2-15.2) H 03/20/17 06:00 Plt Count 215 K/mm3 (140-440) 03/20/17 06:00 Lymph % (Auto) 15.7 % (13.4-35.0) 03/20/17 06:00 [place] % (Auto) 10.6 % (0.0-7.3) H 03/20/17 06:00 Eos % (Auto) 2.3 % (0.0-4.3) 03/20/17 06:00 Baso % (Auto) 0.6 % (0.0-1.8) 03/20/17 06:00 Lymph # 0.7 K/mm3 (1.2-5.4) L 03/20/17 06:00 [place] # 0.5 K/mm3 (0.0-0.8) 03/20/17 06:00 Eos # 0.1 K/mm3 (0.0-0.4) 03/20/17 06:00 Baso # 0.0 K/mm3 (0.0-0.1) 03/20/17 06:00 Add Manual Diff Complete 03/19/17 05:00 Total Counted 100 03/19/17 05:00 Seg Neutrophils % 70.8 % (40.0-70.0) H 03/20/17 06:00 Seg Neuts % (Manual) 94.0 % (40.0-70.0) H 03/19/17 05:00 Band Neutrophils % 0 % 03/19/17 05:00 Lymphocytes % (Manual) 2.0 % (13.4-35.0) L 03/19/17 05:00 Reactive Lymphs % (Man) 0 % 03/19/17 05:00 Monocytes % (Manual) 2.0 % (0.0-7.3) 03/19/17 05:00 Eosinophils % (Manual) 2.0 % (0.0-4.3) 03/19/17 05:00 Basophils % (Manual) 0 % (0.0-1.8) 03/19/17 05:00 Metamyelocytes % 0 % 03/19/17 05:00 Myelocytes % 0 % 03/19/17 05:00 Promyelocytes % 0 % 03/19/17 05:00 Blast Cells % 0 % 03/19/17 05:00 Nucleated RBC % Not Reportable 03/19/17 05:00 Seg Neutrophils # 3.3 K/mm3 (1.8-7.7) 03/20/17 06:00 Seg Neutrophils # Man 5.6 K/mm3 (1.8-7.7) 03/19/17 05:00 Band Neutrophils # 0.0 K/mm3 03/19/17 05:00 Lymphocytes # (Manual) 0.1 K/mm3 (1.2-5.4) L 03/19/17 05:00 Abs React Lymphs (Man) 0.0 K/mm3 03/19/17 05:00 Monocytes # (Manual) 0.1 K/mm3 (0.0-0.8) 03/19/17 05:00 Eosinophils # (Manual) 0.1 K/mm3 (0.0-0.4) 03/19/17 05:00 Basophils # (Manual) 0.0 K/mm3 (0.0-0.1) 03/19/17 05:00 Metamyelocytes # 0.0 K/mm3 03/19/17 05:00 Myelocytes # 0.0 K/mm3 03/19/17 05:00 Promyelocytes # 0.0 K/mm3 03/19/17 05:00 Blast Cells # 0.0 K/mm3 03/19/17 05:00 WBC Morphology Not Reportable 03/19/17 05:00 Hypersegmented Neuts Not Reportable 03/19/17 05:00 Hyposegmented Neuts Not Reportable 03/19/17 05:00 Hypogranular Neuts Not Reportable 03/19/17 05:00 Smudge Cells Not Reportable 03/19/17 05:00 Toxic Granulation Not Reportable 03/19/17 05:00 Toxic Vacuolation Not Reportable 03/19/17 05:00 Dohle Bodies Not Reportable 03/19/17 05:00 Pelger-Huet Anomaly Not Reportable 03/19/17 05:00 Mary Rods Not Reportable 03/19/17 05:00 Platelet Estimate Consistent w auto 03/19/17 05:00 Clumped Platelets Not Reportable 03/19/17 05:00 Plt Clumps, EDTA Not Reportable 03/19/17 05:00 Large Platelets Rare 03/19/17 05:00 Giant Platelets Not Reportable 03/19/17 05:00 Platelet Satelliting Not Reportable 03/19/17 05:00 Plt Morphology Comment Not Reportable 03/19/17 05:00 RBC Morphology Not Reportable 03/19/17 05:00 Dimorphic RBCs Not Reportable 03/19/17 05:00 Polychromasia Rare 03/19/17 05:00 Hypochromasia Not Reportable 03/19/17 05:00 Poikilocytosis 1+ 03/19/17 05:00 Anisocytosis 2+ 03/19/17 05:00 Microcytosis Not Reportable 03/19/17 05:00 Macrocytosis Not Reportable 03/19/17 05:00 Spherocytes Not Reportable 03/19/17 05:00 Pappenheimer Bodies Not Reportable 03/19/17 05:00 Sickle Cells Not Reportable 03/19/17 05:00 Target Cells Not Reportable 03/19/17 05:00 Tear Drop Cells Not Reportable 03/19/17 05:00 Ovalocytes Few 03/19/17 05:00 Helmet Cells Not Reportable 03/19/17 05:00 [place] Bodies Not Reportable 03/19/17 05:00 [place] Rings Not Reportable 03/19/17 05:00 [place] Cells Not Reportable 03/19/17 05:00 Bite Cells Not Reportable 03/19/17 05:00 Crenated Cell Not Reportable 03/19/17 05:00 Elliptocytes 2+ 03/19/17 05:00 Acanthocytes (Spur) Not Reportable 03/19/17 05:00 Rouleaux Not Reportable 03/19/17 05:00 Hemoglobin C Crystals Not Reportable 03/19/17 05:00 Schistocytes Few 03/19/17 05:00 Malaria parasites Not Reportable 03/19/17 05:00 Cecil Bodies Not Reportable 03/19/17 05:00 Hem Pathologist Commnt No 03/19/17 05:00 PT 18.0 Sec. (12.2-14.9) H 03/23/17 05:36 INR 1.41 (0.87-1.13) H 03/23/17 05:36 APTT 49.4 Sec. (24.2-36.6) H 03/16/17 21:45 Heparin Anti-Xa Level 0.34 U.I./ml (0.3-0.7) 03/23/17 05:36 ABG pH 7.497 pH Units (7.350-7.450) H 03/19/17 11:35 ABG pCO2 36.3 mm Hg 03/19/17 11:35 ABG pO2 100.9 mm Hg (80.0-90.0) H 03/19/17 11:35 ABG HCO3 27.5 mmol/L (20.0-26.0) H 03/19/17 11:35 ABG O2 Saturation 97.9 % (95.0-99.0) 03/19/17 11:35 ABG O2 Content 11.8 (0.0-44) 03/19/17 11:35 ABG Base Excess 4.1 mmol/L (-2.0-3.0) H 03/19/17 11:35 ABG Hemoglobin 8.6 gm/dl (14.0-18.0) L 03/19/17 11:35 ABG Carboxyhemoglobin 2.1 % (0.0-5.0) 03/19/17 11:35 ABG Methemoglobin 0.5 % (0.0-1.5) 03/19/17 11:35 Oxyhemoglobin 95.4 % (95.0-99.0) 03/19/17 11:35 FiO2 30 % 03/19/17 11:35 Sodium 143 mmol/L (137-145) 03/20/17 06:00 Potassium 3.3 mmol/L (3.6-5.0) L 03/20/17 06:00 Chloride 103.4 mmol/L (98-107) 03/20/17 06:00 Carbon Dioxide 28 mmol/L (22-30) 03/20/17 06:00 Anion Gap 15 mmol/L 03/20/17 06:00 BUN 18 mg/dL (9-20) 03/20/17 06:00 Creatinine 0.7 mg/dL (0.8-1.5) L 03/20/17 06:00 Estimated GFR > 60 ml/min 03/20/17 06:00 BUN/Creatinine Ratio 26 % 03/20/17 06:00 Glucose 117 mg/dL (75-100) H 03/20/17 06:00 POC Glucose 101 (70-105) 03/20/17 17:42 Lactic Acid 1.20 mmol/L (0.7-2.0) 03/18/17 12:59 Calcium 8.4 mg/dL (8.4-10.2) 03/20/17 06:00 Total Bilirubin 1.00 mg/dL (0.1-1.2) 03/20/17 06:00 AST 23 units/L (5-40) 03/20/17 06:00 ALT 15 units/L (7-56) 03/20/17 06:00 Alkaline Phosphatase 62 units/L (35-129) 03/20/17 06:00 Total Creatine Kinase 78 units/L (55-170) 03/14/17 16:10 CK-MB (CK-2) 2.9 ng/mL (0.0-4.0) 03/14/17 16:10 CK-MB (CK-2) Rel Index 3.7 (0-4) 03/14/17 16:10 Troponin T < 0.010 ng/mL (0.00-0.029) 03/14/17 16:10 C-Reactive Protein 17.50 mg/dL (0.00-1.30) H 03/18/17 21:00 Total Protein 5.9 g/dL (6.3-8.2) L 03/20/17 06:00 Albumin 2.5 g/dL (3.9-5) L 03/20/17 06:00 Albumin/Globulin Ratio 0.7 % 03/20/17 06:00 Lipase 52 units/L (13-60) 03/14/17 02:39 Urine Color Yellow (Yellow) 03/23/17 05:00 Urine Turbidity Clear (Clear) 03/23/17 05:00 Urine pH 7.0 (5.0-7.0) 03/23/17 05:00 Ur Specific Allen 1.008 (1.003-1.030) 03/23/17 05:00 Urine Protein <15 mg/dl mg/dL (Negative) 03/23/17 05:00 Urine Glucose (UA) Neg mg/dL (Negative) 03/23/17 05:00 Urine Ketones Neg mg/dL (Negative) 03/23/17 05:00 Urine Blood Sm (Negative) 03/23/17 05:00 Urine Nitrite Neg (Negative) 03/23/17 05:00 Urine Bilirubin Neg (Negative) 03/23/17 05:00 Urine Urobilinogen 4.0 mg/dL (<2.0) 03/23/17 05:00 Ur Leukocyte Esterase Mod (Negative) 03/23/17 05:00 Urine WBC (Auto) 6.0 /HPF (0.0-6.0) 03/23/17 05:00 Urine RBC (Auto) 1.0 /HPF (0.0-6.0) 03/23/17 05:00 Urine Bacteria (Auto) 1+ /HPF (Negative) 03/15/17 08:20 Urine Mucus Few /HPF 03/23/17 05:00 Blood Type O POSITIVE 03/15/17 06:06 Antibody Screen TNR 03/15/17 06:06 BRENDA Antibody Screen Negative 03/15/17 06:06 Crossmatch See Detail 03/15/17 06:06
[2017-03-24 06:20] LABS: INR 1.34 (0.87-1.13)
[2017-03-24] MEDS: LOPRESSOR PO SCH ×2 (09:12→22:14)
[2017-03-24] MEDS: BABY ASPIRIN PO SCH (09:12)
[2017-03-24] MEDS: PEPCID PO SCH ×2 (09:12→22:13)
[2017-03-24] MEDS: ZESTRIL PO SCH (09:14)
[2017-03-24] MEDS: LASIX PO SCH (09:14)
--- NOTE | 2017-03-24 10:19 | Progress Note ---
Assessment and Plan Assessment and plan: Patient is a 76-year-old man history of coronary artery disease, left apical thrombus, also a history of COPD, CVA currently retirement resident following CVA but otherwise lives with sister. Sent to the emergency room for evaluation. History is very difficult to obtain from the patient he complained to the emergency room physician about chest pain however he denies chest pain to me. Complains of abdominal pain but he is unable to give any details, on imaging was noted to have SBO and surgery was consulted. Patient was also seen by cardiology felt to be extremely high risk due to severe LV dysfunction with an ejection fraction of 5050% with apical thrombosis. Patient did proceed to have surgery which was successful. He is tolerating diet and doing well at this time. Cardiology does not feel like he needs any bridge and as apical thrombosis chronic. Acute respiratory failure- expected - intubated before surgery on 03/14/17 and extubated successful following >96 hrs intubation - Wean as tolerated - Continue with Bronchodilators. [employer] following COPD with exacerbation - wean off from vent as tolerated - Improved - Continue with Bronchodilators - cont. periodic breathing treatment SBO - s/p exploratory laparotomy on 03/14/17 -Resolved. tolerating diet Anemia - could be from hemodilution and from blood loss during surgery which is expected - s/p one unit PRBC transfusion Mild hypokalemia - Will trend. corrected Acute on Chronic systolic with Ef 10-15% -Diuresis. Metoprolol. Restarted BILL inhibitor with low dose. CMP - EF 10-15%; CMP is presumably nonischemic given recent negative lexiscan MPI stress test Coronary artery disease - cardiology following Left apical thrombus with subtherapeutic INR on admission - commenced pt on heparin Chronic LV thrombus. INR daily Restarted on [place] Hypertension - Started on metoprolol and BILL inhibitor History of CVA - Stable. Monitor clinically Patient planned for discharge today but was delayed due to insurance. Discussed with patient. He will be Returning to SNF. DVT PX - SCD Plan of care discussed in detail with family at bedside today. Awaiting placement. History Interval history: patient seen and examined, in no acute distress. Tolerating diet per nursing staff. Awaiting presets from insurance company prior to placement. Family was a room discussed the status with them. Hospitalist Physical - Physical exam Narrative exam: VITAL SIGNS: Reviewed. GENERAL: The patient Cachetic otherwise in no acute distress. Vital signs as documented. HEAD: No signs of head trauma. EYES: Pupils are equal. Extraocular motions intact. EARS: Hearing grossly intact. MOUTH: Oropharynx is normal. NECK: No adenopathy, no JVD. CHEST: Chest with clear breath sounds bilaterally. No wheezes, rales, or rhonchi. CARDIAC: Regular rate and rhythm. S1 and S2, without murmurs, gallops, or rubs. VASCULAR: No Edema. Peripheral pulses normal and equal in all extremities. ABDOMEN: Soft, bypass in place. Sterile strips noted around the incisional site. Mild dyscomfort at surgical sight. incision intact. No rebound or guarding, and no masses palpated. Bowel Sounds normal. MUSCULOSKELETAL: Mild contraction of right upper extremity chronic.. Extremities without clubbing, cyanosis or edema. NEUROLOGIC EXAM: Alert and oriented x 3. No focal sensory or strength deficits. Speech normal. Follows commands. PSYCHIATRIC: Mood normal. SKIN: No rash or lesions. - Constitutional Vitals: Temp Pulse Resp BP Pulse Ox 98.4 F 51 L 15 100/50 95 03/24/17 07:17 03/24/17 07:17 03/24/17 07:17 03/24/17 07:17 03/24/17 08:31 General appearance: Present: no acute distress, well-nourished Results - Labs CBC & Chem 7: 03/20/17 06:00 03/20/17 06:00 Labs: Laboratory Last Values WBC 4.7 K/mm3 (4.5-11.0) 03/20/17 06:00 RBC 3.12 M/mm3 (3.65-5.03) L 03/20/17 06:00 Hgb 8.5 gm/dl (11.8-15.2) L 03/20/17 06:00 Hct 26.1 % (35.5-45.6) L 03/20/17 06:00 MCV 84 fl (84-94) 03/20/17 06:00 MCH 27 pg (28-32) L 03/20/17 06:00 MCHC 33 % (32-34) 03/20/17 06:00 RDW 18.9 % (13.2-15.2) H 03/20/17 06:00 Plt Count 215 K/mm3 (140-440) 03/20/17 06:00 Lymph % (Auto) 15.7 % (13.4-35.0) 03/20/17 06:00 [place] % (Auto) 10.6 % (0.0-7.3) H 03/20/17 06:00 Eos % (Auto) 2.3 % (0.0-4.3) 03/20/17 06:00 Baso % (Auto) 0.6 % (0.0-1.8) 03/20/17 06:00 Lymph # 0.7 K/mm3 (1.2-5.4) L 03/20/17 06:00 [place] # 0.5 K/mm3 (0.0-0.8) 03/20/17 06:00 Eos # 0.1 K/mm3 (0.0-0.4) 03/20/17 06:00 Baso # 0.0 K/mm3 (0.0-0.1) 03/20/17 06:00 Add Manual Diff Complete 03/19/17 05:00 Total Counted 100 03/19/17 05:00 Seg Neutrophils % 70.8 % (40.0-70.0) H 03/20/17 06:00 Seg Neuts % (Manual) 94.0 % (40.0-70.0) H 03/19/17 05:00 Band Neutrophils % 0 % 03/19/17 05:00 Lymphocytes % (Manual) 2.0 % (13.4-35.0) L 03/19/17 05:00 Reactive Lymphs % (Man) 0 % 03/19/17 05:00 Monocytes % (Manual) 2.0 % (0.0-7.3) 03/19/17 05:00 Eosinophils % (Manual) 2.0 % (0.0-4.3) 03/19/17 05:00 Basophils % (Manual) 0 % (0.0-1.8) 03/19/17 05:00 Metamyelocytes % 0 % 03/19/17 05:00 Myelocytes % 0 % 03/19/17 05:00 Promyelocytes % 0 % 03/19/17 05:00 Blast Cells % 0 % 03/19/17 05:00 Nucleated RBC % Not Reportable 03/19/17 05:00 Seg Neutrophils # 3.3 K/mm3 (1.8-7.7) 03/20/17 06:00 Seg Neutrophils # Man 5.6 K/mm3 (1.8-7.7) 03/19/17 05:00 Band Neutrophils # 0.0 K/mm3 03/19/17 05:00 Lymphocytes # (Manual) 0.1 K/mm3 (1.2-5.4) L 03/19/17 05:00 Abs React Lymphs (Man) 0.0 K/mm3 03/19/17 05:00 Monocytes # (Manual) 0.1 K/mm3 (0.0-0.8) 03/19/17 05:00 Eosinophils # (Manual) 0.1 K/mm3 (0.0-0.4) 03/19/17 05:00 Basophils # (Manual) 0.0 K/mm3 (0.0-0.1) 03/19/17 05:00 Metamyelocytes # 0.0 K/mm3 03/19/17 05:00 Myelocytes # 0.0 K/mm3 03/19/17 05:00 Promyelocytes # 0.0 K/mm3 03/19/17 05:00 Blast Cells # 0.0 K/mm3 03/19/17 05:00 WBC Morphology Not Reportable 03/19/17 05:00 Hypersegmented Neuts Not Reportable 03/19/17 05:00 Hyposegmented Neuts Not Reportable 03/19/17 05:00 Hypogranular Neuts Not Reportable 03/19/17 05:00 Smudge Cells Not Reportable 03/19/17 05:00 Toxic Granulation Not Reportable 03/19/17 05:00 Toxic Vacuolation Not Reportable 03/19/17 05:00 Dohle Bodies Not Reportable 03/19/17 05:00 Pelger-Huet Anomaly Not Reportable 03/19/17 05:00 Mary Rods Not Reportable 03/19/17 05:00 Platelet Estimate Consistent w auto 03/19/17 05:00 Clumped Platelets Not Reportable 03/19/17 05:00 Plt Clumps, EDTA Not Reportable 03/19/17 05:00 Large Platelets Rare 03/19/17 05:00 Giant Platelets Not Reportable 03/19/17 05:00 Platelet Satelliting Not Reportable 03/19/17 05:00 Plt Morphology Comment Not Reportable 03/19/17 05:00 RBC Morphology Not Reportable 03/19/17 05:00 Dimorphic RBCs Not Reportable 03/19/17 05:00 Polychromasia Rare 03/19/17 05:00 Hypochromasia Not Reportable 03/19/17 05:00 Poikilocytosis 1+ 03/19/17 05:00 Anisocytosis 2+ 03/19/17 05:00 Microcytosis Not Reportable 03/19/17 05:00 Macrocytosis Not Reportable 03/19/17 05:00 Spherocytes Not Reportable 03/19/17 05:00 Pappenheimer Bodies Not Reportable 03/19/17 05:00 Sickle Cells Not Reportable 03/19/17 05:00 Target Cells Not Reportable 03/19/17 05:00 Tear Drop Cells Not Reportable 03/19/17 05:00 Ovalocytes Few 03/19/17 05:00 Helmet Cells Not Reportable 03/19/17 05:00 [place] Bodies Not Reportable 03/19/17 05:00 [place] Rings Not Reportable 03/19/17 05:00 [place] Cells Not Reportable 03/19/17 05:00 Bite Cells Not Reportable 03/19/17 05:00 Crenated Cell Not Reportable 03/19/17 05:00 Elliptocytes 2+ 03/19/17 05:00 Acanthocytes (Spur) Not Reportable 03/19/17 05:00 Rouleaux Not Reportable 03/19/17 05:00 Hemoglobin C Crystals Not Reportable 03/19/17 05:00 Schistocytes Few 03/19/17 05:00 Malaria parasites Not Reportable 03/19/17 05:00 [place] Bodies Not Reportable 03/19/17 05:00 Hem Pathologist Commnt No 03/19/17 05:00 PT 17.3 Sec. (12.2-14.9) H 03/24/17 04:49 INR 1.34 (0.87-1.13) H 03/24/17 04:49 APTT 49.4 Sec. (24.2-36.6) H 03/16/17 21:45 Heparin Anti-Xa Level 0.34 U.I./ml (0.3-0.7) 03/23/17 05:36 ABG pH 7.497 pH Units (7.350-7.450) H 03/19/17 11:35 ABG pCO2 36.3 mm Hg 03/19/17 11:35 ABG pO2 100.9 mm Hg (80.0-90.0) H 03/19/17 11:35 ABG HCO3 27.5 mmol/L (20.0-26.0) H 03/19/17 11:35 ABG O2 Saturation 97.9 % (95.0-99.0) 03/19/17 11:35 ABG O2 Content 11.8 (0.0-44) 03/19/17 11:35 ABG Base Excess 4.1 mmol/L (-2.0-3.0) H 03/19/17 11:35 ABG Hemoglobin 8.6 gm/dl (14.0-18.0) L 03/19/17 11:35 ABG Carboxyhemoglobin 2.1 % (0.0-5.0) 03/19/17 11:35 ABG Methemoglobin 0.5 % (0.0-1.5) 03/19/17 11:35 Oxyhemoglobin 95.4 % (95.0-99.0) 03/19/17 11:35 FiO2 30 % 03/19/17 11:35 Sodium 143 mmol/L (137-145) 03/20/17 06:00 Potassium 3.3 mmol/L (3.6-5.0) L 03/20/17 06:00 Chloride 103.4 mmol/L (98-107) 03/20/17 06:00 Carbon Dioxide 28 mmol/L (22-30) 03/20/17 06:00 Anion Gap 15 mmol/L 03/20/17 06:00 BUN 18 mg/dL (9-20) 03/20/17 06:00 Creatinine 0.7 mg/dL (0.8-1.5) L 03/20/17 06:00 Estimated GFR > 60 ml/min 03/20/17 06:00 BUN/Creatinine Ratio 26 % 03/20/17 06:00 Glucose 117 mg/dL (75-100) H 03/20/17 06:00 POC Glucose 101 (70-105) 03/20/17 17:42 Lactic Acid 1.20 mmol/L (0.7-2.0) 03/18/17 12:59 Calcium 8.4 mg/dL (8.4-10.2) 03/20/17 06:00 Total Bilirubin 1.00 mg/dL (0.1-1.2) 03/20/17 06:00 AST 23 units/L (5-40) 03/20/17 06:00 ALT 15 units/L (7-56) 03/20/17 06:00 Alkaline Phosphatase 62 units/L (35-129) 03/20/17 06:00 Total Creatine Kinase 78 units/L (55-170) 03/14/17 16:10 CK-MB (CK-2) 2.9 ng/mL (0.0-4.0) 03/14/17 16:10 CK-MB (CK-2) Rel Index 3.7 (0-4) 03/14/17 16:10 Troponin T < 0.010 ng/mL (0.00-0.029) 03/14/17 16:10 C-Reactive Protein 17.50 mg/dL (0.00-1.30) H 03/18/17 21:00 Total Protein 5.9 g/dL (6.3-8.2) L 03/20/17 06:00 Albumin 2.5 g/dL (3.9-5) L 03/20/17 06:00 Albumin/Globulin Ratio 0.7 % 03/20/17 06:00 Lipase 52 units/L (13-60) 03/14/17 02:39 Urine Color Yellow (Yellow) 03/23/17 05:00 Urine Turbidity Clear (Clear) 03/23/17 05:00 Urine pH 7.0 (5.0-7.0) 03/23/17 05:00 Ur Specific [place] 1.008 (1.003-1.030) 03/23/17 05:00 Urine Protein <15 mg/dl mg/dL (Negative) 03/23/17 05:00 Urine Glucose (UA) Neg mg/dL (Negative) 03/23/17 05:00 Urine Ketones Neg mg/dL (Negative) 03/23/17 05:00 Urine Blood Sm (Negative) 03/23/17 05:00 Urine Nitrite Neg (Negative) 03/23/17 05:00 Urine Bilirubin Neg (Negative) 03/23/17 05:00 Urine Urobilinogen 4.0 mg/dL (<2.0) 03/23/17 05:00 Ur Leukocyte Esterase Mod (Negative) 03/23/17 05:00 Urine WBC (Auto) 6.0 /HPF (0.0-6.0) 03/23/17 05:00 Urine RBC (Auto) 1.0 /HPF (0.0-6.0) 03/23/17 05:00 Urine Bacteria (Auto) 1+ /HPF (Negative) 03/15/17 08:20 Urine Mucus Few /HPF 03/23/17 05:00 Blood Type O POSITIVE 03/15/17 06:06 Antibody Screen TNR 03/15/17 06:06 BRENDA Antibody Screen Negative 03/15/17 06:06 Crossmatch See Detail 03/15/17 06:06
[2017-03-24] MEDS: COUMADIN PO SCH (17:50)
[2017-03-24] MEDS ORDERED: TRIPLE ANTIBIOTIC TP ONE (18:21)
--- NOTE | 2017-03-24 18:41 | Progress Note ---
Assessment and Plan Patient resting on room air. Weak but no acute respiratory distress.O2 saturation 96% on room air.No complaint of chest pain or shortness of breath at this time. - Patient Problems (1) Chest pain in adult Current Visit: Yes Status: Acute Plan to address problem: Management as per cardiology. (2) Acute respiratory failure Current Visit: No Status: Acute Qualifiers: Respiratory failure complication: hypoxia Qualified Code(s): J96.01 - Acute respiratory failure with hypoxia Plan to address problem: Patient intubated for surgery and extubated. Presently resting on room air.. O2 saturation 96%. No acute respiratory distress. (3) Acute coronary syndrome Current Visit: Yes Status: Acute Plan to address problem: . Management as per cardiology. (4) ADONIS (acute kidney injury) Current Visit: No Status: Acute Plan to address problem: Management as per nephrology. (5) Left ventricular apical thrombus Current Visit: No Status: Acute Plan to address problem: Patient is on Coumadin. Management as per cardiology. (6) Cardiomyopathy Current Visit: No Status: Chronic Qualifiers: Cardiomyopathy type: C Plan to address problem: Ejection fraction 10to 15%. Management as per cardiology. Subjective Date of service: 03/24/17 Principal diagnosis: Acute Respiratory Failure on MVS; SBO s/p Ex-lap Interval history: Patient resting on room air. Weak but no acute respiratory distress.O2 saturation 96% on room air..No complaint of chest pain or shortness of breath at this time. Objective Vital Signs - 12hr 03/24/17 03/24/17 03/24/17 07:17 08:31 15:09 Temperature 98.4 F 99.6 F Pulse Rate 51 L 57 L Respiratory 15 24 Rate Blood Pressure 100/50 102/56 O2 Sat by Pulse 100 95 98 Oximetry Constitutional: no acute distress, alert Eyes: non-icteric ENT: oropharynx moist, other (normocephalic) Neck: supple, no lymphadenopathy, JVD (to sternal angle), other (no thyromegaly) Effort: normal Ascultation: Bilateral: diminished breath sounds, rales (bases), rhonchi (scant in bases) Percussion: Bilateral: not dull Cardiovascular: regular rate and rhythm, other (no rubs / murmurs) Gastrointestinal: hypoactive bowel sounds, soft, non-tender, non-distended, other (No HSM) Integumentary: normal, other (no rash or petechiae) Extremities: no cyanosis, no edema, pulses normal, no ischemia or petechiae Neurologic: normal mental status, non-focal exam, pupils equal and round, motor strength normal and, other (PERRLA, EOMI) Psychiatric: mood appropriate, affect normal CBC and BMP: 03/20/17 06:00 03/20/17 06:00 ABG, PT/INR, D-dimer: ABG ABG pH 7.497 pH Units (7.350-7.450) H 03/19/17 11:35 ABG pCO2 36.3 mm Hg 03/19/17 11:35 ABG pO2 100.9 mm Hg (80.0-90.0) H 03/19/17 11:35 ABG O2 Saturation 97.9 % (95.0-99.0) 03/19/17 11:35 PT/INR, D-dimer PT 17.3 Sec. (12.2-14.9) H 03/24/17 04:49 INR 1.34 (0.87-1.13) H 03/24/17 04:49 Abnormal lab findings: Abnormal Labs 03/14/17 03/14/17 03/15/17 15:36 Unknown 04:15 RBC 2.98 L Hgb 8.2 L Hct 25.2 L MCV MCH RDW 19.5 H Lymph % (Auto) 12.9 L [place] % (Auto) 9.4 H Lymph # 0.7 L Seg Neutrophils % 76.6 H Seg Neuts % (Manual) Lymphocytes % (Manual) Lymphocytes # (Manual) PT INR APTT Heparin Anti-Xa Level ABG pH 7.349 L ABG pO2 446.4 H 274.8 H ABG HCO3 ABG O2 Saturation 99.6 H 99.5 H ABG Base Excess -3.4 L -4.6 L ABG Hemoglobin 12.3 L 8.6 L Oxyhemoglobin Potassium Chloride Creatinine Glucose POC Glucose Calcium Total Bilirubin AST C-Reactive Protein Total Protein Albumin Urine WBC (Auto) Crossmatch 03/15/17 03/15/17 03/15/17 04:15 04:15 04:45 RBC Hgb Hct MCV MCH RDW Lymph % (Auto) [place] % (Auto) Lymph # Seg Neutrophils % Seg Neuts % (Manual) Lymphocytes % (Manual) Lymphocytes # (Manual) PT 16.9 H INR 1.31 H APTT Heparin Anti-Xa Level ABG pH 7.340 L ABG pO2 168.3 H ABG HCO3 ABG O2 Saturation ABG Base Excess -3.8 L ABG Hemoglobin 7.7 L Oxyhemoglobin Potassium Chloride 114.1 H Creatinine Glucose 112 H POC Glucose Calcium 7.5 L D Total Bilirubin AST C-Reactive Protein Total Protein 5.5 L D Albumin 2.8 L Urine WBC (Auto) Crossmatch 03/15/17 03/15/17 03/15/17 06:06 08:20 13:05 RBC Hgb Hct MCV MCH RDW Lymph % (Auto) [place] % (Auto) Lymph # Seg Neutrophils % Seg Neuts % (Manual) Lymphocytes % (Manual) Lymphocytes # (Manual) PT INR APTT Heparin Anti-Xa Level ABG pH ABG pO2 ABG HCO3 ABG O2 Saturation ABG Base Excess -2.9 L ABG Hemoglobin 8.5 L Oxyhemoglobin 94.3 L Potassium Chloride Creatinine Glucose POC Glucose Calcium Total Bilirubin AST C-Reactive Protein Total Protein Albumin Urine WBC (Auto) 15.0 H Crossmatch See Detail 03/15/17 03/15/17 03/15/17 14:20 15:35 20:29 RBC 3.46 L Hgb 9.7 L Hct 29.4 L MCV MCH RDW 19.0 H Lymph % (Auto) 12.6 L [place] % (Auto) 9.1 H Lymph # 0.8 L Seg Neutrophils % 77.2 H Seg Neuts % (Manual) Lymphocytes % (Manual) Lymphocytes # (Manual) PT INR APTT Heparin Anti-Xa Level ABG pH 7.261 L ABG pO2 170.6 H 229.2 H ABG HCO3 ABG O2 Saturation 99.4 H ABG Base Excess -6.1 L -3.4 L ABG Hemoglobin 10.4 L 8.3 L Oxyhemoglobin Potassium Chloride Creatinine Glucose POC Glucose Calcium Total Bilirubin AST C-Reactive Protein Total Protein Albumin Urine WBC (Auto) Crossmatch 03/15/17 03/16/17 03/16/17 23:09 04:20 05:58 RBC 3.24 L Hgb 9.1 L Hct 27.1 L MCV MCH RDW 19.1 H Lymph % (Auto) [place] % (Auto) Lymph # Seg Neutrophils % Seg Neuts % (Manual) Lymphocytes % (Manual) 11.0 L Lymphocytes # (Manual) 0.6 L PT INR APTT Heparin Anti-Xa Level ABG pH ABG pO2 130.4 H ABG HCO3 ABG O2 Saturation ABG Base Excess -2.4 L ABG Hemoglobin 6.1 L Oxyhemoglobin Potassium Chloride Creatinine Glucose POC Glucose 127 H Calcium Total Bilirubin AST C-Reactive Protein Total Protein Albumin Urine WBC (Auto) Crossmatch 03/16/17 03/16/17 03/16/17 05:58 17:51 21:45 RBC Hgb Hct MCV MCH RDW Lymph % (Auto) [place] % (Auto) Lymph # Seg Neutrophils % Seg Neuts % (Manual) Lymphocytes % (Manual) Lymphocytes # (Manual) PT 17.5 H INR 1.36 H APTT 49.4 H Heparin Anti-Xa Level ABG pH ABG pO2 ABG HCO3 ABG O2 Saturation ABG Base Excess ABG Hemoglobin Oxyhemoglobin Potassium Chloride 108.1 H Creatinine Glucose 117 H POC Glucose Calcium 7.8 L Total Bilirubin AST 113 H C-Reactive Protein 23.90 H Total Protein 5.4 L Albumin 2.7 L Urine WBC (Auto) Crossmatch 03/17/17 03/17/17 03/17/17 00:01 05:00 05:00 RBC 3.06 L Hgb 8.6 L Hct 25.5 L MCV MCH RDW 18.9 H Lymph % (Auto) [place] % (Auto) Lymph # Seg Neutrophils % Seg Neuts % (Manual) Lymphocytes % (Manual) Lymphocytes # (Manual) PT INR APTT Heparin Anti-Xa Level ABG pH ABG pO2 ABG HCO3 ABG O2 Saturation ABG Base Excess ABG Hemoglobin Oxyhemoglobin Potassium 3.2 L Chloride Creatinine Glucose 102 H POC Glucose 108 H Calcium 8.3 L Total Bilirubin AST C-Reactive Protein Total Protein Albumin Urine WBC (Auto) Crossmatch 03/17/17 03/17/17 03/17/17 05:00 15:40 21:30 RBC 2.96 L Hgb 8.2 L Hct 24.5 L MCV 83 L MCH RDW 18.6 H Lymph % (Auto) [place] % (Auto) Lymph # Seg Neutrophils % Seg Neuts % (Manual) 93.0 H Lymphocytes % (Manual) 2.0 L Lymphocytes # (Manual) 0.1 L PT 16.8 H INR 1.30 H APTT Heparin Anti-Xa Level ABG pH ABG pO2 ABG HCO3 ABG O2 Saturation ABG Base Excess ABG Hemoglobin Oxyhemoglobin Potassium Chloride Creatinine Glucose POC Glucose Calcium 8.1 L Total Bilirubin AST C-Reactive Protein Total Protein Albumin Urine WBC (Auto) Crossmatch 03/18/17 03/18/17 03/18/17 00:05 03:45 04:45 RBC 3.12 L Hgb 8.8 L Hct 25.9 L MCV 83 L MCH RDW 18.3 H Lymph % (Auto) 9.5 L [place] % (Auto) Lymph # 0.6 L Seg Neutrophils % 81.7 H Seg Neuts % (Manual) Lymphocytes % (Manual) Lymphocytes # (Manual) PT INR APTT Heparin Anti-Xa Level ABG pH ABG pO2 132.3 H ABG HCO3 29.2 H ABG O2 Saturation ABG Base Excess 4.3 H ABG Hemoglobin 8.7 L Oxyhemoglobin Potassium Chloride Creatinine Glucose POC Glucose 108 H Calcium Total Bilirubin AST C-Reactive Protein Total Protein Albumin Urine WBC (Auto) Crossmatch 03/18/17 03/18/17 03/18/17 04:45 05:44 12:26 RBC Hgb Hct MCV MCH RDW Lymph % (Auto) [place] % (Auto) Lymph # Seg Neutrophils % Seg Neuts % (Manual) Lymphocytes % (Manual) Lymphocytes # (Manual) PT INR APTT Heparin Anti-Xa Level ABG pH 7.526 H ABG pO2 118.5 H ABG HCO3 27.9 H ABG O2 Saturation ABG Base Excess 5.0 H ABG Hemoglobin 9.3 L Oxyhemoglobin Potassium Chloride Creatinine Glucose POC Glucose 108 H Calcium 8.2 L Total Bilirubin 1.40 H AST 53 H C-Reactive Protein Total Protein 6.1 L Albumin 2.7 L Urine WBC (Auto) Crossmatch 03/18/17 03/18/17 03/18/17 14:10 21:00 Unknown RBC 3.17 L Hgb 8.7 L Hct 26.5 L MCV MCH 27 L RDW 18.4 H Lymph % (Auto) 9.4 L [place] % (Auto) Lymph # 0.6 L Seg Neutrophils % 83.7 H Seg Neuts % (Manual) Lymphocytes % (Manual) Lymphocytes # (Manual) PT INR APTT Heparin Anti-Xa Level 0.22 L ABG pH ABG pO2 ABG HCO3 ABG O2 Saturation ABG Base Excess ABG Hemoglobin Oxyhemoglobin Potassium Chloride Creatinine Glucose POC Glucose Calcium Total Bilirubin AST C-Reactive Protein 17.50 H Total Protein Albumin Urine WBC (Auto) Crossmatch 03/19/17 03/19/17 03/19/17 04:15 05:00 05:00 RBC 3.05 L Hgb 8.4 L Hct 25.1 L MCV 83 L MCH RDW 18.9 H Lymph % (Auto) [place] % (Auto) Lymph # Seg Neutrophils % Seg Neuts % (Manual) 94.0 H Lymphocytes % (Manual) 2.0 L Lymphocytes # (Manual) 0.1 L PT INR APTT Heparin Anti-Xa Level ABG pH 7.470 H ABG pO2 115.3 H ABG HCO3 26.4 H ABG O2 Saturation ABG Base Excess ABG Hemoglobin 8.9 L Oxyhemoglobin Potassium 3.2 L Chloride Creatinine 0.7 L Glucose POC Glucose Calcium Total Bilirubin AST C-Reactive Protein Total Protein 6.1 L Albumin 2.7 L Urine WBC (Auto) Crossmatch 03/19/17 03/19/17 03/19/17 11:35 23:53 Unknown RBC Hgb Hct MCV MCH RDW Lymph % (Auto) [place] % (Auto) Lymph # Seg Neutrophils % Seg Neuts % (Manual) Lymphocytes % (Manual) Lymphocytes # (Manual) PT INR APTT Heparin Anti-Xa Level 0.23 L ABG pH 7.497 H ABG pO2 100.9 H ABG HCO3 27.5 H ABG O2 Saturation ABG Base Excess 4.1 H ABG Hemoglobin 8.6 L Oxyhemoglobin Potassium Chloride Creatinine Glucose POC Glucose 126 H Calcium Total Bilirubin AST C-Reactive Protein Total Protein Albumin Urine WBC (Auto) Crossmatch 03/20/17 03/20/17 03/20/17 05:40 06:00 06:00 RBC 3.12 L Hgb 8.5 L Hct 26.1 L MCV MCH 27 L RDW 18.9 H Lymph % (Auto) [place] % (Auto) 10.6 H Lymph # 0.7 L Seg Neutrophils % 70.8 H Seg Neuts % (Manual) Lymphocytes % (Manual) Lymphocytes # (Manual) PT INR APTT Heparin Anti-Xa Level ABG pH ABG pO2 ABG HCO3 ABG O2 Saturation ABG Base Excess ABG Hemoglobin Oxyhemoglobin Potassium 3.3 L Chloride Creatinine 0.7 L Glucose 117 H POC Glucose 125 H Calcium Total Bilirubin AST C-Reactive Protein Total Protein 5.9 L Albumin 2.5 L Urine WBC (Auto) Crossmatch 03/20/17 03/21/17 03/22/17 14:26 13:53 04:56 RBC Hgb Hct MCV MCH RDW Lymph % (Auto) [place] % (Auto) Lymph # Seg Neutrophils % Seg Neuts % (Manual) Lymphocytes % (Manual) Lymphocytes # (Manual) PT 16.1 H INR 1.23 H APTT Heparin Anti-Xa Level 0.24 L 0.19 L ABG pH ABG pO2 ABG HCO3 ABG O2 Saturation ABG Base Excess ABG Hemoglobin Oxyhemoglobin Potassium Chloride Creatinine Glucose POC Glucose Calcium Total Bilirubin AST C-Reactive Protein Total Protein Albumin Urine WBC (Auto) Crossmatch 03/22/17 03/23/17 03/24/17 13:22 05:36 04:49 RBC Hgb Hct MCV MCH RDW Lymph % (Auto) [place] % (Auto) Lymph # Seg Neutrophils % Seg Neuts % (Manual) Lymphocytes % (Manual) Lymphocytes # (Manual) PT 18.0 H 17.3 H INR 1.41 H 1.34 H APTT Heparin Anti-Xa Level 0.11 L ABG pH ABG pO2 ABG HCO3 ABG O2 Saturation ABG Base Excess ABG Hemoglobin Oxyhemoglobin Potassium Chloride Creatinine Glucose POC Glucose Calcium Total Bilirubin AST C-Reactive Protein Total Protein Albumin Urine WBC (Auto) Crossmatch Allied health notes reviewed: RT
[2017-03-25 07:07] LABS: INR 1.6 (0.87-1.13)
[2017-03-25] MEDS: BABY ASPIRIN PO SCH (09:47)
[2017-03-25] MEDS: LOPRESSOR PO SCH ×2 (09:48→22:40)
[2017-03-25] MEDS: PEPCID PO SCH ×2 (09:48→22:42)
[2017-03-25] MEDS: LASIX PO SCH (09:48)
[2017-03-25] MEDS: ZESTRIL PO SCH (09:48)
--- NOTE | 2017-03-25 09:53 | Progress Note ---
Assessment and Plan Assessment and plan: Patient is a 76-year-old man history of coronary artery disease, left apical thrombus, also a history of COPD, CVA currently halfway resident following CVA but otherwise lives with sister. Sent to the emergency room for evaluation. History is very difficult to obtain from the patient he complained to the emergency room physician about chest pain however he denies chest pain to me. Complains of abdominal pain but he is unable to give any details, on imaging was noted to have SBO and surgery was consulted. Patient was also seen by cardiology felt to be extremely high risk due to severe LV dysfunction with an ejection fraction of 5050% with apical thrombosis. Patient did proceed to have surgery which was successful. He is tolerating diet and doing well at this time. Cardiology does not feel like he needs any bridge and as apical thrombosis chronic. Acute respiratory failure- expected - intubated before surgery on 03/14/17 and extubated successful following >96 hrs intubation - Weaned and extubated - Continue with Bronchodilators. Disability Representative following COPD with exacerbation - wean off from vent as tolerated - Improved - Continue with Bronchodilators - cont. periodic breathing treatment SBO - s/p exploratory laparotomy on 03/14/17 -Resolved. tolerating diet Anemia - could be from hemodilution and from blood loss during surgery which is expected - s/p one unit PRBC transfusion Mild hypokalemia - Will trend. corrected Acute on Chronic systolic with Ef 10-15% -Diuresis. Metoprolol. Restarted BILL inhibitor with low dose. CMP - EF 10-15%; CMP is presumably nonischemic given recent negative lexiscan MPI stress test Coronary artery disease - cardiology following Left apical thrombus with subtherapeutic INR on admission - commenced pt on heparin Chronic LV thrombus. INR daily Restarted on [place] Hypertension - Started on metoprolol and BILL inhibitor History of CVA - Stable. Monitor clinically DVT/GI prophy Patient planned for discharge today but was delayed due to insurance. Discussed with patient. He will be Returning to SNF. History Interval history: patient seen and examined, in no acute distress. Tolerating diet per nursing staff. Awaiting presets from insurance [id number] prior to placement. No new change Hospitalist Physical - Physical exam Narrative exam: VITAL SIGNS: Reviewed. GENERAL: The patient Cachetic otherwise in no acute distress. Vital signs as documented. HEAD: No signs of head trauma. EYES: Pupils are equal. Extraocular motions intact. EARS: Hearing grossly intact. MOUTH: Oropharynx is normal. NECK: No adenopathy, no JVD. CHEST: Chest with clear breath sounds bilaterally. No wheezes, rales, or rhonchi. CARDIAC: Regular rate and rhythm. S1 and S2, without murmurs, gallops, or rubs. VASCULAR: No Edema. Peripheral pulses normal and equal in all extremities. ABDOMEN: Soft, bypass in place. Sterile strips noted around the incisional site. Mild dyscomfort at surgical sight. incision intact. No rebound or guarding, and no masses palpated. Bowel Sounds normal. MUSCULOSKELETAL: Mild contraction of right upper extremity chronic.. Extremities without clubbing, cyanosis or edema. NEUROLOGIC EXAM: Alert and oriented x 3. No focal sensory or strength deficits. Speech normal. Follows commands. PSYCHIATRIC: Mood normal. SKIN: No rash or lesions. - Constitutional Vitals: Temp Pulse Resp BP Pulse Ox 98.7 F 74 20 102/57 99 03/25/17 07:19 03/25/17 09:48 03/25/17 07:19 03/25/17 09:48 03/25/17 07:19 General appearance: Present: no acute distress, well-nourished Results - Labs CBC & Chem 7: 03/20/17 06:00 03/20/17 06:00 Labs: Laboratory Last Values WBC 4.7 K/mm3 (4.5-11.0) 03/20/17 06:00 RBC 3.12 M/mm3 (3.65-5.03) L 03/20/17 06:00 Hgb 8.5 gm/dl (11.8-15.2) L 03/20/17 06:00 Hct 26.1 % (35.5-45.6) L 03/20/17 06:00 MCV 84 fl (84-94) 03/20/17 06:00 MCH 27 pg (28-32) L 03/20/17 06:00 MCHC 33 % (32-34) 03/20/17 06:00 RDW 18.9 % (13.2-15.2) H 03/20/17 06:00 Plt Count 215 K/mm3 (140-440) 03/20/17 06:00 Lymph % (Auto) 15.7 % (13.4-35.0) 03/20/17 06:00 [place] % (Auto) 10.6 % (0.0-7.3) H 03/20/17 06:00 Eos % (Auto) 2.3 % (0.0-4.3) 03/20/17 06:00 Baso % (Auto) 0.6 % (0.0-1.8) 03/20/17 06:00 Lymph # 0.7 K/mm3 (1.2-5.4) L 03/20/17 06:00 [place] # 0.5 K/mm3 (0.0-0.8) 03/20/17 06:00 Eos # 0.1 K/mm3 (0.0-0.4) 03/20/17 06:00 Baso # 0.0 K/mm3 (0.0-0.1) 03/20/17 06:00 Add Manual Diff Complete 03/19/17 05:00 Total Counted 100 03/19/17 05:00 Seg Neutrophils % 70.8 % (40.0-70.0) H 03/20/17 06:00 Seg Neuts % (Manual) 94.0 % (40.0-70.0) H 03/19/17 05:00 Band Neutrophils % 0 % 03/19/17 05:00 Lymphocytes % (Manual) 2.0 % (13.4-35.0) L 03/19/17 05:00 Reactive Lymphs % (Man) 0 % 03/19/17 05:00 Monocytes % (Manual) 2.0 % (0.0-7.3) 03/19/17 05:00 Eosinophils % (Manual) 2.0 % (0.0-4.3) 03/19/17 05:00 Basophils % (Manual) 0 % (0.0-1.8) 03/19/17 05:00 Metamyelocytes % 0 % 03/19/17 05:00 Myelocytes % 0 % 03/19/17 05:00 Promyelocytes % 0 % 03/19/17 05:00 Blast Cells % 0 % 03/19/17 05:00 Nucleated RBC % Not Reportable 03/19/17 05:00 Seg Neutrophils # 3.3 K/mm3 (1.8-7.7) 03/20/17 06:00 Seg Neutrophils # Man 5.6 K/mm3 (1.8-7.7) 03/19/17 05:00 Band Neutrophils # 0.0 K/mm3 03/19/17 05:00 Lymphocytes # (Manual) 0.1 K/mm3 (1.2-5.4) L 03/19/17 05:00 Abs React Lymphs (Man) 0.0 K/mm3 03/19/17 05:00 Monocytes # (Manual) 0.1 K/mm3 (0.0-0.8) 03/19/17 05:00 Eosinophils # (Manual) 0.1 K/mm3 (0.0-0.4) 03/19/17 05:00 Basophils # (Manual) 0.0 K/mm3 (0.0-0.1) 03/19/17 05:00 Metamyelocytes # 0.0 K/mm3 03/19/17 05:00 Myelocytes # 0.0 K/mm3 03/19/17 05:00 Promyelocytes # 0.0 K/mm3 03/19/17 05:00 Blast Cells # 0.0 K/mm3 03/19/17 05:00 WBC Morphology Not Reportable 03/19/17 05:00 Hypersegmented Neuts Not Reportable 03/19/17 05:00 Hyposegmented Neuts Not Reportable 03/19/17 05:00 Hypogranular Neuts Not Reportable 03/19/17 05:00 Smudge Cells Not Reportable 03/19/17 05:00 Toxic Granulation Not Reportable 03/19/17 05:00 Toxic Vacuolation Not Reportable 03/19/17 05:00 Dohle Bodies Not Reportable 03/19/17 05:00 Pelger-Huet Anomaly Not Reportable 03/19/17 05:00 Mary Rods Not Reportable 03/19/17 05:00 Platelet Estimate Consistent w auto 03/19/17 05:00 Clumped Platelets Not Reportable 03/19/17 05:00 Plt Clumps, EDTA Not Reportable 03/19/17 05:00 Large Platelets Rare 03/19/17 05:00 Giant Platelets Not Reportable 03/19/17 05:00 Platelet Satelliting Not Reportable 03/19/17 05:00 Plt Morphology Comment Not Reportable 03/19/17 05:00 RBC Morphology Not Reportable 03/19/17 05:00 Dimorphic RBCs Not Reportable 03/19/17 05:00 Polychromasia Rare 03/19/17 05:00 Hypochromasia Not Reportable 03/19/17 05:00 Poikilocytosis 1+ 03/19/17 05:00 Anisocytosis 2+ 03/19/17 05:00 Microcytosis Not Reportable 03/19/17 05:00 Macrocytosis Not Reportable 03/19/17 05:00 Spherocytes Not Reportable 03/19/17 05:00 Pappenheimer Bodies Not Reportable 03/19/17 05:00 Sickle Cells Not Reportable 03/19/17 05:00 Target Cells Not Reportable 03/19/17 05:00 Tear Drop Cells Not Reportable 03/19/17 05:00 Ovalocytes Few 03/19/17 05:00 Helmet Cells Not Reportable 03/19/17 05:00 Ber[place]-Solomons Bodies Not Reportable 03/19/17 05:00 [place] Rings Not Reportable 03/19/17 05:00 [place] Cells Not Reportable 03/19/17 05:00 Bite Cells Not Reportable 03/19/17 05:00 Crenated Cell Not Reportable 03/19/17 05:00 Elliptocytes 2+ 03/19/17 05:00 Acanthocytes (Spur) Not Reportable 03/19/17 05:00 Rouleaux Not Reportable 03/19/17 05:00 Hemoglobin C Crystals Not Reportable 03/19/17 05:00 Schistocytes Few 03/19/17 05:00 Malaria parasites Not Reportable 03/19/17 05:00 Cecil Bodies Not Reportable 03/19/17 05:00 Hem Pathologist Commnt No 03/19/17 05:00 PT 19.8 Sec. (12.2-14.9) H 03/25/17 05:36 INR 1.60 (0.87-1.13) H 03/25/17 05:36 APTT 49.4 Sec. (24.2-36.6) H 03/16/17 21:45 Heparin Anti-Xa Level 0.34 U.I./ml (0.3-0.7) 03/23/17 05:36 ABG pH 7.497 pH Units (7.350-7.450) H 03/19/17 11:35 ABG pCO2 36.3 mm Hg 03/19/17 11:35 ABG pO2 100.9 mm Hg (80.0-90.0) H 03/19/17 11:35 ABG HCO3 27.5 mmol/L (20.0-26.0) H 03/19/17 11:35 ABG O2 Saturation 97.9 % (95.0-99.0) 03/19/17 11:35 ABG O2 Content 11.8 (0.0-44) 03/19/17 11:35 ABG Base Excess 4.1 mmol/L (-2.0-3.0) H 03/19/17 11:35 ABG Hemoglobin 8.6 gm/dl (14.0-18.0) L 03/19/17 11:35 ABG Carboxyhemoglobin 2.1 % (0.0-5.0) 03/19/17 11:35 ABG Methemoglobin 0.5 % (0.0-1.5) 03/19/17 11:35 Oxyhemoglobin 95.4 % (95.0-99.0) 03/19/17 11:35 FiO2 30 % 03/19/17 11:35 Sodium 143 mmol/L (137-145) 03/20/17 06:00 Potassium 3.3 mmol/L (3.6-5.0) L 03/20/17 06:00 Chloride 103.4 mmol/L (98-107) 03/20/17 06:00 Carbon Dioxide 28 mmol/L (22-30) 03/20/17 06:00 Anion Gap 15 mmol/L 03/20/17 06:00 BUN 18 mg/dL (9-20) 03/20/17 06:00 Creatinine 0.7 mg/dL (0.8-1.5) L 03/20/17 06:00 Estimated GFR > 60 ml/min 03/20/17 06:00 BUN/Creatinine Ratio 26 % 03/20/17 06:00 Glucose 117 mg/dL (75-100) H 03/20/17 06:00 POC Glucose 101 (70-105) 03/20/17 17:42 Lactic Acid 1.20 mmol/L (0.7-2.0) 03/18/17 12:59 Calcium 8.4 mg/dL (8.4-10.2) 03/20/17 06:00 Total Bilirubin 1.00 mg/dL (0.1-1.2) 03/20/17 06:00 AST 23 units/L (5-40) 03/20/17 06:00 ALT 15 units/L (7-56) 03/20/17 06:00 Alkaline Phosphatase 62 units/L (35-129) 03/20/17 06:00 Total Creatine Kinase 78 units/L (55-170) 03/14/17 16:10 CK-MB (CK-2) 2.9 ng/mL (0.0-4.0) 03/14/17 16:10 CK-MB (CK-2) Rel Index 3.7 (0-4) 03/14/17 16:10 Troponin T < 0.010 ng/mL (0.00-0.029) 03/14/17 16:10 C-Reactive Protein 17.50 mg/dL (0.00-1.30) H 03/18/17 21:00 Total Protein 5.9 g/dL (6.3-8.2) L 03/20/17 06:00 Albumin 2.5 g/dL (3.9-5) L 03/20/17 06:00 Albumin/Globulin Ratio 0.7 % 03/20/17 06:00 Lipase 52 units/L (13-60) 03/14/17 02:39 Urine Color Yellow (Yellow) 03/23/17 05:00 Urine Turbidity Clear (Clear) 03/23/17 05:00 Urine pH 7.0 (5.0-7.0) 03/23/17 05:00 Ur Specific [place] 1.008 (1.003-1.030) 03/23/17 05:00 Urine Protein <15 mg/dl mg/dL (Negative) 03/23/17 05:00 Urine Glucose (UA) Neg mg/dL (Negative) 03/23/17 05:00 Urine Ketones Neg mg/dL (Negative) 03/23/17 05:00 Urine Blood Sm (Negative) 03/23/17 05:00 Urine Nitrite Neg (Negative) 03/23/17 05:00 Urine Bilirubin Neg (Negative) 03/23/17 05:00 Urine Urobilinogen 4.0 mg/dL (<2.0) 03/23/17 05:00 Ur Leukocyte Esterase Mod (Negative) 03/23/17 05:00 Urine WBC (Auto) 6.0 /HPF (0.0-6.0) 03/23/17 05:00 Urine RBC (Auto) 1.0 /HPF (0.0-6.0) 03/23/17 05:00 Urine Bacteria (Auto) 1+ /HPF (Negative) 03/15/17 08:20 Urine Mucus Few /HPF 03/23/17 05:00 Blood Type O POSITIVE 03/15/17 06:06 Antibody Screen TNR 03/15/17 06:06 BRENDA Antibody Screen Negative 03/15/17 06:06 Crossmatch See Detail 03/15/17 06:06
[2017-03-25] MEDS: COUMADIN PO SCH (17:01)
--- NOTE | 2017-03-25 23:39 | Progress Note ---
Assessment and Plan Patient sleeping on room air at this time. Weak but no acute respiratory distress.O2 saturation 97% on room air. - Patient Problems (1) Chest pain in adult Current Visit: Yes Status: Acute Plan to address problem: Management as per cardiology. (2) Acute respiratory failure Current Visit: No Status: Acute Qualifiers: Respiratory failure complication: hypoxia Qualified Code(s): J96.01 - Acute respiratory failure with hypoxia Plan to address problem: Patient intubated for surgery and extubated. Presently resting on room air.. O2 saturation 97%. No acute respiratory distress. (3) Acute coronary syndrome Current Visit: Yes Status: Acute Plan to address problem: . Management as per cardiology. (4) ADONIS (acute kidney injury) Current Visit: No Status: Acute Plan to address problem: Management as per nephrology. (5) Left ventricular apical thrombus Current Visit: No Status: Acute Plan to address problem: Patient is on Coumadin. Management as per cardiology. (6) Cardiomyopathy Current Visit: No Status: Chronic Qualifiers: Cardiomyopathy type: C Plan to address problem: Ejection fraction 10to 15%. Management as per cardiology. Subjective Date of service: 03/25/17 Principal diagnosis: Acute Respiratory Failure on MVS; SBO s/p Ex-lap Interval history: Patient sleeping on room air at this time. Weak but no acute respiratory distress.O2 saturation 97% on room air. Objective Vital Signs - 12hr 03/25/17 03/25/17 03/25/17 15:06 20:54 22:37 Temperature 98.7 F 98.6 F 98.5 F Pulse Rate 74 74 Respiratory 18 16 20 Rate Blood Pressure 112/56 111/61 109/59 O2 Sat by Pulse 100 97 Oximetry 03/25/17 22:40 Temperature Pulse Rate 60 Respiratory Rate Blood Pressure 109/59 O2 Sat by Pulse Oximetry Constitutional: no acute distress, asleep Eyes: non-icteric ENT: oropharynx moist, other (normocephalic) Neck: supple, no lymphadenopathy, JVD (to sternal angle), other (no thyromegaly) Effort: normal Ascultation: Bilateral: diminished breath sounds, rales (bases), rhonchi (scant in bases) Percussion: Bilateral: not dull Cardiovascular: regular rate and rhythm, other (no rubs / murmurs) Gastrointestinal: hypoactive bowel sounds, soft, non-tender, non-distended, other (No HSM) Integumentary: normal, other (no rash or petechiae) Extremities: no cyanosis, no edema, pulses normal, no ischemia or petechiae Neurologic: normal mental status, non-focal exam, pupils equal and round, motor strength normal and, other (PERRLA, EOMI) Psychiatric: mood appropriate, affect normal CBC and BMP: 03/20/17 06:00 03/20/17 06:00 ABG, PT/INR, D-dimer: ABG ABG pH 7.497 pH Units (7.350-7.450) H 03/19/17 11:35 ABG pCO2 36.3 mm Hg 03/19/17 11:35 ABG pO2 100.9 mm Hg (80.0-90.0) H 03/19/17 11:35 ABG O2 Saturation 97.9 % (95.0-99.0) 03/19/17 11:35 PT/INR, D-dimer PT 19.8 Sec. (12.2-14.9) H 03/25/17 05:36 INR 1.60 (0.87-1.13) H 03/25/17 05:36 Abnormal lab findings: Abnormal Labs 03/14/17 03/14/17 03/15/17 15:36 Unknown 04:15 RBC 2.98 L Hgb 8.2 L Hct 25.2 L MCV MCH RDW 19.5 H Lymph % (Auto) 12.9 L [place] % (Auto) 9.4 H Lymph # 0.7 L Seg Neutrophils % 76.6 H Seg Neuts % (Manual) Lymphocytes % (Manual) Lymphocytes # (Manual) PT INR APTT Heparin Anti-Xa Level ABG pH 7.349 L ABG pO2 446.4 H 274.8 H ABG HCO3 ABG O2 Saturation 99.6 H 99.5 H ABG Base Excess -3.4 L -4.6 L ABG Hemoglobin 12.3 L 8.6 L Oxyhemoglobin Potassium Chloride Creatinine Glucose POC Glucose Calcium Total Bilirubin AST C-Reactive Protein Total Protein Albumin Urine WBC (Auto) Crossmatch 03/15/17 03/15/17 03/15/17 04:15 04:15 04:45 RBC Hgb Hct MCV MCH RDW Lymph % (Auto) [place] % (Auto) Lymph # Seg Neutrophils % Seg Neuts % (Manual) Lymphocytes % (Manual) Lymphocytes # (Manual) PT 16.9 H INR 1.31 H APTT Heparin Anti-Xa Level ABG pH 7.340 L ABG pO2 168.3 H ABG HCO3 ABG O2 Saturation ABG Base Excess -3.8 L ABG Hemoglobin 7.7 L Oxyhemoglobin Potassium Chloride 114.1 H Creatinine Glucose 112 H POC Glucose Calcium 7.5 L D Total Bilirubin AST C-Reactive Protein Total Protein 5.5 L D Albumin 2.8 L Urine WBC (Auto) Crossmatch 03/15/17 03/15/17 03/15/17 06:06 08:20 13:05 RBC Hgb Hct MCV MCH RDW Lymph % (Auto) [place] % (Auto) Lymph # Seg Neutrophils % Seg Neuts % (Manual) Lymphocytes % (Manual) Lymphocytes # (Manual) PT INR APTT Heparin Anti-Xa Level ABG pH ABG pO2 ABG HCO3 ABG O2 Saturation ABG Base Excess -2.9 L ABG Hemoglobin 8.5 L Oxyhemoglobin 94.3 L Potassium Chloride Creatinine Glucose POC Glucose Calcium Total Bilirubin AST C-Reactive Protein Total Protein Albumin Urine WBC (Auto) 15.0 H Crossmatch See Detail 03/15/17 03/15/17 03/15/17 14:20 15:35 20:29 RBC 3.46 L Hgb 9.7 L Hct 29.4 L MCV MCH RDW 19.0 H Lymph % (Auto) 12.6 L [place] % (Auto) 9.1 H Lymph # 0.8 L Seg Neutrophils % 77.2 H Seg Neuts % (Manual) Lymphocytes % (Manual) Lymphocytes # (Manual) PT INR APTT Heparin Anti-Xa Level ABG pH 7.261 L ABG pO2 170.6 H 229.2 H ABG HCO3 ABG O2 Saturation 99.4 H ABG Base Excess -6.1 L -3.4 L ABG Hemoglobin 10.4 L 8.3 L Oxyhemoglobin Potassium Chloride Creatinine Glucose POC Glucose Calcium Total Bilirubin AST C-Reactive Protein Total Protein Albumin Urine WBC (Auto) Crossmatch 03/15/17 03/16/17 03/16/17 23:09 04:20 05:58 RBC 3.24 L Hgb 9.1 L Hct 27.1 L MCV MCH RDW 19.1 H Lymph % (Auto) [place] % (Auto) Lymph # Seg Neutrophils % Seg Neuts % (Manual) Lymphocytes % (Manual) 11.0 L Lymphocytes # (Manual) 0.6 L PT INR APTT Heparin Anti-Xa Level ABG pH ABG pO2 130.4 H ABG HCO3 ABG O2 Saturation ABG Base Excess -2.4 L ABG Hemoglobin 6.1 L Oxyhemoglobin Potassium Chloride Creatinine Glucose POC Glucose 127 H Calcium Total Bilirubin AST C-Reactive Protein Total Protein Albumin Urine WBC (Auto) Crossmatch 03/16/17 03/16/17 03/16/17 05:58 17:51 21:45 RBC Hgb Hct MCV MCH RDW Lymph % (Auto) [place] % (Auto) Lymph # Seg Neutrophils % Seg Neuts % (Manual) Lymphocytes % (Manual) Lymphocytes # (Manual) PT 17.5 H INR 1.36 H APTT 49.4 H Heparin Anti-Xa Level ABG pH ABG pO2 ABG HCO3 ABG O2 Saturation ABG Base Excess ABG Hemoglobin Oxyhemoglobin Potassium Chloride 108.1 H Creatinine Glucose 117 H POC Glucose Calcium 7.8 L Total Bilirubin AST 113 H C-Reactive Protein 23.90 H Total Protein 5.4 L Albumin 2.7 L Urine WBC (Auto) Crossmatch 03/17/17 03/17/17 03/17/17 00:01 05:00 05:00 RBC 3.06 L Hgb 8.6 L Hct 25.5 L MCV MCH RDW 18.9 H Lymph % (Auto) [place] % (Auto) Lymph # Seg Neutrophils % Seg Neuts % (Manual) Lymphocytes % (Manual) Lymphocytes # (Manual) PT INR APTT Heparin Anti-Xa Level ABG pH ABG pO2 ABG HCO3 ABG O2 Saturation ABG Base Excess ABG Hemoglobin Oxyhemoglobin Potassium 3.2 L Chloride Creatinine Glucose 102 H POC Glucose 108 H Calcium 8.3 L Total Bilirubin AST C-Reactive Protein Total Protein Albumin Urine WBC (Auto) Crossmatch 03/17/17 03/17/17 03/17/17 05:00 15:40 21:30 RBC 2.96 L Hgb 8.2 L Hct 24.5 L MCV 83 L MCH RDW 18.6 H Lymph % (Auto) [place] % (Auto) Lymph # Seg Neutrophils % Seg Neuts % (Manual) 93.0 H Lymphocytes % (Manual) 2.0 L Lymphocytes # (Manual) 0.1 L PT 16.8 H INR 1.30 H APTT Heparin Anti-Xa Level ABG pH ABG pO2 ABG HCO3 ABG O2 Saturation ABG Base Excess ABG Hemoglobin Oxyhemoglobin Potassium Chloride Creatinine Glucose POC Glucose Calcium 8.1 L Total Bilirubin AST C-Reactive Protein Total Protein Albumin Urine WBC (Auto) Crossmatch 03/18/17 03/18/17 03/18/17 00:05 03:45 04:45 RBC 3.12 L Hgb 8.8 L Hct 25.9 L MCV 83 L MCH RDW 18.3 H Lymph % (Auto) 9.5 L [place] % (Auto) Lymph # 0.6 L Seg Neutrophils % 81.7 H Seg Neuts % (Manual) Lymphocytes % (Manual) Lymphocytes # (Manual) PT INR APTT Heparin Anti-Xa Level ABG pH ABG pO2 132.3 H ABG HCO3 29.2 H ABG O2 Saturation ABG Base Excess 4.3 H ABG Hemoglobin 8.7 L Oxyhemoglobin Potassium Chloride Creatinine Glucose POC Glucose 108 H Calcium Total Bilirubin AST C-Reactive Protein Total Protein Albumin Urine WBC (Auto) Crossmatch 03/18/17 03/18/17 03/18/17 04:45 05:44 12:26 RBC Hgb Hct MCV MCH RDW Lymph % (Auto) [place] % (Auto) Lymph # Seg Neutrophils % Seg Neuts % (Manual) Lymphocytes % (Manual) Lymphocytes # (Manual) PT INR APTT Heparin Anti-Xa Level ABG pH 7.526 H ABG pO2 118.5 H ABG HCO3 27.9 H ABG O2 Saturation ABG Base Excess 5.0 H ABG Hemoglobin 9.3 L Oxyhemoglobin Potassium Chloride Creatinine Glucose POC Glucose 108 H Calcium 8.2 L Total Bilirubin 1.40 H AST 53 H C-Reactive Protein Total Protein 6.1 L Albumin 2.7 L Urine WBC (Auto) Crossmatch 03/18/17 03/18/17 03/18/17 14:10 21:00 Unknown RBC 3.17 L Hgb 8.7 L Hct 26.5 L MCV MCH 27 L RDW 18.4 H Lymph % (Auto) 9.4 L [place] % (Auto) Lymph # 0.6 L Seg Neutrophils % 83.7 H Seg Neuts % (Manual) Lymphocytes % (Manual) Lymphocytes # (Manual) PT INR APTT Heparin Anti-Xa Level 0.22 L ABG pH ABG pO2 ABG HCO3 ABG O2 Saturation ABG Base Excess ABG Hemoglobin Oxyhemoglobin Potassium Chloride Creatinine Glucose POC Glucose Calcium Total Bilirubin AST C-Reactive Protein 17.50 H Total Protein Albumin Urine WBC (Auto) Crossmatch 03/19/17 03/19/17 03/19/17 04:15 05:00 05:00 RBC 3.05 L Hgb 8.4 L Hct 25.1 L MCV 83 L MCH RDW 18.9 H Lymph % (Auto) [place] % (Auto) Lymph # Seg Neutrophils % Seg Neuts % (Manual) 94.0 H Lymphocytes % (Manual) 2.0 L Lymphocytes # (Manual) 0.1 L PT INR APTT Heparin Anti-Xa Level ABG pH 7.470 H ABG pO2 115.3 H ABG HCO3 26.4 H ABG O2 Saturation ABG Base Excess ABG Hemoglobin 8.9 L Oxyhemoglobin Potassium 3.2 L Chloride Creatinine 0.7 L Glucose POC Glucose Calcium Total Bilirubin AST C-Reactive Protein Total Protein 6.1 L Albumin 2.7 L Urine WBC (Auto) Crossmatch 03/19/17 03/19/17 03/19/17 11:35 23:53 Unknown RBC Hgb Hct MCV MCH RDW Lymph % (Auto) [place] % (Auto) Lymph # Seg Neutrophils % Seg Neuts % (Manual) Lymphocytes % (Manual) Lymphocytes # (Manual) PT INR APTT Heparin Anti-Xa Level 0.23 L ABG pH 7.497 H ABG pO2 100.9 H ABG HCO3 27.5 H ABG O2 Saturation ABG Base Excess 4.1 H ABG Hemoglobin 8.6 L Oxyhemoglobin Potassium Chloride Creatinine Glucose POC Glucose 126 H Calcium Total Bilirubin AST C-Reactive Protein Total Protein Albumin Urine WBC (Auto) Crossmatch 03/20/17 03/20/17 03/20/17 05:40 06:00 06:00 RBC 3.12 L Hgb 8.5 L Hct 26.1 L MCV MCH 27 L RDW 18.9 H Lymph % (Auto) [place] % (Auto) 10.6 H Lymph # 0.7 L Seg Neutrophils % 70.8 H Seg Neuts % (Manual) Lymphocytes % (Manual) Lymphocytes # (Manual) PT INR APTT Heparin Anti-Xa Level ABG pH ABG pO2 ABG HCO3 ABG O2 Saturation ABG Base Excess ABG Hemoglobin Oxyhemoglobin Potassium 3.3 L Chloride Creatinine 0.7 L Glucose 117 H POC Glucose 125 H Calcium Total Bilirubin AST C-Reactive Protein Total Protein 5.9 L Albumin 2.5 L Urine WBC (Auto) Crossmatch 03/20/17 03/21/17 03/22/17 14:26 13:53 04:56 RBC Hgb Hct MCV MCH RDW Lymph % (Auto) [place] % (Auto) Lymph # Seg Neutrophils % Seg Neuts % (Manual) Lymphocytes % (Manual) Lymphocytes # (Manual) PT 16.1 H INR 1.23 H APTT Heparin Anti-Xa Level 0.24 L 0.19 L ABG pH ABG pO2 ABG HCO3 ABG O2 Saturation ABG Base Excess ABG Hemoglobin Oxyhemoglobin Potassium Chloride Creatinine Glucose POC Glucose Calcium Total Bilirubin AST C-Reactive Protein Total Protein Albumin Urine WBC (Auto) Crossmatch 03/22/17 03/23/17 03/24/17 13:22 05:36 04:49 RBC Hgb Hct MCV MCH RDW Lymph % (Auto) [place] % (Auto) Lymph # Seg Neutrophils % Seg Neuts % (Manual) Lymphocytes % (Manual) Lymphocytes # (Manual) PT 18.0 H 17.3 H INR 1.41 H 1.34 H APTT Heparin Anti-Xa Level 0.11 L ABG pH ABG pO2 ABG HCO3 ABG O2 Saturation ABG Base Excess ABG Hemoglobin Oxyhemoglobin Potassium Chloride Creatinine Glucose POC Glucose Calcium Total Bilirubin AST C-Reactive Protein Total Protein Albumin Urine WBC (Auto) Crossmatch 03/25/17 05:36 RBC Hgb Hct MCV MCH RDW Lymph % (Auto) [place] % (Auto) Lymph # Seg Neutrophils % Seg Neuts % (Manual) Lymphocytes % (Manual) Lymphocytes # (Manual) PT 19.8 H INR 1.60 H APTT Heparin Anti-Xa Level ABG pH ABG pO2 ABG HCO3 ABG O2 Saturation ABG Base Excess ABG Hemoglobin Oxyhemoglobin Potassium Chloride Creatinine Glucose POC Glucose Calcium Total Bilirubin AST C-Reactive Protein Total Protein Albumin Urine WBC (Auto) Crossmatch Allied health notes reviewed: RT
[2017-03-26 06:25] LABS: INR 1.9 (0.87-1.13)
--- NOTE | 2017-03-26 07:44 | Progress Note ---
Assessment and Plan Assessment and plan: Patient is a 76-year-old man history of coronary artery disease, left apical thrombus, also a history of COPD, CVA currently halfway resident following CVA but otherwise lives with sister. Sent to the emergency room for evaluation. History is very difficult to obtain from the patient he complained to the emergency room physician about chest pain however he denies chest pain to me. Complains of abdominal pain but he is unable to give any details, on imaging was noted to have SBO and surgery was consulted. Patient was also seen by cardiology felt to be extremely high risk due to severe LV dysfunction with an ejection fraction of 45-50% with apical thrombosis. Patient did proceed to have surgery which was successful. He was intubated and was in the ICU for greater than 96 hours on mechanical ventilation was successfully extubated to pressors and currently is doing well He is tolerating diet and doing well at this time. Cardiology does not feel like he needs any bridge and as apical thrombosis chronic. Acute respiratory failure- expected - intubated before surgery on 03/14/17 and extubated successful following >96 hrs intubation - Weaned and extubated - Continue with Bronchodilators. 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 periodic breathing treatment SBO - s/p exploratory laparotomy on 03/14/17 -Resolved. tolerating diet Anemia - could be from hemodilution and from blood loss during surgery which is expected - s/p one unit PRBC transfusion Mild hypokalemia - Replaced Acute on Chronic systolic with Ef 10-15% -Diuresis. Metoprolol. Restarted BILL inhibitor with low dose due to blood pressure. CMP - EF 10-15%; CMP is presumably nonischemic given recent negative lexiscan MPI stress test Coronary artery disease - cardiology following Left apical thrombus with subtherapeutic INR on admission -Heparin discontinued patient continues on warfarin. Chronic LV thrombus. INR daily Restarted on Warfain Secondary coagulopathy - Secondary to warfarin. Hypertension - Started on metoprolol and BILL inhibitor History of CVA - Stable. Monitor clinically DVT/GI prophy Patient planned for discharge today but was delayed due to insurance. Discussed with patient. He will be Returning to SNF. History Interval history: patient seen and examined, in no acute distress. Tolerating diet per nursing staff. Weak but per physical therapy improving slowly. Awaiting presets from [facility] prior to placement. No new change Hospitalist Physical - Physical exam Narrative exam: VITAL SIGNS: Reviewed. GENERAL: The patient Cachetic otherwise in no acute distress. Vital signs as documented. HEAD: No signs of head trauma. EYES: Pupils are equal. Extraocular motions intact. EARS: Hearing grossly intact. MOUTH: Oropharynx is normal. NECK: No adenopathy, no JVD. CHEST: Chest with clear breath sounds bilaterally. No wheezes, rales, or rhonchi. CARDIAC: Regular rate and rhythm. S1 and S2, without murmurs, gallops, or rubs. VASCULAR: No Edema. Peripheral pulses normal and equal in all extremities. ABDOMEN: Soft, binders in place. Sterile strips noted around the incision site. Mild dyscomfort at surgical sight. incision intact. No rebound or guarding, and no masses palpated. Bowel Sounds normal. MUSCULOSKELETAL: Mild contraction of right upper extremity chronic.. Extremities without clubbing, cyanosis or edema. NEUROLOGIC EXAM: Alert and oriented x 3. No focal sensory or strength deficits. Speech normal. Follows commands. PSYCHIATRIC: Mood normal. SKIN: No rash or lesions. - Constitutional Vitals: Temp Pulse Resp BP Pulse Ox 98.5 F 60 20 109/59 97 03/25/17 22:37 03/25/17 22:40 03/25/17 22:37 03/25/17 22:40 03/25/17 20:54 General appearance: Present: no acute distress, well-nourished Results - Labs CBC & Chem 7: 03/20/17 06:00 03/20/17 06:00 Labs: Laboratory Last Values WBC 4.7 K/mm3 (4.5-11.0) 03/20/17 06:00 RBC 3.12 M/mm3 (3.65-5.03) L 03/20/17 06:00 Hgb 8.5 gm/dl (11.8-15.2) L 03/20/17 06:00 Hct 26.1 % (35.5-45.6) L 03/20/17 06:00 MCV 84 fl (84-94) 03/20/17 06:00 MCH 27 pg (28-32) L 03/20/17 06:00 MCHC 33 % (32-34) 03/20/17 06:00 RDW 18.9 % (13.2-15.2) H 03/20/17 06:00 Plt Count 215 K/mm3 (140-440) 03/20/17 06:00 Lymph % (Auto) 15.7 % (13.4-35.0) 03/20/17 06:00 [place] % (Auto) 10.6 % (0.0-7.3) H 03/20/17 06:00 Eos % (Auto) 2.3 % (0.0-4.3) 03/20/17 06:00 Baso % (Auto) 0.6 % (0.0-1.8) 03/20/17 06:00 Lymph # 0.7 K/mm3 (1.2-5.4) L 03/20/17 06:00 [place] # 0.5 K/mm3 (0.0-0.8) 03/20/17 06:00 Eos # 0.1 K/mm3 (0.0-0.4) 03/20/17 06:00 Baso # 0.0 K/mm3 (0.0-0.1) 03/20/17 06:00 Add Manual Diff Complete 03/19/17 05:00 Total Counted 100 03/19/17 05:00 Seg Neutrophils % 70.8 % (40.0-70.0) H 03/20/17 06:00 Seg Neuts % (Manual) 94.0 % (40.0-70.0) H 03/19/17 05:00 Band Neutrophils % 0 % 03/19/17 05:00 Lymphocytes % (Manual) 2.0 % (13.4-35.0) L 03/19/17 05:00 Reactive Lymphs % (Man) 0 % 03/19/17 05:00 Monocytes % (Manual) 2.0 % (0.0-7.3) 03/19/17 05:00 Eosinophils % (Manual) 2.0 % (0.0-4.3) 03/19/17 05:00 Basophils % (Manual) 0 % (0.0-1.8) 03/19/17 05:00 Metamyelocytes % 0 % 03/19/17 05:00 Myelocytes % 0 % 03/19/17 05:00 Promyelocytes % 0 % 03/19/17 05:00 Blast Cells % 0 % 03/19/17 05:00 Nucleated RBC % Not Reportable 03/19/17 05:00 Seg Neutrophils # 3.3 K/mm3 (1.8-7.7) 03/20/17 06:00 Seg Neutrophils # Man 5.6 K/mm3 (1.8-7.7) 03/19/17 05:00 Band Neutrophils # 0.0 K/mm3 03/19/17 05:00 Lymphocytes # (Manual) 0.1 K/mm3 (1.2-5.4) L 03/19/17 05:00 Abs React Lymphs (Man) 0.0 K/mm3 03/19/17 05:00 Monocytes # (Manual) 0.1 K/mm3 (0.0-0.8) 03/19/17 05:00 Eosinophils # (Manual) 0.1 K/mm3 (0.0-0.4) 03/19/17 05:00 Basophils # (Manual) 0.0 K/mm3 (0.0-0.1) 03/19/17 05:00 Metamyelocytes # 0.0 K/mm3 03/19/17 05:00 Myelocytes # 0.0 K/mm3 03/19/17 05:00 Promyelocytes # 0.0 K/mm3 03/19/17 05:00 Blast Cells # 0.0 K/mm3 03/19/17 05:00 WBC Morphology Not Reportable 03/19/17 05:00 Hypersegmented Neuts Not Reportable 03/19/17 05:00 Hyposegmented Neuts Not Reportable 03/19/17 05:00 Hypogranular Neuts Not Reportable 03/19/17 05:00 Smudge Cells Not Reportable 03/19/17 05:00 Toxic Granulation Not Reportable 03/19/17 05:00 Toxic Vacuolation Not Reportable 03/19/17 05:00 Dohle Bodies Not Reportable 03/19/17 05:00 Pelger-Huet Anomaly Not Reportable 03/19/17 05:00 Mary Rods Not Reportable 03/19/17 05:00 Platelet Estimate Consistent w auto 03/19/17 05:00 Clumped Platelets Not Reportable 03/19/17 05:00 Plt Clumps, EDTA Not Reportable 03/19/17 05:00 Large Platelets Rare 03/19/17 05:00 Giant Platelets Not Reportable 03/19/17 05:00 Platelet Satelliting Not Reportable 03/19/17 05:00 Plt Morphology Comment Not Reportable 03/19/17 05:00 RBC Morphology Not Reportable 03/19/17 05:00 Dimorphic RBCs Not Reportable 03/19/17 05:00 Polychromasia Rare 03/19/17 05:00 Hypochromasia Not Reportable 03/19/17 05:00 Poikilocytosis 1+ 03/19/17 05:00 Anisocytosis 2+ 03/19/17 05:00 Microcytosis Not Reportable 03/19/17 05:00 Macrocytosis Not Reportable 03/19/17 05:00 Spherocytes Not Reportable 03/19/17 05:00 Pappenheimer Bodies Not Reportable 03/19/17 05:00 Sickle Cells Not Reportable 03/19/17 05:00 Target Cells Not Reportable 03/19/17 05:00 Tear Drop Cells Not Reportable 03/19/17 05:00 Ovalocytes Few 03/19/17 05:00 Helmet Cells Not Reportable 03/19/17 05:00 [place] Bodies Not Reportable 03/19/17 05:00 [place] Rings Not Reportable 03/19/17 05:00 [place] Cells Not Reportable 03/19/17 05:00 Bite Cells Not Reportable 03/19/17 05:00 Crenated Cell Not Reportable 03/19/17 05:00 Elliptocytes 2+ 03/19/17 05:00 Acanthocytes (Spur) Not Reportable 03/19/17 05:00 Rouleaux Not Reportable 03/19/17 05:00 Hemoglobin C Crystals Not Reportable 03/19/17 05:00 Schistocytes Few 03/19/17 05:00 Malaria parasites Not Reportable 03/19/17 05:00 [place] Bodies Not Reportable 03/19/17 05:00 Hem Pathologist Commnt No 03/19/17 05:00 PT 22.7 Sec. (12.2-14.9) H 03/26/17 05:12 INR 1.90 (0.87-1.13) H 03/26/17 05:12 APTT 49.4 Sec. (24.2-36.6) H 03/16/17 21:45 Heparin Anti-Xa Level 0.34 U.I./ml (0.3-0.7) 03/23/17 05:36 ABG pH 7.497 pH Units (7.350-7.450) H 03/19/17 11:35 ABG pCO2 36.3 mm Hg 03/19/17 11:35 ABG pO2 100.9 mm Hg (80.0-90.0) H 03/19/17 11:35 ABG HCO3 27.5 mmol/L (20.0-26.0) H 03/19/17 11:35 ABG O2 Saturation 97.9 % (95.0-99.0) 03/19/17 11:35 ABG O2 Content 11.8 (0.0-44) 03/19/17 11:35 ABG Base Excess 4.1 mmol/L (-2.0-3.0) H 03/19/17 11:35 ABG Hemoglobin 8.6 gm/dl (14.0-18.0) L 03/19/17 11:35 ABG Carboxyhemoglobin 2.1 % (0.0-5.0) 03/19/17 11:35 ABG Methemoglobin 0.5 % (0.0-1.5) 03/19/17 11:35 Oxyhemoglobin 95.4 % (95.0-99.0) 03/19/17 11:35 FiO2 30 % 03/19/17 11:35 Sodium 143 mmol/L (137-145) 03/20/17 06:00 Potassium 3.3 mmol/L (3.6-5.0) L 03/20/17 06:00 Chloride 103.4 mmol/L (98-107) 03/20/17 06:00 Carbon Dioxide 28 mmol/L (22-30) 03/20/17 06:00 Anion Gap 15 mmol/L 03/20/17 06:00 BUN 18 mg/dL (9-20) 03/20/17 06:00 Creatinine 0.7 mg/dL (0.8-1.5) L 03/20/17 06:00 Estimated GFR > 60 ml/min 03/20/17 06:00 BUN/Creatinine Ratio 26 % 03/20/17 06:00 Glucose 117 mg/dL (75-100) H 03/20/17 06:00 POC Glucose 101 (70-105) 03/20/17 17:42 Lactic Acid 1.20 mmol/L (0.7-2.0) 03/18/17 12:59 Calcium 8.4 mg/dL (8.4-10.2) 03/20/17 06:00 Total Bilirubin 1.00 mg/dL (0.1-1.2) 03/20/17 06:00 AST 23 units/L (5-40) 03/20/17 06:00 ALT 15 units/L (7-56) 03/20/17 06:00 Alkaline Phosphatase 62 units/L (35-129) 03/20/17 06:00 Total Creatine Kinase 78 units/L (55-170) 03/14/17 16:10 CK-MB (CK-2) 2.9 ng/mL (0.0-4.0) 03/14/17 16:10 CK-MB (CK-2) Rel Index 3.7 (0-4) 03/14/17 16:10 Troponin T < 0.010 ng/mL (0.00-0.029) 03/14/17 16:10 C-Reactive Protein 17.50 mg/dL (0.00-1.30) H 03/18/17 21:00 Total Protein 5.9 g/dL (6.3-8.2) L 03/20/17 06:00 Albumin 2.5 g/dL (3.9-5) L 03/20/17 06:00 Albumin/Globulin Ratio 0.7 % 03/20/17 06:00 Lipase 52 units/L (13-60) 03/14/17 02:39 Urine Color Yellow (Yellow) 03/23/17 05:00 Urine Turbidity Clear (Clear) 03/23/17 05:00 Urine pH 7.0 (5.0-7.0) 03/23/17 05:00 Ur Specific [place] 1.008 (1.003-1.030) 03/23/17 05:00 Urine Protein <15 mg/dl mg/dL (Negative) 03/23/17 05:00 Urine Glucose (UA) Neg mg/dL (Negative) 03/23/17 05:00 Urine Ketones Neg mg/dL (Negative) 03/23/17 05:00 Urine Blood Sm (Negative) 03/23/17 05:00 Urine Nitrite Neg (Negative) 03/23/17 05:00 Urine Bilirubin Neg (Negative) 03/23/17 05:00 Urine Urobilinogen 4.0 mg/dL (<2.0) 03/23/17 05:00 Ur Leukocyte Esterase Mod (Negative) 03/23/17 05:00 Urine WBC (Auto) 6.0 /HPF (0.0-6.0) 03/23/17 05:00 Urine RBC (Auto) 1.0 /HPF (0.0-6.0) 03/23/17 05:00 Urine Bacteria (Auto) 1+ /HPF (Negative) 03/15/17 08:20 Urine Mucus Few /HPF 03/23/17 05:00 Blood Type O POSITIVE 03/15/17 06:06 Antibody Screen TNR 03/15/17 06:06 BRENDA Antibody Screen Negative 03/15/17 06:06 Crossmatch See Detail 03/15/17 06:06
[2017-03-26] MEDS: LOPRESSOR PO SCH (10:14)
[2017-03-26] MEDS: LASIX PO SCH (10:14)
[2017-03-26] MEDS: ZESTRIL PO SCH (10:15)
[2017-03-26] MEDS: BABY ASPIRIN PO SCH (10:16)
[2017-03-26] MEDS: PEPCID PO SCH (10:16)
[2017-03-26 15:33] VITALS: BP 97/58
[2017-03-26] MEDS: COUMADIN PO SCH (16:49)
--- NOTE | 2017-03-26 18:19 | Progress Note ---
Assessment and Plan Acute Hypoxemic Respiratory Failure on MVS SBO s/p Ex-lap Acute CHF exacerbation Sepsis Syndrome HTN Severe LV Dysfunction Left Ventricular Thrombus Anemia (doing much better today and tolerating SBT well so far) - Continue full anticoagulation re: LV thrombus - outpatient f/up with surgeon - follow INR till therapeutic - prn bronchodilators at this point - improved Subjective Date of service: 03/26/17 Principal diagnosis: Acute Respiratory Failure on MVS; SBO s/p Ex-lap Interval history: Patient is seen today for: Acute Respiratory Failure and Ventilator Management Seen and examined at bedside; 24hour events reviewed; nursing and respiratory care staff consulted; no adverse overnight events reported to me; looks and feels better; no chest pain; + non productive cough; No N/V/F/C; abdominal pain better and tolerating oral meals; no bleeding on anticoagulation Objective Vital Signs - 12hr 03/26/17 03/26/17 03/26/17 07:46 10:14 10:15 Temperature 98.6 F Pulse Rate 72 72 72 Respiratory 20 Rate Blood Pressure 105/59 105/59 105/59 O2 Sat by Pulse 92 Oximetry 03/26/17 15:30 Temperature 98.5 F Pulse Rate 81 Respiratory 20 Rate Blood Pressure 97/58 O2 Sat by Pulse 99 Oximetry Constitutional: no acute distress, alert Eyes: non-icteric ENT: oropharynx moist, other (normocephalic) Neck: supple, no lymphadenopathy, no JVD, other (no thyromegaly) Effort: normal Ascultation: Bilateral: diminished breath sounds Percussion: Bilateral: not dull Cardiovascular: regular rate and rhythm, other (no rubs / murmurs) Gastrointestinal: normoactive bowel sounds, soft, non-tender, non-distended, other (No HSM) Integumentary: normal, other (no rash or petechiae) Extremities: no cyanosis, no edema, pulses normal, no ischemia or petechiae Neurologic: normal mental status, non-focal exam, pupils equal and round, motor strength normal and, other (PERRLA, EOMI) Psychiatric: mood appropriate, affect normal CBC and BMP: 03/20/17 06:00 03/20/17 06:00 ABG, PT/INR, D-dimer: ABG ABG pH 7.497 pH Units (7.350-7.450) H 03/19/17 11:35 ABG pCO2 36.3 mm Hg 03/19/17 11:35 ABG pO2 100.9 mm Hg (80.0-90.0) H 03/19/17 11:35 ABG O2 Saturation 97.9 % (95.0-99.0) 03/19/17 11:35 PT/INR, D-dimer PT 22.7 Sec. (12.2-14.9) H 03/26/17 05:12 INR 1.90 (0.87-1.13) H 03/26/17 05:12 Abnormal lab findings: Abnormal Labs 03/14/17 03/14/17 03/15/17 15:36 Unknown 04:15 RBC 2.98 L Hgb 8.2 L Hct 25.2 L MCV MCH RDW 19.5 H Lymph % (Auto) 12.9 L [place] % (Auto) 9.4 H Lymph # 0.7 L Seg Neutrophils % 76.6 H Seg Neuts % (Manual) Lymphocytes % (Manual) Lymphocytes # (Manual) PT INR APTT Heparin Anti-Xa Level ABG pH 7.349 L ABG pO2 446.4 H 274.8 H ABG HCO3 ABG O2 Saturation 99.6 H 99.5 H ABG Base Excess -3.4 L -4.6 L ABG Hemoglobin 12.3 L 8.6 L Oxyhemoglobin Potassium Chloride Creatinine Glucose POC Glucose Calcium Total Bilirubin AST C-Reactive Protein Total Protein Albumin Urine WBC (Auto) Crossmatch 03/15/17 03/15/17 03/15/17 04:15 04:15 04:45 RBC Hgb Hct MCV MCH RDW Lymph % (Auto) [place] % (Auto) Lymph # Seg Neutrophils % Seg Neuts % (Manual) Lymphocytes % (Manual) Lymphocytes # (Manual) PT 16.9 H INR 1.31 H APTT Heparin Anti-Xa Level ABG pH 7.340 L ABG pO2 168.3 H ABG HCO3 ABG O2 Saturation ABG Base Excess -3.8 L ABG Hemoglobin 7.7 L Oxyhemoglobin Potassium Chloride 114.1 H Creatinine Glucose 112 H POC Glucose Calcium 7.5 L D Total Bilirubin AST C-Reactive Protein Total Protein 5.5 L D Albumin 2.8 L Urine WBC (Auto) Crossmatch 03/15/17 03/15/17 03/15/17 06:06 08:20 13:05 RBC Hgb Hct MCV MCH RDW Lymph % (Auto) [place] % (Auto) Lymph # Seg Neutrophils % Seg Neuts % (Manual) Lymphocytes % (Manual) Lymphocytes # (Manual) PT INR APTT Heparin Anti-Xa Level ABG pH ABG pO2 ABG HCO3 ABG O2 Saturation ABG Base Excess -2.9 L ABG Hemoglobin 8.5 L Oxyhemoglobin 94.3 L Potassium Chloride Creatinine Glucose POC Glucose Calcium Total Bilirubin AST C-Reactive Protein Total Protein Albumin Urine WBC (Auto) 15.0 H Crossmatch See Detail 03/15/17 03/15/17 03/15/17 14:20 15:35 20:29 RBC 3.46 L Hgb 9.7 L Hct 29.4 L MCV MCH RDW 19.0 H Lymph % (Auto) 12.6 L [place] % (Auto) 9.1 H Lymph # 0.8 L Seg Neutrophils % 77.2 H Seg Neuts % (Manual) Lymphocytes % (Manual) Lymphocytes # (Manual) PT INR APTT Heparin Anti-Xa Level ABG pH 7.261 L ABG pO2 170.6 H 229.2 H ABG HCO3 ABG O2 Saturation 99.4 H ABG Base Excess -6.1 L -3.4 L ABG Hemoglobin 10.4 L 8.3 L Oxyhemoglobin Potassium Chloride Creatinine Glucose POC Glucose Calcium Total Bilirubin AST C-Reactive Protein Total Protein Albumin Urine WBC (Auto) Crossmatch 03/15/17 03/16/17 03/16/17 23:09 04:20 05:58 RBC 3.24 L Hgb 9.1 L Hct 27.1 L MCV MCH RDW 19.1 H Lymph % (Auto) [place] % (Auto) Lymph # Seg Neutrophils % Seg Neuts % (Manual) Lymphocytes % (Manual) 11.0 L Lymphocytes # (Manual) 0.6 L PT INR APTT Heparin Anti-Xa Level ABG pH ABG pO2 130.4 H ABG HCO3 ABG O2 Saturation ABG Base Excess -2.4 L ABG Hemoglobin 6.1 L Oxyhemoglobin Potassium Chloride Creatinine Glucose POC Glucose 127 H Calcium Total Bilirubin AST C-Reactive Protein Total Protein Albumin Urine WBC (Auto) Crossmatch 03/16/17 03/16/17 03/16/17 05:58 17:51 21:45 RBC Hgb Hct MCV MCH RDW Lymph % (Auto) [place] % (Auto) Lymph # Seg Neutrophils % Seg Neuts % (Manual) Lymphocytes % (Manual) Lymphocytes # (Manual) PT 17.5 H INR 1.36 H APTT 49.4 H Heparin Anti-Xa Level ABG pH ABG pO2 ABG HCO3 ABG O2 Saturation ABG Base Excess ABG Hemoglobin Oxyhemoglobin Potassium Chloride 108.1 H Creatinine Glucose 117 H POC Glucose Calcium 7.8 L Total Bilirubin AST 113 H C-Reactive Protein 23.90 H Total Protein 5.4 L Albumin 2.7 L Urine WBC (Auto) Crossmatch 03/17/17 03/17/17 03/17/17 00:01 05:00 05:00 RBC 3.06 L Hgb 8.6 L Hct 25.5 L MCV MCH RDW 18.9 H Lymph % (Auto) [place] % (Auto) Lymph # Seg Neutrophils % Seg Neuts % (Manual) Lymphocytes % (Manual) Lymphocytes # (Manual) PT INR APTT Heparin Anti-Xa Level ABG pH ABG pO2 ABG HCO3 ABG O2 Saturation ABG Base Excess ABG Hemoglobin Oxyhemoglobin Potassium 3.2 L Chloride Creatinine Glucose 102 H POC Glucose 108 H Calcium 8.3 L Total Bilirubin AST C-Reactive Protein Total Protein Albumin Urine WBC (Auto) Crossmatch 03/17/17 03/17/17 03/17/17 05:00 15:40 21:30 RBC 2.96 L Hgb 8.2 L Hct 24.5 L MCV 83 L MCH RDW 18.6 H Lymph % (Auto) [place] % (Auto) Lymph # Seg Neutrophils % Seg Neuts % (Manual) 93.0 H Lymphocytes % (Manual) 2.0 L Lymphocytes # (Manual) 0.1 L PT 16.8 H INR 1.30 H APTT Heparin Anti-Xa Level ABG pH ABG pO2 ABG HCO3 ABG O2 Saturation ABG Base Excess ABG Hemoglobin Oxyhemoglobin Potassium Chloride Creatinine Glucose POC Glucose Calcium 8.1 L Total Bilirubin AST C-Reactive Protein Total Protein Albumin Urine WBC (Auto) Crossmatch 03/18/17 03/18/17 03/18/17 00:05 03:45 04:45 RBC 3.12 L Hgb 8.8 L Hct 25.9 L MCV 83 L MCH RDW 18.3 H Lymph % (Auto) 9.5 L [place] % (Auto) Lymph # 0.6 L Seg Neutrophils % 81.7 H Seg Neuts % (Manual) Lymphocytes % (Manual) Lymphocytes # (Manual) PT INR APTT Heparin Anti-Xa Level ABG pH ABG pO2 132.3 H ABG HCO3 29.2 H ABG O2 Saturation ABG Base Excess 4.3 H ABG Hemoglobin 8.7 L Oxyhemoglobin Potassium Chloride Creatinine Glucose POC Glucose 108 H Calcium Total Bilirubin AST C-Reactive Protein Total Protein Albumin Urine WBC (Auto) Crossmatch 03/18/17 03/18/17 03/18/17 04:45 05:44 12:26 RBC Hgb Hct MCV MCH RDW Lymph % (Auto) [place] % (Auto) Lymph # Seg Neutrophils % Seg Neuts % (Manual) Lymphocytes % (Manual) Lymphocytes # (Manual) PT INR APTT Heparin Anti-Xa Level ABG pH 7.526 H ABG pO2 118.5 H ABG HCO3 27.9 H ABG O2 Saturation ABG Base Excess 5.0 H ABG Hemoglobin 9.3 L Oxyhemoglobin Potassium Chloride Creatinine Glucose POC Glucose 108 H Calcium 8.2 L Total Bilirubin 1.40 H AST 53 H C-Reactive Protein Total Protein 6.1 L Albumin 2.7 L Urine WBC (Auto) Crossmatch 03/18/17 03/18/17 03/18/17 14:10 21:00 Unknown RBC 3.17 L Hgb 8.7 L Hct 26.5 L MCV MCH 27 L RDW 18.4 H Lymph % (Auto) 9.4 L [place] % (Auto) Lymph # 0.6 L Seg Neutrophils % 83.7 H Seg Neuts % (Manual) Lymphocytes % (Manual) Lymphocytes # (Manual) PT INR APTT Heparin Anti-Xa Level 0.22 L ABG pH ABG pO2 ABG HCO3 ABG O2 Saturation ABG Base Excess ABG Hemoglobin Oxyhemoglobin Potassium Chloride Creatinine Glucose POC Glucose Calcium Total Bilirubin AST C-Reactive Protein 17.50 H Total Protein Albumin Urine WBC (Auto) Crossmatch 03/19/17 03/19/17 03/19/17 04:15 05:00 05:00 RBC 3.05 L Hgb 8.4 L Hct 25.1 L MCV 83 L MCH RDW 18.9 H Lymph % (Auto) [place] % (Auto) Lymph # Seg Neutrophils % Seg Neuts % (Manual) 94.0 H Lymphocytes % (Manual) 2.0 L Lymphocytes # (Manual) 0.1 L PT INR APTT Heparin Anti-Xa Level ABG pH 7.470 H ABG pO2 115.3 H ABG HCO3 26.4 H ABG O2 Saturation ABG Base Excess ABG Hemoglobin 8.9 L Oxyhemoglobin Potassium 3.2 L Chloride Creatinine 0.7 L Glucose POC Glucose Calcium Total Bilirubin AST C-Reactive Protein Total Protein 6.1 L Albumin 2.7 L Urine WBC (Auto) Crossmatch 03/19/17 03/19/17 03/19/17 11:35 23:53 Unknown RBC Hgb Hct MCV MCH RDW Lymph % (Auto) [place] % (Auto) Lymph # Seg Neutrophils % Seg Neuts % (Manual) Lymphocytes % (Manual) Lymphocytes # (Manual) PT INR APTT Heparin Anti-Xa Level 0.23 L ABG pH 7.497 H ABG pO2 100.9 H ABG HCO3 27.5 H ABG O2 Saturation ABG Base Excess 4.1 H ABG Hemoglobin 8.6 L Oxyhemoglobin Potassium Chloride Creatinine Glucose POC Glucose 126 H Calcium Total Bilirubin AST C-Reactive Protein Total Protein Albumin Urine WBC (Auto) Crossmatch 03/20/17 03/20/17 03/20/17 05:40 06:00 06:00 RBC 3.12 L Hgb 8.5 L Hct 26.1 L MCV MCH 27 L RDW 18.9 H Lymph % (Auto) [place] % (Auto) 10.6 H Lymph # 0.7 L Seg Neutrophils % 70.8 H Seg Neuts % (Manual) Lymphocytes % (Manual) Lymphocytes # (Manual) PT INR APTT Heparin Anti-Xa Level ABG pH ABG pO2 ABG HCO3 ABG O2 Saturation ABG Base Excess ABG Hemoglobin Oxyhemoglobin Potassium 3.3 L Chloride Creatinine 0.7 L Glucose 117 H POC Glucose 125 H Calcium Total Bilirubin AST C-Reactive Protein Total Protein 5.9 L Albumin 2.5 L Urine WBC (Auto) Crossmatch 03/20/17 03/21/17 03/22/17 14:26 13:53 04:56 RBC Hgb Hct MCV MCH RDW Lymph % (Auto) [place] % (Auto) Lymph # Seg Neutrophils % Seg Neuts % (Manual) Lymphocytes % (Manual) Lymphocytes # (Manual) PT 16.1 H INR 1.23 H APTT Heparin Anti-Xa Level 0.24 L 0.19 L ABG pH ABG pO2 ABG HCO3 ABG O2 Saturation ABG Base Excess ABG Hemoglobin Oxyhemoglobin Potassium Chloride Creatinine Glucose POC Glucose Calcium Total Bilirubin AST C-Reactive Protein Total Protein Albumin Urine WBC (Auto) Crossmatch 03/22/17 03/23/17 03/24/17 13:22 05:36 04:49 RBC Hgb Hct MCV MCH RDW Lymph % (Auto) [place] % (Auto) Lymph # Seg Neutrophils % Seg Neuts % (Manual) Lymphocytes % (Manual) Lymphocytes # (Manual) PT 18.0 H 17.3 H INR 1.41 H 1.34 H APTT Heparin Anti-Xa Level 0.11 L ABG pH ABG pO2 ABG HCO3 ABG O2 Saturation ABG Base Excess ABG Hemoglobin Oxyhemoglobin Potassium Chloride Creatinine Glucose POC Glucose Calcium Total Bilirubin AST C-Reactive Protein Total Protein Albumin Urine WBC (Auto) Crossmatch 03/25/17 03/26/17 05:36 05:12 RBC Hgb Hct MCV MCH RDW Lymph % (Auto) [place] % (Auto) Lymph # Seg Neutrophils % Seg Neuts % (Manual) Lymphocytes % (Manual) Lymphocytes # (Manual) PT 19.8 H 22.7 H INR 1.60 H 1.90 H APTT Heparin Anti-Xa Level ABG pH ABG pO2 ABG HCO3 ABG O2 Saturation ABG Base Excess ABG Hemoglobin Oxyhemoglobin Potassium Chloride Creatinine Glucose POC Glucose Calcium Total Bilirubin AST C-Reactive Protein Total Protein Albumin Urine WBC (Auto) Crossmatch Allied health notes reviewed: nursing
== END 2017-03-26 19:05 | DRG 356 ==
LOC: ED 01:14 → 4A 05:15 → CC1 15:59 → 4A 03-20 21:46 → 3A 03-23 16:22
PROVIDERS: ADMIT Internal Medicine; ATTEND Internal Medicine
PROC: 4A033R1 Measurement of Arterial Saturation, Peripheral, Percutaneous Approach (ICD-10-PCS; 2017-03-14)
PROC: 30233L1 Transfusion of Nonautologous Fresh Plasma into Peripheral Vein, Percutaneous Approach (ICD-10-PCS; 2017-03-15)
PROC: 30233N1 Transfusion of Nonautologous Red Blood Cells into Peripheral Vein, Percutaneous Approach (ICD-10-PCS; 2017-03-15)
PROC: 30233K1 Transfusion of Nonautologous Frozen Plasma into Peripheral Vein, Percutaneous Approach (ICD-10-PCS; 2017-03-15)
PROC: 0WJP0ZZ Inspection of Gastrointestinal Tract, Open Approach (ICD-10-PCS; principal; 2017-03-16)
PROC: 5A1955Z Respiratory Ventilation, Greater than 96 Consecutive Hours (ICD-10-PCS; 2017-03-16)
PROC: 0BH17EZ Insertion of Endotracheal Airway into Trachea, Via Natural or Artificial Opening (ICD-10-PCS; 2017-03-16)
DX: K56.609 Unspecified intestinal obstruction, unspecified as to partial versus complete obstruction (principal); J96.01 Acute respiratory failure with hypoxia; I50.41 Acute combined systolic (congestive) and diastolic (congestive) heart failure; J44.1 Chronic obstructive pulmonary disease with (acute) exacerbation; I42.9 Cardiomyopathy, unspecified; N17.9 Acute kidney failure, unspecified; I24.0 Acute coronary thrombosis not resulting in myocardial infarction; D68.9 Coagulation defect, unspecified; I11.0 Hypertensive heart disease with heart failure; Z86.73 Personal history of transient ischemic attack (TIA), and cerebral infarction without residual deficits; Z79.82 Long term (current) use of aspirin; E78.5 Hyperlipidemia, unspecified; I25.2 Old myocardial infarction; D50.0 Iron deficiency anemia secondary to blood loss (chronic); E87.6 Hypokalemia
CPT/HCPCS: 36415; 36600; 71010; 74000; 74176; 80048; 80053; 81001; 82140; 82550; 82553; 82803; 82962; 83690; 84484; 85007; 85025; 85520; 85610; 85730; 86140; 86850; 86900; 86901; 87040; 87070; 87086; 87205; 93005; 93010; 93970; 94002; 94003; 94760; A6250; A9270-GY; G8978-GP; G8979-GP; J0610; J0690; J1170; J1250; J1644; J1650; J1940; J1956; J2001; J2270; J2704; J2765; J3010; J3430; J3480; J7030; J7040; J7042; P9016; P9017